=== PATIENT | male | born 1950 | race Caucasian/White ===

== ENCOUNTER 2021-05-19 07:09 | Outpatient (CLI) | payer OTHER, SELFPAY ==
--- NOTE | 2021-05-19 07:21 | XR_ITS ---
WS: [id number] XR chest 2V* [id number] REASON FOR EXAM: LOW PITCHED RHONCHI FINDINGS: The heart and mediastinum are within normal limits. Calcified granulomatous changes in both hemithoraces. Compared to the previous examination of 06/15/2009, there are interstitial reticular opacities in both lower lungs. Mild changes of degenerative spondylosis in the mid and lower thoracic spine. XR/XR chest 2V* [id number] IMPRESSION: Interstitial opacities in the lower lung ansari of unknown chronicity. Compatib le with subacute/acute pneumonitis.
== END 2021-05-19 07:10 | disposition home or self-care (01) ==
PROVIDERS: PCP Family Medicine; Visit Provider Registered Nurse
DX: R09.89 Other specified symptoms and signs involving the circulatory and respiratory systems (principal)
CPT/HCPCS: 71046

== ENCOUNTER 2021-06-20 07:00 | Outpatient (CLI) | payer OTHER, SELFPAY ==
--- NOTE | 2021-06-20 07:08 | US_ITS ---
WS: [id number] RENAL ULTRASOUND HISTORY: STAGE 3B CKD COMPARISON: None available. TECHNIQUE: 2-D and color Doppler imaging of the kidney submitted. Right kidney: 12.4 cm x 6.0 cm x 5.5 cm. Normal echogenicity with no hydronephrosis or mass. Left kidney: 13.2 cm x 4.4 cm x 4.8 cm. Normal echogenicity with no hydronephrosis or mass. Aorta: Normal. Urinary Bladder: Well-distended urinary bladder. There is very mild diffuse wall thickening which may be due to outlet obstruction. Mixed echogenicity within the prostate gland. Cystic area centrally wi thin the prostate. US/US renal BI* [id number] IMPRESSION: 1. Normal renal ultrasound. No obstruction or chronic medical renal disease. 2. Mildly heterogeneous prostate gland with minimal encroachment into the blad lance.
== END 2021-06-20 07:01 | disposition home or self-care (01) ==
LOC: RAD 07:03
PROVIDERS: PCP Family Medicine; Visit Provider Registered Nurse
DX: N18.32 Chronic kidney disease, stage 3b (principal)
CPT/HCPCS: 76770

== ENCOUNTER 2021-12-15 14:25 | Emergency (ER) | payer OTHER, SELFPAY ==
[2021-12-15] VITALS (43 sets, daily range): BP systolic 95–137; BP diastolic 55–65; PULSE 61–98; RESP 11–24; TEMP 37.6–37.7; O2SAT 97–100; BMI 28.7
--- NOTE | 2021-12-15 14:30 | PC.NURSE ---
ESAU VICENTE, AND DR BALLESTEROS AT BEDSIDE.
[2021-12-15] MEDS: succinylcholine 20 mg/mL SDV 10mL 100 MG IVP (14:36)
[2021-12-15] MEDS: propofol 10 mg/mL SDV 20 mL 100 MG IVP (14:46)
--- NOTE | 2021-12-15 14:46 | ECG_ITS ---
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 Measurements Intervals [place] Rate: 105 P: [place]: QRS: -58 QRSD: 101 T: 84 QT: 322 QTc: 427 Interpretive Statements ATRIAL FIBRILLATION WITH RAPID VENTRICULAR RESPONSE LEFT AXIS DEVIATION [QRS AXIS < -30] INCOMPLETE RIGHT BUNDLE BRANCH BLOCK [90+ ms QRS DURATION, TERMINAL R IN V1/V2, 40+ ms S IN I/aVL/V4/V5/V6] MODERATE ST DEPRESSION [0.05+ mV ST DEPRESSION] INTERPRETATION BASED ON A DEFAULT AGE OF 40 YEARS No previous ECG available for comparison Electronically Signed On 12-15-2021 22:42:11 CDT by Yumi Hodge M.D. [id number]
--- NOTE | 2021-12-15 14:46 | XRR_ITS ---
PROCEDURE INFORMATION: Exam: XR Chest Exam date and time: 12/15/2021 2:50 PM Age: 71 years old Clinical indication: Device placement; Ett placement (vent status); Additional info: Post-intubation TECHNIQUE: Imaging protocol: Radiologic exam of the chest. Views: 1 view. COMPARISON: CR XR chest 2V* [id number] 05/19/2021 7:43 AM FINDINGS: Tubes, catheters and devices: Endotracheal tube tip in place 5 cm above the haydee. Enteric tube tip below the diaphragm the gastric bubble. Lungs: Right lung airspace infiltrate, greatest in the upper lobe. Pleural spaces: Unremarkable. No pleural effusion. No pneumothorax. Heart/Mediastinum: Cardiomegaly. Bones/joints: Unremarkable. XR/XR chest 1V portable [id number] IMPRESSION: 1. Endotracheal tube tip in place 5 cm above the haydee. 2. Enteric tube tip below the diaphragm the gastric bubble. 3. Right lung airspace infiltrate, greatest in the upper lobe. 4. Cardiomegaly.
--- NOTE | 2021-12-15 14:55 | PC.NURSE ---
JEWELRY ESTIMATOR WITH PORTABLE XRAY AND DR. BALLESTEROS AT BEDSIDE.
--- NOTE | 2021-12-15 15:00 | ED_ITS ---
Documented by User: Mike Weathers DO 12/22/21 12:13 HPI - SOB/Dyspnea General: Chief Complaint: Shortness of Breath/Dyspnea Stated Complaint: COUGH UP BLOOD/SOB Time Seen by Provider: 12/15/21 14:26 Source: patient and EMS Mode of arrival: EMS Limitations: physical limitation (Respiratory distress) History of Present Illness: HPI Narrative: 71-year-old male presents emergency room via EMS in acute respiratory distress with tripoding with extreme difficulty breathing was able to tell me he is okay with being ventilated and he had a procedure this morning at [facility] where he had a bronchoscopy with biopsy he is having hemoptysis and severe respiratory distress. MD elicited complaint: shortness of breath and cough Pertinent past history: COPD Onset (ago): hour(s) Timing: constant Severity: severe Exacerbating factors: nothing Relieving factors: nothing Known history of: COPD Associated symptoms: Reports hemoptysis; Deny chest pain, cough, myalgias, paresthesias, rash or sense of impending doom Treatment prior to arrival: oxygen, bronchodilator and other (IV Solu-Medrol) Review of Systems General: Reports: ROS unobtainable due to medical condition Card: Denies: chest pain Resp: Reports: hemoptysis [facility] ED PFSH: Medical History (Updated 12/15/21 @ 15:09 by Mike Weathers DO) COPD (chronic obstructive pulmonary disease) Supplemental [facility] Information: due to endotracheal tube and due to other reason (Respiratory distress) Physical Exam HENMT: COMMON NORMALS: normocephalic and atraumatic HEAD & SCALP: normocephalic and atraumatic Resp: COMMON NORMALS: normal respiratory effort, No retractions, No use of accessory muscles and clear to auscultation bilaterally AUSCULTATION: clear to auscultation bilaterally Cardio: COMMON NORMALS: regular rate, regular rhythm and No murmurs present (Cardio) RATE: regular rate RHYTHM: regular rhythm GI: COMMON NORMALS: Soft to palpation and No hepatosplenomegaly present AUSCULTATION: Yes normoactive bowel sounds PALPATION: Yes Soft to palpation, No Tenderness to palpation present (GI), No Guarding due to palpation present (GI) and Yes No hepatosplenomegaly present Extremity: COMMON NORMALS: normal to inspection, capillary refill normal, no clubbing, cyanosis or edema, no calf tenderness and no pedal edema Skin: COMMON NORMALS: no rashes or lesions noted GENERAL SKIN EXAM: no rashes or lesions noted Procedures Intubation Time out performed: Yes sedative: Etomidate paralytic: Succinylcholine ET Tube Size: 8.5 ET Tube Uncuffed: Yes Tube Secured Depth (cm): 24 Tube Secured Location: teeth Tube Placement Confirmation: visualized tube passing through cords, equal breath sounds bilaterally, no breath sounds over epigastrium and confirmation by capnometry Patient Tolerated Procedure: well Additional Comments: Initial intubation there is a leak around the tube the tube was exchanged and we are able to see it in place without any difficulty. Patient ventilated without difficulty oxygenation improved. Course Vital Signs: Vital signs: Vital Signs Temperature 99.6 F 12/15/21 21:20 Pulse Rate 62 12/15/21 21:20 Respiratory Rate 16 12/15/21 21:20 Blood Pressure 121/55 12/15/21 21:20 Pulse Oximetry 100 12/15/21 21:20 MDM - SOB/Dyspnea Medical Decision Making Patient intubated on arrival due to severe respiratory distress we are able to track down that he had a bronchoscopy done earlier today at [facility]. They do not have available beds at their facility for ICU and we do not have pulmonology coverage. Discussed with hospitalist we all agreed to be best to transfer the patient were at change of shift care transferred to Dr. Villar he will affect transfer. Patient presents here with hemoptysis respiratory distress along with a likely pneumonia after a bronchoscopy done today. Patient was intubated here started on IV antibiotics we do not have pulmonology here and will transfer her him to [place] for higher level of care for pulmonary critical care. Lab Data : 12/15/21 17:47 12/15/21 14:40 Labs/Radiology: Radiology Impressions Chest X-Ray 12/15/21 14:46 IMPRESSION: 1. Endotracheal tube tip in place 5 cm above the haydee. 2. Enteric tube tip below the diaphragm the gastric bubble. 3. Right lung airspace infiltrate, greatest in the upper lobe. 4. Cardiomegaly. Laboratory Results WBC 34.7 10^3/uL (4.0-10.0) H* 12/15/21 14:40 RBC 4.99 10^6/uL (4.1-5.3) 12/15/21 14:40 Hgb 13.4 g/dL (11.7-16.6) 12/15/21 14:40 Hct 41.5 % (42.0-52.0) L 12/15/21 14:40 MCV 83.2 fl (80-94) 12/15/21 14:40 MCH 26.9 pg (28.0-34.0) L 12/15/21 14:40 MCHC 32.3 g/dL (30.0-36.0) 12/15/21 14:40 RDW 16.1 % (12.1-15.1) H 12/15/21 14:40 Plt Count 157 10^3/cmm (130-400) D 12/15/21 17:47 MPV 10.4 fL (7.4-10.4) 12/15/21 14:40 Lymph % (Auto) Not Reportable 12/15/21 14:40 [place] % (Auto) Not Reportable 12/15/21 14:40 Lymph # (Auto) Not Reportable 12/15/21 14:40 [place] # (Auto) Not Reportable 12/15/21 14:40 Total Counted 100 (0-100) 12/15/21 14:40 Atypical Lymphs % 24.0 % (0-5) H 12/15/21 14:40 Absolute Neutrophils 18.0 10^3/cmm (1.4-6.5) H 12/15/21 14:40 Segmented Neutrophils 52 % 12/15/21 14:40 Abs Segm Neuts (Man) 18.0 10/cmm (1.6-7.1) H 12/15/21 14:40 Band Neutrophils 0.0 % 12/15/21 14:40 Abs Band Neuts (Man) 0.0 10^3/cmm (0.0-1.2) 12/15/21 14:40 Absolute Lymphocytes 14.6 10^3/cmm (1.2-3.4) H 12/15/21 14:40 Lymphocytes (Manual) 18 % 12/15/21 14:40 Monocytes (Manual) 2.0 % 12/15/21 14:40 Absolute Monocytes 0.7 10^3/cmm (0.1-0.6) H 12/15/21 14:40 Eosinophils (Manual) 1 % 12/15/21 14:40 Absolute Eosinophils 0.3 10^3/cmm (0.0-0.7) 12/15/21 14:40 Basophils (Manual) 0.0 % 12/15/21 14:40 Absolute Basophils 0.0 10^3/cmm (0.0-0.2) 12/15/21 14:40 Platelet Estimate Normal (Normal) 12/15/21 14:40 PT 14.70 SECONDS (12.1-14.9) 12/15/21 16:42 INR 1.12 (0.8-1.2) 12/15/21 16:42 APTT 26.3 SECONDS (23.9-36.7) 12/15/21 16:42 Specimen Type Arterial 12/15/21 17:06 Sample Site Brachial, right 12/15/21 17:06 ABG pH 7.33 (7.35-7.45) L 12/15/21 17:06 ABG pCO2 57.4 mmHg (35-45) H 12/15/21 17:06 ABG pO2 136.0 mmHg (80.0-100.0) H 12/15/21 17:06 ABG HCO3 30.3 mmol/L (22-26) H 12/15/21 17:06 ABG Base Excess 3.0 mmol/L (-2.0-2.0) H 12/15/21 17:06 Saad Test N/a 12/15/21 17:06 Hematocrit 40.6 % (42-52) L 12/15/21 17:06 O2 Delivery Device Vent 12/15/21 17:06 O2 Liters/Min 15.0 % 12/15/21 15:00 FiO2 70.0 % 12/15/21 17:06 Tidal Volume 0.50 12/15/21 17:06 PEEP 8.0 cmH20 12/15/21 17:06 Salesperson Sheet Music ID Odilon 12/15/21 17:06 Sodium 133 mmol/L (136-145) L 12/15/21 14:40 Potassium 5.0 mmol/L (3.5-5.1) 12/15/21 14:40 Chloride 95 mmol/L (98-107) L 12/15/21 14:40 Carbon Dioxide 29 mmol/L (22-29) 12/15/21 14:40 Anion Gap 14.0 (5-19) 12/15/21 14:40 BUN 22 mg/dL (8-23) 12/15/21 14:40 Creatinine 1.0 mg/dL (0.7-1.2) 12/15/21 14:40 GFR Calculation 74.1 mL/min (90-130) L 12/15/21 14:40 Glucose 171 mg/dL (65-115) H 12/15/21 14:40 Calculated Osmolality 283 mOsm/kg (285-295) L 12/15/21 14:40 Lactic Acid 1.1 mmol/L (0.5-2.2) 12/15/21 17:47 Calcium 9.0 mg/dL (8.5-10.5) 12/15/21 14:40 Total Bilirubin 0.7 mg/dL (0.15-1.2) 12/15/21 14:40 AST 22 U/L (0-40) 12/15/21 14:40 ALT 20 U/L (0-41) 12/15/21 14:40 Alkaline Phosphatase 107 IU/L (40-130) 12/15/21 14:40 Troponin T Baseline 60 ng/L (0-15) H 12/15/21 14:40 Troponin T 120 Minute 107.2 ng/L (0-15) H 12/15/21 16:42 Delta Troponin T 47.2 ABS# (0-10) H* 12/15/21 16:42 Total Protein 7.3 g/dL (6.6-8.7) 12/15/21 14:40 Albumin 3.8 g/dL (3.5-5.2) 12/15/21 14:40 Globulin 3.5 g/dL (1.3-4.6) 12/15/21 14:40 Urine Color Yellow (Yellow) 12/15/21 15:08 Urine Appearance Clear (CLEAR) 12/15/21 15:08 Urine pH 6.5 (5-7) 12/15/21 15:08 Ur Specific [place] 1.015 (1.005-1.030) 12/15/21 15:08 Urine Protein 1+ (Negative) H 12/15/21 15:08 Urine Glucose (UA) Norm (Normal) 12/15/21 15:08 Urine Ketones Negative (Negative) 12/15/21 15:08 Urine Blood Neg (Negative) 12/15/21 15:08 Urine Nitrate Negative (Negative) 12/15/21 15:08 Urine Bilirubin Neg (Negative) 12/15/21 15:08 Urine Urobilinogen 1 mg/dL (Negative) H 12/15/21 15:08 Ur Leukocyte Esterase Negative (Negative) 12/15/21 15:08 Urine RBC 0-4 /hpf (0-2) H 12/15/21 15:08 Urine WBC 0-4 /hpf (0-5) H 12/15/21 15:08 Ur Squamous Epith Cells 0-4 /hpf (0-5) H 12/15/21 15:08 Amorphous Sediment Not Reportable 12/15/21 15:08 Urine Bacteria None /hpf (NONE) 12/15/21 15:08 Critical Care Time Critical Care Time: Critical Care Time: Yes Discharge Plan Discharge Patient Disposition: Xfer Short-Term Hosp Condition: Stable Referrals: Jayda Lucas MD [Primary Care Provider] - Coding Level of Care Code ED Shoe Stock Associate for Chg Fwd Exam Detailed Documented by User: Nate Villar MD 12/15/21 20:47 HPI - SOB/Dyspnea General: Chief Complaint: Shortness of Breath/Dyspnea Stated Complaint: COUGH UP BLOOD/SOB Time Seen by Provider: 12/15/21 14:26 [facility] ED PFSH: Medical History (Updated 12/15/21 @ 15:09 by Mike Weathers DO) COPD (chronic obstructive pulmonary disease) Course Vital Signs: Vital signs: Vital Signs Temperature 99.6 F 12/15/21 21:20 Pulse Rate 62 12/15/21 21:20 Respiratory Rate 16 12/15/21 21:20 Blood Pressure 121/55 12/15/21 21:20 Pulse Oximetry 100 12/15/21 21:20 MDM - SOB/Dyspnea Medical Decision Making Patient presents here with hemoptysis respiratory distress along with a likely pneumonia after a bronchoscopy done today. Patient was intubated here started on IV antibiotics we do not have pulmonology here and will transfer her him to [place] for higher level of care for pulmonary critical care. Lab Data : 12/15/21 17:47 12/15/21 14:40 Labs/Radiology: Radiology Impressions Chest X-Ray 12/15/21 14:46 IMPRESSION: 1. Endotracheal tube tip in place 5 cm above the haydee. 2. Enteric tube tip below the diaphragm the gastric bubble. 3. Right lung airspace infiltrate, greatest in the upper lobe. 4. Cardiomegaly. Laboratory Results WBC 34.7 10^3/uL (4.0-10.0) H* 12/15/21 14:40 RBC 4.99 10^6/uL (4.1-5.3) 12/15/21 14:40 Hgb 13.4 g/dL (11.7-16.6) 12/15/21 14:40 Hct 41.5 % (42.0-52.0) L 12/15/21 14:40 MCV 83.2 fl (80-94) 12/15/21 14:40 MCH 26.9 pg (28.0-34.0) L 12/15/21 14:40 MCHC 32.3 g/dL (30.0-36.0) 12/15/21 14:40 RDW 16.1 % (12.1-15.1) H 12/15/21 14:40 Plt Count 157 10^3/cmm (130-400) D 12/15/21 17:47 MPV 10.4 fL (7.4-10.4) 12/15/21 14:40 Lymph % (Auto) Not Reportable 12/15/21 14:40 [place] % (Auto) Not Reportable 12/15/21 14:40 Lymph # (Auto) Not Reportable 12/15/21 14:40 [place] # (Auto) Not Reportable 12/15/21 14:40 Total Counted 100 (0-100) 12/15/21 14:40 Atypical Lymphs % 24.0 % (0-5) H 12/15/21 14:40 Absolute Neutrophils 18.0 10^3/cmm (1.4-6.5) H 12/15/21 14:40 Segmented Neutrophils 52 % 12/15/21 14:40 Abs Segm Neuts (Man) 18.0 10/cmm (1.6-7.1) H 12/15/21 14:40 Band Neutrophils 0.0 % 12/15/21 14:40 Abs Band Neuts (Man) 0.0 10^3/cmm (0.0-1.2) 12/15/21 14:40 Absolute Lymphocytes 14.6 10^3/cmm (1.2-3.4) H 12/15/21 14:40 Lymphocytes (Manual) 18 % 12/15/21 14:40 Monocytes (Manual) 2.0 % 12/15/21 14:40 Absolute Monocytes 0.7 10^3/cmm (0.1-0.6) H 12/15/21 14:40 Eosinophils (Manual) 1 % 12/15/21 14:40 Absolute Eosinophils 0.3 10^3/cmm (0.0-0.7) 12/15/21 14:40 Basophils (Manual) 0.0 % 12/15/21 14:40 Absolute Basophils 0.0 10^3/cmm (0.0-0.2) 12/15/21 14:40 Platelet Estimate Normal (Normal) 12/15/21 14:40 PT 14.70 SECONDS (12.1-14.9) 12/15/21 16:42 INR 1.12 (0.8-1.2) 12/15/21 16:42 APTT 26.3 SECONDS (23.9-36.7) 12/15/21 16:42 Specimen Type Arterial 12/15/21 17:06 Sample Site Brachial, right 12/15/21 17:06 ABG pH 7.33 (7.35-7.45) L 12/15/21 17:06 ABG pCO2 57.4 mmHg (35-45) H 12/15/21 17:06 ABG pO2 136.0 mmHg (80.0-100.0) H 12/15/21 17:06 ABG HCO3 30.3 mmol/L (22-26) H 12/15/21 17:06 ABG Base Excess 3.0 mmol/L (-2.0-2.0) H 12/15/21 17:06 Saad Test N/a 12/15/21 17:06 Hematocrit 40.6 % (42-52) L 12/15/21 17:06 O2 Delivery Device Vent 12/15/21 17:06 O2 Liters/Min 15.0 % 12/15/21 15:00 FiO2 70.0 % 12/15/21 17:06 Tidal Volume 0.50 12/15/21 17:06 PEEP 8.0 cmH20 12/15/21 17:06 Salesperson Sheet Music ID Odilon 12/15/21 17:06 Sodium 133 mmol/L (136-145) L 12/15/21 14:40 Potassium 5.0 mmol/L (3.5-5.1) 12/15/21 14:40 Chloride 95 mmol/L (98-107) L 12/15/21 14:40 Carbon Dioxide 29 mmol/L (22-29) 12/15/21 14:40 Anion Gap 14.0 (5-19) 12/15/21 14:40 BUN 22 mg/dL (8-23) 12/15/21 14:40 Creatinine 1.0 mg/dL (0.7-1.2) 12/15/21 14:40 GFR Calculation 74.1 mL/min (90-130) L 12/15/21 14:40 Glucose 171 mg/dL (65-115) H 12/15/21 14:40 Calculated Osmolality 283 mOsm/kg (285-295) L 12/15/21 14:40 Lactic Acid 1.1 mmol/L (0.5-2.2) 12/15/21 17:47 Calcium 9.0 mg/dL (8.5-10.5) 12/15/21 14:40 Total Bilirubin 0.7 mg/dL (0.15-1.2) 12/15/21 14:40 AST 22 U/L (0-40) 12/15/21 14:40 ALT 20 U/L (0-41) 12/15/21 14:40 Alkaline Phosphatase 107 IU/L (40-130) 12/15/21 14:40 Troponin T Baseline 60 ng/L (0-15) H 12/15/21 14:40 Troponin T 120 Minute 107.2 ng/L (0-15) H 12/15/21 16:42 Delta Troponin T 47.2 ABS# (0-10) H* 12/15/21 16:42 Total Protein 7.3 g/dL (6.6-8.7) 12/15/21 14:40 Albumin 3.8 g/dL (3.5-5.2) 12/15/21 14:40 Globulin 3.5 g/dL (1.3-4.6) 12/15/21 14:40 Urine Color Yellow (Yellow) 12/15/21 15:08 Urine Appearance Clear (CLEAR) 12/15/21 15:08 Urine pH 6.5 (5-7) 12/15/21 15:08 Ur Specific [place] 1.015 (1.005-1.030) 12/15/21 15:08 Urine Protein 1+ (Negative) H 12/15/21 15:08 Urine Glucose (UA) Norm (Normal) 12/15/21 15:08 Urine Ketones Negative (Negative) 12/15/21 15:08 Urine Blood Neg (Negative) 12/15/21 15:08 Urine Nitrate Negative (Negative) 12/15/21 15:08 Urine Bilirubin Neg (Negative) 12/15/21 15:08 Urine Urobilinogen 1 mg/dL (Negative) H 12/15/21 15:08 Ur Leukocyte Esterase Negative (Negative) 12/15/21 15:08 Urine RBC 0-4 /hpf (0-2) H 12/15/21 15:08 Urine WBC 0-4 /hpf (0-5) H 12/15/21 15:08 Ur Squamous Epith Cells 0-4 /hpf (0-5) H 12/15/21 15:08 Amorphous Sediment Not Reportable 12/15/21 15:08 Urine Bacteria None /hpf (NONE) 12/15/21 15:08 Critical Care Time Critical Care Time: Critical Care Time: Yes Total Critical Care Time: 60 Attestation: The high probability of a clinically significant, sudden or life threatening deterioration of the patient's resp system(s) required my full and direct attention, intervention and personal management. The critical care time is as shown. This time is in addition to time spent performing any reported procedures but includes the following: [x] Data and vital sign review and interpretation [x] Patient assessment, examination and intervention [x] Documentation [x] Medication orders and management Discharge Plan Discharge Patient Disposition: Xfer Short-Term Hosp Condition: Stable Referrals: Jayda Lucas MD [Primary Care Provider] - Coding Level of Care Code ED Shoe Stock Associate for Chg Fwd Exam Detailed
--- NOTE | 2021-12-15 15:01 | PC.NURSE ---
PT PLACED ON CONTINUOUS SPO2, NIBP, AND CM.
[2021-12-15 15:05] LABS: Arterial Blood Gas Hematocrit 42.6 % (42-52); Base Excess ABG -0.9 mmol/L (-2.0-2.0); Blood Gas Sample Site Brachial, right; Blood Gas Sample Type Arterial; Blood Gas Tidal Volume 0.45; HCO3 ABG 29.8 mmol/L (22-26)
[2021-12-15 15:06] LABS: Oxygen Device AMBU
[2021-12-15 15:07] LABS: Hematocrit 41.5 % (42.0-52.0); Hemoglobin 13.4 g/dL (11.7-16.6); Mean Corpuscular HGB Conc 32.3 g/dL (30.0-36.0); Mean Corpuscular Hemoglobin 26.9 pg (28.0-34.0); Mean Corpuscular Volume 83.2 fl (80-94); Mean Platelet Volume 10.4 fL (7.4-10.4); Platelet Count 235 10^3/cmm (130-400); Red Blood Count 4.99 10^6/uL (4.1-5.3); Red Cell Distribution Width 16.1 % (12.1-15.1)
[2021-12-15 15:08] LABS: ABG PH Result 7.18 (7.35-7.45)
[2021-12-15] MEDS: propofol 1,000 MG/100 ML INJ 27.22 MG IV (15:08)
[2021-12-15 15:09] LABS: ABG PCO2 80.5 mmHg (35-45)
[2021-12-15 15:12] LABS: Troponin(5th) Baseline 60 ng/L (0-15)
[2021-12-15] MEDS: piperacillin-tazobactam 3.375 GM in sodium chloride 0.9% (plus) 50 ML IV (15:14)
[2021-12-15 15:18] LABS: Alanine Aminotransferase 20 U/L (0-41); Albumin Level 3.8 g/dL (3.5-5.2); Alkaline Phosphatase 107 IU/L (40-130); Aspartate Amino Transferase 22 U/L (0-40); Blood Urea Nitrogen 22 mg/dL (8-23); Carbon Dioxide 29 mmol/L (22-29); Chloride 95 mmol/L (98-107); Globulin 3.5 g/dL (1.3-4.6); Glomerular Filtration Rate 74.1 mL/min (90-130); Glucose 171 mg/dL (65-115); Osmolality Calculated 283 mOsm/kg (285-295); Sodium 133 mmol/L (136-145); Total Bilirubin 0.7 mg/dL (0.15-1.2); Total Protein 7.3 g/dL (6.6-8.7)
[2021-12-15 15:19] LABS: Lactic Sepsis W/Reflex 1.7 mmol/L (0.5-2.2)
--- NOTE | 2021-12-15 15:48 | PC.NURSE ---
AT BEDSIDE PT CONDITION IS UNCHANGED. FAMILY DENIES ANY NEEDS AT THIS TIME.
--- NOTE | 2021-12-15 16:46 | ECG_ITS ---
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 Measurements Intervals [place] Rate: 85 P: [place]: QRS: -62 QRSD: 92 T: 87 QT: 355 QTc: 423 Interpretive Statements ATRIAL FIBRILLATION LEFT AXIS DEVIATION [QRS AXIS < -30] INCOMPLETE RIGHT BUNDLE BRANCH BLOCK [90+ ms QRS DURATION, TERMINAL R IN V1/V2, 40+ ms S IN I/aVL/V4/V5/V6] POSSIBLE ANTERIOR MYOCARDIAL INFARCTION , OF INDETERMINATE AGE [30 ms Q WAVE IN V3/V4, OR R < 0.2 mV IN V4] Compared to ECG 12/15/2021 14:52:28 Myocardial infarct finding now present ST (T wave) deviation no longer present Electronically Signed On 12-16-2021 17:14:37 CDT by Yumi Hodge M.D. [id number]
[2021-12-15 16:52] LABS: Slide Review Slide Review Perform; White Blood Count 34.7 10^3/uL (4.0-10.0)
--- NOTE | 2021-12-15 16:59 | PC.PHAR ---
[facility] state [facility]ine - states pt is not allergic to amlodipine, allergic to quinolones, azithromycin, levaquin
[2021-12-15 17:07] LABS: ABG PCO2 57.4 mmHg (35-45); ABG PH Result 7.33 (7.35-7.45); Arterial Blood Gas Hematocrit 40.6 % (42-52); Blood Gas Sample Site Brachial, right; Blood Gas Sample Type Arterial; HCO3 ABG 30.3 mmol/L (22-26); Oxygen Device VENT
--- NOTE | 2021-12-15 17:11 | PC.NURSE ---
WHILE AT BEDSIDE PT CONDITION IS UNCHANGED. PT FAMILY DENIES ANY FURTHER NEEDS.
[2021-12-15 17:15] LABS: INR 1.12 (0.8-1.2); Partial Thromboplastin Time 26.3 SECONDS (23.9-36.7)
[2021-12-15 17:22] LABS: Troponin 5 2HR 107.2 ng/L (0-15); Troponin 5 2HR Delta 47.2 ABS# (0-10)
[2021-12-15 17:24] LABS: Bilirubin Urine Neg (Negative); Blood Urine Neg (Negative); Glucose Urine UA Norm (Normal); Ketones Urine Negative (Negative); Nitrate Urine Negative (Negative); Protein Urine 1+ (Negative); Specific Gravity, Urine 1.015 (1.005-1.030); Urine Appearance Clear (CLEAR); Urine Color Yellow (Yellow); Urobilinogen Urine 1 mg/dL (Negative); pH Urine 6.5 (5-7)
[2021-12-15 17:25] LABS: Add Urine Culture? No; Add Urine Microscopic? YES; Leukocyte Esterase Urine Negative (Negative); RBC Urine 0-4 /hpf (0-2); Squamous Epithelial Cell Urine 0-4 /hpf (0-5); WBC Urine 0-4 /hpf (0-5)
[2021-12-15 17:26] LABS: Platelet Estimate Normal (Normal)
[2021-12-15 17:28] LABS: Lymphocytes 18 %; Segmented Neutrophils 52 %; Total Cells Counted 100 (0-100)
[2021-12-15 17:29] LABS: Absolute Eosinophils 0.3 10^3/cmm (0.0-0.7); Eosinophils 1 %; Lymphocytes Absolute 14.6 10^3/cmm (1.2-3.4); Monocytes Absolute 0.7 10^3/cmm (0.1-0.6)
[2021-12-15] MEDS: vancomycin 1,000 MG in sodium chloride 0.9% 250 ML 250 MG IV (17:36)
[2021-12-15] MEDS: heparin 5,000 unit/mL INJ 1 mL IV (17:59)
[2021-12-15] MEDS: heparin drip 25,000 UNIT/500 ML PREMIX 27.3 UNIT IV (17:59)
[2021-12-15 18:22] LABS: Lactic Sepsis W/Reflex 1.1 mmol/L (0.5-2.2)
[2021-12-15 18:42] LABS: Platelet Count 157 10^3/cmm (130-400)
--- NOTE | 2021-12-15 19:11 | PC.NURSE ---
REPORT GIVEN TO JARON CIFUENTES ASSUMED CARE.
--- NOTE | 2021-12-15 20:46 | ECG_ITS ---
[facility] Test Date: 2021-12-15 Pat Name: Grayson Shepard Department: Room: Gender: Male Urogynaecologist: : 1950 Requested By: Mike Hernández Order Number: [id number] Forest MD: Yumi Hodge M.D. Measurements Intervals [place] Rate: 54 P: MD: QRS: -67 QRSD: 98 T: 10 QT: 424 QTc: 403 Interpretive Statements ATRIAL FIBRILLATION WITH SLOW VENTRICULAR RESPONSE LEFT ANTERIOR FASCICULAR BLOCK [QRS AXIS <= -45, QR IN I, RS IN II] ANTEROSEPTAL MYOCARDIAL INFARCTION , OF INDETERMINATE AGE [40+ ms Q WAVE IN V1-V4] MODERATE T-WAVE ABNORMALITY, CONSIDER LATERAL ISCHEMIA [-0.1+ mV T-WAVE IN I/aVL/V5/V6] Compared to ECG 12/15/2021 16:41:02 Left anterior fascicular block now present T-wave abnormality now present Possible ischemia now present Left-axis deviation no longer present Incomplete right bundle-branch block no longer present Myocardial infarct finding still present Electronically Signed On 12-16-2021 17:16:07 CDT by Yumi Hodge M.D. [id number]
== END 2021-12-15 22:25 | disposition short-term general hospital (02) ==
PROVIDERS: Family Medicine; Emergency Provider Emergency Medicine; PCP Family Medicine
DX: R06.03 Acute respiratory distress (principal); R04.2 Hemoptysis; J44.9 Chronic obstructive pulmonary disease, unspecified
CPT/HCPCS: 36415; 36600; 51702; 71045; 80051; 80053; 81001; 82330; 82803; 82805; 83605; 84484; 85007; 85025; 85049; 85610; 85730; 87070; 87205; 93005; 94002; 94799; 96365; 96366; 96367; 99291; J0330; J1644; J2543; J2704; J3370; J3490; J7050

== ENCOUNTER 2024-05-01 13:53 | Inpatient (IN) | payer OTHER, SELFPAY ==
[2024-05-01] VITALS (31 sets, daily range): BP systolic 98–139; BP diastolic 35–71; PULSE 56–84; RESP 18–31; TEMP 36.3–36.7; O2SAT 88–100; BMI 25.1
--- NOTE | 2024-05-01 13:54 | CTR_ITS ---
PROCEDURE INFORMATION: Exam: CT Head Without Contrast Exam date and time: 05/01/2024 1:55 PM Age: 74 years old Clinical indication: Stroke-like symptoms; Speech disturbance; Additional info: Symptoms of acute stroke TECHNIQUE: Imaging protocol: Computed tomography of the head without contrast. Radiation optimization: All CT scans at this facility use at least one of these dose optimization techniques: automated exposure control; mA and/or kV adjustment per patient size (includes targeted exams where dose is matched to clinical indication); or iterative reconstruction. Other technique: STROKE PROTOCOL was implemented. COMPARISON: No relevant prior studies available. RADIATION DOSE METRICS: Total DLP (mGy-cm): 1149.98 FINDINGS: Brain: Mild nonspecific white matter low attenuation which may be related to microvascular ischemic changes. No acute confluent lobar ischemic infarct. No acute intracranial hemorrhage. Cerebral ventricles: The ventricles and sulci are prominent in size compatible with moderate atrophy. Paranasal sinuses: Mucoperiosteal thickening is seen involving the visualized paranasal sinuses. Mastoid air cells: Visualized mastoid air cells are well aerated. Bones: No acute calvarial fracture. Soft tissues: Visualized soft tissues are unremarkable. CT/CT head thrombolytic [id number] IMPRESSION: No acute intracranial abnormality. If symptoms persist, consider further evaluation with MRI, if MRI is clinically safe to obtain. ASSESSMENT: ASPECTS (Annetta Stroke Program Early CT Score) is 10.
--- NOTE | 2024-05-01 13:54 | XRR_ITS ---
PROCEDURE INFORMATION: Exam: XR Chest Exam date and time: 05/01/2024 1:59 PM Age: 74 years old Clinical indication: Shortness of breath; Additional info: SOB TECHNIQUE: Imaging protocol: Radiologic exam of the chest. Views: 1 view. COMPARISON: CR XR chest 1V portable [id number] 12/15/2021 2:50 PM FINDINGS: Lungs: Left lung base atelectasis/infiltrate. Diffuse bilateral interstitial and patchy alveolar lung infiltrates Pleural spaces: Small left pleural effusion. Heart/Mediastinum: Prosthetic aortic valve. Bones/joints: No acute bony abnormality. XR/XR chest 1V portable [id number] IMPRESSION: Findings compatible with pulmonary vascular congestion. Infection can not be excluded. Recommend clinical correlation.
--- NOTE | 2024-05-01 14:04 | ECG_ITS ---
[facility] Test Date: 2024-05-01 Pat Name: Grayson Shepard Department: Room: Gender: Male Bobbin Handler: : 1950 Requested By: Nate Villar Order Number: [id number] [place] MD: Woodrow Peña M.D. Measurements Intervals [place] Rate: 80 P: 0 TN: 0 QRS: -43 QRSD: 98 T: 85 QT: 342 QTc: 395 Interpretive Statements ATRIAL FIBRILLATION LEFT AXIS DEVIATION [QRS AXIS < -30] ANTEROSEPTAL MYOCARDIAL INFARCTION , OF INDETERMINATE AGE [40+ ms Q WAVE IN V1-V4] Compared to ECG 12/15/2021 21:04:43 Left-axis deviation now present Left anterior fascicular block no longer present T-wave abnormality no longer present Possible ischemia no longer present Myocardial infarct finding still present Electronically Signed On 05-04-2024 18:57:37 LOCOMOTIVE OPERATOR by Woodrow Peña M.D. [email or web address]
[2024-05-01 14:09] LABS: Glucose Point of Care 228 mg/dL (70-110)
--- NOTE | 2024-05-01 14:09 | ED_ITS ---
HPI - Neuro Symptoms/Deficit 2 General: Chief Complaint: Neuro Symptoms/Deficit Stated Complaint: stroke alert Time Seen by Provider: 05/01/24 13:53 Source: patient and EMS Mode of arrival: EMS Limitations: no limitations History of Present Illness: 74-year-old male is here with EMS. EMS family all patient had had an episode around 1130 where he became confused was hallucinating family states that he did seem to be slurring his words and did not know where he was. Has since resolved since he is arrived he is answering all my questions appropriate here no slurred speech no weakness does have a history of lung cancer states he had a recent pneumonia he has had increasing shortness of breath patient wears 3 L of oxygen at all time of had to increase him to 5 to 6 L here he had also had a fall earlier today where he did hit his head has an abrasion to his forehead Associated symptoms: Deny chest pain, headache(s), nausea or vomiting Related Data Home Medications Medication Instructions Recorded Confirmed albuterol sulfate 2.5 mg/3 mL 2.5 mg inhalation Q6H PRN 12/15/21 05/01/24 (0.083 %) solution for nebulization Shortness Of Breath albuterol sulfate 90 mcg/actuation 1 puff inhalation Q4H PRN 12/15/21 05/01/24 aerosol inhaler Shortness Of Breath aspirin 81 mg chewable tablet 81 mg PO DAILY 12/15/21 05/01/24 budesonide 160 mcg-glycopyr 9 2 inh inhalation BID 12/15/21 05/01/24 mcg-formot 4.8 mcg/actuation HFA inhaler (Breztri Aerosphere) cholecalciferol (vitamin D3) 25 25 mcg PO DAILY 12/15/21 05/01/24 mcg (1,000 unit) tablet (Vitamin D3) docusate sodium 100 mg capsule 200 mg PO BID PRN Constipation 12/15/21 05/01/24 gabapentin 300 mg capsule 600 mg PO TID 12/15/21 05/01/24 insulin aspart U-100 100 unit/mL See Rx Instructions .Route .COMPLEX 12/15/21 05/01/24 subcutaneous solution (Novolog U-100 Insulin aspart) insulin glargine 100 unit/mL See Rx Instructions .Route .COMPLEX 12/15/21 05/01/24 subcutaneous solution (Lantus U-100 Insulin) modafinil 200 mg tablet 400 mg PO DAILY 12/15/21 05/01/24 omega 7-jhm-xib-fish oil 1,200 mg 2 cap PO BID 12/15/21 05/01/24 (144 mg-216 mg) capsule (Fish Oil) simvastatin 80 mg tablet 80 mg PO QPM 12/15/21 05/01/24 Lactobacillus acidophilus 500 500 mmu cells PO DAILY 05/01/24 05/01/24 million cell capsule bumetanide 0.5 mg tablet 0.5 mg PO BID 05/01/24 05/01/24 famotidine 20 mg tablet (Pepcid) 40 mg PO BID Acid Reflux 05/01/24 05/01/24 fluticasone propionate 50 1 spray intranasal DAILY 05/01/24 05/01/24 mcg/actuation nasal spray,suspension guaifenesin 600 mg tablet, 600 mg PO Q12H PRN Congestion 05/01/24 05/01/24 extended release 12 hr (Mucinex) hydrocodone 5 mg-acetaminophen 325 1 tab PO Q6H PRN Pain 05/01/24 05/01/24 mg tablet multivitamin 1 tab PO DAILY 05/01/24 05/01/24 sacubitril 24 mg-valsartan 26 mg 1 tab PO BID 05/01/24 05/01/24 tablet (Entresto) Allergies Allergy/AdvReac Type Severity Reaction Status Date / Time azithromycin Allergy Unknown Unknown Verified 12/15/21 16:58 levofloxacin [From Levaquin] Allergy Unknown Unknown Verified 12/15/21 16:58 Quinolones Allergy Unknown Unknown Verified 12/15/21 16:58 Review of Systems 2 Const: Denies: fever(s), chills, body aches or change in appetite ENMT: Denies: throat pain or dental pain Card: Denies: chest pain Resp: Reports: dyspnea and productive cough GI: Denies: abdominal pain, nausea, vomiting or diarrhea Musc: Denies: neck pain or back pain Skin/Breast: Denies: rash Neuro: Reports: confusion; Denies: headache(s) PFSH ED 2 PFSH: Medical History COPD (chronic obstructive pulmonary disease) NIH stroke score 2 NIHSS: Level Of Consciousness - 1a: 0 Level Of Consciousness Questions - 1b: Both Correct Level Of Consciousness Commands - 1c: Both Correct Best Gaze - 2: Normal Visual Seay - 3: No Visual Loss Facial Palsy - 4: N ormal Motor Arm Right - 5: No Drift Motor Arm Left - 5: No Drift Motor Leg Right - 6: No Drift Motor Leg Left - 6: No Drift Sensory - 8: Normal Best Language - 9: No Aphasia Dysarthia - 10: Normal Extinction And Inattention - 11: 0 Physical Exam 2 Const: COMMON NORMALS: patient oriented x3 and healthy appearing HENMT: COMMON NORMALS: normocephalic and atraumatic HEAD & SCALP: n ormocephalic and atraumatic Eye: COMMON NORMALS: Equal, round and reactive pupils present and EOMs intact bilaterally PUPIL: Yes Equal, round and reactive pupils present Neck/C-Spine: COMMON NORMALS: full ROM and supple Chest: COMMONS NORMALS: normal inspection of the chest Resp: COMMON NORMALS: No use of accessory muscles EFFORT & INSPECTION: Yes respiratory distress AUSCULTATION: rales on the left Cardio: COMMON NORMALS: regular rate and No murmurs present (Cardio) RATE: regular rate GI: COMMON NORMALS: Normal to inspection, nondistended, normoactive bowel sounds present, Soft to palpation, non-tender and no masses PALPATION: Yes Soft to palpation Extremity: COMMON NORMALS: normal to inspection and full ROM Neuro: COMMON NORMALS: patient oriented x3, moves all extremities and no focal motor deficits SPEECH: speech normal MOTOR EXAM: 5/5 motor strength present throughout Psych: COMMON NORMALS: mental status grossly normal, Normal thought process present and cooperative THOUGHT PROCESS: Normal thought process present Skin: COMMON NORMALS: no rashes or lesions noted and no wounds GENERAL SKIN EXAM: no rashes or lesions noted Course 2 Vital Signs: Vital signs: Vital Signs Temperature 98.1 F 05/01/24 14:03 Pulse Rate 75 05/01/24 14:52 Respiratory Rate 22 H 05/01/24 14:03 Blood Pressure 127/46 05/01/24 14:03 Pulse Oximetry 93 05/01/24 14:52 Oxygen Delivery Me thod Nasal Cannula 05/01/24 14:03 Oxygen Flow Rate 3 05/01/24 14:03 Fraction of Inspir ed Oxygen 35 05/01/24 14:52 MDM - Neuro Symptoms/Deficit Medical Decision Making Patient presents here with. Confusion at home he is at his baseline now his NIH is 0 no signs of stroke not a TNKase candidate as he has NIH is 0 he is hypoxic here does have a pneumonia on x-ray left placed on BiPAP start IV antibiotic spoke to hospitalist will admit. Medical Records I reviewed the patient's medical records. Lab Data I reviewed the patient's lab results. 05/01/24 13:49 05/01/24 13:49 Radiology Impressions Chest X-Ray 05/01/24 13:54 IMPRESSION: Findings compatible with pulmonary vascular congestion. Infection can not be excluded. Recommend clinical correlation. Head CT 05/01/24 13:54 IMPRESSION: No acute intracranial abnormality. If symptoms persist, consider further evaluation with MRI, if MRI is clinically safe to obtain. ASSESSMENT: ASPECTS ([place]ta Stroke Program Early CT Score) is 10. ADDENDUM: 05/01/24 1413 ADDENDUM: THIS REPORT CONTAINS FINDINGS THAT MAY BE CRITICAL TO PATIENT CARE. The findings were verbally communicated via telephone conference with BETH HOOKER at 2:11 PM DEPOSIT REFUND CLERK on 05/01/2024. The findings were acknowledged and understood. Laboratory Results WBC 13.24 10^3/uL (3.29-11.43) H 05/01/24 13:49 RBC 4.24 10^6/uL (3.85-5.65) 05/01/24 13:49 Hgb 12.10 g/dL (11.27-16.99) 05/01/24 13:49 Hct 39.0 % (37-53) 05/01/24 13:49 MCV 92.0 fl (82-101) 05/01/24 13:49 MCH 28.5 pg (27-33) 05/01/24 13:49 MCHC 31.0 g/dL (30-55) 05/01/24 13:49 RDW 15.9 % (12.1-15.1) H 05/01/24 13:49 Plt Count 139 10^3/cmm (157-399) L 05/01/24 13:49 MPV 10.0 fL (7.4-10.4) 05/01/24 13:49 Neut % (Auto) 76.8 % 05/01/24 13:49 Lymph % (Auto) 13.0 % 05/01/24 13:49 [place] % (Auto) 8.8 % 05/01/24 13:49 Eos % (Auto) 0.6 % 05/01/24 13:49 Baso % (Auto) 0.3 % 05/01/24 13:49 Neut # (Auto) 10.18 10^3/uL (1.8-7.7) H 05/01/24 13:49 Lymph # (Auto) 1.7 10^3/uL (0.8-4.8) 05/01/24 13:49 [place] # (Auto) 1.2 10^3/uL (0.2-0.9) H 05/01/24 13:49 Eos # (Auto) 0.1 10^3/uL (0.0-0.8) 05/01/24 13:49 Baso # (Auto) 0.0 10^3/uL (0.0-0.1) 05/01/24 13:49 Nucleated RBC % (auto) 0 % 05/01/24 13:49 Nucleated RBCs # 0.0 /100WBC 05/01/24 13:49 PT 12.70 SECONDS (12.1-14.9) 05/01/24 13:49 INR 0.92 (0.8-1.2) 05/01/24 13:49 APTT 27.7 SECONDS (23.9-36.7) 05/01/24 13:49 Specimen Type Arterial 05/01/24 14:20 Sample Site Radial, left 05/01/24 14:20 ABG pH 7.31 (7.35-7.45) L 05/01/24 14:20 ABG pCO2 77.0 mmHg (35-45) H* 05/01/24 14:20 ABG pO2 64.4 mmHg (80.0-100.0) L 05/01/24 14:20 ABG HCO3 38.4 mmol/L (22-26) H 05/01/24 14:20 ABG O2 Saturation 92.0 05/01/24 14:20 ABG Base Excess 9.6 mmol/L (-2.0-2.0) H 05/01/24 14:20 Saad Test Pos 05/01/24 14:20 A-a O2 Gradient Not Reportable 05/01/24 14:20 Hematocrit 34.8 % (42-52) L 05/01/24 14:20 Hgb O2 Saturation 89.4 % (95-100) L 05/01/24 14:20 Carboxyhemoglobin 2.3 %THgb (0.4-20.1) 05/01/24 14:20 Methemoglobin 0.5 % (0.4-1.5) 05/01/24 14:20 Total Hemoglobin 11.4 g/dL (14-18) L 05/01/24 14:20 Sodium 135.0 mmol/L (131-143) 05/01/24 14:20 Potassium 5.5 mmol/L (3.5-5.0) H 05/01/24 14:20 Glucose 206.0 mg/dL (70-115) H 05/01/24 14:20 Ionized Calcium 1.2 mmol/L (1.1-1.4) 05/01/24 14:20 O2 Delivery Device Nc 05/01/24 14:20 O2 Liters/Min 5.0 % 05/01/24 14:20 Garment Worker ID Cak 05/01/24 14:20 Sodium 134 mmol/L (136-145) L 05/01/24 13:49 Potassium 5.9 mmol/L (3.5-5.1) H 05/01/24 13:49 Chloride 91 mmol/L (98-107) L 05/01/24 13:49 Carbon Dioxide 39 mmol/L (22-29) H 05/01/24 13:49 Anion Gap 9.9 (5-19) 05/01/24 13:49 BUN 40 mg/dL (8-23) H 05/01/24 13:49 Creatinine 1.1 mg/dL (0.7-1.2) 05/01/24 13:49 GFR Calculation Not Reportable 05/01/24 13:49 Glucose 244 mg/dL (65-115) H 05/01/24 13:49 POC Glucose 228 mg/dL (70-110) H 05/01/24 14:06 Calculated Osmolality 296 mOsm/kg (285-295) H 05/01/24 13:49 Calcium 9.1 mg/dL (8.5-10.5) 05/01/24 13:49 Total Bilirubin 0.6 mg/dL (0.15-1.2) 05/01/24 13:49 AST 30 U/L (0-40) 05/01/24 13:49 ALT 24 U/L (0-41) 05/01/24 13:49 Alkaline Phosphatase 205 U/L (40-130) H 05/01/24 13:49 Total Protein 7.3 g/dL (6.6-8.7) 05/01/24 13:49 Albumin 3.6 g/dL (3.5-5.2) 05/01/24 13:49 Globulin 3.7 g/dL (1.3-4.6) 05/01/24 13:49 Urine Color Yellow (Yellow) 05/01/24 14:25 Urine Appearance Clear (CLEAR) 05/01/24 14:25 Urine pH 5.0 (5-7) 05/01/24 14:25 Ur Specific [place] 1.014 (1.005-1.030) 05/01/24 14:25 Urine Protein Trace (Negative) A 05/01/24 14:25 Urine Glucose (UA) 1+ (Normal) H 05/01/24 14:25 Urine Ketones Negative (Negative) 05/01/24 14:25 Urine Blood Negative (Negative) 05/01/24 14:25 Urine Nitrate Negative (Negative) 05/01/24 14:25 Urine Bilirubin Negative (Negative) 05/01/24 14:25 Urine Urobilinogen 1.0 mg/dL (Negative) 05/01/24 14:25 Ur Leukocyte Esterase Negative (Negative) 05/01/24 14:25 Amorphous Sediment Not Reportable 05/01/24 14:25 All radiology interpretation(s) finalized by discharge EKG Data EKG 1: I personally reviewed and interpreted this EKG as follows: EKG interpretation date: 05/01/24 EKG interpretation time: 14:04 Interpretation: afib hr [address] elevation qrs 98 qtc 378 Discharge Plan Discharge Patient Disposition: Admitted As Inpatient Admit Provider: Yojana Maki Clinical Impression: Pneumonia Condition: Stable Prescriptions: No Action insulin glargine [Lantus U-100 Insulin] 100 unit/mL Solution See Rx Instructions .ROUTE .COMPLEX Rx Instructions: Take 40 units at breakfast and 25 units at dinner. albuterol sulfate 2.5 mg /3 mL (0.083 %) Solution For Nebulization 2.5 mg INHALATION Q6H PRN (Reason: Shortness Of Breath) simvastatin 80 mg Tablet 80 mg PO QPM modafinil 200 mg Tablet 400 mg PO DAILY insulin aspart U-100 [Novolog U-100 Insulin aspart] 100 unit/mL Solution See Rx Instructions .ROUTE .COMPLEX Rx Instructions: 25 unit subcutaneously per sliding scale docusate sodium 100 mg Capsule 200 mg PO BID PRN (Reason: Constipation) gabapentin 300 mg Capsule 600 mg PO TID aspirin 81 mg Tablet,Chewable 81 mg PO DAILY albuterol sulfate 90 mcg/actuation Hfa Aerosol Inhaler 1 puff INHALATION Q4H PRN (Reason: Shortness Of Breath) cholecalciferol (vitamin D3) [Vitamin D3] 25 mcg (1,000 unit) Tablet 25 mcg PO DAILY omega 9-cpx-vwr-fish oil [Fish Oil] 1,200 (144-216) mg Capsule 2 cap PO BID Breztri Aerosphere 160-9-4.8 mcg/actuation Hfa Aerosol Inhaler 2 inh INHALATION BID multivitamin Tablet 1 tab PO DAILY hydrocodone-acetaminophen 5-325 mg tablet 1 tab PO Q6H PRN (Reason: Pain) famotidine [Pepcid] 20 mg Tablet 40 mg PO BID bumetanide 0.5 mg Tablet 0.5 mg PO BID fluticasone propionate [Flonase] 50 mcg/actuation [place],Suspension 1 spray INTRANASAL DAILY Rx Instructions: administer into each nostril guaifenesin [Mucinex] 600 mg Tablet Extended Release 12hr 600 mg PO Q12H PRN (Reason: Congestion) Entresto 24-26 mg Tablet 1 tab PO BID Lactobacillus acidophilus 500 million cell Capsule 500 mmu cells PO DAILY Referrals: Jayda Lucas MD [Primary Care Provider] - Coding Level of Care Code ED Contracting Executive for Navid White
[2024-05-01 14:22] LABS: Basophils % 0.3 %; Eosinophils # 0.1 10^3/uL (0.0-0.8); Eosinophils % 0.6 %; Lymphocytes # 1.7 10^3/uL (0.8-4.8); Mean Corpuscular Hemoglobin 28.5 pg (27-33); Monocytes # 1.2 10^3/uL (0.2-0.9); Monocytes % 8.8 %; Neutrophils # 10.18 10^3/uL (1.8-7.7); Neutrophils % 76.8 %; Nucleated Red Blood Cells % 0 %; Platelet Count 139 10^3/cmm (157-399); Red Blood Count 4.24 10^6/uL (3.85-5.65); Red Cell Distribution Width 15.9 % (12.1-15.1); White Blood Count 13.24 10^3/uL (3.29-11.43)
[2024-05-01] MEDS: piperacillin-tazobactam 3.375 GM in sodium chloride 0.9% (plus) 50 ML IV ×2 (14:29→21:28)
[2024-05-01] MEDS: VANCOMYCIN ADD-Vantage 1,000 MG in 0.9% NaCl ADD-Vantage 250 ML 250 MG IV ×2 (14:29→16:54)
[2024-05-01 14:30] LABS: Alanine Aminotransferase 24 U/L (0-41); Albumin Level 3.6 g/dL (3.5-5.2); Alkaline Phosphatase 205 U/L (40-130); Anion Gap 9.9 (5-19); Aspartate Amino Transferase 30 U/L (0-40); Blood Urea Nitrogen 40 mg/dL (8-23); Calcium 9.1 mg/dL (8.5-10.5); Carbon Dioxide 39 mmol/L (22-29); Chloride 91 mmol/L (98-107); Creatinine Clr Calc Pharmacy 66.5809; Globulin 3.7 g/dL (1.3-4.6); Glucose 244 mg/dL (65-115); Osmolality Calculated 296 mOsm/kg (285-295); Potassium 5.9 mmol/L (3.5-5.1); Sodium 134 mmol/L (136-145); Total Bilirubin 0.6 mg/dL (0.15-1.2); Total Protein 7.3 g/dL (6.6-8.7)
[2024-05-01 14:31] LABS: ABG PH Result 7.31 (7.35-7.45); Arterial Blood Gas Hematocrit 34.8 % (42-52); Base Excess ABG 9.6 mmol/L (-2.0-2.0); Blood Gas Allen Test Pos; Blood Gas Operator Identificat CAK; Blood Gas Sample Site Radial, left; Blood Gas Sample Type Arterial; Carboxyhemoglobin 2.3 %THgb (0.4-20.1); HCO3 ABG 38.4 mmol/L (22-26); HGB O2 Sat 89.4 % (95-100); Ionized Calcium Level - ABG 1.2 mmol/L (1.1-1.4); Methemoglobin 0.5 % (0.4-1.5); Oxygen Device NC; PO2 ABG 64.4 mmHg (80.0-100.0); Potassium Level - ABG 5.5 mmol/L (3.5-5.0); Total Hemoglobin 11.4 g/dL (14-18)
--- NOTE | 2024-05-01 14:31 | PC.PHAR ---
[facility] is [facility] has presented current med list. All morning meds were taken.
[2024-05-01 14:42] LABS: INR 0.92 (0.8-1.2)
[2024-05-01 14:43] LABS: Partial Thromboplastin Time 27.7 SECONDS (23.9-36.7)
[2024-05-01] MEDS: insulin regular-human 100 units/1 mL 10 UNIT IVP (14:49)
[2024-05-01 14:51] LABS: Bilirubin Urine Negative (Negative); Blood Urine Negative (Negative); Glucose Urine UA 1+ (Normal); Ketones Urine Negative (Negative); Leukocyte Esterase Urine Negative (Negative); Nitrate Urine Negative (Negative); Protein Urine Trace (Negative); Specific Gravity, Urine 1.014 (1.005-1.030); Urine Appearance Clear (CLEAR); Urine Color Yellow (Yellow)
[2024-05-01 14:56] LABS: Add Urine Microscopic? YES; Bacteria Urine None Seen /hpf; Hyaline Casts Urine 22.33 /lpf; RBC Urine 0-2 /hpf (0-2); Squamous Epithelial Cell Urine 0-5 /hpf (0-5); Universal Test for UA Present (0); WBC Urine 0-5 /hpf (0-5)
[2024-05-01 15:01] LABS: Amphetamines Screen Urine Negative (Negative); Barbiturates Screen Urine Negative (Negative); Benzodiazepines Screen Urine Negative (Negative); Cocaine Screen Urine Negative (Negative); Opiate Screen Urine Negative (Negative); PCP Screen Urine Negative (Negative); THC Screen Urine Negative (Negative)
[2024-05-01 15:02] LABS: Add Urine Culture? No; UA Slide Review UA Slide Review Perf
[2024-05-01 15:31] LABS: Covid PCR NEGATIVE (Negative); Influenza A NEGATIVE (Negative); Influenza B NEGATIVE (Negative); Respiratory Syncytial Virus Ce NEGATIVE (Negative)
--- NOTE | 2024-05-01 16:28 | P.HP_ITS ---
Providers/Chief Complaint 2 Admitting Physician: Yojana Maki MD Primary Care Provider: Jayda Lucas MD Chief Complaint: stroke alert History of Present Illness Grayson Shepard is a 74 year old male with past medical history of coronary artery disease, s/p transcatheter aortic valve replacement, hypertension, hyperlipidemia, type 2 diabetes mellitus, diagnosed with lung cancer 1 year ago, did not receive any chemo or radiation, has been on Keytruda since 5 months, Keytruda recently stopped 1 month ago since he was diagnosed with right sided pneumonia and has been on antibiotics. Last CT chest was done on April 14 and he is supposed to have follow-up CT in May. As per the family today he had a fall at home, was found to be drowsy, with slurred speech, confused couple of hours later after the fall. Hence family brought him to the ER for further evaluation. He has been having chronic cough, no change in the character of cough, denies any fevers, and has been doing well until this afternoon. He has been diagnosed with right-sided pneumonia recently and took antibiotics amoxicillin for 2 weeks. He follows in [facility] cardiovascular clinic. In ER he was found to be hypoxic with saturation in 70s, he is on 3 L nasal cannula at home, oxygen was bumped to 6 L but he was still found to be hypercarbic and hypoxic and was started on BiPAP. His confusion and slurred speech resolved on arrival in ER. WBC count was 13.8 ABG was 7 point 3/77/64/38/89% on 3 L Potassium 5.9 UA, U-Tox and respiratory panel negative CXR-IMPRESSION: Findings compatible with pulmonary vascular congestion. Infection can not be excluded. Recommend clinical correlation. CT head negative for any acute findings EKG was Afib, no acute ST T changes Review of Systems 2 General: Reports: 10 or more systems reviewed and unremarkable except in HPI and below Medications/Allergies Home Medications Medication Instructions Recorded Confirmed Last Taken Type albuterol sulfate 2.5 mg/3 mL 2.5 mg inhalation Q6H PRN 12/15/21 05/01/24 Unknown History (0.083 %) solution for nebulization Shortness Of Breath albuterol sulfate 90 mcg/actuation 1 puff inhalation Q4H PRN 12/15/21 05/01/24 Unknown History aerosol inhaler Shortness Of Breath aspirin 81 mg chewable tablet 81 mg PO DAILY 12/15/21 05/01/24 05/01/24 History budesonide 160 mcg-glycopyr 9 2 inh inhalation BID 12/15/21 05/01/24 05/01/24 History mcg-formot 4.8 mcg/actuation HFA inhaler (Breztri Aerosphere) cholecalciferol (vitamin D3) 25 25 mcg PO DAILY 12/15/21 05/01/24 05/01/24 History mcg (1,000 unit) tablet (Vitamin D3) docusate sodium 100 mg capsule 200 mg PO BID PRN Constipation 12/15/21 05/01/24 12/14/21 History gabapentin 300 mg capsule 600 mg PO TID 12/15/21 05/01/24 05/01/24 History insulin aspart U-100 100 unit/mL See Rx Instructions .Route .COMPLEX 12/15/21 05/01/24 05/01/24 History subcutaneous solution (Novolog U-100 Insulin aspart) insulin glargine 100 unit/mL See Rx Instructions .Route .COMPLEX 12/15/21 05/01/24 05/01/24 History subcutaneous solution (Lantus U-100 Insulin) modafinil 200 mg tablet 400 mg PO DAILY 12/15/21 05/01/24 05/01/24 History omega 3-aqq-uvv-fish oil 1,200 mg 2 cap PO BID 12/15/21 05/01/24 05/01/24 History (144 mg-216 mg) capsule (Fish Oil) simvastatin 80 mg tablet 80 mg PO QPM 12/15/21 05/01/24 04/30/24 History Lactobacillus acidophilus 500 500 mmu cells PO DAILY 05/01/24 05/01/24 05/01/24 History million cell capsule bumetanide 0.5 mg tablet 0.5 mg PO BID 05/01/24 05/01/24 05/01/24 History famotidine 20 mg tablet (Pepcid) 40 mg PO BID Acid Reflux 05/01/24 05/01/24 Unknown History fluticasone propionate 50 1 spray intranasal DAILY 05/01/24 05/01/24 05/01/24 History mcg/actuation nasal spray,suspension guaifenesin 600 mg tablet, 600 mg PO Q12H PRN Congestion 05/01/24 05/01/24 Unknown History extended release 12 hr (Mucinex) hydrocodone 5 mg-acetaminophen 325 1 tab PO Q6H PRN Pain 05/01/24 05/01/24 Unknown History mg tablet multivitamin 1 tab PO DAILY 05/01/24 05/01/24 05/01/24 History sacubitril 24 mg-valsartan 26 mg 1 tab PO BID 05/01/24 05/01/24 05/01/24 History tablet (Entresto) Allergies Allergy/AdvReac Type Severity Reaction Status Date / Time azithromycin Allergy Unknown Unknown Verified 12/15/21 16:58 levofloxacin [From Levaquin] Allergy Unknown Unknown Verified 12/15/21 16:58 Quinolones Allergy Unknown Unknown Verified 12/15/21 16:58 PFSH Acute 2 PFSH: Medical History COPD (chronic obstructive pulmonary disease) Vitals/I&O/Wt Last Vital Signs Temp 98.1 F 05/01/24 15:31 Pulse 66 05/01/24 15:53 Resp 22 H 05/01/24 15:32 BP 98/35 05/01/24 15:32 Pulse Ox 92 05/01/24 15:53 O2 Del Method Nasal Cannula, BiPAP 05/01/24 15:37 O2 Flow Rate 3 05/01/24 14:03 FiO2 35 05/01/24 15:53 05/01/24 05/01/24 05/01/24 06:59 14:59 22:59 Intake Total 300 / 300 Balance 300 / 300 Weight last 48 hrs Weight 79.549 kg Weight 84.368 kg Physical Exam 2 Narrative: AAOX3, not in acute distress, breathing comfortably on BiPAP, states feeling better now Chest bilateral decreased air entry, scattered crackles present Cardiovascular normal heart sounds no murmurs Abdomen soft, nontender, distended, normal bowel sounds, resonant to percussion Extremities no edema noted bilateral lower extremity Data 05/01/24 13:49 05/01/24 13:49 A&P Assessment and plan (1) Pneumonia: (2) Lung cancer: (3) CAD (coronary artery disease): (4) H/O aortic valve replacement: (5) Hypertension: (6) Hyperlipidemia: (7) Diabetes mellitus: (8) COPD (chronic obstructive pulmonary disease): (9) AMS (altered mental status): Andre Shepard is a 74 year old male with past medical history of coronary artery disease, s/p transcatheter aortic valve replacement, hypertension, hyperlipidemia, type 2 diabetes mellitus, diagnosed with lung cancer 1 year ago, did not receive any chemo or radiation, has been on Keytruda since 5 months, Keytruda recently stopped 1 month ago since he was diagnosed with right sided pneumonia and has been on antibiotics. Last CT chest was done on April 14 and he is supposed to have follow-up CT in May. As per the family today he had a fall at home, was found to be drowsy, with slurred speech, confused couple of hours later after the fall and found to be hypoxic in ER.mental status improved in ER. During my assessment he was alert awake oriented x 3 CTH was negative in ER , CXR showed fluid overload vs pneumonia. He was found to be confused, difficult to arouse while in CSU. Altered mental status-likely secondary to hypoglycemia versus hypercarbia ABG repeated, showed 7.2 8/82/64/39/91% on 35% FiO2 on BiPAP Potassium was 5 and blood sugar was found to be 41 Given D50 x 1, will start on D5 half NS at 70 cc/h Spoke with the family who is at bedside, states he took his morning insulin dosage and ate only half bowl of cereal. Has not had anything to eat since then. Also received D10 and 10 units of regular insulin in the ER for hyperkalemia of 5.9. Continue to monitor fingerstick every 2 hours Will hold off on insulin for now Hypoglycemia protocol initiated Hypoxic respiratory failure- likely secondary to pneumonia versus fluid overload versus PE D-dimer 3.83, will do CTA chest to rule out PE and evaluate for pneumonia. Once stabilized, patient can go for CTA. He just received subcutaneous heparin for DVT prophylaxis when arrived on floor. Hence cannot do therapeutic Lovenox now. Will reschedule subcutaneous Lovenox 80 mg at midnight. Continue BiPAP support for now, respiratory assess and treat Will continue IV vancomycin and Zosyn for now DuoNebs every 6 hours Continue SENIOR ELECTRONICS TECHNICIAN Mucinex Hyperkalemia-received D10 and 10 units of regular insulin in ER Repeat ABG done to evaluate for hypercarbia, ABG showed pCO2 of 82, still consistent with respiratory acidosis Also had potassium of 5 Hypertension-currently having soft blood pressure Hold SENIOR ELECTRONICS TECHNICIAN Bumex, Entresto Will keep n.p.o. for now GI prophylaxis with IV Pepcid 20 mg twice daily CODE STATUS was discussed earlier when patient was alert and awake, he wanted to be full code. Attestations 2 Medical Necessity Statement*: He needs continued hospitalization crossing 2 midnights for management of altered mental status, hypoxic and hypercarbic respiratory failure and hypoglycemia with IV fluids, antibiotics, BiPAP, cardiac monitoring Time Spent in Patient Care: 60 minutes Coding Level of Care Code Critical Care >/= 30 minutes Diagnoses Pneumonia J18.9 Lung cancer C34.90 CAD (coronary artery disease) I25.10 H/O aortic valve replacement Z95.2 Hypertension I10 Hyperlipidemia E78.5 Diabetes mellitus E11.9 COPD (chronic obstructive pulmonary disease) J44.9 AMS (altered mental status) R41.82 Time Spent (min) 60
--- NOTE | 2024-05-01 16:40 | PHA.VACGOAL ---
Vancomycin Goal - Goal Vancomycin Goal:: 15-20 mg/L Vancomycin Indication:: Other - Therapy Current therapy:: Pip/Tazo Day of therpy:: Day []of [] . Actual body weight (kg): 175 lb 6 oz - Data Labs: WBC 13.24 10^3/uL (3.29-11.43) H 05/01/24 13:49 RBC 4.24 10^6/uL (3.85-5.65) 05/01/24 13:49 Hgb 12.10 g/dL (11.27-16.99) 05/01/24 13:49 Hct 39.0 % (37-53) 05/01/24 13:49 MCV 92.0 fl (82-101) 05/01/24 13:49 MCH 28.5 pg (27-33) 05/01/24 13:49 MCHC 31.0 g/dL (30-55) 05/01/24 13:49 RDW 15.9 % (12.1-15.1) H 05/01/24 13:49 Sodium 134 mmol/L (136-145) L 05/01/24 13:49 Potassium 5.9 mmol/L (3.5-5.1) H 05/01/24 13:49 Chloride 91 mmol/L (98-107) L 05/01/24 13:49 Carbon Dioxide 39 mmol/L (22-29) H 05/01/24 13:49 Anion Gap 9.9 (5-19) 05/01/24 13:49 BUN 40 mg/dL (8-23) H 05/01/24 13:49 Creatinine 1.1 mg/dL (0.7-1.2) 05/01/24 13:49 GFR Calculation Not Reportable 05/01/24 13:49 Treatment plan:: new consult Regimen:: 2000MG LOAD AND 1000 MG Q12H; MONITOR DAILY
[2024-05-01 16:46] LABS: D Dimer 3.83 ug/mLFEU (0-0.59)
--- NOTE | 2024-05-01 16:47 | USCV_ITS ---
Grayson Shepard Age: 74 Gender: M : 1950 Exam Date: 05/01/2024 18:59 Ordering Phys: Yojana Maki MD Technologist: Exam Location: [facility] [place] Indication: ao pros chf BP: 127 / 79 HR: 98 Rhythm: Sinus Technical Quality: Adequate MEASUREMENTS (Male / Female) Normal Values 2D ECHO LV Diastolic Diameter PLAX 5.2 cm 4.2 - 5.9 / 3.9 - 5.3 cm IVS Diastolic Thickness 1.4 cm 0.6 - 1.0 / 0.6 - 0.9 cm IVS Systolic Thickness 1.8 cm LVPW Diastolic Thickness 1.9 cm 0.6 - 1.0 / 0.6 - 0.9 cm LVPW Systolic Thickness 1.4 cm LVOT Diameter 2.6 cm LV Ejection Fraction 2D Teich 38.7 % LV Ejection Fraction MOD 4C 67.1 % LV Ejection Fraction MOD 2C 46.0 % LV Ejection Fraction 2C AL 45.3 % LA Diameter 4.2 cm RA Systolic Volume 4C AL 53.5 ml RA Systolic Volume 4C MOD 50.3 ml Aorta at Sinotubular Diameter 3.1 cm M-MODE LA Ao Ratio MM 1.3 MV E Point Septal Separation 1.3 cm AV Cusp Separation MM 2.0 cm DOPPLER AV Peak Velocity 142.0 cm/s AV Area Cont Eq vti 2.6 cm squared AV Area Cont Eq pk 2.4 cm squared MV Area PHT 3.1 cm squared TR Peak Velocity 184.0 cm/s TR Peak Gradient 13.5 mmHg TV Peak E Velocity 149.0 cm/s PV Peak Velocity 124.0 cm/s FINDINGS Left Ventricle Normal left ventricular size, systolic function and wall thickness, with no regional wall motion abnormalities. Left ventricular ejection fraction is estimated at 55 %. Diastolic fynction cannot be assessed in the absence of atrial fibrillation. Right Ventricle Moderately increased right ventricular size. RVSP could not be calculated due to incomplete tricuspid regurgitation velocity profile. Right Atrium Moderately increased right atrial size. Left Atrium The left atrium is normal in size. Mitral Valve Structurally normal mitral valve without significant stenosis or prolapse. There is no mitral regurgitation. Aortic Valve Structurally normal aortic valve without significant sclerosis or stenosis. There is no aortic regurgitation. ion. Tricuspid Valve Thickened tricuspid valve. No tricuspid valve stenosis. Moderate tricuspid valve regurgitation. Pulmonic Valve Structurally normal pulmonic valve without significant stenosis. There is no pulmonic regurgitation. Pericardium Normal pericardium without effusion. Aorta Normal ascending aorta dimension. IVC The inferior vena cava appears normal. CONCLUSIONS Normal left ventricular size, systolic function and wall thickness, with no regional wall motion abnormalities. Left ventricular ejection fraction is estimated at 55 %. Diastolic fynction cannot be assessed in the absence of atrial fibrillation. Moderately increased right ventricular size. The left atrium is normal in size. Structurally normal mitral valve without significant stenosis or prolapse. There is no mitral regurgitation. There is no pericardial effusion. Right atrial pressure is around 5 mm of mercury. Licha Martinez MD (Electronically Signed) Final Date: 01 May 2024 20:49 S
[2024-05-01 16:50] LABS: Glucose Point of Care 84 mg/dL (70-110)
[2024-05-01] MEDS: famotidine 20 mg/2 mL INJ IVP (16:54)
[2024-05-01] MEDS: heparin 5,000 unit/mL INJ 1 mL 5000 UNIT SUBCUT (16:54)
--- NOTE | 2024-05-01 17:01 | PC.NURSE ---
Informed Dr Maki of patient's decreased bp and blood sugar of 84. Patient currently on bipap.. Patient is not waking up. Unable to give oral medications. Dr Wing see patient now. Blood sugar rechecking now is 99 RT in to check blood gas.
[2024-05-01] MEDS: albuterol 2.5 mg/3 mL Neb INHALATION (17:03)
[2024-05-01 17:12] LABS: ABG PCO2 82.2 mmHg (35-45); ABG PH Result 7.28 (7.35-7.45); Alveolar-Arterial Oxygen Gradi 11.5 mmHg (5-10); Arterial Blood Gas Hematocrit 32.8 % (42-52); Base Excess ABG 9.8 mmol/L (-2.0-2.0); Blood Gas Operator Identificat AMH; Blood Gas Sample Site Brachial, right; Blood Gas Sample Type Arterial; Carboxyhemoglobin 2.4 %THgb (0.4-20.1); HGB O2 Sat 89.2 % (95-100); Ionized Calcium Level - ABG 1.3 mmol/L (1.1-1.4); Methemoglobin 0.6 % (0.4-1.5); Oxygen Device BIPAP; Oxygen Saturation ABG 91.9; PO2 ABG 64.6 mmHg (80.0-100.0); PO2 FiO2 Ratio Arterial Blood 184; Total Hemoglobin 10.7 g/dL (14-18)
--- NOTE | 2024-05-01 17:22 | PC.NURSE ---
BS per ABG is 41. Amp of 50% dextrose pulled from [facility] per Dr Maki.
--- NOTE | 2024-05-01 17:26 | CTR_ITS ---
PROCEDURE INFORMATION: Exam: CTA Chest With Contrast Exam date and time: 05/02/2024 4:41 AM Age: 74 years old Clinical indication: Abnormal findings; Abnormal diagnostic tests; Elevated d-dimer; Shortness of breath; Prior surgery; Surgery date: 6+ months; Surgery type: Tavr; Patient HX: Hypoxia with dimer 3.83. Intubated. History of lung cancer. ; Additional info: Hypoxic, elevated d dimer TECHNIQUE: Imaging protocol: Computed tomographic angiography of the chest with contrast. Exam focused on the arteries. 3D rendering (Not supervised by radiologist): MIP and/or 3D reconstructed images were created by the technologist. Radiation optimization: All CT scans at this facility use at least one of these dose optimization techniques: automated exposure control; mA and/or kV adjustment per patient size (includes targeted exams where dose is matched to clinical indication); or iterative reconstruction. Contrast material: OMNI 350; Contrast volume: 88 ml; Contrast route: INTRAVENOUS (IV); COMPARISON: CR (CHEST, ) 05/01/2024 11:13 PM RADIATION DOSE METRICS: Total DLP (mGy-cm): 477.35 FINDINGS: Tubes, catheters and devices: Left apical appendage exclusion device. Patient is intubated, endotracheal tube terminates just superior to the haydee. Incompletely evaluated enteric tube. Pulmonary arteries: Gradual loss of contrast in the segmental and subsegmental pulmonary arteries of the visualized consolidations (this is likely due to physiologic shunting), no definitive evidence for pulmonary embolus. Aorta: Unremarkable. No aortic aneurysm. No aortic dissection. Trachea: Numerous foci debris seen terminal airways. Lungs: Left lower lobe consolidation is seen. Apical COPD changes. Right upper lobe consolidation with ground-glass. Scattered peripheral bilateral upper lobe predominant tree-in-bud nodularity. Numerous small tracheal and main bronchi air diverticulum. Right central consolidation. Spiculated masslike opacities seen posterior left upper lobe (series 6, image 261 series 7, image 26), measuring 18 x 14 x 9 mm. Pleural spaces: Myhj-ihremrf-rigv-right pleural effusions. Heart: Postprocedural changes of the aortic valve. Mitral annulus calcifications. Coronary arteries: Heavy coronary calcified atherosclerotic disease. Lymph nodes: Multi-station mediastinal lymphadenopathy. Liver: Cirrhotic morphology of the liver. Intraperitoneal space: Small volume perihepatic ascites. Bones/joints: Unremarkable. No acute fracture. Soft tissues: Bilateral gynecomastia, mild. CT/CT angio chest PE protcl [id number] IMPRESSION: 1. No pulmonary embolus. 2. Combination of the lung findings suggest multifocal pneumonia with likely underlying aspiration. 3. Left upper lobe spiculated masslike opacity, recommend follow-up upon treatment completion to ensure resolution. 4. Right upper lobe masslike consolidation with surrounding ground-glass, this is likely infectious/inflammatory given the additional findings, however follow-up imaging should again be considered to ensure resolution. 5. Multi-station mediastinal lymphadenopathy. Attention follow-up examinations to ensure resolution. 6. Hgtd-ncbcfxs-xxme-right pleural effusions.
[2024-05-01 17:35] LABS: Glucose Point of Care 99 mg/dL (70-110)
[2024-05-01] MEDS: dextrose 5%-sod chloride 0.45% 1,000 ML 75 ML IV (18:06)
[2024-05-01 18:07] LABS: Glucose Point of Care 97 mg/dL (70-110)
--- NOTE | 2024-05-01 18:34 | PC.NURSE ---
Patients BP is 102/43 with map of 62. Blood sugar is 84. He has Entresto and bumex ordered now.
--- NOTE | 2024-05-01 18:34 | PC.NURSE ---
calcium gluconate not given per Dr Hebert.
[2024-05-01] MEDS: ipratropium-albuterol 3 mL Neb INHALATION (19:23)
[2024-05-01 19:34] LABS: ABG PH Result 7.25 (7.35-7.45); Alveolar-Arterial Oxygen Gradi 20.2 mmHg (5-10); Arterial Blood Gas Hematocrit 34.8 % (42-52); Base Excess ABG 8.4 mmol/L (-2.0-2.0); Blood Gas Allen Test Pos; Blood Gas Sample Site Brachial, right; Blood Gas Sample Type Arterial; Carboxyhemoglobin 2.3 %THgb (0.4-20.1); HCO3 ABG 38.3 mmol/L (22-26); HGB O2 Sat 94.5 % (95-100); Ionized Calcium Level - ABG 1.3 mmol/L (1.1-1.4); Methemoglobin 1.1 % (0.4-1.5); Oxygen Device BIPAP; Oxygen Saturation ABG 97.9; PO2 FiO2 Ratio Arterial Blood 200; Potassium Level - ABG 5.1 mmol/L (3.5-5.0); Total Hemoglobin 11.4 g/dL (14-18)
[2024-05-01] MEDS: budesonide 0.5 mg/2 mL Neb INHALATION (19:36)
[2024-05-01 20:04] LABS: Glucose Point of Care 67 mg/dL (70-110)
[2024-05-01 20:09] LABS: Estmated Average Glucose 154
[2024-05-01] MEDS: dextrose 10% 250 ML 1000 ML IV (20:27)
[2024-05-01 20:29] LABS: Glucose Point of Care 61 mg/dL (70-110)
[2024-05-01 20:54] LABS: Glucose Point of Care 151 mg/dL (70-110)
[2024-05-01 21:01] LABS: Troponin(5th) Baseline 100 ng/L (0-15)
[2024-05-01 21:13] LABS: Blood Urea Nitrogen 40 mg/dL (8-23); Calcium 8.6 mg/dL (8.5-10.5); Carbon Dioxide 27 mmol/L (22-29); Chloride 96 mmol/L (98-107); Creatinine Clr Calc Pharmacy 71.4185; Glucose 64 mg/dL (65-115); Osmolality Calculated 286 mOsm/kg (285-295); Sodium 134 mmol/L (136-145); Thyroid Stimulating Hormone 3.01 uIU/mL (0.27-4.20)
[2024-05-01 21:14] LABS: Anion Gap 16.6 (5-19); Potassium 5.6 mmol/L (3.5-5.1)
[2024-05-01] MEDS: methylPREDNISolone sod succ 125 mg/2 mL INJ IVP (21:22)
[2024-05-01 21:25] LABS: Glucose Point of Care 135 mg/dL (70-110)
[2024-05-01 22:11] LABS: ABG PH Result 7.26 (7.35-7.45); Arterial Blood Gas Hematocrit 33.4 % (42-52); Base Excess ABG 8.8 mmol/L (-2.0-2.0); Blood Gas Allen Test Pos; Blood Gas Sample Site Brachial, right; Blood Gas Sample Type Arterial; Carboxyhemoglobin 2.3 %THgb (0.4-20.1); HCO3 ABG 38.4 mmol/L (22-26); HGB O2 Sat 94.3 % (95-100); Ionized Calcium Level - ABG 1.2 mmol/L (1.1-1.4); Methemoglobin 0.9 % (0.4-1.5); Oxygen Device BIPAP; Oxygen Saturation ABG 97.4; PO2 ABG 89.5 mmHg (80.0-100.0); PO2 FiO2 Ratio Arterial Blood 179; Total Hemoglobin 10.9 g/dL (14-18)
[2024-05-01 22:13] LABS: ABG PCO2 85.1 mmHg (35-45)
--- NOTE | 2024-05-01 22:45 | PC.NURSE ---
Addendum entered by MAURICIO Monahan 05/01/24 22:53: Disregard this note as it was entered on the wrong patient. Original Note: Contacted Dr. Rodriguez in reference to patient repeatedly pulling at lines such as IV's and his catheter. Received orders for soft restraints on wrists.
--- NOTE | 2024-05-01 23:04 | XRR_ITS ---
PROCEDURE INFORMATION: Exam: XR Chest Exam date and time: 05/01/2024 11:13 PM Age: 74 years old Clinical indication: Device placement; Ett placement (vent status); Patient HX: Check S/P intubation. History of lung cancer. ; Additional info: Post intubation TECHNIQUE: Imaging protocol: Radiologic exam of the chest. Views: 1 view. COMPARISON: CR (CHEST, ) 05/01/2024 1:59 PM FINDINGS: Tubes, catheters and devices: Endotracheal tube tip 4.2 cm above the haydee. Enteric tube tip extending below the diaphragm and inferiorly off the field of view. Lungs: Patchy bilateral airspace opacities reflecting alveolar edema and/or pneumonic infiltrates. Pleural spaces: Moderate left pleural effusion. Heart/Mediastinum: TAVR. Cardiomegaly. Vasculature: Aortic atherosclerotic calcifications. Bones/joints: Unremarkable. XR/XR chest 1V portable [id number] IMPRESSION: 1. Endotracheal tube tip 4.2 cm above the haydee. 2. Enteric tube tip extending below the diaphragm and inferiorly off the field of view. 3. TAVR. 4. Cardiomegaly. 5. Moderate left pleural effusion. 6. Patchy bilateral airspace opacities reflecting alveolar edema and/or pneumonic infiltrates. 7. Aortic atherosclerotic calcifications.
--- NOTE | 2024-05-01 23:06 | PM.CCNAC ---
Critical Care Event Note The high probability of a clinically significant, sudden or life threatening deterioration of the patient's [] system(s) required my full and direct attention, intervention and personal management. The critical care time is as shown. This time is in addition to time spent performing any reported procedures but includes the following: [x] Data and vital sign review and interpretation [x] Patient assessment, examination and intervention [x] Documentation [x] Medication orders and management Critical Care Time Code activated: No Critical Care Time (min): 30 Additional information about critical care time: Reviewed patient's ABG at 10 PM. pH 7.26/pCO2 85/pO2 89/bicarb 38.4/O2 sat 94.3% on 50% FiO2, AVAPS with a PEEP of 12. Review of chart shows that patient has had persistent hypercapnia since 2 PM today in spite of being on BiPAP since 5 PM. Multiple change in settings have not helped. Patient is short of breath while completing sentences. He is currently awake alert oriented, states he is agreeable to be intubated. His daughter is at bedside at the time of this conversation with him. His hypoglycemia is currently resolved. Requested intubation by ER physician and started mechanical ventilation postintubation. Repeat ABG in 2 hours postintubation. OG tube placed. Sedation with fentanyl and propofol drips. Baseline troponin returned at 100. Start empiric anticoagulation with Lovenox 1 mg/kg every 12 hours. Will proceed to CTA to evaluate for PE once more stable. Added steroids methylprednisolone 40 mg IV every 8 hours. Coding Level of Care Code Acute Code for Chg Fwd
[2024-05-01] MEDS: fentaNYL 1,000 MCG/100 ML BAG 2.5 MCG IV (23:11)
[2024-05-01] MEDS: propofol 1,000 MG/100 ML INJ 2.39 MG IV (23:12)
--- NOTE | 2024-05-01 23:12 | ED_ITS ---
HPI - Neuro Symptoms/Deficit 2 General: Chief Complaint: Neuro Symptoms/Deficit Stated Complaint: stroke alert Time Seen by Provider: 05/01/24 13:53 Source: patient and EMS Mode of arrival: EMS Limitations: no limitations History of Present Illness: Called to ICU to intubate patient. Has been on BiPAP without improvement. Related Data Home Medications Medication Instructions Recorded Confirmed albuterol sulfate 2.5 mg/3 mL 2.5 mg inhalation Q6H PRN 12/15/21 05/01/24 (0.083 %) solution for nebulization Shortness Of Breath albuterol sulfate 90 mcg/actuation 1 puff inhalation Q4H PRN 12/15/21 05/01/24 aerosol inhaler Shortness Of Breath aspirin 81 mg chewable tablet 81 mg PO DAILY 12/15/21 05/01/24 budesonide 160 mcg-glycopyr 9 2 inh inhalation BID 12/15/21 05/01/24 mcg-formot 4.8 mcg/actuation HFA inhaler (Breztri Aerosphere) cholecalciferol (vitamin D3) 25 25 mcg PO DAILY 12/15/21 05/01/24 mcg (1,000 unit) tablet (Vitamin D3) docusate sodium 100 mg capsule 200 mg PO BID PRN Constipation 12/15/21 05/01/24 gabapentin 300 mg capsule 600 mg PO TID 12/15/21 05/01/24 insulin aspart U-100 100 unit/mL See Rx Instructions .Route .COMPLEX 12/15/21 05/01/24 subcutaneous solution (Novolog U-100 Insulin aspart) insulin glargine 100 unit/mL See Rx Instructions .Route .COMPLEX 12/15/21 05/01/24 subcutaneous solution (Lantus U-100 Insulin) modafinil 200 mg tablet 400 mg PO DAILY 12/15/21 05/01/24 omega 1-qoj-ebp-fish oil 1,200 mg 2 cap PO BID 12/15/21 05/01/24 (144 mg-216 mg) capsule (Fish Oil) simvastatin 80 mg tablet 80 mg PO QPM 12/15/21 05/01/24 Lactobacillus acidophilus 500 500 mmu cells PO DAILY 05/01/24 05/01/24 million cell capsule bumetanide 0.5 mg tablet 0.5 mg PO BID 05/01/24 05/01/24 famotidine 20 mg tablet (Pepcid) 40 mg PO BID Acid Reflux 05/01/24 05/01/24 fluticasone propionate 50 1 spray intranasal DAILY 05/01/24 05/01/24 mcg/actuation nasal spray,suspension guaifenesin 600 mg tablet, 600 mg PO Q12H PRN Congestion 05/01/24 05/01/24 extended release 12 hr (Mucinex) hydrocodone 5 mg-acetaminophen 325 1 tab PO Q6H PRN Pain 05/01/24 05/01/24 mg tablet multivitamin 1 tab PO DAILY 05/01/24 05/01/24 sacubitril 24 mg-valsartan 26 mg 1 tab PO BID 05/01/24 05/01/24 tablet (Entresto) Allergies Allergy/AdvReac Type Severity Reaction Status Date / Time azithromycin Allergy Unknown Unknown Verified 12/15/21 16:58 levofloxacin [From Levaquin] Allergy Unknown Unknown Verified 12/15/21 16:58 Quinolones Allergy Unknown Unknown Verified 12/15/21 16:58 PFSH ED 2 PFSH: Medical History COPD (chronic obstructive pulmonary disease) Course 2 Vital Signs: Vital signs: Vital Signs Temperature 97.4 F L 05/01/24 16:06 Pulse Rate 75 05/01/24 20:00 Respiratory Rate 18 05/01/24 20:00 Blood Pressure 118/69 05/01/24 20:00 Pulse Oximetry 100 05/01/24 20:00 Oxygen Delivery Me thod BiPAP 05/01/24 20:00 Oxygen Flow Rate 3 05/01/24 14:03 Fraction of Inspir ed Oxygen 50 05/01/24 20:00 MDM - Neuro Symptoms/Deficit Medical Decision Making Endotracheal intubation Time: 2300 Confirmed: Patient, procedure, and site correct. Consent: , Emergent. Indication: Respiratory failure. Procedural sedation: Succinylcholine and etomidate . Monitoring: Cardiac, blood pressure, continuous pulse oximetry. Preparation: Pre oxygenated, Inline stabilization of cervical spine maintained, Ensured proper cuff inflation. Technique: Oral intubation: A 8 ET tube was inserted, glydescope, visualized cords and ett passing through cords. . Confirmation of tube placement: Bilateral chest rise, Positive color change indicated on end title CO2. Post procedure exam: Equal breath sounds. Complications: None. Performed by: Self. Total time: 10 minutes. Lab Data 05/01/24 13:49 05/01/24 20:30 Radiology Impressions Chest X-Ray 05/01/24 13:54 IMPRESSION: Findings compatible with pulmonary vascular congestion. Infection can not be excluded. Recommend clinical correlation. Head CT 05/01/24 13:54 IMPRESSION: No acute intracranial abnormality. If symptoms persist, consider further evaluation with MRI, if MRI is clinically safe to obtain. ASSESSMENT: ASPECTS ([place] Stroke Program Early CT Score) is 10. ADDENDUM: 05/01/24 1413 ADDENDUM: THIS REPORT CONTAINS FINDINGS THAT MAY BE CRITICAL TO PATIENT CARE. The findings were verbally communicated via telephone conference with BETH HOOKER at 2:11 PM MANUFACTURING TEST TECHNICIAN on 05/01/2024. The findings were acknowledged and understood. Laboratory Results WBC 13.24 10^3/uL (3.29-11.43) H 05/01/24 13:49 RBC 4.24 10^6/uL (3.85-5.65) 05/01/24 13:49 Hgb 12.10 g/dL (11.27-16.99) 05/01/24 13:49 Hct 39.0 % (37-53) 05/01/24 13:49 MCV 92.0 fl (82-101) 05/01/24 13:49 MCH 28.5 pg (27-33) 05/01/24 13:49 MCHC 31.0 g/dL (30-55) 05/01/24 13:49 RDW 15.9 % (12.1-15.1) H 05/01/24 13:49 Plt Count 139 10^3/cmm (157-399) L 05/01/24 13:49 MPV 10.0 fL (7.4-10.4) 05/01/24 13:49 Neut % (Auto) 76.8 % 05/01/24 13:49 Lymph % (Auto) 13.0 % 05/01/24 13:49 [place] % (Auto) 8.8 % 05/01/24 13:49 Eos % (Auto) 0.6 % 05/01/24 13:49 Baso % (Auto) 0.3 % 05/01/24 13:49 Neut # (Auto) 10.18 10^3/uL (1.8-7.7) H 05/01/24 13:49 Lymph # (Auto) 1.7 10^3/uL (0.8-4.8) 05/01/24 13:49 [place] # (Auto) 1.2 10^3/uL (0.2-0.9) H 05/01/24 13:49 Eos # (Auto) 0.1 10^3/uL (0.0-0.8) 05/01/24 13:49 Baso # (Auto) 0.0 10^3/uL (0.0-0.1) 05/01/24 13:49 Nucleated RBC % (auto) 0 % 05/01/24 13:49 Nucleated RBCs # 0.0 /100WBC 05/01/24 13:49 PT 12.70 SECONDS (12.1-14.9) 05/01/24 13:49 INR 0.92 (0.8-1.2) 05/01/24 13:49 APTT 27.7 SECONDS (23.9-36.7) 05/01/24 13:49 D-Dimer 3.83 ug/mLFEU (0-0.59) H 05/01/24 13:49 Specimen Type Arterial 05/01/24 14:20 Sample Site Radial, left 05/01/24 14:20 ABG pH 7.31 (7.35-7.45) L 05/01/24 14:20 ABG pCO2 77.0 mmHg (35-45) H* 05/01/24 14:20 ABG pO2 64.4 mmHg (80.0-100.0) L 05/01/24 14:20 ABG HCO3 38.4 mmol/L (22-26) H 05/01/24 14:20 ABG O2 Saturation 92.0 05/01/24 14:20 ABG Base Excess 9.6 mmol/L (-2.0-2.0) H 05/01/24 14:20 Saad Test Pos 05/01/24 14:20 A-a O2 Gradient Not Reportable 05/01/24 14:20 Hematocrit 34.8 % (42-52) L 05/01/24 14:20 Hgb O2 Saturation 89.4 % (95-100) L 05/01/24 14:20 Carboxyhemoglobin 2.3 %THgb (0.4-20.1) 05/01/24 14:20 Methemoglobin 0.5 % (0.4-1.5) 05/01/24 14:20 Total Hemoglobin 11.4 g/dL (14-18) L 05/01/24 14:20 Sodium 135.0 mmol/L (131-143) 05/01/24 14:20 Potassium 5.5 mmol/L (3.5-5.0) H 05/01/24 14:20 Glucose 206.0 mg/dL (70-115) H 05/01/24 14:20 Ionized Calcium 1.2 mmol/L (1.1-1.4) 05/01/24 14:20 O2 Delivery Device Nc 05/01/24 14:20 O2 Liters/Min 5.0 % 05/01/24 14:20 Sheep Farm Manager ID Cak 05/01/24 14:20 Sodium 134 mmol/L (136-145) L 05/01/24 13:49 Potassium 5.9 mmol/L (3.5-5.1) H 05/01/24 13:49 Chloride 91 mmol/L (98-107) L 05/01/24 13:49 Carbon Dioxide 39 mmol/L (22-29) H 05/01/24 13:49 Anion Gap 9.9 (5-19) 05/01/24 13:49 BUN 40 mg/dL (8-23) H 05/01/24 13:49 Creatinine 1.1 mg/dL (0.7-1.2) 05/01/24 13:49 GFR Calculation Not Reportable 05/01/24 13:49 Glucose 244 mg/dL (65-115) H 05/01/24 13:49 POC Glucose 228 mg/dL (70-110) H 05/01/24 14:06 Estimat Average Glucose 154 05/01/24 13:49 Hemoglobin A1c 7.0 % (4.0-6.0) H 05/01/24 13:49 Calculated Osmolality 296 mOsm/kg (285-295) H 05/01/24 13:49 Calcium 9.1 mg/dL (8.5-10.5) 05/01/24 13:49 Total Bilirubin 0.6 mg/dL (0.15-1.2) 05/01/24 13:49 AST 30 U/L (0-40) 05/01/24 13:49 ALT 24 U/L (0-41) 05/01/24 13:49 Alkaline Phosphatase 205 U/L (40-130) H 05/01/24 13:49 Total Protein 7.3 g/dL (6.6-8.7) 05/01/24 13:49 Albumin 3.6 g/dL (3.5-5.2) 05/01/24 13:49 Globulin 3.7 g/dL (1.3-4.6) 05/01/24 13:49 Urine Color Yellow (Yellow) 05/01/24 14:25 Urine Appearance Clear (CLEAR) 05/01/24 14:25 Urine pH 5.0 (5-7) 05/01/24 14:25 Ur Specific [place] 1.014 (1.005-1.030) 05/01/24 14:25 Urine Protein Trace (Negative) A 05/01/24 14:25 Urine Glucose (UA) 1+ (Normal) H 05/01/24 14:25 Urine Ketones Negative (Negative) 05/01/24 14:25 Urine Blood Negative (Negative) 05/01/24 14:25 Urine Nitrate Negative (Negative) 05/01/24 14:25 Urine Bilirubin Negative (Negative) 05/01/24 14:25 Urine Urobilinogen 1.0 mg/dL (Negative) 05/01/24 14:25 Ur Leukocyte Esterase Negative (Negative) 05/01/24 14:25 Urine RBC 0-2 /hpf (0-2) 05/01/24 14:25 Urine WBC 0-5 /hpf (0-5) 05/01/24 14:25 Ur Squamous Epith Cells 0-5 /hpf (0-5) 05/01/24 14:25 Amorphous Sediment Not Reportable 05/01/24 14:25 Urine Bacteria None seen /hpf (NONE) 05/01/24 14:25 Hyaline Casts 22.33 /lpf 05/01/24 14:25 Urine Opiates Screen Negative ng/mL (Negative) 05/01/24 14:25 Ur Barbiturates Screen Negative ng/mL (Negative) 05/01/24 14:25 Ur Phencyclidine Scrn Negative ng/mL (Negative) 05/01/24 14:25 Ur Amphetamines Screen Negative ng/mL (Negative) 05/01/24 14:25 U Benzodiazepines Scrn Negative ng/mL (Negative) 05/01/24 14:25 Urine Cocaine Screen Negative ng/mL (Negative) 05/01/24 14:25 U Marijuana (THC) Screen Negative ng/mL (Negative) 05/01/24 14:25 Coronavirus (PCR) Negative (Negative) 05/01/24 14:38 Influenza A (PCR) Negative (Negative) 05/01/24 14:38 Influenza Type B (PCR) Negative (Negative) 05/01/24 14:38 RSV (PCR) Negative (Negative) 05/01/24 14:38 No radiology studies performed this visit Discharge Plan Discharge Patient Disposition: Admitted As Inpatient Admit Provider: Yojana Maki Clinical Impression: Pneumonia Condition: Stable Coding Level of Care Code ED Voting Machine Mechanic for Navid White
[2024-05-01] MEDS: LORazepam 2 mg/mL INJ 1 mL IVP (23:32)
--- NOTE | 2024-05-01 23:44 | PM.CCNAC ---
Critical Care Event Note Patient continues to remain drowsy. On review of chart patient was admitted earlier today morning with concerns for respiratory distress, was somnolent on presentation with episode of hypoxia and was found to have respiratory acidosis with hypercapnia and was placed on BiPAP. Repeat ABG currently shows slight worsening of respiratory acidosis with pH of 7.25, pCO2 of 87 on AVAPS mode with PEEP of 8, tidal volume of 500. Seems on admission patient also had hyperkalemia which was treated. Patient continues to have persistent or recurrent hypoglycemia and is currently on D5 NS at 75 cc/h. Care discussed in detail with patient respiratory therapist and notes. Appreciate vitals. Plan: Add Solu-Medrol 125 mg 40 mg Q8 hourly after 125 mg stat. Change AVAPS setting to PEEP of 12. Repeat ABG in 2 hours. If not improving will most likely need to mechanically ventilate patient. Monitor for hypoglycemia. If remains hyperglycemic or has further hypoglycemia will plan for glucagon. Repeat BMP stat for further evaluation of hyperkalemia. CT already ordered by morning team. Add Pulmicort twice daily, ipratropium, Xopenex every 6 hours. Transfer to ICU. The high probability of a clinically significant, sudden or life threatening deterioration of the patient's respiratory, system(s) required my full and direct attention, intervention and personal management. The critical care time is as shown. This time is in addition to time spent performing any reported procedures but includes the following: [x] Data and vital sign review and interpretation [x] Patient assessment, examination and intervention [x] Documentation [x] Medication orders and management 60 Critical Care Time Code activated: No Critical Care Time (min): 60 Coding Level of Care Code Acute Code for Chg Christopher
[2024-05-02] VITALS (83 sets, daily range): BP systolic 62–136; BP diastolic 29–57; PULSE 44–97; RESP 16–18; TEMP 36.7–37.4; O2SAT 94–100
--- NOTE | 2024-05-02 | PC.NURSE ---
Fentanyl IVP Patient moving arms and head in an anxious manner following intubation. Verbal order received from Dr. Rodriguez for 50 mcg fentanyl IVP once for sedation. 50 mcg fentanyl removed from fentanyl drip and administered IVP while Dr. Rodriguez at bedside.
[2024-05-02 00:03] LABS: Glucose Point of Care 118 mg/dL (70-110)
[2024-05-02] MEDS: norepinephrine 4 MG/250 ML BAG 7.5 MG IV (00:15)
[2024-05-02 00:46] LABS: ABG PCO2 57.7 mmHg (35-45); ABG PH Result 7.41 (7.35-7.45); Arterial Blood Gas Hematocrit 30.6 % (42-52); Base Excess ABG 10.1 mmol/L (-2.0-2.0); Blood Gas Allen Test Pos; Blood Gas Sample Site Brachial, right; Blood Gas Sample Type Arterial; Blood Gas Tidal Volume 0.48; HCO3 ABG 36.4 mmol/L (22-26); Oxygen Device VENT; PO2 FiO2 Ratio Arterial Blood 251
[2024-05-02] MEDS: ipratropium-albuterol 3 mL Neb INHALATION ×3 (00:59→13:03)
[2024-05-02 01:08] LABS: Troponin 5 2HR 126.1 ng/L (0-15); Troponin 5 2HR Delta 26.1 ABS# (0-10)
[2024-05-02] MEDS: calcium gluconate 0.9% NaCL 1 GM/50 ML PREMIX IV ×3 (01:13→19:53)
[2024-05-02] MEDS: etomidate 2 mg/mL INJ SDV 10 mL 20 MG IVP (01:18)
[2024-05-02] MEDS: succinylcholine 20 mg/mL SDV 10mL 80 MG IVP (01:18)
[2024-05-02] MEDS: enoxaparin 100 mg/mL Syringe 80 MG SUBCUT ×2 (01:20→11:37)
--- NOTE | 2024-05-02 01:42 | PC.NURSE ---
Dr. Rodriguez ordered patient to be intubated with mechanical ventilation and ER physician was contacted at 2300. Dr. Camarena, ER physician, gave verbal order for 20mg etomidate and 80mg succinylcholine for intubation. Etomidate and succinylcholine were administered at 230, and patient intubated at 230 with size 8.0 ETT and 25@lip. OG tube inserted at 2311 with X-ray confirmation shortly after. Dr. Rodriguez gave verbal order for propofol and fentanyl for sedation medications. Dr. Rodriguez gave verbal orders aprox. 2325 to increase fentanyl to 50, propofol to 8, and administer 2mg ativan IVP for patient restlesness. Dr. Rodriguez contacted at 00:03 in reference to patient's declining BP. Advised sedation medication were stopped aprox. 10 minutes prior due to declining BP. Order for levophed received and started. Dr. Rodriguez at bedside 00:26 to assess patient, with BP still declining as levophed being titrated within protocol. Order received from Dr. Rodriguez to bolus 250mL D5 1/2NS fluid patient already receiving.
[2024-05-02 01:58] LABS: Iron 38 ug/dL (59-158); Percent Saturation 19.3 % (20-50); Total Iron Binding Capacity 196 mcg/dl; Unsaturated Iron Binding 158 ug/dL (112-347)
--- NOTE | 2024-05-02 02:14 | PC.NURSE ---
NIH Stroke Scale worklist item completed from list. Patient is intubated, now unable to preform assessment.
[2024-05-02] MEDS: VANCOMYCIN ADD-Vantage 1,000 MG in 0.9% NaCl ADD-Vantage 250 ML 250 MG IV ×2 (03:13→14:52)
[2024-05-02] MEDS: methylPREDNISolone sod succ 40 mg/mL INJ IVP ×3 (03:14→19:57)
[2024-05-02 03:46] LABS: Basophils % 0.2 %; Eosinophils % 0.1 %; Hematocrit 34.3 % (37-53); Lymphocytes # 1.3 10^3/uL (0.8-4.8); Lymphocytes % 7.8 %; Mean Corpuscular HGB Conc 30.9 g/dL (30-55); Mean Corpuscular Hemoglobin 28.2 pg (27-33); Mean Corpuscular Volume 91.2 fl (82-101); Monocytes # 0.4 10^3/uL (0.2-0.9); Monocytes % 2.5 %; Neutrophils # 14.64 10^3/uL (1.8-7.7); Neutrophils % 88.8 %; Nucleated Red Blood Cells % 0 %; Platelet Count 129 10^3/cmm (157-399); Red Blood Count 3.76 10^6/uL (3.85-5.65); Red Cell Distribution Width 15.9 % (12.1-15.1); White Blood Count 16.47 10^3/uL (3.29-11.43)
[2024-05-02 04:07] LABS: Troponin 5 6HR Delta 7.9 ng/L (0-12)
[2024-05-02 04:10] LABS: Alanine Aminotransferase 20 U/L (0-41); Albumin Level 2.9 g/dL (3.5-5.2); Alkaline Phosphatase 168 U/L (40-130); Anion Gap 9.9 (5-19); Aspartate Amino Transferase 27 U/L (0-40); Blood Urea Nitrogen 37 mg/dL (8-23); Calcium 9.2 mg/dL (8.5-10.5); Carbon Dioxide 34 mmol/L (22-29); Chloride 92 mmol/L (98-107); Creatinine Clr Calc Pharmacy 54.9373; Globulin 2.9 g/dL (1.3-4.6); Glucose 202 mg/dL (65-115); Magnesium 2.1 mg/dL (1.7-2.3); Osmolality Calculated 284 mOsm/kg (285-295); Potassium 5.9 mmol/L (3.5-5.1); Sodium 130 mmol/L (136-145); Total Bilirubin 0.9 mg/dL (0.15-1.2); Total Protein 5.8 g/dL (6.6-8.7)
[2024-05-02 04:22] LABS: Cortisol Random 12.96 ug/dL (2.47-19.5); NT Pro B Type Natriuretic Pept 3327 pg/mL (0-125)
[2024-05-02] MEDS: dextrose 5%-sod chloride 0.45% 1,000 ML 75 ML IV (04:23)
[2024-05-02 04:27] LABS: Troponin 5 6HR 107.9 ng/L (0-15)
[2024-05-02] MEDS: iohexol 350 mg/mL 500 mL Btl (per mL) IV (04:50)
[2024-05-02] MEDS: famotidine 20 mg/2 mL INJ IVP ×2 (05:05→15:53)
[2024-05-02] MEDS: piperacillin-tazobactam 3.375 GM in sodium chloride 0.9% (plus) 50 ML IV ×3 (05:05→22:03)
[2024-05-02 05:22] LABS: Glucose Point of Care 168 mg/dL (70-110)
[2024-05-02 05:23] LABS: Glucose Point of Care 245 mg/dL (70-110)
--- NOTE | 2024-05-02 05:24 | PC.NURSE ---
Contacted Dr. Rodriguez in reference to patients BG of now 245. Received orders to hold D5 1/2 NS fluid, and to lower propofol per titration protocol, currently at 20. Contact Dr. Rodriguez again when it is time to change the bottle of propofol and will reconsider switching to versed.
[2024-05-02 06:31] LABS: Glucose Point of Care 230 mg/dL (70-110)
[2024-05-02] MEDS: budesonide 0.5 mg/2 mL Neb INHALATION ×2 (07:24→20:03)
[2024-05-02 08:17] LABS: Glucose Point of Care 225 mg/dL (70-110)
[2024-05-02] MEDS: sodium polystyrene sulfonate 15 gm/60 mL Btl NG-TUBE (08:31)
[2024-05-02] MEDS: dextrose 10% 125 ML 750 ML IV (08:38)
[2024-05-02] MEDS: gabapentin 300 mg Capsule 600 MG PO ×3 (08:40→22:02)
[2024-05-02] MEDS: aspirin 81 mg Chew Tablet PO (08:40)
[2024-05-02] MEDS: insulin regular-human 100 units/1 mL 10 UNIT IVP (08:42)
[2024-05-02] MEDS: lactobacillus 1 Tablet 1 TAB PO (08:45)
[2024-05-02] MEDS: cholecalciferol (vitamin D3) 1,000 unit Tablet 1000 UNIT PO (08:49)
--- NOTE | 2024-05-02 09:14 | PC.PT ---
Spoke with pt's nurse at 0820. Pt was intubated yesterday, as he was not maintaining SpO2 on BiPap. Hold PT for today. Will reattempt tomorrow.
[2024-05-02] MEDS: norepinephrine 4 MG/250 ML BAG 15 MG IV (10:40)
[2024-05-02 11:47] LABS: Glucose Point of Care 243 mg/dL (70-110)
[2024-05-02] MEDS: fentaNYL 1,000 MCG/100 ML BAG 5 MCG IV (15:49)
--- NOTE | 2024-05-02 16:03 | P.PN_ITS ---
Subjective 2 Subjective: Seen him at bedside this morning. Patient has been intubated, sedated and on pressors. Family, daughter at bedside explained about the diagnosis and plan of care. She seems to understand and acceptable. Medications: Reviewed: Yes Vitals/I&O/Wt Last Vital Signs Temp 98.8 F 05/02/24 12:00 Pulse 85 05/02/24 14:00 Resp 18 05/02/24 15:19 BP 113/35 05/02/24 12:00 Pulse Ox 96 05/02/24 15:19 O2 Del Method Mechanical Ventilation 05/02/24 13:03 O2 Flow Rate 3 05/01/24 14:03 FiO2 40 05/02/24 15:19 05/02/24 05/02/24 05/02/24 06:59 14:59 22:59 Intake Total 1425.274 / 2401.524 504.943 / 504.943 317.261 / 822.204 Output Total 700 / 700 Balance 725.274 / 1701.524 504.943 / 504.943 317.261 / 822.204 Weight last 48 hrs Weight 79.5 kg Weight 79.549 kg Weight 84.368 kg Physical Exam 2 Narrative: He is sedated, intubated and on pressors Chest bilateral decreased air entry, scattered crackles present Cardiovascular normal heart sounds no murmurs Abdomen soft, nontender, distended, normal bowel sounds, resonant to percussion Extremities no edema noted bilateral lower extremity Urinary Catheter Management: Salmon: Cath Placed During This Visit: yes Reason for Continuing Indwelling Catheter: Accurate Measurement of Urinary Output in Critically Ill Patients Urinary Catheter Date of Insertion: 05/01/24 Urinary Catheter Time of Insertion: 21:00 Data 05/02/24 03:05 05/02/24 03:05 Micro: Microbiology 05/02/24 00:16 Blood Culture - Preliminary Blood SPECIMEN COLLECTED 05/02/24 00:12 Blood Culture - Preliminary Blood SPECIMEN COLLECTED A&P Assessment and plan (1) Pneumonia: (2) Lung cancer: (3) CAD (coronary artery disease): (4) H/O aortic valve replacement: (5) Hypertension: (6) Hyperlipidemia: (7) Diabetes mellitus: (8) COPD (chronic obstructive pulmonary disease): (9) AMS (altered mental status): Plan Grayson Shepard is a 74 year old male with past medical history of coronary artery disease, s/p transcatheter aortic valve replacement, hypertension, hyperlipidemia, type 2 diabetes mellitus, diagnosed with lung cancer 1 year ago, did not receive any chemo or radiation, has been on Keytruda since 5 months, Keytruda recently stopped 1 month ago since he was diagnosed with right sided pneumonia and has been on antibiotics. Last CT chest was done on April 14 and he is supposed to have follow-up CT in May. As per the family today he had a fall at home, was found to be drowsy, with slurred speech, confused couple of hours later after the fall and found to be hypoxic in ER.mental status improved in ER. During my assessment he was alert awake oriented x 3 CTH was negative in ER , CXR showed fluid overload vs pneumonia. He was found to be confused, difficult to arouse while in CSU. Altered mental status-likely secondary to hypoglycemia versus hypercarbia ABG repeated, showed 7.2 8/82/64/39/91% on 35% FiO2 on BiPAP Potassium was 5 and blood sugar was found to be 41 Given D50 x 1, will start on D5 half NS at 70 cc/h Spoke with the family who is at bedside, states he took his morning insulin dosage and ate only half bowl of cereal. Has not had anything to eat since then. Also received D10 and 10 units of regular insulin in the ER for hyperkalemia of 5.9. Continue to monitor fingerstick every 2 hours Will hold off on insulin for now Hypoglycemia protocol initiated Hypoxic respiratory failure- likely secondary to pneumonia versus fluid overload versus PE D-dimer 3.83, will do CTA chest to rule out PE and evaluate for pneumonia. Once stabilized, patient can go for CTA. He just received subcutaneous heparin for DVT prophylaxis when arrived on floor. Hence cannot do therapeutic Lovenox now. Will reschedule subcutaneous Lovenox 80 mg at midnight. Continue BiPAP support for now, respiratory assess and treat Will continue IV vancomycin and Zosyn for now DuoNebs every 6 hours Continue OIL FIELD ROUSTABOUT Mucinex Hyperkalemia-received D10 and 10 units of regular insulin in ER Repeat ABG done to evaluate for hypercarbia, ABG showed pCO2 of 82, still consistent with respiratory acidosis Also had potassium of 5 Hypertension-currently having soft blood pressure Hold OIL FIELD ROUSTABOUT Bumex, Entresto Will keep n.p.o. for now GI prophylaxis with IV Pepcid 20 mg twice daily CODE STATUS was discussed earlier when patient was alert and awake, he wanted to be full code. 05/02/24 Patient was found to have persistent hypercarbia on multiple ABGs in spite of BiPAP and was also found to be agitated and altered. Hence was intubated and started on mechanical ventilation. During the process patient was found to be hypotensive and started on pressors and on fentanyl and propofol drip for agitation. WBC count this morning was 16.4, potassium of 5.9, sodium 130, creatinine trending up to 1.3, blood sugar of 202. Continue with the broad-spectrum antibiotics vancomycin and Zosyn. 3 sets of troponin was 100, 126, 107, BNP was 3327 Was also started on 80 mg of therapeutic Lovenox twice daily for suspected PE because of elevated D-dimer. CTA chest negative for acute PE. CTA chest done showed 1. No pulmonary embolus. 2. Combination of the lung findings suggest multifocal pneumonia with likely underlying aspiration. 3. Left upper lobe spiculated masslike opacity, recommend follow-up upon treatment completion to ensure resolution. 4. Right upper lobe masslike consolidation with surrounding ground-glass, this is likely infectious/inflammatory given the additional findings, however follow-up imaging should again be considered to ensure resolution. 5. Multi-station mediastinal lymphadenopathy. Attention follow-up examinations to ensure resolution. 6. Xtua-[id number]-right pleural effusions. CXR 1. Endotracheal tube tip 4.2 cm above the haydee. 2. Enteric tube tip extending below the diaphragm and inferiorly off the field of view. 3. TAVR. 4. Cardiomegaly. 5. Moderate left pleural effusion. 6. Patchy bilateral airspace opacities reflecting alveolar edema and/or pneumonic infiltrates. 7. Aortic atherosclerotic calcifications. Continue broad-spectrum antibiotics with vancomycin and Zosyn. Has been off pressor Levophed since this afternoon. Continue propofol and fentanyl for sedation. Monitor blood sugars. Continue insulin correction scale. ECHO Normal left ventricular size, systolic function and wall thickness, with no regional wall motion abnormalities. Left ventricular ejection fraction is estimated at 55 %. Diastolic fynction cannot be assessed in the absence of atrial fibrillation. Moderately increased right ventricular size. The left atrium is normal in size. Structurally normal mitral valve without significant stenosis or prolapse. There is no mitral regurgitation. There is no pericardial effusion. Right atrial pressure is around 5 mm of mercury Attestations 2 Medical Necessity Statement*: He needs continued hospitalization crossing 2 midnights for management of altered mental status, hypoxic and hypercarbic respiratory failure and hypoglycemia with IV fluids, antibiotics, mechanical ventilator, sedation, pressors and cardiac monitoring Time Spent in Patient Care: 60 minutes Coding Level of Care Code Critical Care >/= 30 minutes Diagnoses Pneumonia J18.9 Lung cancer C34.90 CAD (coronary artery disease) I25.10 H/O aortic valve replacement Z95.2 Hypertension I10 Hyperlipidemia E78.5 Diabetes mellitus E11.9 COPD (chronic obstructive pulmonary disease) J44.9 AMS (altered mental status) R41.82 Time Spent (min) 60
[2024-05-02 16:26] LABS: Glucose Point of Care 242 mg/dL (70-110)
[2024-05-02] MEDS: insulin lispro 100 unit/1 mL SUBCUT ×2 (16:30→23:28)
[2024-05-02] MEDS: atorvastatin 40 mg Tablet PO (17:36)
[2024-05-02] MEDS: propofol 1,000 MG/100 ML INJ 4.77 MG IV (18:09)
[2024-05-02 18:35] LABS: Anion Gap 8.6 (5-19); Blood Urea Nitrogen 46 mg/dL (8-23); Carbon Dioxide 33 mmol/L (22-29); Chloride 93 mmol/L (98-107); Glucose 216 mg/dL (65-115); Magnesium 2.2 mg/dL (1.7-2.3); Osmolality Calculated 286 mOsm/kg (285-295); Potassium 5.6 mmol/L (3.5-5.1); Sodium 129 mmol/L (136-145)
--- NOTE | 2024-05-02 18:59 | PC.NURSE ---
K+ 5.6 on BMP, notified Dr. Maki of current BMP results. Orders given. Report given to ESAU Hernandes
[2024-05-02] MEDS: sodium polystyrene sulfonate 15 gm/60 mL Btl OG-TUBE (19:54)
[2024-05-02] MEDS: dextrose 10% 250 ML 1000 ML IV (19:55)
[2024-05-02] MEDS: insulin regular-human 10 UNIT in SYRINGE 1 EACH 100 UNIT IVP (19:56)
[2024-05-02] MEDS: heparin 5,000 unit/mL INJ 1 mL 5000 UNIT SUBCUT (19:57)
[2024-05-02] MEDS: albuterol 2.5 mg/3 mL Neb INHALATION (20:03)
[2024-05-02 21:34] LABS: Glucose Point of Care 222 mg/dL (70-110)
[2024-05-02 23:25] LABS: Glucose Point of Care 215 mg/dL (70-110)
[2024-05-03] VITALS (61 sets, daily range): BP systolic 86–153; BP diastolic 37–68; PULSE 43–92; RESP 16–20; TEMP 36.9–38.2; O2SAT 88–98; BMI 24.3
--- NOTE | 2024-05-03 00:38 | PC.NURSE ---
Dextrose 5% 0.45% NS not needed at this time. New order to hold until needed per Dr. Rodriguez's order.
[2024-05-03] MEDS: albuterol 2.5 mg/3 mL Neb INHALATION (02:56)
[2024-05-03] MEDS: famotidine 20 mg/2 mL INJ IVP ×2 (03:39→15:48)
[2024-05-03] MEDS: VANCOMYCIN ADD-Vantage 1,000 MG in 0.9% NaCl ADD-Vantage 250 ML 250 MG IV (03:39)
[2024-05-03] MEDS: heparin 5,000 unit/mL INJ 1 mL 5000 UNIT SUBCUT ×3 (03:39→19:12)
[2024-05-03] MEDS: methylPREDNISolone sod succ 40 mg/mL INJ IVP ×3 (03:39→19:12)
[2024-05-03 04:05] LABS: Glucose Point of Care 239 mg/dL (70-110)
[2024-05-03] MEDS: insulin lispro 100 unit/1 mL SUBCUT ×5 (04:12→22:26)
[2024-05-03] MEDS: piperacillin-tazobactam 3.375 GM in sodium chloride 0.9% (plus) 50 ML IV ×3 (05:27→21:56)
[2024-05-03] MEDS: fentaNYL 1,000 MCG/100 ML BAG 7.5 MCG IV ×2 (05:28→18:56)
[2024-05-03] MEDS: norepinephrine 4 MG/250 ML BAG 22.5 MG IV (05:28)
[2024-05-03] MEDS: propofol 1,000 MG/100 ML INJ 11.93 MG IV (05:29)
[2024-05-03 05:36] LABS: Basophils % 0.3 %; Eosinophils % 0.1 %; Hematocrit 32.6 % (37-53); Lymphocytes # 1.6 10^3/uL (0.8-4.8); Lymphocytes % 11.8 %; Mean Corpuscular HGB Conc 31.3 g/dL (30-55); Mean Corpuscular Hemoglobin 28.4 pg (27-33); Mean Corpuscular Volume 90.8 fl (82-101); Mean Platelet Volume 9.9 fL (7.4-10.4); Monocytes # 0.8 10^3/uL (0.2-0.9); Monocytes % 5.9 %; Neutrophils # 10.84 10^3/uL (1.8-7.7); Neutrophils % 81.4 %; Nucleated Red Blood Cells % 0 %; Platelet Count 159 10^3/cmm (157-399); Red Blood Count 3.59 10^6/uL (3.85-5.65); White Blood Count 13.31 10^3/uL (3.29-11.43)
[2024-05-03 05:54] LABS: Alanine Aminotransferase 16 U/L (0-41); Albumin Level 2.7 g/dL (3.5-5.2); Alkaline Phosphatase 136 U/L (40-130); Anion Gap 12.5 (5-19); Aspartate Amino Transferase 20 U/L (0-40); Blood Urea Nitrogen 52 mg/dL (8-23); Calcium 8.5 mg/dL (8.5-10.5); Carbon Dioxide 31 mmol/L (22-29); Chloride 94 mmol/L (98-107); Creatinine Clr Calc Pharmacy 44.0347; Glucose 236 mg/dL (65-115); Magnesium 2.1 mg/dL (1.7-2.3); Osmolality Calculated 296 mOsm/kg (285-295); Potassium 5.5 mmol/L (3.5-5.1); Sodium 132 mmol/L (136-145); Total Bilirubin 0.5 mg/dL (0.15-1.2); Total Protein 5.7 g/dL (6.6-8.7)
[2024-05-03] MEDS: ipratropium-albuterol 3 mL Neb INHALATION ×3 (07:49→19:44)
[2024-05-03] MEDS: budesonide 0.5 mg/2 mL Neb INHALATION ×2 (07:49→19:44)
[2024-05-03 07:59] LABS: Glucose Point of Care 232 mg/dL (70-110)
[2024-05-03] MEDS: dextrose 10% 125 ML 750 ML IV (08:04)
[2024-05-03] MEDS: insulin regular-human 100 units/1 mL 10 UNIT IVP (08:07)
[2024-05-03] MEDS: calcium gluconate 0.9% NaCL 1 GM/50 ML PREMIX IV (08:07)
[2024-05-03] MEDS: sodium polystyrene sulfonate 15 gm/60 mL Btl PO (08:16)
[2024-05-03] MEDS: gabapentin 300 mg Capsule 600 MG PO ×3 (08:16→21:56)
[2024-05-03] MEDS: aspirin 81 mg Chew Tablet PO (08:16)
[2024-05-03] MEDS: cholecalciferol (vitamin D3) 1,000 unit Tablet 1000 UNIT PO (08:16)
[2024-05-03] MEDS: lactobacillus 1 Tablet 1 TAB PO (08:17)
--- NOTE | 2024-05-03 08:49 | ECG_ITS ---
[facility] Test Date: 2024-05-03 Pat Name: Grayson Shepard Department: Room: ICU03 Gender: Male Event Specialist: : [id number] Requested By: Yojana Maki Order Number: [id number] [place] MD: Woodrow Peña M.D. Measurements Intervals [place] Rate: 88 P: 0 FL: 0 QRS: -55 QRSD: 99 T: 94 QT: 341 QTc: 414 Interpretive Statements ATRIAL FIBRILLATION LEFT AXIS DEVIATION [QRS AXIS < -30] ANTEROSEPTAL MYOCARDIAL INFARCTION , OF INDETERMINATE AGE [40+ ms Q WAVE IN V1-V4] Compared to ECG 05/01/2024 14:04:20 No significant changes Electronically Signed On 05-04-2024 19:07:49 TRAP SETTER by Woodrow Peña M.D. [email or web address]
--- NOTE | 2024-05-03 09:27 | PC.NURSE ---
Dr. Maki to bedside, all labs reviewed and patient assessed. Plan of care discussed. Order given to obtain EKG.
--- NOTE | 2024-05-03 09:41 | PC.PT ---
Patient still intubated and sedated. Plan to reattempt on Sunday.
[2024-05-03] MEDS: acetaminophen 650 mg Supp PR (11:21)
[2024-05-03 11:40] LABS: Glucose Point of Care 203 mg/dL (70-110)
--- NOTE | 2024-05-03 14:28 | PM.PN ---
Subjective Subjective: Seen him at bedside this morning. Patient's been still sedated due to agitation and on mechanical ventilator. Family at bedside, updated them about the medical condition and plan of care. They seem to understand and agree able. Patient was started on BiPAP on admission and was agitated and in persistent respiratory acidosis. When tried to taper the propofol/fentanyl, he becomes agitated again. Hence would be difficult to extubate while the patient is still being agitated since would not be able to tolerate BiPAP on extubation Also was off pressors since yesterday afternoon but overnight became hypotensive and was started on pressors Levophed again. As per the bedside nurse and respiratory therapist he has been having usual amount of yellowish respiratory secretions. Medications: Reviewed: Yes Vitals/I&O/Wt Last Vital Signs Temp 100.7 F H 05/03/24 12:00 Pulse 70 05/03/24 14:00 Resp 16 05/03/24 14:00 BP 109/40 05/03/24 12:30 Pulse Ox 92 05/03/24 14:00 O2 Del Method Mechanical Ventilation 05/03/24 12:00 O2 Flow Rate 3 05/01/24 14:03 FiO2 30 05/03/24 14:00 05/02/24 05/03/24 05/03/24 22:59 06:59 14:59 Intake Total 839.591 / 1344.534 733.809 / 2078.343 550.880 / 550.880 Output Total 475 / 475 350 / 825 Balance 364.591 / 869.534 383.809 / 1253.343 550.880 / 550.880 Weight last 48 hrs Weight 77 kg Weight 79.5 kg Weight 79.549 kg Physical Exam Narrative: He is sedated, intubated and on pressors Chest bilateral decreased air entry, scattered crackles present Cardiovascular normal heart sounds no murmurs Abdomen soft, nontender, distended, normal bowel sounds, resonant to percussion Extremities no edema noted bilateral lower extremity Urinary Catheter Management: Salmon: Cath Placed During This Visit: yes Reason for Continuing Indwelling Catheter: Accurate Measurement of Urinary Output in Critically Ill Patients Urinary Catheter Date of Insertion: 05/01/24 Urinary Catheter Time of Insertion: 21:00 Data 05/03/24 05:12 05/03/24 05:12 Micro: Microbiology 05/02/24 14:25 Bacterial Antigens - Final Urine Kidney 05/02/24 00:16 Blood Culture - Preliminary Blood NEGATIVE TO DATE 05/02/24 00:12 Blood Culture - Preliminary Blood NEGATIVE TO DATE A&P Assessment and plan (1) Pneumonia: (2) Lung cancer: (3) CAD (coronary artery disease): (4) H/O aortic valve replacement: (5) Hypertension: (6) Hyperlipidemia: (7) Diabetes mellitus: (8) COPD (chronic obstructive pulmonary disease): (9) AMS (altered mental status): (10) Sepsis: Plan Grayson Shepard is a 74 year old male with past medical history of coronary artery disease, s/p transcatheter aortic valve replacement, hypertension, hyperlipidemia, type 2 diabetes mellitus, diagnosed with lung cancer 1 year ago, did not receive any chemo or radiation, has been on Keytruda since 5 months, Keytruda recently stopped 1 month ago since he was diagnosed with right sided pneumonia and has been on antibiotics. Last CT chest was done on April 14 and he is supposed to have follow-up CT in May. As per the family today he had a fall at home, was found to be drowsy, with slurred speech, confused couple of hours later after the fall and found to be hypoxic in ER.mental status improved in ER. During my assessment he was alert awake oriented x 3 CTH was negative in ER , CXR showed fluid overload vs pneumonia. He was found to be confused, difficult to arouse while in CSU. Altered mental status-likely secondary to hypoglycemia versus hypercarbia ABG repeated, showed 7.2 8/82/64/39/91% on 35% FiO2 on BiPAP Potassium was 5 and blood sugar was found to be 41 Given D50 x 1, will start on D5 half NS at 70 cc/h Spoke with the family who is at bedside, states he took his morning insulin dosage and ate only half bowl of cereal. Has not had anything to eat since then. Also received D10 and 10 units of regular insulin in the ER for hyperkalemia of 5.9. Continue to monitor fingerstick every 2 hours Will hold off on insulin for now Hypoglycemia protocol initiated Hypoxic respiratory failure- likely secondary to pneumonia versus fluid overload versus PE D-dimer 3.83, will do CTA chest to rule out PE and evaluate for pneumonia. Once stabilized, patient can go for CTA. He just received subcutaneous heparin for DVT prophylaxis when arrived on floor. Hence cannot do therapeutic Lovenox now. Will reschedule subcutaneous Lovenox 80 mg at midnight. Continue BiPAP support for now, respiratory assess and treat Will continue IV vancomycin and Zosyn for now DuoNebs every 6 hours Continue LIDAR ANALYST Mucinex Hyperkalemia-received D10 and 10 units of regular insulin in ER Repeat ABG done to evaluate for hypercarbia, ABG showed pCO2 of 82, still consistent with respiratory acidosis Also had potassium of 5 Hypertension-currently having soft blood pressure Hold LIDAR ANALYST Bumex, Entresto Will keep n.p.o. for now GI prophylaxis with IV Pepcid 20 mg twice daily CODE STATUS was discussed earlier when patient was alert and awake, he wanted to be full code. 05/02/24 Patient was found to have persistent hypercarbia on multiple ABGs in spite of BiPAP and was also found to be agitated and altered. Hence was intubated and started on mechanical ventilation. During the process patient was found to be hypotensive and started on pressors and on fentanyl and propofol drip for agitation. WBC count this morning was 16.4, potassium of 5.9, sodium 130, creatinine trending up to 1.3, blood sugar of 202. Continue with the broad-spectrum antibiotics vancomycin and Zosyn. 3 sets of troponin was 100, 126, 107, BNP was 3327 Was also started on 80 mg of therapeutic Lovenox twice daily for suspected PE because of elevated D-dimer. CTA chest negative for acute PE. CTA chest done showed 1. No pulmonary embolus. 2. Combination of the lung findings suggest multifocal pneumonia with likely underlying aspiration. 3. Left upper lobe spiculated masslike opacity, recommend follow-up upon treatment completion to ensure resolution. 4. Right upper lobe masslike consolidation with surrounding ground-glass, this is likely infectious/inflammatory given the additional findings, however follow-up imaging should again be considered to ensure resolution. 5. Multi-station mediastinal lymphadenopathy. Attention follow-up examinations to ensure resolution. 6. Srwp-gakpcpz-rtzc-right pleural effusions. CXR 1. Endotracheal tube tip 4.2 cm above the haydee. 2. Enteric tube tip extending below the diaphragm and inferiorly off the field of view. 3. TAVR. 4. Cardiomegaly. 5. Moderate left pleural effusion. 6. Patchy bilateral airspace opacities reflecting alveolar edema and/or pneumonic infiltrates. 7. Aortic atherosclerotic calcifications. Continue broad-spectrum antibiotics with vancomycin and Zosyn. Has been off pressor Levophed since this afternoon. Continue propofol and fentanyl for sedation. Monitor blood sugars. Continue insulin correction scale. ECHO Normal left ventricular size, systolic function and wall thickness, with no regional wall motion abnormalities. Left ventricular ejection fraction is estimated at 55 %. Diastolic fynction cannot be assessed in the absence of atrial fibrillation. Moderately increased right ventricular size. The left atrium is normal in size. Structurally normal mitral valve without significant stenosis or prolapse. There is no mitral regurgitation. There is no pericardial effusion. Right atrial pressure is around 5 mm of mercury 05/03/24 Patient still intubated on mechanical ventilator, sedated and on pressors. Would need a trial of extubation once he is more calm, alert and oriented. Since was not able to tolerate BiPAP on admission secondary to confusion and agitation. Family aware of plan of care. Leukocytosis improved to 13, has persistent hyperkalemia 5.5 will treat with hyperkalemia protocol, creatinine trending up to 1.6 likely secondary to sepsis, troponins plateaued at 107. He is on IV vancomycin and Zosyn. Will continue current management. Attestations Medical Necessity Statement*: He needs continued hospitalization crossing 2 midnights for management of altered mental status, hypoxic and hypercarbic respiratory failure and hypoglycemia with IV fluids, antibiotics, mechanical ventilator, sedation, pressors and cardiac monitoring Time Spent in Patient Care: 30 minutes Coding Level of Care Code Acute Code for [facility] Diagnoses Pneumonia J18.9 Lung cancer C34.90 CAD (coronary artery disease) I25.10 H/O aortic valve replacement Z95.2 Hypertension I10 Hyperlipidemia E78.5 Diabetes mellitus E11.9 COPD (chronic obstructive pulmonary disease) J44.9 AMS (altered mental status) R41.82 Sepsis A41.9 Time Spent (min) 30
[2024-05-03 14:37] LABS: Vancomycin Trough 24.6 ug/mL (10-15)
[2024-05-03 15:52] LABS: Glucose Point of Care 216 mg/dL (70-110)
[2024-05-03] MEDS: propofol 1,000 MG/100 ML INJ 4.77 MG IV (16:29)
[2024-05-03] MEDS: atorvastatin 40 mg Tablet PO (17:04)
[2024-05-03 18:26] LABS: Blood Urea Nitrogen 53 mg/dL (8-23); Calcium 8.9 mg/dL (8.5-10.5); Carbon Dioxide 31 mmol/L (22-29); Chloride 96 mmol/L (98-107); Glucose 205 mg/dL (65-115); Osmolality Calculated 298 mOsm/kg (285-295); Sodium 134 mmol/L (136-145)
--- NOTE | 2024-05-03 18:58 | PC.NURSE ---
Notified Dr. Maki that K+ is 5.0 on BMP.
[2024-05-03 22:22] LABS: Glucose Point of Care 224 mg/dL (70-110)
[2024-05-04] VITALS (50 sets, daily range): BP systolic 85–152; BP diastolic 38–124; PULSE 47–93; RESP 16–55; TEMP 36.3–37.6; O2SAT 90–100; BMI 24.0
[2024-05-04 00:31] LABS: Glucose Point of Care 233 mg/dL (70-110)
[2024-05-04] MEDS: DOPamine drip 400 MG/250 ML PREMIX 14.44 MG IV (01:58)
[2024-05-04 02:13] LABS: Basophils % 0.2 %; Hematocrit 31.1 % (37-53); Lymphocytes # 1.7 10^3/uL (0.8-4.8); Lymphocytes % 15.7 %; Mean Corpuscular HGB Conc 31.5 g/dL (30-55); Mean Corpuscular Hemoglobin 28.9 pg (27-33); Mean Corpuscular Volume 91.7 fl (82-101); Mean Platelet Volume 9.8 fL (7.4-10.4); Monocytes # 0.7 10^3/uL (0.2-0.9); Monocytes % 6.3 %; Neutrophils # 8.41 10^3/uL (1.8-7.7); Neutrophils % 77.4 %; Nucleated Red Blood Cells % 0 %; Platelet Count 112 10^3/cmm (157-399); Red Blood Count 3.39 10^6/uL (3.85-5.65); Red Cell Distribution Width 15.9 % (12.1-15.1); White Blood Count 10.86 10^3/uL (3.29-11.43)
[2024-05-04] MEDS: chlorhexidine gluconate 4% Btl 118 mL 1 APPLIC TOPICAL (02:23)
[2024-05-04] MEDS: heparin 5,000 unit/mL INJ 1 mL 5000 UNIT SUBCUT ×3 (02:38→19:36)
[2024-05-04 02:39] LABS: Alanine Aminotransferase 16 U/L (0-41); Albumin Level 2.7 g/dL (3.5-5.2); Alkaline Phosphatase 123 U/L (40-130); Anion Gap 14.1 (5-19); Aspartate Amino Transferase 20 U/L (0-40); Blood Urea Nitrogen 53 mg/dL (8-23); Calcium 8.7 mg/dL (8.5-10.5); Carbon Dioxide 31 mmol/L (22-29); Chloride 97 mmol/L (98-107); Creatinine Clr Calc Pharmacy 46.9704; Glucose 215 mg/dL (65-115); Magnesium 2.3 mg/dL (1.7-2.3); Osmolality Calculated 305 mOsm/kg (285-295); Potassium 5.1 mmol/L (3.5-5.1); Sodium 137 mmol/L (136-145); Total Bilirubin 0.4 mg/dL (0.15-1.2); Total Protein 5.7 g/dL (6.6-8.7)
[2024-05-04] MEDS: ipratropium-albuterol 3 mL Neb INHALATION ×4 (03:13→19:45)
[2024-05-04] MEDS: propofol 1,000 MG/100 ML INJ 11.93 MG IV (03:23)
--- NOTE | 2024-05-04 05:00 | XRR_ITS ---
PROCEDURE INFORMATION: Exam: XR Chest Exam date and time: 05/04/2024 4:26 AM Age: 74 years old Clinical indication: Shortness of breath; Prior surgery; Surgery date: 6+ months; Surgery type: Tavr; Patient HX: F/u resp failure. Intubated. History of lung cancer. ; Additional info: Evaluate pneumonia TECHNIQUE: Imaging protocol: Radiologic exam of the chest. Views: 1 view. COMPARISON: 1. CT angio chest PE protcl [id number] 05/02/2024 4:41 AM 2. CR (CHEST, ) 05/01/2024 11:13 PM FINDINGS: Tubes, catheters and devices: There has been trans catheter aortic valve replacement. Endotracheal tube appropriately positioned. Nasogastric tube passes to the gastroesophageal junction. Lungs: See Heart/Mediastinum finding. Pleural spaces: Moderate left pleural effusion slightly decreased Heart/Mediastinum: There is moderate cardiomegaly with vascular congestion. Bones/joints: Unremarkable. Other findings: . XR/XR chest 1V portable [id number] IMPRESSION: 1. Left pleural effusion modestly decreased. 2. Moderate cardiomegaly with vascular congestion.
[2024-05-04 05:19] LABS: Glucose Point of Care 250 mg/dL (70-110)
[2024-05-04] MEDS: piperacillin-tazobactam 3.375 GM in sodium chloride 0.9% (plus) 50 ML IV ×3 (05:21→20:09)
[2024-05-04] MEDS: methylPREDNISolone sod succ 40 mg/mL INJ IVP ×3 (05:21→19:35)
[2024-05-04] MEDS: famotidine 20 mg/2 mL INJ IVP ×2 (05:22→15:44)
[2024-05-04] MEDS: insulin lispro 100 unit/1 mL SUBCUT ×6 (05:22→23:49)
[2024-05-04] MEDS: fentaNYL 1,000 MCG/100 ML BAG 10 MCG IV (06:32)
[2024-05-04] MEDS: budesonide 0.5 mg/2 mL Neb INHALATION ×2 (07:42→19:45)
[2024-05-04 07:56] LABS: Glucose Point of Care 212 mg/dL (70-110)
[2024-05-04] MEDS: gabapentin 300 mg Capsule 600 MG PO ×3 (08:15→20:08)
[2024-05-04] MEDS: cholecalciferol (vitamin D3) 1,000 unit Tablet 1000 UNIT PO (08:15)
[2024-05-04] MEDS: lactobacillus 1 Tablet 1 TAB PO (08:15)
[2024-05-04] MEDS: aspirin 81 mg Chew Tablet PO (08:15)
[2024-05-04] MEDS: albumin 12.5 GM/250 ML VIAL IV (08:41)
[2024-05-04 12:12] LABS: Glucose Point of Care 191 mg/dL (70-110)
--- NOTE | 2024-05-04 12:40 | PC.NURSE ---
Extubated per Rhonda RT with Dr. Maki at bedside. Placed on 5L NC and weaned down to baseline of 3L NC. Tolerated well. No distress noted.
--- NOTE | 2024-05-04 13:33 | PC.NURSE ---
Addendum entered by NADIA Schmid RN 05/04/24 13:36: witness by lauri Original Note: Wasted 74.8333 mL of Fentanyl drip and 42.376 mL of propofol drip. Witnessed per ESAU [email or web address].
[2024-05-04 13:45] LABS: Vancomycin Trough 14.8 ug/mL (10-15)
--- NOTE | 2024-05-04 13:47 | P.PN_ITS ---
Subjective 2 Subjective: Seen him at bedside this morning. He was doing really well was awake and alert, oriented x 3, communicating with the family. He has been off propofol Versed and Levophed. Plan was to extubate him he was started on pressure support, patient was extubated at 12:40 PM, looks comfortable on 5 L nasal cannula, saturating 99%, not in acute distress. Family at bedside. Medications: Reviewed: Yes Vitals/I&O/Wt Last Vital Signs Temp 99.6 F 05/04/24 12:00 Pulse 85 05/04/24 13:11 Resp 18 05/04/24 13:00 BP 131/61 05/04/24 12:30 Pulse Ox 96 05/04/24 13:11 O2 Del Method Nasal Cannula 05/04/24 13:11 O2 Flow Rate 3 05/04/24 13:11 FiO2 35 05/04/24 12:34 05/03/24 05/04/24 05/04/24 22:59 06:59 14:59 Intake Total 509.114 / 1059.994 234.197 / 1294.191 179.555 / 179.555 Output Total 600 / 600 950 / 1550 Balance -90.886 / 459.994 -715.803 / -255.809 179.555 / 179.555 Weight last 48 hrs Weight 76 kg Weight 77 kg Physical Exam 2 Narrative: He is alert awake oriented x 3, not in acute distress, saturating well on 5 L nasal cannula Chest bilateral decreased air entry, scattered crackles present Cardiovascular normal heart sounds no murmurs Abdomen soft, nontender, distended, normal bowel sounds, resonant to percussion Extremities no edema noted bilateral lower extremity Urinary Catheter Management: Salmon: Cath Placed During This Visit: yes Reason for Continuing Indwelling Catheter: Accurate Measurement of Urinary Output in Critically Ill Patients Urinary Catheter Date of Insertion: 05/01/24 Urinary Catheter Time of Insertion: 21:00 Data 05/04/24 02:07 05/04/24 02:07 Micro: Microbiology 05/02/24 14:25 Bacterial Antigens - Final Urine Kidney A&P Assessment and plan (1) Pneumonia: (2) Lung cancer: (3) CAD (coronary artery disease): (4) H/O aortic valve replacement: (5) Hypertension: (6) Hyperlipidemia: (7) Diabetes mellitus: (8) COPD (chronic obstructive pulmonary disease): (9) AMS (altered mental status): (10) Sepsis: Plan Grayson Shepard is a 74 year old male with past medical history of coronary artery disease, s/p transcatheter aortic valve replacement, hypertension, hyperlipidemia, type 2 diabetes mellitus, diagnosed with lung cancer 1 year ago, did not receive any chemo or radiation, has been on Keytruda since 5 months, Keytruda recently stopped 1 month ago since he was diagnosed with right sided pneumonia and has been on antibiotics. Last CT chest was done on April 14 and he is supposed to have follow-up CT in May. As per the family today he had a fall at home, was found to be drowsy, with slurred speech, confused couple of hours later after the fall and found to be hypoxic in ER.mental status improved in ER. During my assessment he was alert awake oriented x 3 CTH was negative in ER , CXR showed fluid overload vs pneumonia. He was found to be confused, difficult to arouse while in [facility]. Altered mental status-likely secondary to hypoglycemia versus hypercarbia ABG repeated, showed 7.2 8/82/64/39/91% on 35% FiO2 on BiPAP Potassium was 5 and blood sugar was found to be 41 Given D50 x 1, will start on D5 half NS at 70 cc/h Spoke with the family who is at bedside, states he took his morning insulin dosage and ate only half bowl of cereal. Has not had anything to eat since then. Also received D10 and 10 units of regular insulin in the ER for hyperkalemia of 5.9. Continue to monitor fingerstick every 2 hours Will hold off on insulin for now Hypoglycemia protocol initiated Hypoxic respiratory failure- likely secondary to pneumonia versus fluid overload versus PE D-dimer 3.83, will do CTA chest to rule out PE and evaluate for pneumonia. Once stabilized, patient can go for CTA. He just received subcutaneous heparin for DVT prophylaxis when arrived on floor. Hence cannot do therapeutic Lovenox now. Will reschedule subcutaneous Lovenox 80 mg at midnight. 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 for now GI prophylaxis with IV Pepcid 20 mg twice daily CODE STATUS was discussed earlier when patient was alert and awake, he wanted to be full code. 05/02/24 Patient was found to have persistent hypercarbia on multiple ABGs in spite of BiPAP and was also found to be agitated and altered. Hence was intubated and started on mechanical ventilation. During the process patient was found to be hypotensive and started on pressors and on fentanyl and propofol drip for agitation. WBC count this morning was 16.4, potassium of 5.9, sodium 130, creatinine trending up to 1.3, blood sugar of 202. Continue with the broad-spectrum antibiotics vancomycin and Zosyn. 3 sets of troponin was 100, 126, 107, BNP was 3327 Was also started on 80 mg of therapeutic Lovenox twice daily for suspected PE because of elevated D-dimer. CTA chest negative for acute PE. CTA chest done showed 1. No pulmonary embolus. 2. Combination of the lung findings suggest multifocal pneumonia with likely underlying aspiration. 3. Left upper lobe spiculated masslike opacity, recommend follow-up upon treatment completion to ensure resolution. 4. Right upper lobe masslike consolidation with surrounding ground-glass, this is likely infectious/inflammatory given the additional findings, however follow-up imaging should again be considered to ensure resolution. 5. Multi-station mediastinal lymphadenopathy. Attention follow-up examinations to ensure resolution. 6. Yepn-scekduw-lryj-right pleural effusions. CXR 1. Endotracheal tube tip 4.2 cm above the haydee. 2. Enteric tube tip extending below the diaphragm and inferiorly off the field of view. 3. TAVR. 4. Cardiomegaly. 5. Moderate left pleural effusion. 6. Patchy bilateral airspace opacities reflecting alveolar edema and/or pneumonic infiltrates. 7. Aortic atherosclerotic calcifications. Continue broad-spectrum antibiotics with vancomycin and Zosyn. Has been off pressor Levophed since this afternoon. Continue propofol and fentanyl for sedation. Monitor blood sugars. Continue insulin correction scale. ECHO Normal left ventricular size, systolic function and wall thickness, with no regional wall motion abnormalities. Left ventricular ejection fraction is estimated at 55 %. Diastolic fynction cannot be assessed in the absence of atrial fibrillation. Moderately increased right ventricular size. The left atrium is normal in size. Structurally normal mitral valve without significant stenosis or prolapse. There is no mitral regurgitation. There is no pericardial effusion. Right atrial pressure is around 5 mm of mercury 05/03/24 Patient still intubated on mechanical ventilator, sedated and on pressors. Would need a trial of extubation once he is more calm, alert and oriented. Since was not able to tolerate BiPAP on admission secondary to confusion and agitation. Family aware of plan of care. Leukocytosis improved to 13, has persistent hyperkalemia 5.5 will treat with hyperkalemia protocol, creatinine trending up to 1.6 likely secondary to sepsis, troponins plateaued at 107. He is on IV vancomycin and Zosyn. Will continue current management. 05/04/24 He is doing really well today. Has been extubated at that 12:40 PM. Not in acute distress, saturating well on 5 L nasal cannula. Family at bedside, aware of plan of care. Will continue to monitor in ICU, continue IV vancomycin and Zosyn for now. Leukocytosis resolved, potassium 5.1, creatinine trending down to 1.5. Attestations 2 Medical Necessity Statement*: He needs continued hospitalization crossing 2 midnights for management of , hypoxic and hypercarbic respiratory failure with IV fluids, antibiotics, supplemental oxygen and cardiac monitoring Time Spent in Patient Care: 30 minutes Coding Level of Care Code Critical Care >/= 30 minutes Diagnoses Pneumonia J18.9 Lung cancer C34.90 CAD (coronary artery disease) I25.10 H/O aortic valve replacement Z95.2 Hypertension I10 Hyperlipidemia E78.5 Diabetes mellitus E11.9 COPD (chronic obstructive pulmonary disease) J44.9 AMS (altered mental status) R41.82 Sepsis A41.9 Time Spent (min) 30
--- NOTE | 2024-05-04 14:00 | PC.NURSE ---
Attempting to have bowel movement but unable and requesting something to help him have a BM. Contacted Dr. Maki, order given for lactulose and give colase as orderd.
[2024-05-04 14:08] LABS: Glucose Point of Care 191 mg/dL (70-110)
[2024-05-04] MEDS: lactulose oral liq 20 gm/30 mL UDC PO (14:19)
[2024-05-04] MEDS: docusate sodium 100 mg Capsule 200 MG PO (14:19)
[2024-05-04] MEDS: vancomycin 500 MG in sodium chloride 0.9% (plus) 100 ML 200 MG IV (15:08)
[2024-05-04 15:57] LABS: Glucose Point of Care 232 mg/dL (70-110)
--- NOTE | 2024-05-04 17:36 | PC.NURSE ---
Lactulose and colase given. Pt had 2 large BM in [facility]. Returned to chair at bedside, v/s remain stable. Reports that he feels a lot better.
[2024-05-04] MEDS: atorvastatin 40 mg Tablet PO (17:38)
[2024-05-04] MEDS: HYDROcodone-acetaminophen 5-325 mg Tablet 1 TAB PO (19:34)
--- NOTE | 2024-05-04 22:19 | PC.NURSE ---
Home BIPAP order Received telephone order from Dr Rodriguez for patient to use his home BIPAP system.
[2024-05-04 23:18] LABS: Glucose Point of Care 209 mg/dL (70-110)
[2024-05-04 23:48] LABS: Glucose Point of Care 221 mg/dL (70-110)
[2024-05-05] VITALS (37 sets, daily range): BP systolic 109–168; BP diastolic 41–96; PULSE 50–89; RESP 15–25; TEMP 35.9–36.5; O2SAT 80–100
[2024-05-05] MEDS: ipratropium-albuterol 3 mL Neb INHALATION ×4 (02:54→20:38)
[2024-05-05] MEDS: heparin 5,000 unit/mL INJ 1 mL 5000 UNIT SUBCUT ×3 (03:34→19:44)
[2024-05-05] MEDS: methylPREDNISolone sod succ 40 mg/mL INJ IVP ×3 (03:35→19:43)
[2024-05-05] MEDS: famotidine 20 mg/2 mL INJ IVP ×2 (03:36→16:27)
[2024-05-05 04:51] LABS: Glucose Point of Care 188 mg/dL (70-110)
[2024-05-05] MEDS: insulin lispro 100 unit/1 mL SUBCUT ×2 (04:56→19:59)
[2024-05-05] MEDS: piperacillin-tazobactam 3.375 GM in sodium chloride 0.9% (plus) 50 ML IV ×3 (04:58→21:07)
[2024-05-05 05:08] LABS: Basophils % 0.2 %; Eosinophils % 0.3 %; Lymphocytes # 1.2 10^3/uL (0.8-4.8); Lymphocytes % 19.8 %; Mean Corpuscular HGB Conc 30.6 g/dL (30-55); Mean Corpuscular Hemoglobin 28.4 pg (27-33); Mean Corpuscular Volume 92.9 fl (82-101); Mean Platelet Volume 10.2 fL (7.4-10.4); Monocytes # 0.6 10^3/uL (0.2-0.9); Monocytes % 9.1 %; Neutrophils # 4.28 10^3/uL (1.8-7.7); Neutrophils % 70.4 %; Nucleated Red Blood Cells % 0 %; Platelet Count 94 10^3/cmm (157-399); Red Blood Count 3.66 10^6/uL (3.85-5.65); Red Cell Distribution Width 15.3 % (12.1-15.1); White Blood Count 6.07 10^3/uL (3.29-11.43)
[2024-05-05 05:27] LABS: Vancomycin Random 13.8 ug/mL (20.0-40.0)
[2024-05-05] MEDS: vancomycin 500 MG in sodium chloride 0.9% (plus) 100 ML 200 MG IV ×2 (05:31→18:09)
[2024-05-05 05:33] LABS: Alanine Aminotransferase 17 U/L (0-41); Albumin Level 3.2 g/dL (3.5-5.2); Alkaline Phosphatase 125 U/L (40-130); Anion Gap 8.3 (5-19); Aspartate Amino Transferase 20 U/L (0-40); Blood Urea Nitrogen 39 mg/dL (8-23); Calcium 8.9 mg/dL (8.5-10.5); Carbon Dioxide 37 mmol/L (22-29); Chloride 96 mmol/L (98-107); Creatinine Clr Calc Pharmacy 58.3981; Globulin 2.3 g/dL (1.3-4.6); Glucose 178 mg/dL (65-115); Magnesium 2.4 mg/dL (1.7-2.3); Osmolality Calculated 298 mOsm/kg (285-295); Potassium 4.3 mmol/L (3.5-5.1); Sodium 137 mmol/L (136-145); Total Bilirubin 0.5 mg/dL (0.15-1.2); Total Protein 5.5 g/dL (6.6-8.7)
[2024-05-05] MEDS: budesonide 0.5 mg/2 mL Neb INHALATION ×2 (07:57→20:38)
[2024-05-05] MEDS: gabapentin 300 mg Capsule 600 MG PO ×3 (08:37→21:06)
[2024-05-05] MEDS: lactobacillus 1 Tablet 1 TAB PO (08:37)
[2024-05-05] MEDS: aspirin 81 mg Chew Tablet PO (08:37)
[2024-05-05] MEDS: cholecalciferol (vitamin D3) 1,000 unit Tablet 1000 UNIT PO (08:37)
--- NOTE | 2024-05-05 12:23 | PC.SOCIAL ---
IMM Updated Updated pt on IMM. No questions voiced. Provided pt a copy. Initialed, dated, & timed a copy & placed in chart.
--- NOTE | 2024-05-05 13:29 | P.PN_ITS ---
Subjective 2 Subjective: seen this morning Speech is very clear this morning. Patient was extubated 05/04 ? At this time sitting up alert oriented x 3. Doing well on nasal cannula. CTA chest ruled out PE yesterday. Will be working with physical therapy shortly. Vitals/I&O/Wt Last Vital Signs Temp 96.7 F L 05/05/24 12:00 Pulse 74 05/05/24 12:00 Resp 16 05/05/24 12:00 BP 134/62 05/05/24 12:00 Pulse Ox 98 05/05/24 12:00 O2 Del Method Nasal Cannula 05/05/24 12:00 O2 Flow Rate 3 05/05/24 12:00 FiO2 35 05/04/24 12:34 05/04/24 05/05/24 05/05/24 22:59 06:59 14:59 Intake Total 727.262 / 1156.817 150 / 1306.817 650 / 650 Output Total 975 / 975 1250 / 2225 Balance -247.738 / 181.817 -1100 / -918.183 650 / 650 Weight last 48 hrs Weight 73.5 kg Weight 76 kg Physical Exam 2 Narrative: He is alert awake oriented x 3, not in acute distress, saturating well on 3 L nasal cannula Chest bilateral decreased air entry, no crackles appreciated. Cardiovascular normal heart sounds no murmurs Abdomen soft, nontender, distended, normal bowel sounds, resonant to percussion Extremities no edema noted bilateral lower extremity Neuro: Strength and sensation symmetrical bilateral upper and lower extremities. No cranial nerve deficits. Able to follow commands. No gross focal deficits at this time. Did not test gait. Urinary Catheter Management: Salmon: Cath Placed During This Visit: yes, but has since been removed by the nurse Reason for Continuing Indwelling Catheter: Accurate Measurement of Urinary Output in Critically Ill Patients Urinary Catheter Date of Insertion: 05/01/24 Urinary Catheter Time of Insertion: 21:00 Date Urinary Catheter Removed: 05/05/24 Time Urinary Catheter Discontinued: 12:30 Data 05/05/24 04:25 05/05/24 04:25 A&P Assessment and plan (1) Pneumonia: (2) Lung cancer: (3) CAD (coronary artery disease): (4) H/O aortic valve replacement: (5) Hypertension: (6) Hyperlipidemia: (7) Diabetes mellitus: (8) COPD (chronic obstructive pulmonary disease): (9) AMS (altered mental status): (10) Sepsis: Plan Grayson Shepard is a 74 year old male with past medical history of coronary artery disease, s/p transcatheter aortic valve replacement, hypertension, hyperlipidemia, type 2 diabetes mellitus, diagnosed with lung cancer 1 year ago, did not receive any chemo or radiation, has been on Keytruda since 5 months, Keytruda recently stopped 1 month ago since he was diagnosed with right sided pneumonia and has been on antibiotics. Last CT chest was done on April 14 and he is supposed to have follow-up CT in May. As per the family today he had a fall at home, was found to be drowsy, with slurred speech, confused couple of hours later after the fall and found to be hypoxic in ER.mental status improved in ER. During my assessment he was alert awake oriented x 3 CTH was negative in ER , CXR showed fluid overload vs pneumonia. He was found to be confused, difficult to arouse while in CSU. Altered mental status-likely secondary to hypoglycemia versus hypercarbia ABG repeated, showed 7.2 8/82/64/39/91% on 35% FiO2 on BiPAP Potassium was 5 and blood sugar was found to be 41 Given D50 x 1, will start on D5 half NS at 70 cc/h Spoke with the family who is at bedside, states he took his morning insulin dosage and ate only half bowl of cereal. Has not had anything to eat since then. Also received D10 and 10 units of regular insulin in the ER for hyperkalemia of 5.9. Continue to monitor fingerstick every 2 hours Will hold off on insulin for now Hypoglycemia protocol initiated Hypoxic respiratory failure- likely secondary to pneumonia versus fluid overload versus PE D-dimer 3.83, will do CTA chest to rule out PE and evaluate for pneumonia. Once stabilized, patient can go for CTA. He just received subcutaneous heparin for DVT prophylaxis when arrived on floor. Hence cannot do therapeutic Lovenox now. Will reschedule subcutaneous Lovenox 80 mg at midnight. 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 for now GI prophylaxis with IV Pepcid 20 mg twice daily CODE STATUS was discussed earlier when patient was alert and awake, he wanted to be full code. 05/02/24 Patient was found to have persistent hypercarbia on multiple ABGs in spite of BiPAP and was also found to be agitated and altered. Hence was intubated and started on mechanical ventilation. During the process patient was found to be hypotensive and started on pressors and on fentanyl and propofol drip for agitation. WBC count this morning was 16.4, potassium of 5.9, sodium 130, creatinine trending up to 1.3, blood sugar of 202. Continue with the broad-spectrum antibiotics vancomycin and Zosyn. 3 sets of troponin was 100, 126, 107, BNP was 3327 Was also started on 80 mg of therapeutic Lovenox twice daily for suspected PE because of elevated D-dimer. CTA chest negative for acute PE. CTA chest done showed 1. No pulmonary embolus. 2. Combination of the lung findings suggest multifocal pneumonia with likely underlying aspiration. 3. Left upper lobe spiculated masslike opacity, recommend follow-up upon treatment completion to ensure resolution. 4. Right upper lobe masslike consolidation with surrounding ground-glass, this is likely infectious/inflammatory given the additional findings, however follow-up imaging should again be considered to ensure resolution. 5. Multi-station mediastinal lymphadenopathy. Attention follow-up examinations to ensure resolution. 6. Mhig-arnhvsz-atay-right pleural effusions. CXR 1. Endotracheal tube tip 4.2 cm above the haydee. 2. Enteric tube tip extending below the diaphragm and inferiorly off the field of view. 3. TAVR. 4. Cardiomegaly. 5. Moderate left pleural effusion. 6. Patchy bilateral airspace opacities reflecting alveolar edema and/or pneumonic infiltrates. 7. Aortic atherosclerotic calcifications. Continue broad-spectrum antibiotics with vancomycin and Zosyn. Has been off pressor Levophed since this afternoon. Continue propofol and fentanyl for sedation. Monitor blood sugars. Continue insulin correction scale. ECHO Normal left ventricular size, systolic function and wall thickness, with no regional wall motion abnormalities. Left ventricular ejection fraction is estimated at 55 %. Diastolic fynction cannot be assessed in the absence of atrial fibrillation. Moderately increased right ventricular size. The left atrium is normal in size. Structurally normal mitral valve without significant stenosis or prolapse. There is no mitral regurgitation. There is no pericardial effusion. Right atrial pressure is around 5 mm of mercury 05/03/24 Patient still intubated on mechanical ventilator, sedated and on pressors. Would need a trial of extubation once he is more calm, alert and oriented. Since was not able to tolerate BiPAP on admission secondary to confusion and agitation. Family aware of plan of care. Leukocytosis improved to 13, has persistent hyperkalemia 5.5 will treat with hyperkalemia protocol, creatinine trending up to 1.6 likely secondary to sepsis, troponins plateaued at 107. He is on IV vancomycin and Zosyn. Will continue current management. 05/04/24 He is doing really well today. Has been extubated at that 12:40 PM. Not in acute distress, saturating well on 5 L nasal cannula. Family at bedside, aware of plan of care. Will continue to monitor in ICU, continue IV vancomycin and Zosyn for now. Leukocytosis resolved, potassium 5.1, creatinine trending down to 1.5. 05/05/2024 -Patient doing really well today. Down to 3 L nasal cannula at this time. ? Continue vancomycin and Zosyn. -Leukocytosis resolved. Creatinine 1.2, magnesium 2.4. ? Will transfer to floor today. ? PT OT Continue aspirin and atorvastatin ? Wean down steroids to methylprednisone 40 every 12 Attestations 2 Medical Necessity Statement*: Will transfer to floor today. Requires physical therapy occupational therapy assessment. Will discharge once stable medically. Diagnoses Pneumonia J18.9 Lung cancer C34.90 CAD (coronary artery disease) I25.10 H/O aortic valve replacement Z95.2 Hypertension I10 Hyperlipidemia E78.5 Diabetes mellitus E11.9 COPD (chronic obstructive pulmonary disease) J44.9 AMS (altered mental status) R41.82 Sepsis A41.9
[2024-05-05] MEDS: atorvastatin 40 mg Tablet PO (18:09)
[2024-05-05 19:56] LABS: Glucose Point of Care 364 mg/dL (70-110)
[2024-05-06] VITALS (24 sets, daily range): BP systolic 119–171; BP diastolic 49–93; PULSE 50–92; RESP 15–26; TEMP 36.5–36.7; O2SAT 88–99
[2024-05-06 00:51] LABS: Glucose Point of Care 254 mg/dL (70-110)
[2024-05-06] MEDS: insulin lispro 100 unit/1 mL SUBCUT ×4 (00:58→21:49)
[2024-05-06] MEDS: oxyCODONE 5 mg IR Tab/Cap PO (02:01)
[2024-05-06 02:08] LABS: Glucose Point of Care 261 mg/dL (70-110)
[2024-05-06] MEDS: ipratropium-albuterol 3 mL Neb INHALATION ×4 (02:17→21:16)
[2024-05-06] MEDS: methylPREDNISolone sod succ 40 mg/mL INJ IVP ×3 (03:30→20:48)
[2024-05-06] MEDS: famotidine 20 mg/2 mL INJ IVP ×2 (03:32→15:34)
[2024-05-06] MEDS: heparin 5,000 unit/mL INJ 1 mL 5000 UNIT SUBCUT ×3 (03:34→18:15)
[2024-05-06 04:19] LABS: Basophils % 0.2 %; Eosinophils % 0.3 %; Hematocrit 32.1 % (37-53); Lymphocytes # 1.4 10^3/uL (0.8-4.8); Lymphocytes % 23.7 %; Mean Corpuscular HGB Conc 31.2 g/dL (30-55); Mean Corpuscular Hemoglobin 28.3 pg (27-33); Mean Corpuscular Volume 90.9 fl (82-101); Mean Platelet Volume 10.8 fL (7.4-10.4); Monocytes # 0.5 10^3/uL (0.2-0.9); Monocytes % 8.9 %; Neutrophils # 3.94 10^3/uL (1.8-7.7); Neutrophils % 66.4 %; Nucleated Red Blood Cells % 0 %; Platelet Count 95 10^3/cmm (157-399); Red Blood Count 3.53 10^6/uL (3.85-5.65); Red Cell Distribution Width 15.2 % (12.1-15.1); White Blood Count 5.94 10^3/uL (3.29-11.43)
[2024-05-06] MEDS: vancomycin 500 MG in sodium chloride 0.9% (plus) 100 ML 200 MG IV ×2 (04:40→17:29)
[2024-05-06 04:45] LABS: Anion Gap 11.6 (5-19); Blood Urea Nitrogen 30 mg/dL (8-23); Calcium 8.7 mg/dL (8.5-10.5); Carbon Dioxide 31 mmol/L (22-29); Chloride 99 mmol/L (98-107); Creatinine Clr Calc Pharmacy 76.8148; Glucose 225 mg/dL (65-115); Magnesium 2.4 mg/dL (1.7-2.3); Osmolality Calculated 297 mOsm/kg (285-295); Potassium 4.6 mmol/L (3.5-5.1); Sodium 137 mmol/L (136-145)
[2024-05-06] MEDS: piperacillin-tazobactam 3.375 GM in sodium chloride 0.9% (plus) 50 ML IV ×3 (05:34→20:47)
[2024-05-06 06:38] LABS: Glucose Point of Care 231 mg/dL (70-110)
[2024-05-06] MEDS: budesonide 0.5 mg/2 mL Neb INHALATION ×2 (08:08→21:15)
[2024-05-06] MEDS: gabapentin 300 mg Capsule 600 MG PO ×3 (08:57→20:48)
[2024-05-06] MEDS: lactobacillus 1 Tablet 1 TAB PO (08:57)
[2024-05-06] MEDS: cholecalciferol (vitamin D3) 1,000 unit Tablet 1000 UNIT PO (08:57)
[2024-05-06] MEDS: aspirin 81 mg Chew Tablet PO (08:57)
--- NOTE | 2024-05-06 11:43 | PM.PN ---
Subjective Subjective: seen this morning reprots feeling better' Vitals/I&O/Wt Last Vital Signs Temp 96.7 F L 05/05/24 12:00 Pulse 92 05/06/24 10:00 Resp 19 H 05/06/24 10:00 BP 163/81 05/06/24 10:00 Pulse Ox 90 05/06/24 10:00 O2 Del Method Nasal Cannula 05/06/24 08:08 O2 Flow Rate 3 05/06/24 08:08 FiO2 35 05/04/24 12:34 05/05/24 05/06/24 05/06/24 22:59 06:59 14:59 Intake Total 1150 / 1800 50 / 1850 150 / 150 Output Total 800 / 800 Balance 350 / 1000 50 / 1050 150 / 150 Weight last 48 hrs Weight 73.482 kg Weight 73.5 kg Physical Exam Narrative: He is alert awake oriented x 3, not in acute distress, saturating well on 3 L nasal cannula Chest bilateral decreased air entry, no crackles appreciated. Cardiovascular normal heart sounds no murmurs Abdomen soft, nontender, distended, normal bowel sounds, resonant to percussion Extremities no edema noted bilateral lower extremity Neuro: no focal deficits Urinary Catheter Management: Salmon: Cath Placed During This Visit: yes, but has since been removed by the nurse Reason for Continuing Indwelling Catheter: Accurate Measurement of Urinary Output in Critically Ill Patients Urinary Catheter Date of Insertion: 05/01/24 Urinary Catheter Time of Insertion: 21:00 Date Urinary Catheter Removed: 05/05/24 Time Urinary Catheter Discontinued: 12:30 Data 05/06/24 03:08 05/06/24 03:08 A&P Assessment and plan (1) Pneumonia: (2) Lung cancer: (3) CAD (coronary artery disease): (4) H/O aortic valve replacement: (5) Hypertension: (6) Hyperlipidemia: (7) Diabetes mellitus: (8) COPD (chronic obstructive pulmonary disease): (9) AMS (altered mental status): (10) Sepsis: Plan Grayson Shepard is a 74 year old male with past medical history of coronary artery disease, s/p transcatheter aortic valve replacement, hypertension, hyperlipidemia, type 2 diabetes mellitus, diagnosed with lung cancer 1 year ago, did not receive any chemo or radiation, has been on Keytruda since 5 months, Keytruda recently stopped 1 month ago since he was diagnosed with right sided pneumonia and has been on antibiotics. Last CT chest was done on April 14 and he is supposed to have follow-up CT in May. As per the family today he had a fall at home, was found to be drowsy, with slurred speech, confused couple of hours later after the fall and found to be hypoxic in ER.mental status improved in ER. During my assessment he was alert awake oriented x 3 CTH was negative in ER , CXR showed fluid overload vs pneumonia. He was found to be confused, difficult to arouse while in CSU. Altered mental status-likely secondary to hypoglycemia versus hypercarbia ABG repeated, showed 7.2 8/82/64/39/91% on 35% FiO2 on BiPAP Potassium was 5 and blood sugar was found to be 41 Given D50 x 1, will start on D5 half NS at 70 cc/h Spoke with the family who is at bedside, states he took his morning insulin dosage and ate only half bowl of cereal. Has not had anything to eat since then. Also received D10 and 10 units of regular insulin in the ER for hyperkalemia of 5.9. Continue to monitor fingerstick every 2 hours Will hold off on insulin for now Hypoglycemia protocol initiated Hypoxic respiratory failure- likely secondary to pneumonia versus fluid overload versus PE D-dimer 3.83, will do CTA chest to rule out PE and evaluate for pneumonia. Once stabilized, patient can go for CTA. He just received subcutaneous heparin for DVT prophylaxis when arrived on floor. Hence cannot do therapeutic Lovenox now. Will reschedule subcutaneous Lovenox 80 mg at midnight. 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 for now GI prophylaxis with IV Pepcid 20 mg twice daily CODE STATUS was discussed earlier when patient was alert and awake, he wanted to be full code. 05/02/24 Patient was found to have persistent hypercarbia on multiple ABGs in spite of BiPAP and was also found to be agitated and altered. Hence was intubated and started on mechanical ventilation. During the process patient was found to be hypotensive and started on pressors and on fentanyl and propofol drip for agitation. WBC count this morning was 16.4, potassium of 5.9, sodium 130, creatinine trending up to 1.3, blood sugar of 202. Continue with the broad-spectrum antibiotics vancomycin and Zosyn. 3 sets of troponin was 100, 126, 107, BNP was 3327 Was also started on 80 mg of therapeutic Lovenox twice daily for suspected PE because of elevated D-dimer. CTA chest negative for acute PE. CTA chest done showed 1. No pulmonary embolus. 2. Combination of the lung findings suggest multifocal pneumonia with likely underlying aspiration. 3. Left upper lobe spiculated masslike opacity, recommend follow-up upon treatment completion to ensure resolution. 4. Right upper lobe masslike consolidation with surrounding ground-glass, this is likely infectious/inflammatory given the additional findings, however follow-up imaging should again be considered to ensure resolution. 5. Multi-station mediastinal lymphadenopathy. Attention follow-up examinations to ensure resolution. 6. Pmdj-zpggibq-bsbr-right pleural effusions. CXR 1. Endotracheal tube tip 4.2 cm above the haydee. 2. Enteric tube tip extending below the diaphragm and inferiorly off the field of view. 3. TAVR. 4. Cardiomegaly. 5. Moderate left pleural effusion. 6. Patchy bilateral airspace opacities reflecting alveolar edema and/or pneumonic infiltrates. 7. Aortic atherosclerotic calcifications. Continue broad-spectrum antibiotics with vancomycin and Zosyn. Has been off pressor Levophed since this afternoon. Continue propofol and fentanyl for sedation. Monitor blood sugars. Continue insulin correction scale. ECHO Normal left ventricular size, systolic function and wall thickness, with no regional wall motion abnormalities. Left ventricular ejection fraction is estimated at 55 %. Diastolic fynction cannot be assessed in the absence of atrial fibrillation. Moderately increased right ventricular size. The left atrium is normal in size. Structurally normal mitral valve without significant stenosis or prolapse. There is no mitral regurgitation. There is no pericardial effusion. Right atrial pressure is around 5 mm of mercury 05/03/24 Patient still intubated on mechanical ventilator, sedated and on pressors. Would need a trial of extubation once he is more calm, alert and oriented. Since was not able to tolerate BiPAP on admission secondary to confusion and agitation. Family aware of plan of care. Leukocytosis improved to 13, has persistent hyperkalemia 5.5 will treat with hyperkalemia protocol, creatinine trending up to 1.6 likely secondary to sepsis, troponins plateaued at 107. He is on IV vancomycin and Zosyn. Will continue current management. 05/04/24 He is doing really well today. Has been extubated at that 12:40 PM. Not in acute distress, saturating well on 5 L nasal cannula. Family at bedside, aware of plan of care. Will continue to monitor in ICU, continue IV vancomycin and Zosyn for now. Leukocytosis resolved, potassium 5.1, creatinine trending down to 1.5. 05/06/2024 -Patient doing really well today. Down to 3 L nasal cannula at this time. ? Continue vancomycin and Zosyn. -Leukocytosis resolved. creatinine normalized. MAKSIM resolved. ? Will transfer to floor today. ? PT OT Continue aspirin and atorvastatin ? Wean down steroids to methylprednisone 40 every 12 - If continues to do well, plan to dc in AM. Attestations Medical Necessity Statement*: Will transfer to floor today. Requires physical therapy occupational therapy assessment. Will discharge once stable medically. Diagnoses Pneumonia J18.9 Lung cancer C34.90 CAD (coronary artery disease) I25.10 H/O aortic valve replacement Z95.2 Hypertension I10 Hyperlipidemia E78.5 Diabetes mellitus E11.9 COPD (chronic obstructive pulmonary disease) J44.9 AMS (altered mental status) R41.82 Sepsis A41.9
[2024-05-06 16:39] LABS: Glucose Point of Care 394 mg/dL (70-110)
[2024-05-06] MEDS: atorvastatin 40 mg Tablet PO (17:28)
[2024-05-06] MEDS: insulin glargine 100 units/1 mL 10 UNIT SUBCUT (17:28)
[2024-05-06 17:52] LABS: MRSA PCR OZH (swab) NOT DETECTED (Negative)
[2024-05-06 21:06] LABS: Glucose Point of Care 357 mg/dL (70-110)
[2024-05-07] VITALS (11 sets, daily range): BP systolic 152–169; BP diastolic 58–67; PULSE 62–89; RESP 16–22; TEMP 36.4–36.7; O2SAT 90–99
[2024-05-07 01:07] LABS: Glucose Point of Care 262 mg/dL (70-110)
[2024-05-07] MEDS: chlorhexidine gluconate 4% Btl 118 mL 1 APPLIC TOPICAL (01:30)
[2024-05-07] MEDS: ipratropium-albuterol 3 mL Neb INHALATION ×2 (02:45→08:37)
[2024-05-07] MEDS: piperacillin-tazobactam 3.375 GM in sodium chloride 0.9% (plus) 50 ML IV (05:50)
[2024-05-07] MEDS: famotidine 20 mg/2 mL INJ IVP (05:50)
[2024-05-07 06:08] LABS: Anion Gap 10.8 (5-19); Blood Urea Nitrogen 30 mg/dL (8-23); Calcium 8.7 mg/dL (8.5-10.5); Carbon Dioxide 32 mmol/L (22-29); Chloride 98 mmol/L (98-107); Creatinine Clr Calc Pharmacy 76.8073; Glucose 250 mg/dL (65-115); Osmolality Calculated 297 mOsm/kg (285-295); Potassium 4.8 mmol/L (3.5-5.1); Sodium 136 mmol/L (136-145)
[2024-05-07 06:24] LABS: Glucose Point of Care 269 mg/dL (70-110)
[2024-05-07] MEDS: budesonide 0.5 mg/2 mL Neb INHALATION (08:37)
[2024-05-07] MEDS: cholecalciferol (vitamin D3) 1,000 unit Tablet 1000 UNIT PO (08:53)
[2024-05-07] MEDS: aspirin 81 mg Chew Tablet PO (08:53)
[2024-05-07] MEDS: gabapentin 300 mg Capsule 600 MG PO (08:53)
[2024-05-07] MEDS: lactobacillus 1 Tablet 1 TAB PO (08:54)
[2024-05-07] MEDS: methylPREDNISolone sod succ 40 mg/mL INJ IVP (08:54)
[2024-05-07 09:12] LABS: Glucose Point of Care 290 mg/dL (70-110)
[2024-05-07] MEDS: insulin lispro 100 unit/1 mL SUBCUT (09:27)
--- NOTE | 2024-05-07 10:06 | PC.SOCIAL ---
IMM Update pg 2 of IMM Updated and reviewed w/ patient. Copy provided and copy dated, intialed and placed in chart.
[2024-05-07] MEDS: heparin 5,000 unit/mL INJ 1 mL 5000 UNIT SUBCUT (11:14)
--- NOTE | 2024-05-07 11:52 | P.DS_ITS ---
Discharge Providers Date of Admission: 05/01/24 14:58 Date of Discharge: May 07, 2024 Attending Provider at Admission: Yojana Maki MD Attending Provider at Discharge: Debora Desai MD Primary Care Provider: Jayda Lucas MD Diagnoses at Discharge Discharge Diagnosis (1) Pneumonia: Status: Acute (2) Lung cancer: Status: Inactive (3) CAD (coronary artery disease): Status: Inactive (4) H/O aortic valve replacement: Status: Inactive (5) Hypertension: Status: Inactive (6) Hyperlipidemia: Status: Inactive (7) Diabetes mellitus: Status: Inactive (8) COPD (chronic obstructive pulmonary disease): Status: Acute (9) AMS (altered mental status): Status: Resolved (10) Sepsis: Status: Resolved Reason for Visit Reason for Visit: stroke alert Hospital Course Hospital Course Patient was admitted with right-sided pneumonia and on antibiotics and was supposed to follow-up with a CT in May however had a fall at home was drowsy with slurred speech and presented to the ER with hypoxia. Mental status improved in the ER. He was altered most likely secondary to hypoglycemia versus hypercarbia. Blood sugar was found to be 41 in the ER. Patient was intubated for hypoxic respiratory failure most likely secondary to pneumonia versus fluid overload versus PE. He was on scheduled Lovenox. CTA chest done to rule out a PE. He did have multilobar pneumonia however. Was kept on broad-spectrum antibiotics. Was extubated 05/04/2006/23/2023. Echo was obtained with EF of 55%. Postextubation patient did really well was able to work with physical therapy. Was eating and drinking and ambulating. He was down to 3 the nasal cannula. Leukocytosis resolved creatinine normalized MAKSIM resolved. Patient was sent home on a steroid taper with reduced insulin dosage. He was to follow-up with his primary care doctor within a week of discharge. Family member present at bedside. Discussed patient's discharge plan and he demonstrated understanding. He is excited and looking forward to going home today. Physical Exam Narrative: He is alert awake oriented x 3, not in acute distress, saturating well on 3 L nasal cannula. Up in recliner, feeling comfortable. Chest clear to auscultation bilaterally with decreased air entry bilateral lower bases no crackles appreciated no rales appreciated. Cardiovascular normal heart sounds no murmurs Abdomen soft, nontender, nondistended, normal bowel sounds, Extremities no edema noted bilateral lower extremity Neuro: no focal deficits Urinary Catheter Management: Salmon: Cath Placed During This Visit: yes, but has since been removed by the nurse Reason for Continuing Indwelling Catheter: Accurate Measurement of Urinary Output in Critically Ill Patients Urinary Catheter Date of Insertion: 05/01/24 Urinary Catheter Time of Insertion: 21:00 Date Urinary Catheter Removed: 05/05/24 Time Urinary Catheter Discontinued: 12:30 Discharge Data Studies Completed and Pending Completed Studies During Hospitalization Category Date Time Status CT head thrombolytic [id number] Stat Cat Scan 05/01/24 13:54 Completed CTA chest [CT angio chest PE protcl [id number]] Stat Cat Scan 05/01/24 17:26 Completed CXRP [XR chest 1V portable [id number]] Stat Exams 05/01/24 23:04 Completed XR chest 1V portable [id number] Routine Exams 05/04/24 05:00 Completed XR chest 1V portable [id number] Stat Exams 05/01/24 13:54 Completed CV. echo complete* [id number] Stat Ultrasound 05/01/24 16:47 Completed Radiology Impressions Head CT 05/01/24 13:54 IMPRESSION: No acute intracranial abnormality. If symptoms persist, consider further evaluation with MRI, if MRI is clinically safe to obtain. ASSESSMENT: ASPECTS (Annetta Stroke Program Early CT Score) is 10. ADDENDUM: 05/01/24 1413 ADDENDUM: THIS REPORT CONTAINS FINDINGS THAT MAY BE CRITICAL TO PATIENT CARE. The findings were verbally communicated via telephone conference with BETH HOOKER at 2:11 PM PULP MAKING PLANT OPERATOR on 05/01/2024. The findings were acknowledged and understood. Chest CTA 05/01/24 17:26 IMPRESSION: 1. No pulmonary embolus. 2. Combination of the lung findings suggest multifocal pneumonia with likely underlying aspiration. 3. Left upper lobe spiculated masslike opacity, recommend follow-up upon treatment completion to ensure resolution. 4. Right upper lobe masslike consolidation with surrounding ground-glass, this is likely infectious/inflammatory given the additional findings, however follow-up imaging should again be considered to ensure resolution. 5. Multi-station mediastinal lymphadenopathy. Attention follow-up examinations to ensure resolution. 6. Ktyj-prsthgp-aqcg-right pleural effusions. Chest X-Ray 05/04/24 05:00 IMPRESSION: 1. Left pleural effusion modestly decreased. 2. Moderate cardiomegaly with vascular congestion. Laboratory Results WBC 5.94 10^3/uL (3.29-11.43) 05/06/24 03:08 RBC 3.53 10^6/uL (3.85-5.65) L 05/06/24 03:08 Hgb 10.00 g/dL (11.27-16.99) L 05/06/24 03:08 Hct 32.1 % (37-53) L 05/06/24 03:08 MCV 90.9 fl (82-101) 05/06/24 03:08 MCH 28.3 pg (27-33) 05/06/24 03:08 MCHC 31.2 g/dL (30-55) 05/06/24 03:08 RDW 15.2 % (12.1-15.1) H 05/06/24 03:08 Plt Count 95 10^3/cmm (157-399) L 05/06/24 03:08 MPV 10.8 fL (7.4-10.4) H 05/06/24 03:08 Neut % (Auto) 66.4 % 05/06/24 03:08 Lymph % (Auto) 23.7 % 05/06/24 03:08 [place] % (Auto) 8.9 % 05/06/24 03:08 Eos % (Auto) 0.3 % 05/06/24 03:08 Baso % (Auto) 0.2 % 05/06/24 03:08 Neut # (Auto) 3.94 10^3/uL (1.8-7.7) 05/06/24 03:08 Lymph # (Auto) 1.4 10^3/uL (0.8-4.8) 05/06/24 03:08 [place] # (Auto) 0.5 10^3/uL (0.2-0.9) 05/06/24 03:08 Eos # (Auto) 0.0 10^3/uL (0.0-0.8) 05/06/24 03:08 Baso # (Auto) 0.0 10^3/uL (0.0-0.1) 05/06/24 03:08 Nucleated RBC % (auto) 0 % 05/06/24 03:08 Nucleated RBCs # 0.0 /100WBC 05/06/24 03:08 PT 12.70 SECONDS (12.1-14.9) 05/01/24 13:49 INR 0.92 (0.8-1.2) 05/01/24 13:49 APTT 27.7 SECONDS (23.9-36.7) 05/01/24 13:49 D-Dimer 3.83 ug/mLFEU (0-0.59) H 05/01/24 13:49 Specimen Type Arterial 05/02/24 00:40 Sample Site Brachial, right 05/02/24 00:40 ABG pH 7.41 (7.35-7.45) 05/02/24 00:40 ABG pCO2 57.7 mmHg (35-45) H 05/02/24 00:40 ABG pO2 151.0 mmHg (80.0-100.0) H 05/02/24 00:40 ABG PO2/FiO2 Ratio 251 05/02/24 00:40 ABG HCO3 36.4 mmol/L (22-26) H 05/02/24 00:40 ABG O2 Saturation 97.4 05/01/24 22:05 ABG Base Excess 10.1 mmol/L (-2.0-2.0) H 05/02/24 00:40 Saad Test Pos 05/02/24 00:40 A-a O2 Gradient 22.0 mmHg (5-10) H 05/01/24 22:05 Hematocrit 30.6 % (42-52) L 05/02/24 00:40 Hgb O2 Saturation 94.3 % (95-100) L 05/01/24 22:05 Carboxyhemoglobin 2.3 %THgb (0.4-20.1) 05/01/24 22:05 Methemoglobin 0.9 % (0.4-1.5) 05/01/24 22:05 Total Hemoglobin 10.9 g/dL (14-18) L 05/01/24 22:05 Sodium 135.0 mmol/L (131-143) 05/01/24 22:05 Potassium 5.0 mmol/L (3.5-5.0) 05/01/24 22:05 Glucose 119.0 mg/dL (70-115) H 05/01/24 22:05 Ionized Calcium 1.2 mmol/L (1.1-1.4) 05/01/24 22:05 O2 Delivery Device Vent 05/02/24 00:40 O2 Liters/Min 5.0 % 05/01/24 14:20 FiO2 60.0 % 05/02/24 00:40 Tidal Volume 0.48 05/02/24 00:40 PEEP 6.0 cmH20 05/02/24 00:40 Acting Teacher ID [email or web address] 05/02/24 00:40 Sodium 136 mmol/L (136-145) 05/07/24 05:05 Potassium 4.8 mmol/L (3.5-5.1) 05/07/24 05:05 Chloride 98 mmol/L (98-107) 05/07/24 05:05 Carbon Dioxide 32 mmol/L (22-29) H 05/07/24 05:05 Anion Gap 10.8 (5-19) 05/07/24 05:05 BUN 30 mg/dL (8-23) H 05/07/24 05:05 Creatinine 0.9 mg/dL (0.7-1.2) 05/07/24 05:05 GFR Calculation Not Reportable 05/07/24 05:05 Glucose 250 mg/dL (65-115) H 05/07/24 05:05 POC Glucose 290 mg/dL (70-110) H 05/07/24 09:08 Estimat Average Glucose 154 05/01/24 13:49 Hemoglobin A1c 7.0 % (4.0-6.0) H 05/01/24 13:49 Calculated Osmolality 297 mOsm/kg (285-295) H 05/07/24 05:05 Calcium 8.7 mg/dL (8.5-10.5) 05/07/24 05:05 Magnesium 2.4 mg/dL (1.7-2.3) H 05/06/24 03:08 Iron 38 ug/dL (59-158) L 05/01/24 13:49 TIBC 196 mcg/dl 05/01/24 13:49 % Saturation 19.3 % (20-50) L 05/01/24 13:49 Unsat Iron Binding 158 ug/dL (112-347) 05/01/24 13:49 Total Bilirubin 0.5 mg/dL (0.15-1.2) 05/05/24 04:25 AST 20 U/L (0-40) 05/05/24 04:25 ALT 17 U/L (0-41) 05/05/24 04:25 Alkaline Phosphatase 125 U/L (40-130) 05/05/24 04:25 Troponin T Baseline 100 ng/L (0-15) H 05/01/24 20:30 Troponin T 120 Minute 126.1 ng/L (0-15) H 05/02/24 00:12 Delta Troponin T 26.1 ABS# (0-10) H* 05/02/24 00:12 Troponin T Hi Sens 6Hr 107.9 ng/L (0-15) H 05/02/24 03:05 Troponin T Hi Sens 6Hr Delta 7.9 ng/L (0-12) 05/02/24 03:05 NT-Pro-B Natriuret Pep 3327 pg/mL (0-125) H 05/02/24 03:05 Total Protein 5.5 g/dL (6.6-8.7) L 05/05/24 04:25 Albumin 3.2 g/dL (3.5-5.2) L 05/05/24 04:25 Globulin 2.3 g/dL (1.3-4.6) 05/05/24 04:25 Procalcitonin 0.20 ng/mL (0-0.5) 05/01/24 13:49 TSH 3.01 uIU/mL (0.27-4.20) 05/01/24 13:49 Random Cortisol 12.96 ug/dL (2.47-19.5) 05/02/24 03:05 Urine Color Yellow (Yellow) 05/01/24 14:25 Urine Appearance Clear (CLEAR) 05/01/24 14:25 Urine pH 5.0 (5-7) 05/01/24 14:25 Ur Specific [place] 1.014 (1.005-1.030) 05/01/24 14:25 Urine Protein Trace (Negative) A 05/01/24 14:25 Urine Glucose (UA) 1+ (Normal) H 05/01/24 14:25 Urine Ketones Negative (Negative) 05/01/24 14:25 Urine Blood Negative (Negative) 05/01/24 14:25 Urine Nitrate Negative (Negative) 05/01/24 14: Urine Bilirubin Negative (Negative) 05/01/24 14:25 Urine Urobilinogen 1.0 mg/dL (Negative) 05/01/24 14:25 Ur Leukocyte Esterase Negative (Negative) 05/01/24 14:25 Urine RBC 0-2 /hpf (0-2) 05/01/24 14:25 Urine WBC 0-5 /hpf (0-5) 05/01/24 14:25 Ur Squamous Epith Cells 0-5 /hpf (0-5) 05/01/24 14:25 Amorphous Sediment Not Reportable 05/01/24 14:25 Urine Bacteria None seen /hpf (NONE) 05/01/24 14:25 Hyaline Casts 22.33 /lpf 05/01/24 14:25 Nasal MRSA (PCR) Not detected (Negative) 05/06/24 16:00 Vancomycin Trough 14.8 ug/mL (10-15) 05/04/24 13:04 Random Vancomycin 13.8 ug/mL (20.0-40.0) L 05/05/24 04:25 Urine Opiates Screen Negative ng/mL (Negative) 05/01/24 14:25 Ur Barbiturates Screen Negative ng/mL (Negative) 05/01/24 14:25 Ur Phencyclidine Scrn Negative ng/mL (Negative) 05/01/24 14:25 Ur Amphetamines Screen Negative ng/mL (Negative) 05/01/24 14:25 U Benzodiazepines Scrn Negative ng/mL (Negative) 05/01/24 14:25 Urine Cocaine Screen Negative ng/mL (Negative) 05/01/24 14:25 U Marijuana (THC) Screen Negative ng/mL (Negative) 05/01/24 14:25 Coronavirus (PCR) Negative (Negative) 05/01/24 14:38 Influenza A (PCR) Negative (Negative) 05/01/24 14:38 Influenza Type B (PCR) Negative (Negative) 05/01/24 14:38 RSV (PCR) Negative (Negative) 05/01/24 14:38 Vitals Last Vital Signs Temp 97.6 F 05/07/24 11:02 Pulse 70 05/07/24 11:02 Resp 16 05/07/24 11:02 BP 169/67 05/07/24 11:02 Pulse Ox 97 05/07/24 11:02 O2 Del Method Nasal Cannula 05/07/24 11:02 O2 Flow Rate 3.5 05/07/24 11:02 FiO2 35 05/04/24 12:34 Discharge Plan Discharge Patient Disposition: Home Health Service Condition: Stable Prescriptions: New amoxicillin-pot clavulanate 875-125 mg tablet 1 tab PO BID 10 Days Qty: 20 0RF prednisone 10 mg tablet See Rx Instructions .ROUTE .COMPLEX Qty: 14 0RF Rx Instructions: 40 mg daily x 2 days 20 mg daily x 2 days 10 mg daily x 2 days then stop. Continued albuterol sulfate 2.5 mg /3 mL (0.083 %) Solution For Nebulization 2.5 mg INHALATION Q6H PRN (Reason: Shortness Of Breath) modafinil 200 mg Tablet 400 mg PO QAM gabapentin 300 mg Capsule 600 mg PO TID albuterol sulfate 90 mcg/actuation Hfa Aerosol Inhaler 1 puff INHALATION Q4H PRN (Reason: Shortness Of Breath) cholecalciferol (vitamin D3) [Vitamin D3] 25 mcg (1,000 unit) Tablet 25 mcg PO DAILY omega 4-cqo-vos-fish oil [Fish Oil] 1,200 (144-216) mg Capsule 2 cap PO BID Breztri Aerosphere 160-9-4.8 mcg/actuation Hfa Aerosol Inhaler 2 inh INHALATION BID multivitamin Tablet 1 tab PO DAILY hydrocodone-acetaminophen 5-325 mg tablet 1 tab PO Q6H PRN (Reason: Pain) bumetanide 0.5 mg Tablet 0.5 mg PO BID fluticasone propionate 50 mcg/actuation [place],Suspension 1 spray INTRANASAL DAILY Rx Instructions: administer into each nostril guaifenesin [Mucinex] 600 mg Tablet Extended Release 12hr 600 mg PO Q12H PRN (Reason: Congestion) Entresto 24-26 mg Tablet 1 tab PO BID Lactobacillus acidophilus 500 million cell Capsule 500 mmu cells PO DAILY Changed insulin glargine [Lantus U-100 Insulin] 100 unit/mL Solution See Rx Instructions .ROUTE .COMPLEX Qty: 10 0RF Rx Instructions: Take 50 units subcutaneously twice daily. insulin aspart U-100 [Novolog U-100 Insulin aspart] 100 unit/mL Solution See Rx Instructions .ROUTE .COMPLEX Qty: 10 0RF Rx Instructions: Inject 25 units sub-q before breakfast , 20 units before lunch, and 25 units before supper. No Action famotidine 40 mg Tablet 40 mg PO BID roflumilast 500 mcg Tablet 500 mcg PO DAILY Discharge Orders: Discharge Order (Routine); Ordered 05/07/24 Ordered By: Debora Desai Referrals: [facility] [Outside] Jayda Lucas MD [Primary Care Provider] - 05/08/24 3:30 pm () Discharge Diet: Cardiac and Diabetic Discharge Activity: Resume usual activity and As per PT/OT instructions Patient Instructions: Prednisone (By mouth), Amoxicillin/Clavulanate Potassium (By mouth), Opioid Safety Discharge Attestations Time Spent in Discharge Care*: greater than 30 min Quality Metrics Clinical Quality Measures [ No reported AMI, CVA or VTE this stay] Coding Level of Care Code Acute Code for g Fwd Diagnoses Pneumonia J18.9 Lung cancer C34.90 CAD (coronary artery disease) I25.10 H/O aortic valve replacement Z95.2 Hypertension I10 Hyperlipidemia E78.5 Diabetes mellitus E11.9 COPD (chronic obstructive pulmonary disease) J44.9 AMS (altered mental status) R41.82 Sepsis A41.9
--- NOTE | 2024-05-07 15:14 | PC.NURSE ---
Discussed discharge with patient and daughter. Discussed follow up appointment, new medications and changed medications. All questions answered and patient verbalized understanding.
== END 2024-05-07 12:32 | disposition home health service (06) | DRG 871 ==
LOC: ER 14:58 → CSU 14:58 → ICU 20:18 → MEDSURG 05-06 16:19
PROVIDERS: Student in an Organized Health Care Education/Training Program; Admitting Provider Internal Medicine; Emergency Provider Emergency Medicine; PCP Family Medicine; Visit Provider Internal Medicine
DX: A41.9 Sepsis, unspecified organism (principal); I50.33 Acute on chronic diastolic (congestive) heart failure; J18.9 Pneumonia, unspecified organism; C34.90 Malignant neoplasm of unspecified part of unspecified bronchus or lung; J44.0 Chronic obstructive pulmonary disease with (acute) lower respiratory infection; E87.29 Other acidosis; J44.1 Chronic obstructive pulmonary disease with (acute) exacerbation; S00.81XA Abrasion of other part of head, initial encounter; W18.30XA Fall on same level, unspecified, initial encounter; E11.649 Type 2 diabetes mellitus with hypoglycemia without coma; I25.10 Atherosclerotic heart disease of native coronary artery without angina pectoris; E78.5 Hyperlipidemia, unspecified; R47.81 Slurred speech; R09.02 Hypoxemia; R41.82 Altered mental status, unspecified; R45.1 Restlessness and agitation; E87.5 Hyperkalemia; I11.0 Hypertensive heart disease with heart failure; Z99.81 Dependence on supplemental oxygen; Z79.51 Long term (current) use of inhaled steroids; Z79.82 Long term (current) use of aspirin; Z79.620 Long term (current) use of immunosuppressive biologic; Z79.891 Long term (current) use of opiate analgesic; Z79.4 Long term (current) use of insulin; Z87.01 Personal history of pneumonia (recurrent); Z95.2 Presence of prosthetic heart valve
CPT/HCPCS: 0241U; 36415; 36416; 36600; 51702; 70450; 71045; 71275; 80048; 80051; 80053; 80202; 80306; 81001; 82330; 82533; 82803; 82805; 82962; 83036; 83540; 83550; 83735; 83880; 84145; 84443; 84484; 85025; 85378; 85610; 85730; 86403; 87040; 93005; 93306; 94002; 94003; 94640; 94660; 94664; 94799; 96365; 96367; 96372; 96375; 96376; 97116; 97161; 97530; 99285; A4570; J0330; J0612; J1265; J1644; J1650; J1815; J2060; J2543; J2704; J2919; J3010; J3370; J3490; J7050; J7613; J7626; J7799; P9045

== ENCOUNTER 2024-05-08 02:05 | Inpatient (IN) | payer OTHER, MEDICARE, SELFPAY ==
[2024-05-08] VITALS (93 sets, daily range): BP systolic 79–162; BP diastolic 38–88; PULSE 0–114; RESP 14–39; TEMP 36.4–37.6; O2SAT 89–100; BMI 25.8
--- NOTE | 2024-05-08 02:08 | XRR_ITS ---
PROCEDURE INFORMATION: Exam: XR Chest Exam date and time: 05/08/2024 2:19 AM Age: 74 years old Clinical indication: Shortness of breath TECHNIQUE: Imaging protocol: Radiologic exam of the chest. Views: 1 view. COMPARISON: CR (CHEST, ) 05/04/2024 4:26 AM FINDINGS: Lungs: There is opacity at the left lung base. This may reflect layering pleural fluid, atelectasis, pneumonia or a combination. Lungs are hyperinflated. There may be a component of mild central vascular congestion. Pleural spaces: There is a small right pleural effusion. There is suspected pleural fluid at the left lung base. Heart/Mediastinum: The heart is slightly enlarged. There is a aortic valvular prosthesis. Bones/joints: Unremarkable. XR/XR chest 1V portable [id number] IMPRESSION: 1. Mild cardiomegaly with possible minimal central vascular congestion. 2. Lung hyperinflation. 3. Left basilar opacity similar to that seen on prior exam. 4. Trace right pleural effusion.
--- NOTE | 2024-05-08 02:09 | W.ED.SOB ---
HPI - SOB/Dyspnea General: Chief Complaint: Shortness of Breath/Dyspnea Stated Complaint: RESP. DISTRESS Time Seen by Provider: 05/08/24 02:07 History of Present Illness: HPI Narrative: 74-year-old man with a history of COPD, chronic hypoxemic respiratory failure on 3 L nasal cannula at all times, coronary artery disease, TAVR in the past, hypertension, hyperlipidemia, diabetes and lung cancer and has been on Keytruda for about 5 months and stopped about a month ago who presents to the emergency room by ambulance with respiratory failure. He had been admitted to the hospital last week with pneumonia and ended up requiring intubation. He was extubated and discharged yesterday. Apparently he had quite a bit of worsening today. Increased cough. Increased oxygen requirement. EMS reports he was in fairly severe respiratory distress when they arrived. Related Data Home Medications Medication Instructions Recorded Confirmed albuterol sulfate 2.5 mg/3 mL 2.5 mg inhalation Q6H PRN 12/15/21 05/01/24 (0.083 %) solution for nebulization Shortness Of Breath albuterol sulfate 90 mcg/actuation 1 puff inhalation Q4H PRN 12/15/21 05/01/24 aerosol inhaler Shortness Of Breath aspirin 81 mg chewable tablet 81 mg PO DAILY 12/15/21 05/01/24 budesonide 160 mcg-glycopyr 9 2 inh inhalation BID 12/15/21 05/01/24 mcg-formot 4.8 mcg/actuation HFA inhaler (Breztri Aerosphere) cholecalciferol (vitamin D3) 25 25 mcg PO DAILY 12/15/21 05/01/24 mcg (1,000 unit) tablet (Vitamin D3) docusate sodium 100 mg capsule 200 mg PO BID PRN Constipation 12/15/21 05/01/24 gabapentin 300 mg capsule 600 mg PO TID 12/15/21 05/01/24 modafinil 200 mg tablet 400 mg PO DAILY 12/15/21 05/01/24 omega 4-wxe-lxa-fish oil 1,200 mg 2 cap PO BID 12/15/21 05/01/24 (144 mg-216 mg) capsule (Fish Oil) simvastatin 80 mg tablet 80 mg PO QPM 12/15/21 05/01/24 Lactobacillus acidophilus 500 500 mmu cells PO DAILY 05/01/24 05/01/24 million cell capsule bumetanide 0.5 mg tablet 0.5 mg PO BID 05/01/24 05/01/24 famotidine 20 mg tablet (Pepcid) 40 mg PO BID Acid Reflux 05/01/24 05/01/24 fluticasone propionate 50 1 spray intranasal DAILY 05/01/24 05/01/24 mcg/actuation nasal spray,suspension guaifenesin 600 mg tablet, 600 mg PO Q12H PRN Congestion 05/01/24 05/01/24 extended release 12 hr (Mucinex) hydrocodone 5 mg-acetaminophen 325 1 tab PO Q6H PRN Pain 05/01/24 05/01/24 mg tablet multivitamin 1 tab PO DAILY 05/01/24 05/01/24 sacubitril 24 mg-valsartan 26 mg 1 tab PO BID 05/01/24 05/01/24 tablet (Entresto) Previous Rx's Medication Instructions Recorded amoxicillin 875 mg-potassium 1 tab PO BID 10 days #20 tabs 05/07/24 clavulanate 125 mg tablet insulin aspart U-100 100 unit/mL See Rx Instructions .Route 05/07/24 subcutaneous solution (Novolog .COMPLEX #10 mL U-100 Insulin aspart) insulin glargine 100 unit/mL See Rx Instructions .Route 05/07/24 subcutaneous solution (Lantus .COMPLEX #10 mL U-100 Insulin) prednisone 10 mg tablet See Rx Instructions .Route 05/07/24 .COMPLEX #14 tabs Allergies Allergy/AdvReac Type Severity Reaction Status Date / Time azithromycin Allergy Unknown Unknown Verified 12/15/21 16:58 levofloxacin [From Levaquin] Allergy Unknown Unknown Verified 12/15/21 16:58 Quinolones Allergy Unknown Unknown Verified 12/15/21 16:58 Review of Systems Narrative: Constitutional symptoms: Negative except as documented in HPI. Skin symptoms: Negative except as documented in HPI. Eye symptoms: Negative except as documented in HPI. ENMT symptoms: Negative except as documented in HPI. Respiratory symptoms: Negative except as documented in HPI. Cardiovascular symptoms: Negative except as documented in HPI. Gastrointestinal symptoms: Negative except as documented in HPI. Genitourinary symptoms: Negative except as documented in HPI. Musculoskeletal symptoms: Negative except as documented in HPI. Neurologic symptoms: Negative except as documented in HPI. Psychiatric symptoms: Negative except as documented in HPI. Endocrine symptoms: Negative except as documented in HPI. [facility] ED PFS: Medical History Diabetes mellitus Hyperlipidemia Hypertension CAD (coronary artery disease) Lung cancer COPD (chronic obstructive pulmonary disease) Surgical History H/O aortic valve replacement Physical Exam Narrative: EXAM NARRATIVE: General: Alert, moderate distress. Skin: Warm, dry. Head: Normocephalic, atraumatic. Neck: Supple, trachea midline. Eye: Extraocular movements are intact. Ears, nose, mouth and throat: Oral mucosa moist. Cardiovascular: Regular rate and rhythm, Normal peripheral perfusion. Respiratory: coarse, scattered wheeze, moderate increased wob. tachypnea, prolonged expiratory phase. breath sounds are equal, Symmetrical chest wall expansion. Gastrointestinal: Soft, Nontender, Non distended, Normal bowel sounds. Musculoskeletal: Normal ROM, no deformity. Neurological: Alert and oriented to person, place, time, and situation, No focal neurological deficit observed. Psychiatric: Cooperative, appropriate mood & affect. Course Vital Signs: Vital signs: Vital Signs Temperature 97.5 F L 05/08/24 02:07 Pulse Rate 108 H 05/08/24 02:29 Respiratory Rate 14 05/08/24 03:35 Blood Pressure 162/85 05/08/24 02:07 Pulse Oximetry 98 05/08/24 02:29 Oxygen Delivery Me thod BiPAP 05/08/24 02:29 Fraction of Inspir ed Oxygen 100 05/08/24 03:35 MDM - SOB/Dyspnea Medical Decision Making Differential diagnosis for patient with shortness of breath includes but is not limited to and based on the above HPI, review of systems and physical exam: Pneumonia. Bronchitis. Asthma or COPD with acute exacerbation. Acute coronary syndrome / [place]. Pulmonary embolism. Anxiety. Congestive heart failure. Viral infections including influenza and Covid-19. Atrial fibrillation. Anxiety. Pleural effusion. Pneumothorax. Orders placed to evaluate differential diagnosis based on the above differential, HPI and physical exam AB.23/77/144 on a nonrebreather. Respiratory acidosis. EKG: Time 2:11 AM. Rate 110. Atrial fibrillation with rapid ventricular response, No ST-T changes, no ectopy, This was reviewed and interpreted by myself the ER physician at 2:16 AM there is extensive interference. This is a fairly unreliable EKG. Do not believe this is a STEMI now. Chest x-ray: Cardiomegaly, left lower effusion/possible infiltrate. Appears fairly similar to previous. With some slight improvement in infiltrates in the left lung. Cardiomegaly. Films were interpreted by myself the emergency room provider and pending final radiology review. Repeat examination: BiPAP was attempted for over half an hour. Patient continued to have extreme increased work of breathing and requested intubation. Daughter agreed to this. Endotracheal intubation Time: 3:15 AM Confirmed: Patient, procedure, and site correct. Consent: , Emergent. And from daughter Indication: Respiratory failure. Procedural sedation: Succinylcholine and etomidate . Monitoring: Cardiac, blood pressure, continuous pulse oximetry. Preparation: Pre oxygenated, Inline stabilization of cervical spine maintained, Ensured proper cuff inflation. Technique: Oral intubation: A 8 ET tube was inserted, glydescope, visualized cords and ett passing through cords. . Confirmation of tube placement: Bilateral chest rise, Positive color change indicated on end title CO2. Post procedure exam: Equal breath sounds. Complications: None. Performed by: Self. Total time: 10 minutes. Repeat chest x-ray: NG tube appears in place. ET tube is above the haydee but may be a bit low and there is now consolidation in the left lung which indicate possible right mainstem so it has been pulled back. Cardiomegaly. Films were interpreted by myself the emergency room provider and pending final radiology review. Lab Review: Laboratory results were reviewed and interpreted by myself the emergency room physician. Significant leukocytosis with a white count of 29,000. Lactic acid is not elevated its only 1.5. Hemoglobin normal at 13. No renal failure. BUN and creatinine are 30 and 1.1 which is around his baseline. His glucose is a little elevated at 278. His proBNP is significantly elevated at 14,000. Last measurement was 3000. Initial troponin is 135 I reviewed the patient's medical record. Reexamination: General: unresponsive, intubated. Skin: Warm, dry Head: Normocephalic, atraumatic. Neck: Supple, trachea midline. Eye: pupils pinpoint, sluggish, equal Ears, nose, mouth and throat: ETT in place. Cardiovascular: Regular rate and rhythm, Normal peripheral perfusion. Respiratory: coarse, mechanically ventilated, breath sounds are equal, Symmetrical chest wall expansion. Gastrointestinal: Soft, Non distended, Normal bowel sounds. Musculoskeletal: no deformity. Neurological: unable to assess. Psychiatric: unable to assess Repeat EKG: Time 3:58 AM. Rate 98. Atrial fibrillation with controlled rate, No ST-T changes, no ectopy, This was reviewed and interpreted by myself the ER physician at 4:02 AM. Rate has slowed. There are PVCs. Consultation: I spoke with Dr. Alfonso who is on-call for the hospitalist service and agrees to admission to the ICU. Assessment and plan: Hypercapnic respiratory failure Hypoxemic respiratory failure Respiratory distress Pneumonia Congestive heart failure COPD with acute exacerbation Possible sepsis ? BiPAP was attempted for about 30 minutes. Patient was at that point intubated secondary to severe increased work of breathing and hypercapnia. ?Solu-Medrol And breathing treatments were given - holding on fluids as patient has a proBNP that went to 13,000 from 3000. Also possible worsening effusion. Blood pressure has been normal. He has leukocytosis but lactate is normal. Questionable sepsis. -Broad-spectrum antibiotics were administered. Linezolid and meropenem given. Healthcare associated pneumonia at this point. He was intubated recently. -Sepsis quality measures. -Lactic acid with a reflex was ordered. -Blood cultures were ordered. -I discussed the patient with the hospitalist on-call who is admitting the patient. - Discussed findings and plan with patient prior to intubation and with family. Answered any questions. - All laboratory values were reviewed and interpreted personally by myself, the ER physician - All imaging was reviewed and interpreted personally by myself, the ER physician. - Evaluation and treatment of this problem were appropriate in the emergency setting Critical care -I spent a total of >60 minutes of critical care time managing the patient, independent of any other practitioner. -The time involved in the performance of separately reportable procedures was not counted towards critical care time. Lab Data 05/08/24 02:10 05/08/24 02:10 Labs/Radiology: Radiology Impressions Chest X-Ray 05/08/24 03:15 IMPRESSION: 1. Interval placement of endotracheal tube and nasogastric tubes. 2. Cardiomegaly. 3. Bilateral vascular congestion. 4. Trace right pleural effusion 5. Left basilar opacity with a degree of volume loss.. Laboratory Results WBC 28.88 10^3/uL (3.29-11.43) H 05/08/24 02:10 RBC 4.65 10^6/uL (3.85-5.65) 05/08/24 02:10 Hgb 13.20 g/dL (11.27-16.99) 05/08/24 02:10 Hct 42.2 % (37-53) 05/08/24 02:10 MCV 90.8 fl (82-101) 05/08/24 02:10 MCH 28.4 pg (27-33) 05/08/24 02:10 MCHC 31.3 g/dL (30-55) 05/08/24 02:10 RDW 15.6 % (12.1-15.1) H 05/08/24 02:10 Plt Count 267 10^3/cmm (157-399) 05/08/24 02:10 MPV 10.3 fL (7.4-10.4) 05/08/24 02:10 Lymph % (Auto) Not Reportable 05/08/24 02:10 Bent % (Auto) Not Reportable 05/08/24 02:10 Lymph # (Auto) Not Reportable 05/08/24 02:10 Bent # (Auto) Not Reportable 05/08/24 02:10 Total Counted 100 (0-100) 05/08/24 02:10 Atypical Lymphs % 17.0 % (0-5) H 05/08/24 02:10 Segmented Neutrophils 50 % 05/08/24 02:10 Band Neutrophils Not Reportable 05/08/24 02:10 Absolute Lymphocytes 10.7 10^3/cmm (1.2-3.4) H 05/08/24 02:10 Lymphocytes (Manual) 20 % 05/08/24 02:10 Monocytes (Manual) 7.0 % 05/08/24 02:10 Absolute Monocytes 2.0 10^3/cmm (0.1-0.6) H 05/08/24 02:10 Eosinophils (Manual) 2 % 05/08/24 02:10 Absolute Eosinophils 0.6 10^3/cmm (0.0-0.7) 05/08/24 02:10 Basophils (Manual) 0.0 % 05/08/24 02:10 Absolute Basophils 0.0 10^3/cmm (0.0-0.2) 05/08/24 02:10 Metamyelocytes 2.0 % 05/08/24 02:10 Myelocytes 2.0 % 05/08/24 02:10 Platelet Estimate Normal (Normal) 05/08/24 02:10 Specimen Type Arterial 05/08/24 02:06 Sample Site Brachial, right 05/08/24 02:06 ABG pH 7.23 (7.35-7.45) L 05/08/24 02:06 ABG pCO2 77.1 mmHg (35-45) H* 05/08/24 02:06 ABG pO2 144.0 mmHg (80.0-100.0) H 05/08/24 02:06 ABG HCO3 32.1 mmol/L (22-26) H 05/08/24 02:06 ABG O2 Saturation 99.1 05/08/24 02:06 ABG Base Excess 2.3 mmol/L (-2.0-2.0) H 05/08/24 02:06 Saad Test N/a 05/08/24 02:06 A-a O2 Gradient Not Reportable 05/08/24 02:06 Hematocrit 40.2 % (42-52) L 05/08/24 02:06 Hgb O2 Saturation 97.0 % (95-100) 05/08/24 02:06 Carboxyhemoglobin 1.2 %THgb (0.4-20.1) 05/08/24 02:06 Methemoglobin 0.9 % (0.4-1.5) 05/08/24 02:06 Total Hemoglobin 13.1 g/dL (14-18) L 05/08/24 02:06 Sodium 140.0 mmol/L (131-143) 05/08/24 02:06 Potassium 4.8 mmol/L (3.5-5.0) 05/08/24 02:06 Glucose 312.0 mg/dL (70-115) H 05/08/24 02:06 Ionized Calcium 1.3 mmol/L (1.1-1.4) 05/08/24 02:06 O2 Delivery Device Cont neb 05/08/24 02:06 O2 Liters/Min 8.0 % 05/08/24 02:06 Label Remover ID Amh 05/08/24 02:06 Sodium 142 mmol/L (136-145) 05/08/24 02:10 Potassium 4.8 mmol/L (3.5-5.1) 05/08/24 02:10 Chloride 101 mmol/L (98-107) 05/08/24 02:10 Carbon Dioxide 34 mmol/L (22-29) H 05/08/24 02:10 Anion Gap 11.8 (5-19) 05/08/24 02:10 BUN 30 mg/dL (8-23) H 05/08/24 02:10 Creatinine 1.1 mg/dL (0.7-1.2) 05/08/24 02:10 GFR Calculation Not Reportable 05/08/24 02:10 Glucose 278 mg/dL (65-115) H 05/08/24 02:10 Calculated Osmolality 310 mOsm/kg (285-295) H 05/08/24 02:10 Lactic Acid 1.5 mmol/L (0.5-2.2) 05/08/24 02:10 Calcium 9.5 mg/dL (8.5-10.5) 05/08/24 02:10 Total Bilirubin 0.6 mg/dL (0.15-1.2) 05/08/24 02:10 AST 31 U/L (0-40) 05/08/24 02:10 ALT 34 U/L (0-41) 05/08/24 02:10 Alkaline Phosphatase 179 U/L (40-130) H 05/08/24 02:10 Lactate Dehydrogenase 274 U/L (135-225) H 05/08/24 02:13 Troponin T Baseline 135 ng/L (0-15) H* 05/08/24 02:13 C-Reactive Protein 3.5 mg/L (0.0-4.9) 05/08/24 02:10 NT-Pro-B Natriuret Pep 62835 pg/mL (0-125) H 05/08/24 02:10 Total Protein 7.6 g/dL (6.6-8.7) 05/08/24 02:10 Albumin 3.9 g/dL (3.5-5.2) 05/08/24 02:10 Globulin 3.7 g/dL (1.3-4.6) 05/08/24 02:10 Procalcitonin 0.13 ng/mL (0-0.5) 05/08/24 02:13 Coronavirus (PCR) Negative (Negative) 05/08/24 02:16 Influenza A (PCR) Negative (Negative) 05/08/24 02:16 Influenza Type B (PCR) Negative (Negative) 05/08/24 02:16 RSV (PCR) Negative (Negative) 05/08/24 02:16 All radiology interpretation(s) finalized by discharge Discharge Plan Discharge Patient Disposition: Admitted As Inpatient Clinical Impression: Hypercapnic respiratory failure, Pneumonia, Acute on chronic hypoxic respiratory failure, Sepsis, Congestive heart failure, COPD with acute exacerbation Condition: Stable Coding Level of Care Code ED Air Intercept Controller Supervisor for Navid White
--- NOTE | 2024-05-08 02:11 | ECG_ITS ---
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 Measurements Intervals [place] Rate: 110 P: 0 CA: 0 QRS: -34 QRSD: 107 T: 73 QT: 299 QTc: 405 Interpretive Statements ATRIAL FIBRILLATION WITH RAPID VENTRICULAR RESPONSE WITH ABERRANT CONDUCTION OR VENTRICULAR PREMATURE COMPLEXES LEFT AXIS DEVIATION [QRS AXIS < -30] ANTEROSEPTAL MYOCARDIAL INFARCTION AGE INDETERMINATE Compared to ECG 05/03/2024 08:49:46 Ventricular premature complex(es) now present Aberrant conduction of supraventricular beat(s) now present Myocardial infarct finding still present Electronically Signed On 05-08-2024 14:48:49 FINANCE OFFICER by Woodrow Peña M.D. [email or web address]
[2024-05-08 02:18] LABS: ABG PCO2 77.1 mmHg (35-45); ABG PH Result 7.23 (7.35-7.45); Arterial Blood Gas Hematocrit 40.2 % (42-52); Base Excess ABG 2.3 mmol/L (-2.0-2.0); Blood Gas Operator Identificat AMH; Blood Gas Sample Site Brachial, right; Blood Gas Sample Type Arterial; Carboxyhemoglobin 1.2 %THgb (0.4-20.1); HCO3 ABG 32.1 mmol/L (22-26); Ionized Calcium Level - ABG 1.3 mmol/L (1.1-1.4); Methemoglobin 0.9 % (0.4-1.5); Oxygen Device CONT NEB; Oxygen Saturation ABG 99.1; Potassium Level - ABG 4.8 mmol/L (3.5-5.0); Total Hemoglobin 13.1 g/dL (14-18)
[2024-05-08 02:21] LABS: Hematocrit 42.2 % (37-53); Mean Corpuscular HGB Conc 31.3 g/dL (30-55); Mean Corpuscular Hemoglobin 28.4 pg (27-33); Mean Corpuscular Volume 90.8 fl (82-101); Mean Platelet Volume 10.3 fL (7.4-10.4); Platelet Count 267 10^3/cmm (157-399); Red Blood Count 4.65 10^6/uL (3.85-5.65); Red Cell Distribution Width 15.6 % (12.1-15.1); White Blood Count 28.88 10^3/uL (3.29-11.43)
[2024-05-08] MEDS: methylPREDNISolone sod succ 125 mg/2 mL INJ IVP (02:22)
[2024-05-08] MEDS: albuterol 2.5 mg/3 mL Neb INHALATION (02:30)
[2024-05-08] MEDS: ipratropium-albuterol 3 mL Neb INHALATION (02:30)
[2024-05-08 02:39] LABS: Lactic Sepsis W/Reflex 1.5 mmol/L (0.5-2.2)
[2024-05-08 02:41] LABS: Slide Review Slide Review Perform
[2024-05-08 02:42] LABS: Absolute Eosinophils 0.6 10^3/cmm (0.0-0.7); Absolute Segmented Neutrophil 14.4 10/cmm (1.6-7.1); Eosinophils 2 %; Lymphocytes 20 %; Lymphocytes Absolute 10.7 10^3/cmm (1.2-3.4); Platelet Estimate Normal (Normal); Segmented Neutrophils 50 %; Total Cells Counted 100 (0-100)
[2024-05-08 02:48] LABS: Alanine Aminotransferase 34 U/L (0-41); Albumin Level 3.9 g/dL (3.5-5.2); Alkaline Phosphatase 179 U/L (40-130); Anion Gap 11.8 (5-19); Aspartate Amino Transferase 31 U/L (0-40); Blood Urea Nitrogen 30 mg/dL (8-23); C Reactive Protein 3.5 mg/L (0.0-4.9); Calcium 9.5 mg/dL (8.5-10.5); Carbon Dioxide 34 mmol/L (22-29); Chloride 101 mmol/L (98-107); Creatinine Clr Calc Pharmacy 65.6464; Globulin 3.7 g/dL (1.3-4.6); Glucose 278 mg/dL (65-115); NT Pro B Type Natriuretic Pept 14531 pg/mL (0-125); Osmolality Calculated 310 mOsm/kg (285-295); Potassium 4.8 mmol/L (3.5-5.1); Sodium 142 mmol/L (136-145); Total Bilirubin 0.6 mg/dL (0.15-1.2); Total Protein 7.6 g/dL (6.6-8.7)
[2024-05-08 02:59] LABS: Covid PCR NEGATIVE (Negative); Influenza A NEGATIVE (Negative); Influenza B NEGATIVE (Negative); Respiratory Syncytial Virus Ce NEGATIVE (Negative)
[2024-05-08] MEDS: etomidate 2 mg/mL INJ SDV 10 mL 20 MG IVP (03:08)
[2024-05-08] MEDS: succinylcholine 20 mg/mL SDV 10mL 100 MG IV (03:09)
--- NOTE | 2024-05-08 03:15 | XRR_ITS ---
PROCEDURE INFORMATION: Exam: XR Chest Exam date and time: 05/08/2024 3:16 AM Age: 74 years old Clinical indication: Device placement; Other: Og tube placement; Additional info: Post intubation TECHNIQUE: Imaging protocol: Radiologic exam of the chest. Views: 1 view. COMPARISON: CR (CHEST, ) 05/08/2024 2:19 AM FINDINGS: Tubes, catheters and devices: Nasogastric tube is present with its tip below the level of the film. Endotracheal tube has been placed with its tip 2.5 cm above the haydee. Lungs: There is central vascular congestion. There is a left basilar opacity. This may reflect layering pleural fluid, atelectasis, pneumonia or a combination. There does appear to be a degree of volume loss at the left lung base. Pleural spaces: There is trace right pleural effusion. Suspect pleural fluid at the left lung base. No pneumothorax is identified. Heart/Mediastinum: The heart is slightly enlarged. There is an aortic valvular prosthesis. There is calcified plaque involving the aorta. Bones/joints: Unremarkable. XR/XR chest 1V [id number] IMPRESSION: 1. Interval placement of endotracheal tube and nasogastric tubes. 2. Cardiomegaly. 3. Bilateral vascular congestion. 4. Trace right pleural effusion 5. Left basilar opacity with a degree of volume loss..
--- NOTE | 2024-05-08 03:24 | P.HP_ITS ---
Providers/Chief Complaint 2 Primary Care Provider: Jayda Lucas MD Chief Complaint: RESP. DISTRESS History of Present Illness Grayson Shepard is a 74 year old male Grayson Shepard is a 74 year old male with past medical history of coronary artery disease, s/p transcatheter aortic valve replacement, hypertension, hyperlipidemia, type 2 diabetes mellitus, diagnosed with lung cancer 1 year ago, did not receive any chemo or radiation, has recently stopped taking Keytruda was discharged from the hospital after management of hypoxic hypercapnic respiratory failure, got intubated 05/01, required vasopressors during intubation, patient was extubated on 05/04 to 5 L nasal cannula, oxygen requirement was weaned down to 3 L, he was put on steroids, as per the report patient did not do well at home his shortness of breath started getting worse he became anxious and tachypneic in the ER patient requested the ER physician to intubate him because of his increased work of breathing. By the time I evaluate the patient patient is already intubated and sedated, significant leukocytosis, hypoxic hypercapnic respiratory failure, high BNP with x-ray consistent with bilateral pneumonia left-sided pleural effusion greater than right high BNP with vascular congestion on x-ray. Rester panel negative. MRSA nares negative Daughter stating that patient was doing fine until he went to bed around 9 PM, he was compliant with his BiPAP, despite that history experiencing shortness of breath, experienced significant coughing and PND that prompted his visit to the ER he did not complain of chest pain Review of Systems 2 General: Reports: ROS unobtainable due to endotracheal tube Medications/Allergies Home Medications Medication Instructions Recorded Confirmed Last Taken Type albuterol sulfate 2.5 mg/3 mL 2.5 mg inhalation Q6H PRN 12/15/21 05/01/24 Unknown History (0.083 %) solution for nebulization Shortness Of Breath albuterol sulfate 90 mcg/actuation 1 puff inhalation Q4H PRN 12/15/21 05/01/24 Unknown History aerosol inhaler Shortness Of Breath aspirin 81 mg chewable tablet 81 mg PO DAILY 12/15/21 05/01/24 05/01/24 History budesonide 160 mcg-glycopyr 9 2 inh inhalation BID 12/15/21 05/01/24 05/01/24 History mcg-formot 4.8 mcg/actuation HFA inhaler (Breztri Aerosphere) cholecalciferol (vitamin D3) 25 25 mcg PO DAILY 12/15/21 05/01/24 05/01/24 History mcg (1,000 unit) tablet (Vitamin D3) docusate sodium 100 mg capsule 200 mg PO BID PRN Constipation 12/15/21 05/01/24 12/14/21 History gabapentin 300 mg capsule 600 mg PO TID 12/15/21 05/01/24 05/01/24 History modafinil 200 mg tablet 400 mg PO DAILY 12/15/21 05/01/24 05/01/24 History omega 8-goh-wyw-fish oil 1,200 mg 2 cap PO BID 12/15/21 05/01/24 05/01/24 History (144 mg-216 mg) capsule (Fish Oil) simvastatin 80 mg tablet 80 mg PO QPM 12/15/21 05/01/24 04/30/24 History Lactobacillus acidophilus 500 500 mmu cells PO DAILY 05/01/24 05/01/24 05/01/24 History million cell capsule bumetanide 0.5 mg tablet 0.5 mg PO BID 05/01/24 05/01/24 05/01/24 History famotidine 20 mg tablet (Pepcid) 40 mg PO BID Acid Reflux 05/01/24 05/01/24 Unknown History fluticasone propionate 50 1 spray intranasal DAILY 05/01/24 05/01/24 05/01/24 History mcg/actuation nasal spray,suspension guaifenesin 600 mg tablet, 600 mg PO Q12H PRN Congestion 05/01/24 05/01/24 Unknown History extended release 12 hr (Mucinex) hydrocodone 5 mg-acetaminophen 325 1 tab PO Q6H PRN Pain 05/01/24 05/01/24 Unknown History mg tablet multivitamin 1 tab PO DAILY 05/01/24 05/01/24 05/01/24 History sacubitril 24 mg-valsartan 26 mg 1 tab PO BID 05/01/24 05/01/24 05/01/24 History tablet (Entresto) amoxicillin 875 mg-potassium 1 tab PO BID 10 days #20 tabs 05/07/24 Unknown Rx clavulanate 125 mg tablet insulin aspart U-100 100 unit/mL See Rx Instructions .Route 05/07/24 05/01/24 05/01/24 Rx subcutaneous solution (Novolog .COMPLEX #10 mL U-100 Insulin aspart) insulin glargine 100 unit/mL See Rx Instructions .Route 05/07/24 05/01/24 05/01/24 Rx subcutaneous solution (Lantus .COMPLEX #10 mL U-100 Insulin) prednisone 10 mg tablet See Rx Instructions .Route 05/07/24 Unknown Rx .COMPLEX #14 tabs Allergies Allergy/AdvReac Type Severity Reaction Status Date / Time azithromycin Allergy Unknown Unknown Verified 12/15/21 16:58 levofloxacin [From Levaquin] Allergy Unknown Unknown Verified 12/15/21 16:58 Quinolones Allergy Unknown Unknown Verified 12/15/21 16:58 PFSH Acute 2 PFSH: Medical History Diabetes mellitus Hyperlipidemia Hypertension CAD (coronary artery disease) Lung cancer COPD (chronic obstructive pulmonary disease) Surgical History H/O aortic valve replacement Vitals/I&O/Wt Last Vital Signs Temp 97.5 F L 05/08/24 02:07 Pulse 108 H 05/08/24 02:29 Resp 35 H 05/08/24 02:29 BP 162/85 05/08/24 02:07 Pulse Ox 98 05/08/24 02:29 O2 Del Method BiPAP 05/08/24 02:29 FiO2 40 05/08/24 02:29 05/07/24 05/07/24 05/08/24 14:59 22:59 06:59 Intake Total 0 / 0 Balance 0 / 0 Weight last 48 hrs Weight 81.647 kg Physical Exam 2 Narrative: Patient is intubated and sedated Tachycardic Hypertensive Mild skin mottling of lower extremities, cap refill lower extremity more than 3 seconds 100 mL urine in the bag Daughter at the bedside Patient is on FiO2 100% PEEP 5 Intubated and sedated Neuroexam limited Patient is trying to bite the tube, agitated, ER nurse trying to fix fentanyl with propofol Clinically patient has mild signs of CHF with edema of lower extremity Bilateral breath sounds with diminished left greater than right Data 05/08/24 02:10 05/08/24 02:10 A&P Assessment and plan (1) Sepsis: (2) COPD (chronic obstructive pulmonary disease): (3) Pneumonia: (4) Hypercapnic respiratory failure: (5) Acute on chronic hypoxic respiratory failure: (6) Sepsis: Plan Sepsis secondary to pneumonia Source seem to be pneumonia, concern for aspiration Criteria met with tachypnea tachycardia leukocytosis Start vancomycin and Zosyn add cefepime for double pseudomonal coverage and anti-MRSA for recent hospitalization Please note MRSA nares were negative if his white count started trending down vancomycin could be discontinued next 48 hours DuoNeb treatment, hold off on steroids Cannot get septic bolus secondary to CHF presentation X-ray consistent with CHF and atelectasis Acute preserved ejection heart rate exacerbation Worsening left-sided pleural effusion Gentle diuresis echo recently showed preserved action fraction Respiratory failure/COPD exacerbation hypoxic hypercapnic respiratory failure Intubated sedated 05/08 by the ER physician During last intubation patient became hypotensive required pressors and required dextrose for hypoglycemia For now we will check Accu-Cheks every 4 hours, Request dietitian for PPN will need good caloric intake for intubation, PPN also needed for prevention of hypoglycemia Lung mass: Recently stopped taking Keytruda secondary to bloating and CHF exacerbation Coronary art disease Hold Entresto Patient has history of aortic valve replacement EKG showing a lot of PVCs, requested serial troponin EKG PVCs related ST changes A-fib with RVR start therapeutic Lovenox EKG showing a lot of PVCs, requested serial troponin EKG PVCs related ST changes Full code, as per the daughter patient wanted everything to be done in case of respiratory or cardiac arrest N.p.o. DVT prophylaxis Lovenox, , with underlying cancer risk of PE really high, Recent CTA chest did not show PE, Will request IR to evaluate him for left-sided thoracentesis Attestations 2 Medical Necessity Statement*: More than 2 midnights anticipated Coding Level of Care Code Critical Care >/= 30 minutes Critical care time (in minutes): 30 The high probability of a clinically significant, sudden or life threatening deterioration, as referenced in this documentation, required my full and direct attention, intervention and personal management. The critical care time shown is in addition to time spent performing any reported separately billable procedures and includes the following: [x] Data and vital sign review and interpretation [x ] Patient assessment, examination and intervention [x] Medication orders and management [x] Patient/Family updates as able [x] Care Coordination and Documentation. Diagnoses Sepsis A41.9 COPD (chronic obstructive pulmonary disease) J44.9 Pneumonia J18.9 Hypercapnic respiratory failure J96.92 Acute on chronic hypoxic respiratory failure J96.21
[2024-05-08] MEDS: propofol 1,000 MG/100 ML INJ 2.45 MG IV (03:27)
[2024-05-08] MEDS: meropenem 500 mg SDV IVP (03:32)
[2024-05-08] MEDS: rocuronium 10 mg/mL INJ 5mL 100 MG IVP (03:34)
[2024-05-08] MEDS: linezolid premix 600 MG/300 ML PREMIX 300 MG IV (03:44)
--- NOTE | 2024-05-08 03:50 | US_ITS ---
WS: [id number] Ultrasound chest, limited. HISTORY: LEFT pleural effusion evaluate prior to thoracentesis. There is a small amount of fluid in the LEFT chest but there is atelectatic lung extending throughout the fluid. Patient is intubated and the atelectatic lung is noted to be very mobile within the amoun t of fluid. Insufficient to perform safe thoracentesis. US/US chest [id number] IMPRESSION: Insufficient LEFT pleural effusion to perform safe thoracentesis due to the ruth unt of atelectatic lung within the effusion.
[2024-05-08 03:58] LABS: Procalcitonin 0.13 ng/mL (0-0.5)
--- NOTE | 2024-05-08 03:58 | ECG_ITS ---
[facility] Test Date: 2024-05-08 Pat Name: Grayson Shepard Department: Room: Gender: Male Director Of Public Works: : 1950 Requested By: Mihaela Hernández Order Number: [id number] Garg MD: Woodrow Peña M.D. Measurements Intervals [place] Rate: 98 P: 0 IA: 0 QRS: -32 QRSD: 105 T: 113 QT: 364 QTc: 466 Interpretive Statements ATRIAL FIBRILLATION WITH ABERRANT CONDUCTION OR VENTRICULAR PREMATURE COMPLEXES LEFT AXIS DEVIATION [QRS AXIS < -30] INTERVENTRICULAR CONDUCTION DELAY Compared to ECG 05/03/2024 08:49:46 Ventricular premature complex(es) now present Aberrant conduction of supraventricular beat(s) now present Myocardial infarct finding still present Electronically Signed On 05-08-2024 14:41:51 PROCESS HELPER by Woodrow Peña M.D. [id number]
[2024-05-08 04:07] LABS: Lactate Dehydrogenase 274 U/L (135-225)
--- NOTE | 2024-05-08 04:08 | PC.NURSE ---
Patient's daughter at bedside signed consent for patient's intubation. Respiratory therapy notified. Patient administered RSI medications per AUG with respiratory therapy and Dr. Camarena at bedside. Patient intubated at [address] Camarena. Positive color change noted on Co2 monitor and breath sounds equal bilaterally. ETT 25 at the lips. OG tube placed and chest xray obtained at bedside. 16Fr.iverson placed using sterile technique.
[2024-05-08 04:10] LABS: Troponin(5th) Baseline 135 ng/L (0-15)
[2024-05-08 04:20] LABS: ABG PH Result 7.33 (7.35-7.45); Arterial Blood Gas Hematocrit 34.1 % (42-52); Blood Gas Allen Test Pos; Blood Gas Operator Identificat AMH; Blood Gas Sample Site Radial, left; Blood Gas Sample Type Arterial; HCO3 ABG 31.3 mmol/L (22-26); Oxygen Device VENT; PO2 FiO2 Ratio Arterial Blood 357
[2024-05-08] MEDS: fentaNYL 1,000 MCG/100 ML BAG 2.5 MCG IV (04:22)
[2024-05-08 04:59] LABS: Troponin 5 2HR Delta 9.1 ABS# (0-10)
[2024-05-08 05:03] LABS: Troponin 5 2HR 144.1 ng/L (0-15)
[2024-05-08] MEDS: vancomycin 1,750 MG/350 ML PIGGYBACK 175 MG IV (05:53)
[2024-05-08] MEDS: enoxaparin 80 mg/0.8 mL Syringe SUBCUT ×2 (05:53→17:02)
--- NOTE | 2024-05-08 05:58 | ECG_ITS ---
[facility] Date: 2024[facility]08 Pat Name: Grayson Shepard Department: Room: ICU12 Gender: Male Director Biology: : 1950 Requested By: Mihaela Hernández Order Number: [id number] Forest MD: Woodrow Peña M.D. Measurements Intervals [place] Rate: 77 P: 0 MS: 0 QRS: -35 QRSD: 108 T: 117 QT: 395 QTc: 447 Interpretive Statements ATRIAL FIBRILLATION WITH ABERRANT CONDUCTION OR VENTRICULAR PREMATURE COMPLEXES LEFT AXIS DEVIATION [QRS AXIS < -30] ANTEROSEPTAL MYOCARDIAL INFARCTION , OF INDETERMINATE AGE [40+ ms Q WAVE IN V1-V4] Compared to ECG 05/08/2024 03:58:16 No significant changes Electronically Signed On 05-08-2024 14:48:17 CHIEF METEOROLOGIST by Woodrow Peña M.D. [id number]
[2024-05-08] MEDS: cefepime 2,000 mg SDV 2000 MG IVP ×2 (06:09→15:56)
[2024-05-08 06:32] LABS: Glucose Point of Care 399 mg/dL (70-110)
--- NOTE | 2024-05-08 07:22 | XR_ITS ---
WS: [id number] XR chest 1V portable [id number] REASON FOR EXAM: Post PICC insertion FINDINGS: Right arm PICC line placement. The tip of the catheter is in the distal SVC just above the cavoatrial junction in proper position for use. Endotracheal tube and nasogastric tube remain in position. Central pulmonary vascular congestion and reticular interstitial lung opacities appear to have appear to be resolving compared to the examination of left lower lobe consolidation and pleural effusion un changed. 3:17 a.m. XR/XR chest 1V portable [id number] IMPRESSION: Right arm PICC line position as above. Position of the PICC line was relayed ov er the phone to the cath lab technologist 8:05 a.m. No repositioning required.
[2024-05-08 07:31] LABS: Troponin 5 6HR 157.3 ng/L (0-15); Troponin 5 6HR Delta 22.3 ng/L (0-12)
[2024-05-08 07:43] LABS: Glucose Point of Care 382 mg/dL (70-110)
--- NOTE | 2024-05-08 07:50 | PICC.NOTE ---
Triple lumen PICC placed to right basilic vein. Referred to vascular access nurse for PICC placement due to poor access and need for vasopressors. Risks and benefits discussed and informed consent obtained from pt daughter, Diana. Right arm assessed with right basilic vein measuring 5.5 mm, straight, and apparent best choice for placement. Using sterile technique and MST, right basilic vein accessed x 1 stick. Mid-arm circumference measured 10 cm from right AC 23 cm. Trimmed cath 49 cm with 0 cm external length noted. CXR shows tip in distal SVC, in good position for use per radiologist. Line secured with stat-lock. Insertion site covered with Biopatch and TSM. Report given to bedside nurse, ESAU Gamez.
--- NOTE | 2024-05-08 07:59 | PC.PHAR ---
[facility] 05/08/24 8am
[2024-05-08] MEDS: piperacillin-tazobactam 3.375 GM in sodium chloride 0.9% (plus) 50 ML IV ×2 (08:10→15:56)
[2024-05-08] MEDS: FUROsemide 10 mg/mL SDV 10mL 20 MG IVP (09:00)
--- NOTE | 2024-05-08 09:06 | USCV_ITS ---
Grayson Shepard Age: 74 Gender: M : 1950 Exam Date: 05/08/2024 10:51 Ordering Phys: Frank Tran MD Technologist: CT Exam Location: [facility] Indication: ef, eval myocardium BP: 109 / 50 HR: Rhythm: Sinus Technical Quality: Adequate MEASUREMENTS (Male / Female) Normal Values 2D ECHO LVOT Diameter 2.0 cm LV Ejection Fraction MOD 4C 35.4 % LV Ejection Fraction MOD 2C 42.6 % LV Ejection Fraction 2C AL 42.3 % LA Diameter 4.8 cm RA Systolic Volume 4C AL 53.0 ml RA Systolic Volume 4C MOD 51.5 ml LA Sys Volume AL 92.7 cm cubed LA Sys Volume Index AL 47.1 cm cubed/m squared Aorta at Sinotubular Diameter 2.3 cm IVC Diameter 2.4 cm M-MODE LA Ao Ratio MM 2.8 AV Cusp Separation MM 0.8 cm FINDINGS Left Ventricle Moderate diffuse hypokinesia of the left ventricle, more so of the septum. LV ejection fraction of 35.4%. Right Ventricle Normal RV size with slightly diminished ejection fraction. Mild diffuse hypokinesia of the right ventricle. Right Atrium Mildly increased right atrial size. Left Atrium Mildly increased left atrial size. Mitral Valve Thickened mitral valve. Moderate mitral annular calcification. Aortic Valve The bioprosthetic valve the aortic position appears to be well- seated. The leaflets could not visualized well. Tricuspid Valve No gross morphology abnormalities Pulmonic Valve No gross abnormalities noted Pericardium No pericardial effusion. Aorta Normal aortic annulus size. IVC Normal inferior vena cava. CONCLUSIONS Moderate diffuse hypokinesia of the left ventricle, more so of the septum. LV ejection fraction of 35.4%. Mild biatrial enlargement. Normal RV size with slightly diminished ejection fraction. Thickened mitral valve. Moderate mitral annular calcification. The bioprosthetic valve the aortic position appears to be well- seated. The leaflets could not visualized well. There is no pericardial effusion. There are no intracardiac masses. Compared to the study from 05/01/2024, there is a significant drop in the LV ejection fraction, from 55% to 35.4.%. Dr Yumi Hodge MD [facility] (Electronically Signed) Final Date: 08 May 2024 17:21 S
[2024-05-08] MEDS: pantoprazole 40 mg SDV IVP ×2 (09:11→18:12)
[2024-05-08] MEDS: insulin lispro 100 unit/1 mL 12 UNIT SUBCUT (09:11)
[2024-05-08] MEDS: aspirin 325 mg Tablet OG-TUBE (09:26)
--- NOTE | 2024-05-08 09:38 | ECG_ITS ---
[facility]: 2024-[facility]-08 Pat Name: Grayson Shepard Department: Room: ICU12 Gender: Male Zipper Measurer: : 1950 Requested By: Mihaela Hernández Order Number: [id number] Forest MD: Woodrow Peña M.D. Measurements Intervals [place] Rate: 63 P: 0 LA: 0 QRS: -38 QRSD: 100 T: 121 QT: 421 QTc: 431 Interpretive Statements ATRIAL FIBRILLATION LEFT AXIS DEVIATION [QRS AXIS < -30] ANTEROSEPTAL MYOCARDIAL INFARCTION , OF INDETERMINATE AGE [40+ ms Q WAVE IN V1-V4] Compared to ECG 05/08/2024 05:58:11 Ventricular premature complex(es) no longer present Aberrant conduction of supraventricular beat(s) no longer present Myocardial infarct finding still present Electronically Signed On 05-08-2024 14:47:56 MANAGER ACCOUNT MANAGEMENT by Woodrow Peña M.D. [id number]
--- NOTE | 2024-05-08 09:38 | PC.NURSE ---
Dr. Tran to bedside, notified of soft blood pressures. Order given to pause propofol if needed. Order given to remove SCD sleeves. SCD sleeves removed and propofol paused.
[2024-05-08 11:37] LABS: Glucose Point of Care 307 mg/dL (70-110)
[2024-05-08] MEDS: insulin lispro 100 unit/1 mL SUBCUT ×2 (11:42→21:33)
--- NOTE | 2024-05-08 12:39 | PC.NURSE ---
Family informed this nurse that every time prior to having these episodes of shortness of breath his stomach becomes very distended. Daughter reports that they have done testing at [facility] and could never find out the cause. Dr. Tran informed of this information.
--- NOTE | 2024-05-08 14:10 | PHA.VACGOAL ---
Vancomycin Goal - Goal Vancomycin Goal:: 15-20 mg/L Vancomycin Indication:: Pneumonia - Therapy Current therapy:: Pip/Tazo Day of therpy:: Day []of [] . Actual body weight (kg): 170 lb 8 oz - Data Labs: WBC 28.88 10^3/uL (3.29-11.43) H 05/08/24 02:10 RBC 4.65 10^6/uL (3.85-5.65) 05/08/24 02:10 Hgb 13.20 g/dL (11.27-16.99) 05/08/24 02:10 Hct 42.2 % (37-53) 05/08/24 02:10 MCV 90.8 fl (82-101) 05/08/24 02:10 MCH 28.4 pg (27-33) 05/08/24 02:10 MCHC 31.3 g/dL (30-55) 05/08/24 02:10 RDW 15.6 % (12.1-15.1) H 05/08/24 02:10 Sodium 142 mmol/L (136-145) 05/08/24 02:10 Potassium 4.8 mmol/L (3.5-5.1) 05/08/24 02:10 Chloride 101 mmol/L (98-107) 05/08/24 02:10 Carbon Dioxide 34 mmol/L (22-29) H 05/08/24 02:10 Anion Gap 11.8 (5-19) 05/08/24 02:10 BUN 30 mg/dL (8-23) H 05/08/24 02:10 Creatinine 1.1 mg/dL (0.7-1.2) 05/08/24 02:10 GFR Calculation Not Reportable 05/08/24 02:10 Treatment plan:: new consult Regimen:: RESTART PREVIOUS DOSE OF 500MG Q12 H; MONITOR DAILY
--- NOTE | 2024-05-08 14:51 | PC.NURSE ---
Notified Dr. Tran that patients blood pressure remains low and heart rate is in the 50s with propofol off and fentanyl infusing at 25mcg/hr. No new orders given.
--- NOTE | 2024-05-08 15:27 | P.PN_ITS ---
Subjective 2 Subjective: He is intubated, mechanically ventilated. Overbreathing the vent. Reports machine is making his breathing more comfortable. He has been having copious secretions. Reports having increased secretions at home as well. Denies any obvious aspiration with food or drink. Has stopped Keytruda about a month back. His daughter reports has been having episodes of severe bloating intermittently sometimes after eating, sometimes after drinking water first thing in the morning, with his belly becoming hard and making it difficult for him to breathe. This usually resolves spontaneously. He has discussed the symptoms with his oncologist and primary provider and had workup with imaging including ultrasound. Vitals/I&O/Wt Last Vital Signs Temp 97.5 F L 05/08/24 02:07 Pulse 62 05/08/24 14:00 Resp 18 05/08/24 13:17 BP 99/79 05/08/24 05:30 Pulse Ox 97 05/08/24 13:17 O2 Del Method Mechanical Ventilation 05/08/24 06:29 FiO2 35 05/08/24 13:17 05/08/24 05/08/24 05/08/24 06:59 14:59 22:59 Intake Total 327.237 / 327.237 152.062 / 152.062 Output Total 350 / 350 Balance -22.763 / -22.763 152.062 / 152.062 Weight last 48 hrs Weight 77.337 kg Weight 81.647 kg Physical Exam 2 Const: COMMON NORMALS: patient oriented x3 and alert GENERAL APPEARANCE: c ooperative ORIENTATION/CONSCIOUSNESS: Yes awake HENMT: COMMON NORMALS: oropharynx normal Neck/C-Spine: COMMON NORMALS: no JVD Resp: AUSCULTATION: wheezes (occasional) and diminished lung sounds Cardio: COMMON NORMALS: no JVD, regular rhythm, S1 normal heart sound present, S2 normal heart sound present and No murmurs present (Cardio) RHYTHM: regular rhythm HEART SOUNDS: S1 normal heart sound present and S2 normal heart sound present GI: COMMON NORMALS: Normal to inspection, nondistended, normoactive bowel sounds present, Soft to palpation and non-tender PALPATION: Yes Soft to palpation Extremity: COMMON NORMALS: no joint enlargement and no pedal edema Neuro: COMMON NORMALS: patient oriented x3 and moves all extremities S ENSORIUM/ORIENTATION: Yes alert Skin: COMMON NORMALS: no rashes or lesions noted GENERAL SKIN EXAM: no rashes or lesions noted Urinary Catheter Management: Salmon: Cath Placed During This Visit: yes Reason for Continuing Indwelling Catheter: Accurate Measurement of Urinary Output in Critically Ill Patients Urinary Catheter Date of Insertion: 05/08/24 Urinary Catheter Time of Insertion: 03:44 Data 05/08/24 02:10 05/08/24 02:10 Micro: Microbiology 05/08/24 10:38 Bacterial Antigens - Final Urine,Voided A&P Assessment and plan (1) Sepsis: (2) COPD (chronic obstructive pulmonary disease): (3) Pneumonia: (4) Hypercapnic respiratory failure: (5) Acute on chronic hypoxic respiratory failure: Plan Sepsis secondary to pneumonia: Reviewed vitals, CBC, BMP, ABG, troponin, viral studies, urine bacterial antigens, blood culture from last visit. Blood pressure becoming lower today down to 87/56. Propofol discontinued. He has been comfortable so far. Discontinue fentanyl for now as well. Monitor blood pressures. Levophed added, maintain MAP 65 mercury or above. Discussed with him troponin with elevation at 6 hours, positive delta, requested follow-up limited echo to reassess myocardial function. Noted significantly mention NT proBNP. Concomitant decompensation of CHF. Pneumonia suspected secondary to aspiration. He and his daughter deny overt aspiration with food or drink. From history obtained from his daughter he has intermittent bloating, distention of the abdomen making his abdomen hard making it difficult to breathe. This sometimes happens after eating, sometimes when he wakes up in the morning and drinks water. Has had prior workup. These episodes usually resolve spontaneously. Has not had a gastric emptying study. He has not had signs of complete obstruction, however, discussed possible partial obstruction. Discussed strategies to mitigate/reduce chance of obstruction, spacing on smaller meals through the day, having GI soft meals. As well as avoiding food or drink for 4 to 6 hours prior to sleep. Elevation of head of bed. Avoiding nocturnal aspiration. Patient and his daughter expressing agreement. 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 Continue antibiotic coverage, Zosyn, cefepime, vancomycin, monitor for risk of encephalopathy, risk of kidney injury with antibiotic combination. With wheezing, copious secretions discussed with him will add Solu-Medrol. Monitor for risk of hyperglycemia, gastritis, encephalopathy. Source seem to be pneumonia, concern for aspiration Criteria met with tachypnea tachycardia leukocytosis DuoNeb treatment Cannot get septic bolus secondary to CHF presentation X-ray consistent with CHF and atelectasis Acute preserved ejection heart rate exacerbation. Requested limited TTE. Noted troponin with positive delta. Denies chest pain. Reassess cardiac function with noted CHF. Continue diuretic. Monitor blood pressure, volume status, reassess renal function. Worsening left-sided pleural effusion Gentle diuresis echo recently showed preserved action fraction Respiratory failure/COPD exacerbation hypoxic hypercapnic respiratory failure Intubated sedated 05/08 by the ER physician During last intubation patient became hypotensive required pressors and required dextrose for hypoglycemia For now we will check Accu-Cheks every 4 hours. Discussed with registered dietitian. Hold parenteral nutrition at this time with CHF. Hold enteral nutrition for now. Monitor glucose. Lung mass: A month ago stopped taking Keytruda secondary to bloating and CHF exacerbation. Keytruda less likely to be contributing to lung infection and cardiac issue at this time. Coronary art disease Hold Entresto Patient has history of aortic valve replacement: Resume aspirin EKG showing a lot of PVCs, requested serial troponin EKG PVCs related ST changes A-fib with RVR start therapeutic Lovenox EKG showing a lot of PVCs PVCs related ST changes Intermittent bloating: Reported intermittent bloating episodes sometimes after eating, sometimes after even drinking water first thing in the morning. Abdomen becomes distended and hard, making it difficult for him to breathe. He has been investigating and following this up with his oncologist and primary provider. He has had assessment for this including an ultrasound. At that time he does not move his bowels and has not passed flatus. So far has not had and vomiting. So far no such episode here. Discussed consideration of possible partial bowel obstruction, reduce chance of obstruction, smaller meals spaced throughout the day, mechanical soft diet. As well as reducing aspiration at night, including with elevating head of bed, avoiding food or drink for 6 hours prior to bedtime. Full code, as per the daughter patient wanted everything to be done in case of respiratory or cardiac arrest N.p.o. DVT prophylaxis Lovenox, , with underlying cancer risk of PE really high, Recent CTA chest did not show PE, Will request IR to evaluate him for left-sided thoracentesis Attestations 2 Medical Necessity Statement*: Continue admission for assessment and management of respiratory failure with sepsis secondary to multifocal pneumonia suspected aspiration pneumonia, decompensated CHF, COPD with exacerbation. Coding Level of Care Code Critical Care >/= 30 minutes Critical care time (in minutes): 50 The high probability of a clinically significant, sudden or life threatening deterioration, as referenced in this documentation, required my full and direct attention, intervention and personal management. The critical care time shown is in addition to time spent performing any reported separately billable procedures and includes the following: [x] Data and vital sign review and interpretation [x ] Patient assessment, examination and intervention [x] Medication orders and management [x] Patient/Family updates as able [x] Care Coordination and Documentation. Diagnoses Sepsis A41.9 COPD (chronic obstructive pulmonary disease) J44.9 Pneumonia J18.9 Hypercapnic respiratory failure J96.92 Acute on chronic hypoxic respiratory failure J96.21
--- NOTE | 2024-05-08 15:28 | PC.NURSE ---
Notified Dr. Magana that patients blood pressure 87/41 and HR remaining in the 50s. Orders given for levophed and solumedrol.
[2024-05-08] MEDS: methylPREDNISolone sod succ 40 mg/mL INJ IVP ×2 (15:42→21:02)
[2024-05-08] MEDS: norepinephrine 4 MG/250 ML BAG 7.5 MG IV (15:43)
[2024-05-08] MEDS: vancomycin 500 MG in sodium chloride 0.9% (plus) 100 ML 200 MG IV (15:45)
--- NOTE | 2024-05-08 16:15 | PC.NURSE ---
Dr. Tran to bedside to speak with daughter and patient. Low HR and blood pressure noted. Levophed infusing at 4mcg/min. Dr. Tran asked for fentanyl to be turned off and see how patient does.
[2024-05-08 19:08] LABS: Glucose Point of Care 138 mg/dL (70-110)
[2024-05-08] MEDS: EPINEPHrine 2.5 MG in sodium chloride 0.9% 250 ML 6.06 MG IV (19:10)
--- NOTE | 2024-05-08 19:49 | PM.CONSULT ---
Providers/Reason For Consult Consulting Physician/Specialty*: DENNY Hodge MD/ cardiology Reason for Consult*: patient with congestive heart failure and has a significant decline in the LV ejection fraction from a week ago Requesting Physician: Dr. Tran Attending Physician: Frank Tran Primary Care Provider: Jayda Lucas MD History of Present Illness History of Present Illness Grayson Shepard is a 74 year old male who was initially admitted to the hospital on the of last month with features of hypoxic respiratory failure, multilobar pneumonia , altered mental status and hypoglycemia. He was intubated, treated with IV antibiotics and other symptomatic measures. Oxygenation improved, got extubated and was on 3 L of oxygen by nasal cannula. Was discharged home yesterday. According to the family, last evening he again started having shortness of breath. The shortness of breath got worse by 1:00 and the family brought him back to the hospital. Initially he was placed on BiPAP in the ER because of the inadequate oxygenation, he was intubated and is readmitted to the hospital for further evaluation and management. His chest x-ray revealed features of vascular congestion and pleural effusion. The BNP was in the 14,000 range. An echocardiogram today revealed ejection fraction around 35%. The ejection fraction was around 55% by echocardiogram on the last . He also was found to have elevated troponin T According to the family, the patient had TAVR at the [facility] in [place] few months ago. Prior to this, he had coronary angiogram which did not reveal any significant blockages. Apparently he had stent placement in the? Right iliac artery. He has a history of peripheral artery disease and had stent placement in the right leg couple of years ago prior to this. Details are not available. Patient also has a history of chronic atrial fibrillation. He had bleeding complications with oral anticoagulant. For this reason, he had a Watchman procedure few years ago in [place]. The details of this are not available at this time. He has not had any chest pain. But he had a congestive heart failure prior to the valve replacement. His LV ejection fraction was very low according the family. He also has a history of lung cancer and COPD Review of Systems Narrative: CONSTITUTIONAL: No fever or chills. EYES: No blurring of vision or other visual disturbances lately. ENT: No hoarseness of voice, auditory disturbances or sore throat. CARDIOVASCULAR: As mentioned above. RESPIRATORY: Recent hospital admission for pneumonia, respiratory failure and altered mental status as mentioned above. History of lung cancer and COPD GASTROINTESTINAL: No hematemesis or melena. GENITOURINARY: No dysuria or hematuria. INTEGUMENTARY: No skin rashes or history of skin cancer. NEURO: Recent admission for altered mental status. PSYCHIATRIC: No history of psychosis or major depression. HEMATOLOGIC: No bleeding disorders or significant anemia. ENDOCRINE: No history of polyuria or polydipsia. MUSCULOSKELETAL: No recent joint pain or swelling. ALLERGY/IMMUNOLOGY: As mentioned above. Medications/Allergies Home Medications Medication Instructions Recorded Confirmed Last Taken Type albuterol sulfate 2.5 mg/3 mL 2.5 mg inhalation Q6H PRN 12/15/21 05/08/24 Unknown History (0.083 %) solution for nebulization Shortness Of Breath albuterol sulfate 90 mcg/actuation 1 puff inhalation Q4H PRN 12/15/21 05/08/24 Unknown History aerosol inhaler Shortness Of Breath budesonide 160 mcg-glycopyr 9 2 inh inhalation BID 12/15/21 05/08/24 05/07/24 History mcg-formot 4.8 mcg/actuation HFA inhaler (Breztri Aerosphere) cholecalciferol (vitamin D3) 25 25 mcg PO DAILY 12/15/21 05/08/24 05/07/24 History mcg (1,000 unit) tablet (Vitamin D3) gabapentin 300 mg capsule 600 mg PO TID 12/15/21 05/08/24 05/08/24 History modafinil 200 mg tablet 400 mg PO QAM 12/15/21 05/08/24 05/07/24 History omega 9-fqm-pzj-fish oil 1,200 mg 2 cap PO BID 12/15/21 05/08/24 05/07/24 History (144 mg-216 mg) capsule (Fish Oil) Lactobacillus acidophilus 500 500 mmu cells PO DAILY 05/01/24 05/08/24 05/07/24 History million cell capsule bumetanide 0.5 mg tablet 0.5 mg PO BID 05/01/24 05/08/24 05/07/24 History fluticasone propionate 50 1 spray intranasal DAILY 05/01/24 05/08/24 05/07/24 History mcg/actuation nasal spray,suspension guaifenesin 600 mg tablet, 600 mg PO Q12H PRN Congestion 05/01/24 05/08/24 Unknown History extended release 12 hr (Mucinex) hydrocodone 5 mg-acetaminophen 325 1 tab PO Q6H PRN Pain 05/01/24 05/08/24 Unknown History mg tablet multivitamin 1 tab PO DAILY 05/01/24 05/08/24 05/07/24 History sacubitril 24 mg-valsartan 26 mg 1 tab PO BID 05/01/24 05/08/24 05/07/24 History tablet (Entresto) amoxicillin 875 mg-potassium 1 tab PO BID 10 days #20 tabs 05/07/24 05/08/24 Unknown Rx clavulanate 125 mg tablet insulin aspart U-100 100 unit/mL See Rx Instructions .Route 05/07/24 05/08/24 05/07/24 Rx subcutaneous solution (Novolog .COMPLEX #10 mL U-100 Insulin aspart) insulin glargine 100 unit/mL See Rx Instructions .Route 05/07/24 05/08/24 05/07/24 Rx subcutaneous solution (Lantus .COMPLEX #10 mL U-100 Insulin) prednisone 10 mg tablet See Rx Instructions .Route 05/07/24 05/08/24 Unknown Rx .COMPLEX #14 tabs famotidine 40 mg tablet 40 mg PO BID 05/08/24 05/08/24 05/07/24 History roflumilast 500 mcg tablet 500 mcg PO DAILY 05/08/24 05/08/24 05/07/24 History Allergies Allergy/AdvReac Type Severity Reaction Status Date / Time azithromycin Allergy Unknown Unknown Verified 12/15/21 16:58 levofloxacin [From Levaquin] Allergy Unknown Unknown Verified 12/15/21 16:58 Quinolones Allergy Unknown Unknown Verified 12/15/21 16:58 Current Medications Generic Name Dose Route Start Last Admin Trade Name Freq PRN Reason Stop Dose Admin Aspirin 325 mg 05/08/24 09:10 05/08/24 09:26 Aspirin 325 Mg Tablet OG-TUBE 325 mg DAILY TYSON Administration Cefepime HCl 2,000 mg 05/08/24 04:00 05/08/24 15:56 Cefepime 2,000 Mg Sdv IVP 2,000 mg Q12H TYSON Administration Protocol Enoxaparin Sodium 80 mg 05/08/24 05:00 05/08/24 17:02 Enoxaparin 80 Mg/0.8 Ml Syringe SUBCUT 80 mg Q12H TYSON Administration Furosemide 20 mg 05/08/24 09:00 05/08/24 09:00 Furosemide 10 Mg/Ml Sdv 10ml IVP 20 mg DAILY TYSON Administration Propofol 1,000 mg in 100 mls @ 0 mls/hr 05/08/24 03:30 05/08/24 09:33 Diprivan IV 0 mcg/kg/min .Q0M TYSON 0 mls/hr Titration Protocol Per Protocol Piperacillin Sod/Tazobactam 50 mls @ 12.5 mls/hr 05/08/24 06:00 05/08/24 19:30 Sod 3.375 gm/ Sodium Chloride IV 0 mls/hr Q8H TYSON Infusion Fentanyl 1,000 mcg in 100 mls @ 0 mls/hr 05/08/24 04:15 05/08/24 19:20 Sublimaze IV 25 mcg/hr .Q0M TYSON 2.5 mls/hr Titration Protocol Per Protocol Vancomycin HCl 500 mg/ Sodium 100 mls @ 200 mls/hr 05/08/24 16:00 05/08/24 16:15 Chloride IV Infused Q12H TYSON Infusion Epinephrine HCl 2.5 mg/ Sodium 252.5 mls @ 0 mls/hr 05/08/24 18:45 05/08/24 19:10 Chloride IV 1 mcg/min .Q0M TYSON 6.06 mls/hr Administration Protocol Per Protocol Insulin Human Lispro 0 unit 05/08/24 12:00 05/08/24 18:06 Insulin Lispro 100 Unit/1 Ml SUBCUT Not Given WM&BEDTIME TYSON Protocol Methylprednisolone Sodium Succinate 40 mg 05/08/24 15:30 05/08/24 15:42 Methylprednisolone Sod Succ 40 Mg/Ml Inj IVP 40 mg Q6H TYSON Administration Pantoprazole Sodium 40 mg 05/08/24 09:00 05/08/24 18:12 Pantoprazole 40 Mg Sdv IVP 40 mg BID TYSON Administration PFSH Acute PFSH: Medical History Diabetes mellitus Hyperlipidemia Hypertension CAD (coronary artery disease) Lung cancer COPD (chronic obstructive pulmonary disease) Surgical History H/O aortic valve replacement Vitals/I&O/Wt Last Vital Signs Temp 98.9 F 05/08/24 16:00 Pulse 51 L 05/08/24 18:15 Resp 16 05/08/24 18:00 BP 120/48 05/08/24 18:15 Pulse Ox 97 05/08/24 18:15 O2 Del Method Mechanical Ventilation 05/08/24 18:00 FiO2 40 05/08/24 18:00 05/08/24 05/08/24 05/08/24 06:59 14:59 22:59 Intake Total 327.237 / 327.237 152.062 / 152.062 153.875 / 305.937 Output Total 350 / 350 750 / 750 Balance -22.763 / -22.763 152.062 / 152.062 -596.125 / -444.063 Weight last 48 hrs Weight 170 lb 8 oz Weight 180 lb Physical Exam Narrative: Patient is intubated but is responding to commands and is able to communicate by writing. GENERAL: The patient is alert and oriented times three. Not in any acute distress. [] HEENT: No significant pallor, icterus or lymphadenopathy.Oral cavity: There are no mucous membrane lesions. NECK: Trachea appears to be central. No masses noted. No JVD or thyromegaly appreciated. RESPIRATORY: Chest is symmetrical. No intercostals muscle retraction or any accessory muscle activation. There is no chest wall tenderness. Breath sounds are heard bilaterally. No rales or rhonchi heard. No evidence of any consolidation. Breath sounds are diminished in the bases. BREASTS: Deferred. [] HEART: The heart sounds are normal. No S3 or S4. [No significant murmurs] []. No pericardial rub ABDOMEN: No vessel pulsations or distention. No tenderness. No organomegaly appreciated. Bowel sounds are normally heard. [] : Deferred. [] RECTAL: Deferred. [] LYMPHATIC: No lymphadenopathy noted in the neck. EXTREMITIES: 1-2+ edema both lower extremities. Features of chronic venous stasis. MUSCULOSKELETAL: No acute joint deformities or swelling SKIN: There are no significant rashes or ecchymosis NEUROPSYCHIATRIC: The patient is alert and oriented x2. No focal motor deficits. Urinary Catheter Management: Salmon: Cath Placed During This Visit: yes Reason for Continuing Indwelling Catheter: Accurate Measurement of Urinary Output in Critically Ill Patients Urinary Catheter Date of Insertion: 05/08/24 Urinary Catheter Time of Insertion: 03:44 Data 05/08/24 02:10 05/08/24 02:10 Other Labs: Laboratory Last Values WBC 28.88 10^3/uL (3.29-11.43) H 05/08/24 02:10 RBC 4.65 10^6/uL (3.85-5.65) 05/08/24 02:10 Hgb 13.20 g/dL (11.27-16.99) 05/08/24 02:10 Hct 42.2 % (37-53) 05/08/24 02:10 MCV 90.8 fl (82-101) 05/08/24 02:10 MCH 28.4 pg (27-33) 05/08/24 02:10 MCHC 31.3 g/dL (30-55) 05/08/24 02:10 RDW 15.6 % (12.1-15.1) H 05/08/24 02:10 Plt Count 267 10^3/cmm (157-399) 05/08/24 02:10 MPV 10.3 fL (7.4-10.4) 05/08/24 02:10 Lymph % (Auto) Not Reportable 05/08/24 02:10 Emery % (Auto) Not Reportable 05/08/24 02:10 Lymph # (Auto) Not Reportable 05/08/24 02:10 Emery # (Auto) Not Reportable 05/08/24 02:10 Total Counted 100 (0-100) 05/08/24 02:10 Atypical Lymphs % 17.0 % (0-5) H 05/08/24 02:10 Segmented Neutrophils 50 % 05/08/24 02:10 Band Neutrophils Not Reportable 05/08/24 02:10 Absolute Lymphocytes 10.7 10^3/cmm (1.2-3.4) H 05/08/24 02:10 Lymphocytes (Manual) 20 % 05/08/24 02:10 Monocytes (Manual) 7.0 % 05/08/24 02:10 Absolute Monocytes 2.0 10^3/cmm (0.1-0.6) H 05/08/24 02:10 Eosinophils (Manual) 2 % 05/08/24 02:10 Absolute Eosinophils 0.6 10^3/cmm (0.0-0.7) 05/08/24 02:10 Basophils (Manual) 0.0 % 05/08/24 02:10 Absolute Basophils 0.0 10^3/cmm (0.0-0.2) 05/08/24 02:10 Metamyelocytes 2.0 % 05/08/24 02:10 Myelocytes 2.0 % 05/08/24 02:10 Platelet Estimate Normal (Normal) 05/08/24 02:10 Specimen Type Arterial 05/08/24 04:08 Sample Site Radial, left 05/08/24 04:08 ABG pH 7.33 (7.35-7.45) L 05/08/24 04:08 ABG pCO2 60.0 mmHg (35-45) H 05/08/24 04:08 ABG pO2 357.0 mmHg (80.0-100.0) H 05/08/24 04:08 ABG PO2/FiO2 Ratio 357 05/08/24 04:08 ABG HCO3 31.3 mmol/L (22-26) H 05/08/24 04:08 ABG O2 Saturation 99.1 05/08/24 02:06 ABG Base Excess 4.0 mmol/L (-2.0-2.0) H 05/08/24 04:08 Saad Test Pos 05/08/24 04:08 A-a O2 Gradient Not Reportable 05/08/24 02:06 Hematocrit 34.1 % (42-52) L 05/08/24 04:08 Hgb O2 Saturation 97.0 % (95-100) 05/08/24 02:06 Carboxyhemoglobin 1.2 %THgb (0.4-20.1) 05/08/24 02:06 Methemoglobin 0.9 % (0.4-1.5) 05/08/24 02:06 Total Hemoglobin 13.1 g/dL (14-18) L 05/08/24 02:06 Sodium 140.0 mmol/L (131-143) 05/08/24 02:06 Potassium 4.8 mmol/L (3.5-5.0) 05/08/24 02:06 Glucose 312.0 mg/dL (70-115) H 05/08/24 02:06 Ionized Calcium 1.3 mmol/L (1.1-1.4) 05/08/24 02:06 O2 Delivery Device Vent 05/08/24 04:08 O2 Liters/Min 8.0 % 05/08/24 02:06 FiO2 100.0 % 05/08/24 04:08 Tidal Volume 0.50 05/08/24 04:08 PEEP 5.0 cmH20 05/08/24 04:08 Store Custodian ID Amh 05/08/24 04:08 Sodium 142 mmol/L (136-145) 05/08/24 02:10 Potassium 4.8 mmol/L (3.5-5.1) 05/08/24 02:10 Chloride 101 mmol/L (98-107) 05/08/24 02:10 Carbon Dioxide 34 mmol/L (22-29) H 05/08/24 02:10 Anion Gap 11.8 (5-19) 05/08/24 02:10 BUN 30 mg/dL (8-23) H 05/08/24 02:10 Creatinine 1.1 mg/dL (0.7-1.2) 05/08/24 02:10 GFR Calculation Not Reportable 05/08/24 02:10 Glucose 278 mg/dL (65-115) H 05/08/24 02:10 POC Glucose 138 mg/dL (70-110) H 05/08/24 16:39 Calculated Osmolality 310 mOsm/kg (285-295) H 05/08/24 02:10 Lactic Acid 1.5 mmol/L (0.5-2.2) 05/08/24 02:10 Calcium 9.5 mg/dL (8.5-10.5) 05/08/24 02:10 Total Bilirubin 0.6 mg/dL (0.15-1.2) 05/08/24 02:10 AST 31 U/L (0-40) 05/08/24 02:10 ALT 34 U/L (0-41) 05/08/24 02:10 Alkaline Phosphatase 179 U/L (40-130) H 05/08/24 02:10 Lactate Dehydrogenase 274 U/L (135-225) H 05/08/24 02:13 Troponin T Baseline 135 ng/L (0-15) H* 05/08/24 02:13 Troponin T 120 Minute 144.1 ng/L (0-15) H 05/08/24 04:35 Delta Troponin T 9.1 ABS# (0-10) 05/08/24 04:35 Troponin T Hi Sens 6Hr 157.3 ng/L (0-15) H 05/08/24 07:02 Troponin T Hi Sens 6Hr Delta 22.3 ng/L (0-12) H* 05/08/24 07:02 C-Reactive Protein 3.5 mg/L (0.0-4.9) 05/08/24 02:10 NT-Pro-B Natriuret Pep 16064 pg/mL (0-125) H 05/08/24 02:10 Total Protein 7.6 g/dL (6.6-8.7) 05/08/24 02:10 Albumin 3.9 g/dL (3.5-5.2) 05/08/24 02:10 Globulin 3.7 g/dL (1.3-4.6) 05/08/24 02:10 Procalcitonin 0.13 ng/mL (0-0.5) 05/08/24 02:13 Coronavirus (PCR) Negative (Negative) 05/08/24 02:16 Influenza A (PCR) Negative (Negative) 05/08/24 02:16 Influenza Type B (PCR) Negative (Negative) 05/08/24 02:16 RSV (PCR) Negative (Negative) 05/08/24 02:16 Micro: Microbiology 05/08/24 03:42 Gram Stain - Final Sputum - Endotracheal Tube Aspirate 05/08/24 10:38 Bacterial Antigens - Final Urine,Voided Other data: The EKG from today 05/08/2024 revealed atrial fibrillation with ventricular response rate of 63 bpm. Poor R wave progression. Diffuse nonspecific T wave changes. Echocardiogram from today 05/08/2024 Moderate diffuse hypokinesia of the left ventricle, more so of the septum. LV ejection fraction of 35.4%. Mild biatrial enlargement. Normal RV size with slightly diminished ejection fraction. Thickened mitral valve. Moderate mitral annular calcification. The bioprosthetic valve the aortic position appears to be well- seated. The leaflets could not visualized well. There is no pericardial effusion. There are no intracardiac masses. Compared to the study from 05/01/2024, there is a significant drop in the LV ejection fraction, from 55% to 35.4.%. A&P Assessment and plan (1) Hypercapnic respiratory failure: this could be multifactorial. decompensated heart failure, COPD exacerbation, recent multilobar pneumonia, etc. are contributing factors. Qualifiers: Chronicity: acute Qualified Code(s): J96.02 - Acute respiratory failure with hypercapnia (2) Congestive heart failure: Patient seems to have acute on chronic heart failure. If he had severe LV systolic dysfunction prior to the valve replacement and did not have any significant coronary artery disease, this could be related to the hypoxemia and respiratory failure. Need to get the medical records from the [facility]. Qualifiers: Heart failure chronicity: acute on chronic Heart failure type: systolic Qualified Code(s): I50.23 - Acute on chronic systolic (congestive) heart failure (3) Non-ischemic cardiomyopathy: If the patient did not have any significant coronary artery disease by angiogram few months ago, most likely the LV dysfunction is secondary to the hypoxic event. However because of the history of peripheral artery disease possibility of him having underlying coronary artery disease is always a consideration. This may need to be further evaluated. (4) Elevated troponin: Possibly type II DC. However may need to consider coronary ischemia. May be appropriate to continue the Lovenox. need to be closely monitoring for any spontaneous bleed (5) Chronic atrial fibrillation: patient has Watchman device. He has a history of hemoptysis. he also has a history of lung Cancer. (6) Bradycardia: Patient is currently on a low-dose of epinephrine. apparently his heart rate went down into the 30s and 40s while being in the ICU. This needs to be closely monitored. Patient may require a permanent pacemaker sometime down the line. Plan Based on the clinical progress and review of medical records, further recommendations will be made. Thank you for the opportunity to evaluate this patient and make these recommendations Consult Attestations Medical Necessity Statement: patient requires continued hospital stay for close monitoring and further management Coding Level of Care Code 18878 Diagnoses Acute respiratory failure with hypercapnia J96.02 Chronicity: acute Acute on chronic systolic congestive heart failure I50.23 Heart failure chronicity: acute on chronic Heart failure type: systolic Non-ischemic cardiomyopathy I42.8 Elevated troponin R79.89 Chronic atrial fibrillation I48.20 Bradycardia R00.1
[2024-05-08 21:32] LABS: Glucose Point of Care 213 mg/dL (70-110)
[2024-05-09] VITALS (94 sets, daily range): BP systolic 105–171; BP diastolic 39–108; PULSE 47–87; RESP 14–25; TEMP 36.7–37.2; O2SAT 92–99
[2024-05-09] MEDS: piperacillin-tazobactam 3.375 GM in sodium chloride 0.9% (plus) 50 ML IV ×3 (00:13→15:57)
[2024-05-09] MEDS: fentaNYL 1,000 MCG/100 ML BAG 7.5 MCG IV (03:23)
[2024-05-09] MEDS: methylPREDNISolone sod succ 40 mg/mL INJ IVP ×4 (04:14→20:37)
[2024-05-09] MEDS: cefepime 2,000 mg SDV 2000 MG IVP (04:14)
[2024-05-09] MEDS: vancomycin 500 MG in sodium chloride 0.9% (plus) 100 ML 100 MG IV ×2 (04:21→16:31)
[2024-05-09 04:48] LABS: Basophils # 0.1 10^3/uL (0.0-0.1); Basophils % 0.3 %; Eosinophils # 0.1 10^3/uL (0.0-0.8); Eosinophils % 0.3 %; Hematocrit 35.6 % (37-53); Lymphocytes # 3.9 10^3/uL (0.8-4.8); Lymphocytes % 19.2 %; Mean Corpuscular Hemoglobin 28.6 pg (27-33); Mean Corpuscular Volume 89.4 fl (82-101); Mean Platelet Volume 9.7 fL (7.4-10.4); Monocytes # 1.1 10^3/uL (0.2-0.9); Monocytes % 5.5 %; Neutrophils # 14.87 10^3/uL (1.8-7.7); Nucleated Red Blood Cells % 0 %; Platelet Count 181 10^3/cmm (157-399); Red Blood Count 3.98 10^6/uL (3.85-5.65); Red Cell Distribution Width 16.1 % (12.1-15.1); White Blood Count 20.11 10^3/uL (3.29-11.43)
[2024-05-09 05:04] LABS: Anion Gap 15.7 (5-19); Blood Urea Nitrogen 41 mg/dL (8-23); C Reactive Protein 3.6 mg/L (0.0-4.9); Calcium 9.3 mg/dL (8.5-10.5); Carbon Dioxide 26 mmol/L (22-29); Chloride 100 mmol/L (98-107); Creatinine Clr Calc Pharmacy 50.4163; Glucose 237 mg/dL (65-115); Osmolality Calculated 302 mOsm/kg (285-295); Phosphorus 3.2 mg/dL (2.5-4.5); Potassium 4.7 mmol/L (3.5-5.1); Sodium 137 mmol/L (136-145)
[2024-05-09] MEDS: enoxaparin 80 mg/0.8 mL Syringe SUBCUT ×2 (05:36→16:32)
[2024-05-09 07:38] LABS: Glucose Point of Care 235 mg/dL (70-110)
[2024-05-09] MEDS: insulin lispro 100 unit/1 mL SUBCUT ×4 (07:58→20:36)
[2024-05-09] MEDS: pantoprazole 40 mg SDV IVP ×2 (08:31→17:28)
[2024-05-09] MEDS: aspirin 325 mg Tablet OG-TUBE (08:32)
[2024-05-09] MEDS: FUROsemide 10 mg/mL SDV 2mL 20 MG IVP (08:32)
--- NOTE | 2024-05-09 09:08 | P.PN_ITS ---
Subjective 2 Subjective: The patient is off the epinephrine. Heart rate in the 60s and 70s. Continues to be in atrial fibrillation. Still remains intubated. In the process of being extubated. No chest pain. Reviewed the medical records from [facility]. Patient had LV ejection fraction of 25 to 30% prior to the aortic valve replacement. His ejection fraction was staying in the 55 to 60% since January of this year. The cardiac catheterization was done in November 2022. Patient was found to have mild CAD. Medications: Medication Review Details: Current Medications Albuterol/Ipratropium (Ipratropium-Albuterol 3 Ml Neb) 3 ml INHALATION Q6H PRN PRN Reason: SHORTNESS OF BREATH Aspirin (Aspirin 325 Mg Tablet) 325 mg OG-TUBE DAILY [facility] Last Admin: 05/09/24 08:32 Dose: 325 mg Cefepime HCl (Cefepime 2,000 Mg Sdv) 2,000 mg IVP Q12H [facility]; Protocol Last Admin: 05/09/24 04:14 Dose: 2,000 mg Enoxaparin Sodium (Enoxaparin 80 Mg/0.8 Ml Syringe) 80 mg SUBCUT Q12H [facility] Last Admin: 05/09/24 05:36 Dose: 80 mg Furosemide (Furosemide 10 Mg/Ml Sdv 2ml) 20 mg IVP DAILY [facility] Last Admin: 05/09/24 08:32 Dose: 20 mg Glucagon (Glucagon 1 Mg/Ml Kit 1 Ml) 1 mg IM ONCE PRN; Protocol PRN Reason: Adult Acute Hypoglycemia Nursing Prot. Propofol (Diprivan) 1,000 mg in 100 mls @ 0 mls/hr IV .Q0M [facility]; Protocol Last Titration: 05/09/24 05:20 Dose: 0 mcg/kg/min, 0 mls/hr Piperacillin Sod/Tazobactam (Sod 3.375 gm/ Sodium Chloride) 50 mls @ 12.5 mls/hr IV Q8H [facility] Last Admin: 05/09/24 07:57 Dose: 12.5 mls/hr Dextrose (D5w) 500 mls @ 0 mls/hr IV ONCE PRN; Protocol PRN Reason: Adult Acute Hypoglycemia Prot Dextrose (D10w) 125 mls @ 750 mls/hr IV PRN PRN; Protocol PRN Reason: Adult Acute Hypoglycemia Nursing Protocol Dextrose (D10w) 250 mls @ 1,000 mls/hr IV PRN PRN; Protocol PRN Reason: Adult Acute Hypoglycemia Nursing Protocol Fentanyl (Sublimaze) 1,000 mcg in 100 mls @ 0 mls/hr IV .Q0M [facility]; Protocol Last Titration: 05/09/24 05:00 Dose: 50 mcg/hr, 5 mls/hr Vancomycin HCl 500 mg/ Sodium (Chloride) 100 mls @ 200 mls/hr IV Q12H [facility] Last Infusion: 05/09/24 05:21 Dose: Infused Epinephrine HCl 2.5 mg/ Sodium (Chloride) 252.5 mls @ 0 mls/hr IV .Q0M [facility]; Protocol Last Titration: 05/09/24 05:30 Dose: 0 mcg/min, 0 mls/hr Insulin Human Lispro (Insulin Lispro 100 Unit/1 Ml) 0 unit SUBCUT WM&BEDTIME [facility]; Protocol Last Admin: 05/09/24 07:58 Dose: 6 unit Methylprednisolone Sodium Succinate (Methylprednisolone Sod Succ 40 Mg/Ml Inj) 40 mg IVP Q6H [facility] Last Admin: 05/09/24 08:31 Dose: 40 mg Ondansetron HCl (Ondansetron 2 Mg/Ml Sdv 2 Ml) 4 mg IVP Q6H PRN PRN Reason: NAUSEA AND VOMITING Pantoprazole Sodium (Pantoprazole 40 Mg Sdv) 40 mg IVP BID [facility] Last Admin: 05/09/24 08:31 Dose: 40 mg Vitals/I&O/Wt Last Vital Signs Temp 98.1 F 05/09/24 08:00 Pulse 63 05/09/24 08:00 Resp 16 05/09/24 08:00 BP 140/67 05/09/24 08:00 Pulse Ox 95 05/09/24 08:00 O2 Del Method Mechanical Ventilation 05/09/24 08:00 FiO2 35 05/09/24 08:00 05/08/24 05/09/24 05/09/24 22:59 06:59 14:59 Intake Total 272.440 / 424.502 437.176 / 861.678 Output Total 750 / 750 320 / 1070 Balance -477.560 / -325.498 117.176 / -208.322 Weight last 48 hrs Weight 170 lb 13.732 oz Weight 170 lb 8 oz Weight 180 lb Physical Exam 2 Narrative: Patient is intubated but is responding to commands and is able to communicate by writing. GENERAL: The patient is alert and oriented times three. Not in any acute distress. HEENT: No significant pallor, icterus or lymphadenopathy.Oral cavity: There are no mucous membrane lesions. NECK: Trachea appears to be central. No masses noted. No JVD or thyromegaly appreciated. RESPIRATORY: Chest is symmetrical. No intercostals muscle retraction or any accessory muscle activation. There is no chest wall tenderness. Breath sounds are heard bilaterally. No rales or rhonchi heard. No evidence of any consolidation. Breath sounds are diminished in the bases. BREASTS: Deferred. HEART: The heart sounds are normal. No S3 or S4. No significant murmurs. No pericardial rub ABDOMEN: No vessel pulsations or distention. No tenderness. No organomegaly appreciated. Bowel sounds are normally heard. : Deferred. RECTAL: Deferred. LYMPHATIC: No lymphadenopathy noted in the neck. EXTREMITIES: 1-2+ edema both lower extremities. Features of chronic venous stasis. MUSCULOSKELETAL: No acute joint deformities or swelling SKIN: There are no significant rashes or ecchymosis NEUROPSYCHIATRIC: The patient is alert and oriented x2. No focal motor deficits. Urinary Catheter Management: Salmon: Cath Placed During This Visit: yes Reason for Continuing Indwelling Catheter: Accurate Measurement of Urinary Output in Critically Ill Patients Urinary Catheter Date of Insertion: 05/08/24 Urinary Catheter Time of Insertion: 03:44 Data 05/09/24 04:35 05/09/24 04:35 Other Labs: Laboratory Last Values WBC 20.11 10^3/uL (3.29-11.43) H 05/09/24 04:35 RBC 3.98 10^6/uL (3.85-5.65) 05/09/24 04:35 Hgb 11.40 g/dL (11.27-16.99) 05/09/24 04:35 Hct 35.6 % (37-53) L 05/09/24 04:35 MCV 89.4 fl (82-101) 05/09/24 04:35 MCH 28.6 pg (27-33) 05/09/24 04:35 MCHC 32.0 g/dL (30-55) 05/09/24 04:35 RDW 16.1 % (12.1-15.1) H 05/09/24 04:35 Plt Count 181 10^3/cmm (157-399) D 05/09/24 04:35 MPV 9.7 fL (7.4-10.4) 05/09/24 04:35 Neut % (Auto) 74.0 % 05/09/24 04:35 Lymph % (Auto) 19.2 % 05/09/24 04:35 [place] % (Auto) 5.5 % 05/09/24 04:35 Eos % (Auto) 0.3 % 05/09/24 04:35 Baso % (Auto) 0.3 % 05/09/24 04:35 Neut # (Auto) 14.87 10^3/uL (1.8-7.7) H 05/09/24 04:35 Lymph # (Auto) 3.9 10^3/uL (0.8-4.8) 05/09/24 04:35 [place] # (Auto) 1.1 10^3/uL (0.2-0.9) H 05/09/24 04:35 Eos # (Auto) 0.1 10^3/uL (0.0-0.8) 05/09/24 04:35 Baso # (Auto) 0.1 10^3/uL (0.0-0.1) 05/09/24 04:35 Nucleated RBC % (auto) 0 % 05/09/24 04:35 Total Counted 100 (0-100) 05/08/24 02:10 Atypical Lymphs % 17.0 % (0-5) H 05/08/24 02:10 Segmented Neutrophils 50 % 05/08/24 02:10 Band Neutrophils Not Reportable 05/08/24 02:10 Absolute Lymphocytes 10.7 10^3/cmm (1.2-3.4) H 05/08/24 02:10 Lymphocytes (Manual) 20 % 05/08/24 02:10 Monocytes (Manual) 7.0 % 05/08/24 02:10 Absolute Monocytes 2.0 10^3/cmm (0.1-0.6) H 05/08/24 02:10 Eosinophils (Manual) 2 % 05/08/24 02:10 Absolute Eosinophils 0.6 10^3/cmm (0.0-0.7) 05/08/24 02:10 Basophils (Manual) 0.0 % 05/08/24 02:10 Absolute Basophils 0.0 10^3/cmm (0.0-0.2) 05/08/24 02:10 Metamyelocytes 2.0 % 05/08/24 02:10 Myelocytes 2.0 % 05/08/24 02:10 Nucleated RBCs # 0.0 /100WBC 05/09/24 04:35 Platelet Estimate Normal (Normal) 05/08/24 02:10 Specimen Type Arterial 05/08/24 04:08 Sample Site Radial, left 05/08/24 04:08 ABG pH 7.33 (7.35-7.45) L 05/08/24 04:08 ABG pCO2 60.0 mmHg (35-45) H 05/08/24 04:08 ABG pO2 357.0 mmHg (80.0-100.0) H 05/08/24 04:08 ABG PO2/FiO2 Ratio 357 05/08/24 04:08 ABG HCO3 31.3 mmol/L (22-26) H 05/08/24 04:08 ABG O2 Saturation 99.1 05/08/24 02:06 ABG Base Excess 4.0 mmol/L (-2.0-2.0) H 05/08/24 04:08 Saad Test Pos 05/08/24 04:08 A-a O2 Gradient Not Reportable 05/08/24 02:06 Hematocrit 34.1 % (42-52) L 05/08/24 04:08 Hgb O2 Saturation 97.0 % (95-100) 05/08/24 02:06 Carboxyhemoglobin 1.2 %THgb (0.4-20.1) 05/08/24 02:06 Methemoglobin 0.9 % (0.4-1.5) 05/08/24 02:06 Total Hemoglobin 13.1 g/dL (14-18) L 05/08/24 02:06 Sodium 140.0 mmol/L (131-143) 05/08/24 02:06 Potassium 4.8 mmol/L (3.5-5.0) 05/08/24 02:06 Glucose 312.0 mg/dL (70-115) H 05/08/24 02:06 Ionized Calcium 1.3 mmol/L (1.1-1.4) 05/08/24 02:06 O2 Delivery Device Vent 05/08/24 04:08 O2 Liters/Min 8.0 % 05/08/24 02:06 FiO2 100.0 % 05/08/24 04:08 Tidal Volume 0.50 05/08/24 04:08 PEEP 5.0 cmH20 05/08/24 04:08 Pre Sales Systems Engineer ID [id number] 05/08/24 04:08 Sodium 137 mmol/L (136-145) 05/09/24 04:35 Potassium 4.7 mmol/L (3.5-5.1) 05/09/24 04:35 Chloride 100 mmol/L (98-107) 05/09/24 04:35 Carbon Dioxide 26 mmol/L (22-29) 05/09/24 04:35 Anion Gap 15.7 (5-19) 05/09/24 04:35 BUN 41 mg/dL (8-23) H 05/09/24 04:35 Creatinine 1.4 mg/dL (0.7-1.2) H 05/09/24 04:35 GFR Calculation Not Reportable 05/09/24 04:35 Glucose 237 mg/dL (65-115) H 05/09/24 04:35 POC Glucose 235 mg/dL (70-110) H 05/09/24 07:29 Calculated Osmolality 302 mOsm/kg (285-295) H 05/09/24 04:35 Lactic Acid 1.5 mmol/L (0.5-2.2) 05/08/24 02:10 Calcium 9.3 mg/dL (8.5-10.5) 05/09/24 04:35 Phosphorus 3.2 mg/dL (2.5-4.5) 05/09/24 04:35 Magnesium 2.0 mg/dL (1.7-2.3) 05/09/24 04:35 Total Bilirubin 0.6 mg/dL (0.15-1.2) 05/08/24 02:10 AST 31 U/L (0-40) 05/08/24 02:10 ALT 34 U/L (0-41) 05/08/24 02:10 Alkaline Phosphatase 179 U/L (40-130) H 05/08/24 02:10 Lactate Dehydrogenase 274 U/L (135-225) H 05/08/24 02:13 Troponin T Baseline 135 ng/L (0-15) H* 05/08/24 02:13 Troponin T 120 Minute 144.1 ng/L (0-15) H 05/08/24 04:35 Delta Troponin T 9.1 ABS# (0-10) 05/08/24 04:35 Troponin T Hi Sens 6Hr 157.3 ng/L (0-15) H 05/08/24 07:02 Troponin T Hi Sens 6Hr Delta 22.3 ng/L (0-12) H* 05/08/24 07:02 C-Reactive Protein 3.6 mg/L (0.0-4.9) 05/09/24 04:35 NT-Pro-B Natriuret Pep 87661 pg/mL (0-125) H 05/08/24 02:10 Total Protein 7.6 g/dL (6.6-8.7) 05/08/24 02:10 Albumin 3.9 g/dL (3.5-5.2) 05/08/24 02:10 Globulin 3.7 g/dL (1.3-4.6) 05/08/24 02:10 Procalcitonin 0.13 ng/mL (0-0.5) 05/08/24 02:13 Coronavirus (PCR) Negative (Negative) 05/08/24 02:16 Influenza A (PCR) Negative (Negative) 05/08/24 02:16 Influenza Type B (PCR) Negative (Negative) 05/08/24 02:16 RSV (PCR) Negative (Negative) 05/08/24 02:16 Micro: Microbiology 05/08/24 03:42 Gram Stain - Final Sputum - Endotracheal Tube Aspirate 05/08/24 10:38 Bacterial Antigens - Final Urine,Voided A&P Assessment and plan (1) Hypercapnic respiratory failure: this could be multifactorial. decompensated heart failure, COPD exacerbation, recent multilobar pneumonia, etc. are contributing factors. Heart failure seems to be getting compensated at this time. Qualifiers: Chronicity: acute Qualified Code(s): J96.02 - Acute respiratory failure with hypercapnia (2) Congestive heart failure: Patient seems to have acute on chronic heart failure. If he had severe LV systolic dysfunction prior to the valve replacement and did not have any significant coronary artery disease. May consider a limited 2D echocardiogram following the extubation Qualifiers: Heart failure chronicity: acute on chronic Heart failure type: systolic Qualified Code(s): I50.23 - Acute on chronic systolic (congestive) heart failure (3) Non-ischemic cardiomyopathy: As mentioned above. Will continue on the current medication. (4) Elevated troponin: Possibly type II ND. However may need to consider coronary ischemia. May be appropriate to continue the Lovenox. need to be closely monitoring for any spontaneous bleed. Limited 2D echo after extubation If the limited 2D echocardiogram still shows a low EF, may need to consider Myocardial perfusion imaging (5) Chronic atrial fibrillation: patient has Watchman device. He has a history of hemoptysis. he also has a history of lung Cancer. (6) Bradycardia: Looks like the patient has intermittent bradycardia. May require a permanent pacemaker sometime down the line Plan Limited 2D echo tomorrow. Based on the findings, further management decisions will be made Attestations 2 Medical Necessity Statement*: Patient requires continued hospital stay for close monitoring and further management Coding Level of Care Code 85432 Diagnoses Acute respiratory failure with hypercapnia J96.02 Chronicity: acute Acute on chronic systolic congestive heart failure I50.23 Heart failure chronicity: acute on chronic Heart failure type: systolic Non-ischemic cardiomyopathy I42.8 Elevated troponin R79.89 Chronic atrial fibrillation I48.20 Bradycardia R00.1
[2024-05-09 11:18] LABS: Glucose Point of Care 197 mg/dL (70-110)
--- NOTE | 2024-05-09 14:42 | P.PN_ITS ---
Subjective 2 Subjective: He is overall doing all right all things considering. He is visited by family. Not in pain or discomfort at this time. He would like to be extubated if possible. Vitals/I&O/Wt Last Vital Signs Temp 98.2 F 05/09/24 12:00 Pulse 56 L 05/09/24 14:00 Resp 16 05/09/24 14:01 BP 141/74 05/09/24 14:00 Pulse Ox 98 05/09/24 14:01 O2 Del Method Mechanical Ventilation 05/09/24 12:00 FiO2 35 05/09/24 14:01 05/08/24 05/09/24 05/09/24 22:59 06:59 14:59 Intake Total 272.440 / 424.502 437.176 / 861.678 75.583 / 75.583 Output Total 750 / 750 320 / 1070 Balance -477.560 / -325.498 117.176 / -208.322 75.583 / 75.583 Weight last 48 hrs Weight 77.5 kg Weight 77.337 kg Weight 81.647 kg Physical Exam 2 Narrative: Accompanied by family. Const: COMMON NORMALS: alert GENERAL APPEARANCE: cooperative and patient mechanically ventilated ORIENTATION/CONSCIOUSNESS: Yes awake HENMT: COMMON NORMALS: oropharynx normal Neck/C-Spine: COMMON NORMALS: no JVD Resp: AUSCULTATION: wheezes (occasional) and diminished lung sounds Cardio: COMMON NORMALS: no JVD, regular rhythm, S1 normal heart sound present, S2 normal heart sound present and No murmurs present (Cardio) RHYTHM: regular rhythm HEART SOUNDS: S1 normal heart sound present and S2 normal heart sound present GI: COMMON NORMALS: Normal to inspection, nondistended, normoactive bowel sounds present, Soft to palpation and non-tender PALPATION: Yes Soft to palpation Extremity: COMMON NORMALS: no joint enlargement and no pedal edema N ARRATIVE EXTREMITY EXAM: Chronic stasis dermatitis, as well as cool to touch and mild mottling of BL lower extremities. Neuro: COMMON NORMALS: moves all extremities SENSORIUM/ORIENTATION: Yes alert Skin: COMMON NORMALS: no rashes or lesions noted GENERAL SKIN EXAM: no rashes or lesions noted Urinary Catheter Management: Salmon: Cath Placed During This Visit: yes Reason for Continuing Indwelling Catheter: Accurate Measurement of Urinary Output in Critically Ill Patients Urinary Catheter Date of Insertion: 05/08/24 Urinary Catheter Time of Insertion: 03:44 Data 05/09/24 04:35 05/09/24 04:35 Micro: Microbiology 05/08/24 03:42 Gram Stain - Final Sputum - Endotracheal Tube Aspirate Sputum Culture - Preliminary Gram Negative Rods 05/08/24 10:38 Bacterial Antigens - Final Urine,Voided A&P Assessment and plan (1) Sepsis: (2) COPD (chronic obstructive pulmonary disease): (3) Pneumonia: (4) Hypercapnic respiratory failure: Qualifiers: Chronicity: acute Qualified Code(s): J96.02 - Acute respiratory failure with hypercapnia (5) Acute on chronic hypoxic respiratory failure: Plan Sepsis secondary to pneumonia: Reviewed vitals, ventilator settings, CBC, CMP, magnesium, discussed with parking lot laborer, respiratory therapist, nursing. He is overall doing better. He is having fewer secretions. On minimal oxygen on ventilator support. He is overbreathing the vent. He is awake, calm. Will perform a breathing trial, assess RSBI, and as per discussion with him and family proceed to extubation. Discussed risk of complications with extubation given cardiomyopathy, congestive heart failure, additionally as per prior discussion was recently intubated as well, consider CPAP support if needed. Monitor respiratory status. Continue treatment of suspected aspiration pneumonia, continue cefepime, Zosyn for now with pseudomonal coverage. Sputum culture reviewed, so far growing gram-negative rods. Monitor for risk of encephalopathy. Continue MRSA coverage for now. Monitor for risk of MAKSIM. Continue IV steroid with Solu-Medrol, monitor for risk of hyperglycemia, hypertension, encephalopathy, gastritis. With wheezing, copious secretions discussed with him will add Solu-Medrol. Monitor for risk of hyperglycemia, gastritis, encephalopathy. Source seem to be pneumonia, concern for aspiration Criteria met with tachypnea tachycardia leukocytosis DuoNeb treatment Cannot get septic bolus secondary to CHF presentation X-ray consistent with CHF and atelectasis Acute preserved ejection heart rate exacerbation. Continue Lasix. Fluid restriction 1500 mL per 24 hours. Reviewed limited TTE. Discussed with cardiology. 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 Moody regarding prior cardiac condition and workup including coronary angiogram. Given consideration for to further risk stratification. Noted troponin with positive delta. Denies chest pain. Reassess cardiac function with noted CHF. Continue diuretic. Monitor blood pressure, volume status, reassess renal function. Worsening left-sided pleural effusion Respiratory failure/COPD exacerbation hypoxic hypercapnic respiratory failure: Continue antibiotic, steroids, breathing treatments as above. Intubated sedated 05/08 by the ER physician During last intubation patient became hypotensive required pressors and required dextrose for hypoglycemia For now we will check Accu-Cheks every 4 hours. Discussed with registered dietitian. Hold parenteral nutrition at this time with CHF. Hold enteral nutrition for now. Monitor glucose. Lung mass: A month ago stopped taking Keytruda secondary to bloating and CHF exacerbation. Keytruda less likely to be contributing to lung infection and cardiac issue at this time. Coronary art disease Hold Entresto Patient has history of aortic valve replacement: Resume aspirin EKG showing a lot of PVCs, requested serial troponin EKG PVCs related ST changes A-fib with slow ventricular response: Yesterday bradycardic down to the 30s-40s. Transiently on epinephrine support. Continue to monitor blood pressure, heart rates. Appreciate cardiology consultation. A-fib with RVR start therapeutic Lovenox EKG showing a lot of PVCs PVCs related ST changes Intermittent bloating: Reported intermittent bloating episodes sometimes after eating, sometimes after even drinking water first thing in the morning. Abdomen becomes distended and hard, making it difficult for him to breathe. He has been investigating and following this up with his oncologist and primary provider. He has had assessment for this including an ultrasound. At that time he does not move his bowels and has not passed flatus. So far has not had and vomiting. So far no such episode here. Discussed consideration of possible partial bowel obstruction, reduce chance of obstruction, smaller meals spaced throughout the day, mechanical soft diet. As well as reducing aspiration at night, including with elevating head of bed, avoiding food or drink for 6 hours prior to bedtime. PAD: Cool to touch, mild mottling of lower extremities. Briefly required pressor support yesterday, initially minimal norepinephrine, however, also become bradycardic down to 30-40. Switch to epinephrine. Weaned off overnight. Monitor blood pressures. Continue aspirin. Does not appear to be on statin. Will need to confirm if allergic or other reason he is not taking 1. Diabetes: Reviewed glucose. Continue sliding scale insulin. Full code, as per the daughter patient wanted everything to be done in case of respiratory or cardiac arrest N.p.o. DVT prophylaxis Lovenox, , with underlying cancer risk of PE really high, Recent CTA chest did not show PE, Will request IR to evaluate him for left-sided thoracentesis Attestations 2 Medical Necessity Statement*: Continue admission for assessment and management of respiratory failure with sepsis secondary to multifocal pneumonia suspected aspiration pneumonia, decompensated CHF, COPD with exacerbation. Coding Level of Care Code Critical Care >/= 30 minutes Critical care time (in minutes): 45 The high probability of a clinically significant, sudden or life threatening deterioration, as referenced in this documentation, required my full and direct attention, intervention and personal management. The critical care time shown is in addition to time spent performing any reported separately billable procedures and includes the following: [x] Data and vital sign review and interpretation [x ] Patient assessment, examination and intervention [x] Medication orders and management [x] Patient/Family updates as able [x] Care Coordination and Documentation. Diagnoses Sepsis A41.9 COPD (chronic obstructive pulmonary disease) J44.9 Pneumonia J18.9 Acute respiratory failure with hypercapnia J96.02 Chronicity: acute Acute on chronic hypoxic respiratory failure J96.21
--- NOTE | 2024-05-09 14:50 | PC.SOCIAL ---
IMM Updated Updated pt's & daughter on IMM. No questions voiced. Provided pt a copy. Initialed, dated, & timed a copy & placed in chart.
--- NOTE | 2024-05-09 15:01 | PC.NURSE ---
3591 -- Dr. Tran at bedside, spontaneous breathing trial started per RT as ordered. Family remains at bedside.
--- NOTE | 2024-05-09 15:35 | PC.NURSE ---
1528 -- extubated per RT as ordered per Dr Tran. Tolerated well, placed on 3L NC. 47.459 mL fentanyl wasted.
[2024-05-09 15:53] LABS: Vancomycin Trough 18.2 ug/mL (10-15)
[2024-05-09] MEDS: cefepime 1,000 mg SDV 1000 MG IVP (15:58)
[2024-05-09 16:56] LABS: Glucose Point of Care 183 mg/dL (70-110)
[2024-05-09] MEDS: TRAMadol 50 mg Tablet PO (20:35)
--- NOTE | 2024-05-09 20:35 | PC.NURSE ---
Tramadol Patient complaining of back pain and states he takes pain medication at home but does not know which medication. Patient's , Marion, stated that patient typically takes tramadol every few hours when he needs it. Dr. Alfonso contacted and order received for 50 mg tramadol PO Q6HR PRN for pain.
[2024-05-09 20:54] LABS: Glucose Point of Care 193 mg/dL (70-110)
[2024-05-10] VITALS (44 sets, daily range): BP systolic 120–182; BP diastolic 42–82; PULSE 61–86; RESP 16–30; TEMP 36.3–37.1; O2SAT 80–99
[2024-05-10] MEDS: piperacillin-tazobactam 3.375 GM in sodium chloride 0.9% (plus) 50 ML IV ×4 (00:25→23:40)
[2024-05-10] MEDS: methylPREDNISolone sod succ 40 mg/mL INJ IVP ×4 (02:39→20:37)
[2024-05-10] MEDS: vancomycin 500 MG in sodium chloride 0.9% (plus) 100 ML 200 MG IV (03:28)
[2024-05-10] MEDS: cefepime 1,000 mg SDV 1000 MG IVP ×2 (03:33→16:44)
[2024-05-10] MEDS: TRAMadol 50 mg Tablet PO (05:16)
[2024-05-10] MEDS: enoxaparin 80 mg/0.8 mL Syringe SUBCUT ×2 (05:16→16:44)
[2024-05-10 05:40] LABS: Basophils % 0.1 %; Eosinophils % 0.1 %; Hematocrit 36.5 % (37-53); Lymphocytes # 1.2 10^3/uL (0.8-4.8); Lymphocytes % 8.7 %; Mean Corpuscular HGB Conc 31.2 g/dL (30-55); Mean Corpuscular Hemoglobin 28.3 pg (27-33); Mean Corpuscular Volume 90.6 fl (82-101); Monocytes # 0.4 10^3/uL (0.2-0.9); Monocytes % 3.1 %; Neutrophils # 11.71 10^3/uL (1.8-7.7); Neutrophils % 87.3 %; Nucleated Red Blood Cells % 0 %; Platelet Count 125 10^3/cmm (157-399); Red Blood Count 4.03 10^6/uL (3.85-5.65); Red Cell Distribution Width 15.9 % (12.1-15.1); White Blood Count 13.41 10^3/uL (3.29-11.43)
[2024-05-10 05:59] LABS: Blood Urea Nitrogen 47 mg/dL (8-23); Calcium 9.3 mg/dL (8.5-10.5); Carbon Dioxide 27 mmol/L (22-29); Chloride 101 mmol/L (98-107); Creatinine Clr Calc Pharmacy 58.8704; Glucose 203 mg/dL (65-115); Osmolality Calculated 304 mOsm/kg (285-295); Sodium 138 mmol/L (136-145)
[2024-05-10 07:54] LABS: Glucose Point of Care 254 mg/dL (70-110)
[2024-05-10] MEDS: insulin lispro 100 unit/1 mL SUBCUT ×4 (08:23→20:37)
[2024-05-10] MEDS: pantoprazole 40 mg SDV IVP ×2 (08:24→17:44)
[2024-05-10] MEDS: FUROsemide 10 mg/mL SDV 2mL 20 MG IVP (08:24)
[2024-05-10] MEDS: HYDROcodone-acetaminophen 5-325 mg Tablet 1 TAB PO ×2 (08:25→20:36)
[2024-05-10] MEDS: aspirin 325 mg Tablet OG-TUBE (08:25)
[2024-05-10] MEDS: ipratropium-albuterol 3 mL Neb INHALATION (08:44)
--- NOTE | 2024-05-10 09:02 | PC.NURSE ---
up in chair this am requesting change in pain medication states toradol not working for him doctor called and medication change noted.
[2024-05-10 11:34] LABS: Glucose Point of Care 252 mg/dL (70-110)
[2024-05-10] MEDS: vancomycin 500 MG in sodium chloride 0.9% (plus) 100 ML 100 MG IV (16:53)
[2024-05-10] MEDS: water for injection-sterile 10 ML 1000 ML (16:56)
[2024-05-10 17:42] LABS: Glucose Point of Care 208 mg/dL (70-110)
--- NOTE | 2024-05-10 19:38 | P.PN_ITS ---
Subjective 2 Subjective: He feels he is improving. Feels comfortable on nasal cannula oxygen. Still having some cough. Improving secretions. Later in the day he is hungry, asking to advance diet to more solid foods, has done well with liquids. Vitals/I&O/Wt Last Vital Signs Temp 97.8 F 05/10/24 04:00 Pulse 71 05/10/24 18:00 Resp 24 H 05/10/24 18:00 BP 154/56 05/10/24 18:00 Pulse Ox 98 05/10/24 18:00 O2 Del Method Nasal Cannula 05/10/24 08:44 O2 Flow Rate 3 05/10/24 08:44 FiO2 32 05/10/24 04:45 05/10/24 05/10/24 05/10/24 06:59 14:59 22:59 Intake Total 440 / 730.416 730 / 730 310 / 1040 Output Total 450 / 1850 1000 / 1000 Balance -10 / -1119.584 730 / 730 -690 / 40 Weight last 48 hrs Weight 77.5 kg Physical Exam 2 Const: COMMON NORMALS: patient oriented x3 and alert GENERAL APPEARANCE: c ooperative ORIENTATION/CONSCIOUSNESS: Yes awake OTHER: Pleasant, in good spirits. HENMT: COMMON NORMALS: oropharynx normal Neck/C-Spine: COMMON NORMALS: no JVD Resp: AUSCULTATION: crackles Cardio: COMMON NORMALS: no JVD, regular rhythm, S1 normal heart sound present, S2 normal heart sound present and No murmurs present (Cardio) RHYTHM: regular rhythm HEART SOUNDS: S1 normal heart sound present and S2 normal heart sound present GI: COMMON NORMALS: Normal to inspection, nondistended, normoactive bowel sounds present, Soft to palpation and non-tender PALPATION: Yes Soft to palpation Extremity: COMMON NORMALS: no joint enlargement and no pedal edema N ARRATIVE EXTREMITY EXAM: Chronic stasis dermatitis, as well as cool to touch and mild mottling of BL lower extremities. Neuro: COMMON NORMALS: patient oriented x3 and moves all extremities S ENSORIUM/ORIENTATION: Yes alert Skin: COMMON NORMALS: no rashes or lesions noted GENERAL SKIN EXAM: no rashes or lesions noted Urinary Catheter Management: Salmon: Cath Placed During This Visit: yes Reason for Continuing Indwelling Catheter: Accurate Measurement of Urinary Output in Critically Ill Patients Urinary Catheter Date of Insertion: 05/08/24 Urinary Catheter Time of Insertion: 03:44 Data 05/10/24 04:44 05/10/24 04:44 Micro: Microbiology 05/08/24 03:42 Gram Stain - Final Sputum - Endotracheal Tube Aspirate Sputum Culture - Final Stenotrophomonas maltophilia A&P Assessment and plan (1) Sepsis: (2) COPD (chronic obstructive pulmonary disease): (3) Pneumonia: (4) Hypercapnic respiratory failure: Qualifiers: Chronicity: acute Qualified Code(s): J96.02 - Acute respiratory failure with hypercapnia (5) Acute on chronic hypoxic respiratory failure: Plan Sepsis secondary to pneumonia: Yesterday did well with breathing trial; discussed with respiratory therapy and RSBI was less than 50. Has been extubated to nasal cannula oxygen, currently on 3 L, feels he is improving. Improving secretions. Still crackles on exam. Continue diuretic. Add fluid restriction 1500 mL. Monitor intake and output. Monitor for risk of electrolyte deficiency, MAKSIM with IV diuretic. Reassess chemistry. Reviewed vitals, CBC, BMP. Check magnesium. May transfer out of ICU. Sputum culture reviewed, growing stenotrophomonas. Sensitive to Levaquin. on cefepime and Zosyn, unable to switch to Levaquin. So far has shown improvement. Continue. Continue Vanco. If renal function shows improvement consider switch to Bactrim. Recheck chemistry. ST evaluation, MBS when available. Did well with bedside swallow evaluation, clear liquid diet so far, he would like to advance diet, continue aspiration precautions, with dysphagia level 6 diet. Discussed with nursing staff. Monitor respiratory status. Continue treatment of suspected aspiration pneumonia, continue cefepime, Zosyn for now with pseudomonal coverage. Sputum culture reviewed, so far growing gram-negative rods. Monitor for risk of encephalopathy. Continue MRSA coverage for now. Monitor for risk of MAKSIM. Continue IV steroid with Solu-Medrol, monitor for risk of hyperglycemia, hypertension, encephalopathy, gastritis. With wheezing, copious secretions discussed with him will add Solu-Medrol. Monitor for risk of hyperglycemia, gastritis, encephalopathy. Source seem to be pneumonia, concern for aspiration. Reviewed chest ultrasound, insufficient pleural effusion on the left for thoracentesis. DuoNeb treatment Acute preserved ejection heart rate exacerbation. Continue Lasix. Fluid restriction 1500 mL per 24 hours. Reviewed cardiology note. Reviewed limited TTE. Ballast Inspector further obtaining records and will be discussing with his marriage and family counselor Dr. Moody regarding prior cardiac condition and workup including coronary angiogram. Given consideration for to further risk stratification. Noted troponin with positive delta. Denies chest pain. Reassess cardiac function with noted CHF. Continue diuretic. Monitor blood pressure, volume status, reassess renal function. Worsening left-sided pleural effusion Respiratory failure/COPD exacerbation hypoxic hypercapnic respiratory failure: Continue antibiotic, steroids, breathing treatments as above. Intubated sedated 05/08 by the ER physician. Extubated 05/09. During last intubation patient became hypotensive required pressors and required dextrose for hypoglycemia For now we will check Accu-Cheks every 4 hours. Discussed with registered dietitian. Hold parenteral nutrition at this time with CHF. Hold enteral nutrition for now. Monitor glucose. Lung mass: A month ago stopped taking Keytruda secondary to bloating and CHF exacerbation. Keytruda less likely to be contributing to lung infection and cardiac issue at this time. Coronary art disease Hold Entresto Patient has history of aortic valve replacement: Resume aspirin EKG showing a lot of PVCs, requested serial troponin EKG PVCs related ST changes A-fib with slow ventricular response: Yesterday bradycardic down to the 30s-40s. Transiently on epinephrine support. Continue to monitor blood pressure, heart rates. Appreciate cardiology consultation. A-fib with RVR start therapeutic Lovenox EKG showing a lot of PVCs PVCs related ST changes Intermittent bloating: Reported intermittent bloating episodes sometimes after eating, sometimes after even drinking water first thing in the morning. Abdomen becomes distended and hard, making it difficult for him to breathe. He has been investigating and following this up with his oncologist and primary provider. He has had assessment for this including an ultrasound. At that time he does not move his bowels and has not passed flatus. So far has not had and vomiting. So far no such episode here. Discussed consideration of possible partial bowel obstruction, reduce chance of obstruction, smaller meals spaced throughout the day, mechanical soft diet. As well as reducing aspiration at night, including with elevating head of bed, avoiding food or drink for 6 hours prior to bedtime. PAD: Cool to touch, mild mottling of lower extremities. Briefly required pressor support yesterday, initially minimal norepinephrine, however, also become bradycardic down to 30-40. Switch to epinephrine. Weaned off overnight. Monitor blood pressures. Continue aspirin. Does not appear to be on statin. Will need to confirm if allergic or other reason he is not taking 1. Diabetes: Reviewed POC glucose. Continue sliding scale insulin. Right shoulder pain: Chronic right shoulder pain. Add lidocaine patch. No erythema, swelling, warmth of the right shoulder. Full code, as per the daughter patient wanted everything to be done in case of respiratory or cardiac arrest DVT prophylaxis Lovenox, , with underlying cancer risk of PE really high, Recent CTA chest did not show PE, Attestations 2 Medical Necessity Statement*: Continue admission for assessment and management of respiratory failure with sepsis secondary to multifocal pneumonia suspected aspiration pneumonia, Stenotrophomonas maltophilia lower respiratory tract infection, decompensated CHF, COPD with exacerbation. and High MDM includes amount and/or complexity of data reviewed/ordered [ resulted lab(s)/test(s), ordered lab(s)/test(s) and other healthcare professional discussion] as documented Diagnoses Sepsis A41.9 COPD (chronic obstructive pulmonary disease) J44.9 Pneumonia J18.9 Acute respiratory failure with hypercapnia J96.02 Chronicity: acute Acute on chronic hypoxic respiratory failure J96.21
--- NOTE | 2024-05-10 20:16 | P.PN_ITS ---
Subjective 2 Subjective: Sitting on the chair feeling better Medications: Medication Review Details: Current Medications Albuterol/Ipratropium (Ipratropium-Albuterol 3 Ml Neb) 3 ml INHALATION Q6H PRN PRN Reason: SHORTNESS OF BREATH Aspirin (Aspirin 325 Mg Tablet) 325 mg OG-TUBE DAILY [facility] Last Admin: 05/09/24 08:32 Dose: 325 mg Cefepime HCl (Cefepime 2,000 Mg Sdv) 2,000 mg IVP Q12H [facility]; Protocol Last Admin: 05/09/24 04:14 Dose: 2,000 mg Enoxaparin Sodium (Enoxaparin 80 Mg/0.8 Ml Syringe) 80 mg SUBCUT Q12H [facility] Last Admin: 05/09/24 05:36 Dose: 80 mg Furosemide (Furosemide 10 Mg/Ml Sdv 2ml) 20 mg IVP DAILY [facility] Last Admin: 05/09/24 08:32 Dose: 20 mg Glucagon (Glucagon 1 Mg/Ml Kit 1 Ml) 1 mg IM ONCE PRN; Protocol PRN Reason: Adult Acute Hypoglycemia Nursing Prot. Propofol (Diprivan) 1,000 mg in 100 mls @ 0 mls/hr IV .Q0M [facility]; Protocol Last Titration: 05/09/24 05:20 Dose: 0 mcg/kg/min, 0 mls/hr Piperacillin Sod/Tazobactam (Sod 3.375 gm/ Sodium Chloride) 50 mls @ 12.5 mls/hr IV Q8H [facility] Last Admin: 05/09/24 07:57 Dose: 12.5 mls/hr Dextrose (D5w) 500 mls @ 0 mls/hr IV ONCE PRN; Protocol PRN Reason: Adult Acute Hypoglycemia Prot Dextrose (D10w) 125 mls @ 750 mls/hr IV PRN PRN; Protocol PRN Reason: Adult Acute Hypoglycemia Nursing Protocol Dextrose (D10w) 250 mls @ 1,000 mls/hr IV PRN PRN; Protocol PRN Reason: Adult Acute Hypoglycemia Nursing Protocol Fentanyl (Sublimaze) 1,000 mcg in 100 mls @ 0 mls/hr IV .Q0M [facility]; Protocol Last Titration: 05/09/24 05:00 Dose: 50 mcg/hr, 5 mls/hr Vancomycin HCl 500 mg/ Sodium (Chloride) 100 mls @ 200 mls/hr IV Q12H [facility] Last Infusion: 05/09/24 05:21 Dose: Infused Epinephrine HCl 2.5 mg/ Sodium (Chloride) 252.5 mls @ 0 mls/hr IV .Q0M [facility]; Protocol Last Titration: 05/09/24 05:30 Dose: 0 mcg/min, 0 mls/hr Insulin Human Lispro (Insulin Lispro 100 Unit/1 Ml) 0 unit SUBCUT WM&BEDTIME [facility]; Protocol Last Admin: 05/09/24 07:58 Dose: 6 unit Methylprednisolone Sodium Succinate (Methylprednisolone Sod Succ 40 Mg/Ml Inj) 40 mg IVP Q6H [facility] Last Admin: 05/09/24 08:31 Dose: 40 mg Ondansetron HCl (Ondansetron 2 Mg/Ml Sdv 2 Ml) 4 mg IVP Q6H PRN PRN Reason: NAUSEA AND VOMITING Pantoprazole Sodium (Pantoprazole 40 Mg Sdv) 40 mg IVP BID [facility] Last Admin: 05/09/24 08:31 Dose: 40 mg Vitals/I&O/Wt Last Vital Signs Temp 97.8 F 05/10/24 04:00 Pulse 71 05/10/24 18:00 Resp 24 H 05/10/24 18:00 BP 154/56 05/10/24 18:00 Pulse Ox 98 05/10/24 18:00 O2 Del Method Nasal Cannula 05/10/24 08:44 O2 Flow Rate 3 05/10/24 08:44 FiO2 32 05/10/24 04:45 05/10/24 05/10/24 05/10/24 06:59 14:59 22:59 Intake Total 440 / 730.416 730 / 730 310 / 1040 Output Total 450 / 1850 1000 / 1000 Balance -10 / -1119.584 730 / 730 -690 / 40 Weight last 48 hrs Weight 170 lb 13.732 oz Physical Exam 2 Const: OTHER: GENERAL: Patient is alert, awake and oriented x3. HEART: Regular S1 and S2. No murmur, rub or gallop. LUNGS: C decreased breath sound but clear more on right than bilaterally. CENTRAL NERVOUS SYSTEM: Grossly nonfocal. EXTREMITIES: Lower extremities with out edema bilaterally. Urinary Catheter Management: Salmon: Cath Placed During This Visit: yes Reason for Continuing Indwelling Catheter: Accurate Measurement of Urinary Output in Critically Ill Patients Urinary Catheter Date of Insertion: 05/08/24 Urinary Catheter Time of Insertion: 03:44 Data 05/10/24 04:44 05/10/24 04:44 Micro: Microbiology 05/08/24 03:42 Gram Stain - Final Sputum - Endotracheal Tube Aspirate Sputum Culture - Final Stenotrophomonas maltophilia A&P Assessment and plan (1) Hypercapnic respiratory failure: Appear to be stable sitting in the chair continue current management Qualifiers: Chronicity: acute Qualified Code(s): J96.02 - Acute respiratory failure with hypercapnia (2) Congestive heart failure: Will add Entresto continue rest of medication Qualifiers: Heart failure chronicity: acute on chronic Heart failure type: systolic Qualified Code(s): I50.23 - Acute on chronic systolic (congestive) heart failure (3) Non-ischemic cardiomyopathy: Continue guideline medical therapy and titrate for the heart failure (4) Elevated troponin: Will start her on medications possible type II (5) Chronic atrial fibrillation: History of Watchman (6) Bradycardia: Continue to monitor Plan Patient require titration of medications for guideline medical therapy for heart failure. Attestations 2 Medical Necessity Statement*: Patient require continuation hospitalization for above defined care Coding Level of Care Code Acute Code for Chg Fwd Diagnoses Acute respiratory failure with hypercapnia J96.02 Chronicity: acute Acute on chronic systolic congestive heart failure I50.23 Heart failure chronicity: acute on chronic Heart failure type: systolic Non-ischemic cardiomyopathy I42.8 Elevated troponin R79.89 Chronic atrial fibrillation I48.20 Bradycardia R00.1
[2024-05-10 20:23] LABS: Glucose Point of Care 217 mg/dL (70-110)
--- NOTE | 2024-05-10 21:45 | PC.NURSE ---
Transferred to room 258 in wheelchair with O2 at 4L/NC
[2024-05-10] MEDS: diphenhydrAMINE 25 mg Capsule PO (23:40)
[2024-05-11] VITALS (13 sets, daily range): BP systolic 114–168; BP diastolic 51–73; PULSE 62–83; RESP 16–34; TEMP 36.4–37.1; O2SAT 92–98
[2024-05-11] MEDS: HYDROcodone-acetaminophen 5-325 mg Tablet 1 TAB PO ×4 (01:05→21:49)
[2024-05-11] MEDS: ipratropium-albuterol 3 mL Neb INHALATION (01:47)
[2024-05-11] MEDS: morphine 4 mg/mL SDV 1 mL 2 MG IVP (02:01)
[2024-05-11] MEDS: methylPREDNISolone sod succ 40 mg/mL INJ IVP ×4 (04:06→20:52)
[2024-05-11] MEDS: vancomycin 500 MG in sodium chloride 0.9% (plus) 100 ML 100 MG IV (04:06)
[2024-05-11] MEDS: enoxaparin 80 mg/0.8 mL Syringe SUBCUT ×2 (04:07→17:26)
[2024-05-11] MEDS: cefepime 1,000 mg SDV 1000 MG IVP ×2 (04:08→14:48)
[2024-05-11 06:28] LABS: Glucose Point of Care 230 mg/dL (70-110)
[2024-05-11] MEDS: insulin lispro 100 unit/1 mL SUBCUT ×4 (08:00→21:48)
[2024-05-11] MEDS: piperacillin-tazobactam 3.375 GM in sodium chloride 0.9% (plus) 50 ML IV ×2 (08:00→14:50)
[2024-05-11] MEDS: pantoprazole 40 mg SDV IVP ×2 (08:01→17:27)
[2024-05-11] MEDS: FUROsemide 10 mg/mL SDV 2mL 20 MG IVP ×2 (08:01→10:26)
[2024-05-11] MEDS: sacubitril/valsartan 24-26 mg Tablet 1 EACH PO ×2 (08:01→17:27)
[2024-05-11] MEDS: aspirin 325 mg Tablet OG-TUBE (08:01)
[2024-05-11] MEDS: lidocaine 5% Patch 1 PATCH TOPICAL ×2 (08:02→20:52)
[2024-05-11 08:16] LABS: Basophils % 0.1 %; Eosinophils % 0.1 %; Hematocrit 35.6 % (37-53); Lymphocytes # 0.9 10^3/uL (0.8-4.8); Lymphocytes % 8.1 %; Mean Corpuscular HGB Conc 31.5 g/dL (30-55); Mean Corpuscular Hemoglobin 28.3 pg (27-33); Mean Corpuscular Volume 89.9 fl (82-101); Mean Platelet Volume 10.4 fL (7.4-10.4); Monocytes # 0.3 10^3/uL (0.2-0.9); Monocytes % 2.9 %; Neutrophils # 9.82 10^3/uL (1.8-7.7); Neutrophils % 87.9 %; Nucleated Red Blood Cells % 0 %; Platelet Count 118 10^3/cmm (157-399); Red Blood Count 3.96 10^6/uL (3.85-5.65); Red Cell Distribution Width 15.9 % (12.1-15.1); White Blood Count 11.17 10^3/uL (3.29-11.43)
[2024-05-11 08:39] LABS: Anion Gap 12.9 (5-19); Blood Urea Nitrogen 52 mg/dL (8-23); Calcium 9.5 mg/dL (8.5-10.5); Carbon Dioxide 30 mmol/L (22-29); Chloride 100 mmol/L (98-107); Creatinine Clr Calc Pharmacy 58.8335; Glucose 228 mg/dL (65-115); Osmolality Calculated 307 mOsm/kg (285-295); Potassium 4.9 mmol/L (3.5-5.1); Sodium 138 mmol/L (136-145)
--- NOTE | 2024-05-11 09:46 | PC.NURSE ---
This nurse had already pushed IVP lasix 20mg prior to order being changed to 40mg IVP lasix daily. Per , a ONE time order of lasix 20mg was placed for a total of 40mg IVP lasix this morning.
[2024-05-11 11:41] LABS: Glucose Point of Care 277 mg/dL (70-110)
[2024-05-11] MEDS: vancomycin 500 MG in sodium chloride 0.9% (plus) 100 ML 200 MG IV (14:51)
[2024-05-11 16:46] LABS: Glucose Point of Care 222 mg/dL (70-110)
[2024-05-11 21:09] LABS: Glucose Point of Care 287 mg/dL (70-110)
--- NOTE | 2024-05-11 21:13 | PM.PN ---
Subjective Subjective: He is doing okay, states I am here . Bothered by some pain over the ribs just below the right shoulder blade. Lidocaine patch has been placed today although has not yet given any improvement. Tender spot on palpation. Vitals/I&O/Wt Last Vital Signs Temp 98.0 F 05/11/24 20:00 Pulse 78 05/11/24 20:00 Resp 18 05/11/24 20:00 BP 159/61 05/11/24 20:00 Pulse Ox 95 05/11/24 20:00 O2 Del Method Nasal Cannula 05/11/24 20:00 O2 Flow Rate 3 05/11/24 20:00 FiO2 32 05/11/24 03:55 05/11/24 05/11/24 05/11/24 06:59 14:59 22:59 Intake Total 250 / 1500 770 / 770 390 / 1160 Output Total 1800 / 1800 850 / 2650 Balance 250 / 500 -1030 / -1030 -460 / -1490 Weight last 48 hrs Weight 77.383 kg Physical Exam Narrative: Accompanied by family. Const: COMMON NORMALS: patient oriented x3 and alert GENERAL APPEARANCE: cooperative and patient mechanically ventilated ORIENTATION/CONSCIOUSNESS: Yes awake HENMT: COMMON NORMALS: oropharynx normal Neck/C-Spine: COMMON NORMALS: no JVD Chest: OTHER: Tender spot mid upper back on the right side just below the right scapula over a protruding band in the rib cage. No swelling, erythema, bruising, rash. Resp: AUSCULTATION: crackles, wheezes (occasional) and diminished lung sounds Cardio: COMMON NORMALS: no JVD, regular rhythm, S1 normal heart sound present, S2 normal heart sound present and No murmurs present (Cardio) RHYTHM: regular rhythm HEART SOUNDS: S1 normal heart sound present and S2 normal heart sound present GI: COMMON NORMALS: Normal to inspection, nondistended, normoactive bowel sounds present, Soft to palpation and non-tender PALPATION: Yes Soft to palpation Extremity: COMMON NORMALS: no joint enlargement NARRATIVE EXTREMITY EXAM: Chronic stasis dermatitis, as well as cool to touch and mild mottling of BL lower extremities. GENERAL: Yes edema (2+) Neuro: COMMON NORMALS: patient oriented x3 and moves all extremities SENSORIUM/ORIENTATION: Yes alert Skin: COMMON NORMALS: no rashes or lesions noted GENERAL SKIN EXAM: no rashes or lesions noted Urinary Catheter Management: Salmon: Cath Placed During This Visit: yes Reason for Continuing Indwelling Catheter: Acute Urinary Retention or Obstruction Urinary Catheter Date of Insertion: 05/08/24 Urinary Catheter Time of Insertion: 03:44 Data 05/11/24 07:22 05/11/24 07:22 Micro: Microbiology 05/08/24 03:42 Gram Stain - Final Sputum - Endotracheal Tube Aspirate Sputum Culture - Final Stenotrophomonas maltophilia A&P Assessment and plan (1) Sepsis: (2) COPD (chronic obstructive pulmonary disease): (3) Pneumonia: (4) Hypercapnic respiratory failure: Qualifiers: Chronicity: acute Qualified Code(s): J96.02 - Acute respiratory failure with hypercapnia (5) Acute on chronic hypoxic respiratory failure: Plan Acute systolic heart rate exacerbation. Increase IV Lasix dose to 40 mg. Reviewed intake and output, chemistry. Discussed with clinical project assistant. Continue treatment of CHF. Monitor for risk of electrolyte abdomen MAKSIM with IV diuresis. Reassess chemistry. Fluid restriction 1500 mL per 24 hours. Reviewed cardiology note. EF 35% on limited TTE. Possibly secondary to Keytruda. Will need to follow-up with heme-onc. cardiology considering additional assessment possibly with stress test. 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 Moody regarding prior cardiac condition and workup including coronary angiogram. Given consideration for to further risk stratification. Noted troponin with positive delta. Denies chest pain. Reassess cardiac function with noted CHF. Continue diuretic. Monitor blood pressure, volume status, reassess renal function. Initially worsening left-sided pleural effusion, but with improvement, insufficient fluid for thoracentesis on chest ultrasound. Sepsis secondary to pneumonia: Additional assessment after aspiration pneumonia with barium swallow evaluation is re quested. Follow-up results. Reviewed CBC. Respiratory culture. After extubation has been doing well on nasal cannula. Improving secretions. Still crackles on exam. Increase diuretic. Sputum culture reviewed, growing stenotrophomonas. Due to high likelihood of resistance switch to Bactrim. Monitor for risk of kidney injury, potassium abnormality. Recheck chemistry. ST evaluation, MBS when available. With reported intermittent bloating, avoid food intake 6 hours prior to bed. Elevate head of bed. Discussed with him family, smaller meals spread out through the day at home. Monitor respiratory status. C Decrease IV steroid with Solu-Medrol, monitor for risk of hyperglycemia, hypertension, encephalopathy, gastritis. Source seem to be pneumonia, concern for aspiration. Reviewed chest ultrasound, insufficient pleural effusion on the left for thoracentesis. DuoNeb treatment Respiratory failure/COPD exacerbation hypoxic hypercapnic respiratory failure: Continue antibiotic, steroids, breathing treatments as above. Intubated sedated 05/08 by the ER physician. Extubated 05/09. During last intubation patient became hypotensive required pressors and required dextrose for hypoglycemia For now we will check Accu-Cheks every 4 hours. Discussed with registered dietitian. Hold parenteral nutrition at this time with CHF. Hold enteral nutrition for now. Monitor glucose. Lung mass: A month ago stopped taking Keytruda secondary to bloating and CHF exacerbation. Keytruda less likely to be contributing to lung infection and cardiac issue at this time. Coronary art disease Hold Entresto Patient has history of aortic valve replacement: Resume aspirin EKG showing a lot of PVCs, requested serial troponin EKG PVCs related ST changes A-fib with slow ventricular response: Yesterday bradycardic down to the 30s-40s. Transiently on epinephrine support. Continue to monitor blood pressure, heart rates. Appreciate cardiology consultation. therapeutic Lovenox EKG showing a lot of PVCs PVCs related ST changes Intermittent bloating: Reported intermittent bloating episodes sometimes after eating, sometimes after even drinking water first thing in the morning. Abdomen becomes distended and hard, making it difficult for him to breathe. He has been investigating and following this up with his oncologist and primary provider. He has had assessment for this including an ultrasound. At that time he does not move his bowels and has not passed flatus. So far has not had and vomiting. So far no such episode here. Discussed consideration of possible partial bowel obstruction, reduce chance of obstruction, smaller meals spaced throughout the day, mechanical soft diet. As well as reducing aspiration at night, including with elevating head of bed, avoiding food or drink for 6 hours prior to bedtime. PAD: Cool to touch, mild mottling of lower extremities. Briefly required pressor support yesterday, initially minimal norepinephrine, however, also become bradycardic down to 30-40. Switch to epinephrine. Weaned off overnight. Monitor blood pressures. Continue aspirin. Does not appear to be on statin. Will need to confirm if allergic or other reason he is not taking 1. Diabetes: Reviewed POC glucose. Continue sliding scale insulin. Right shoulder pain: Chronic right shoulder pain. Add lidocaine patch. No erythema, swelling, warmth of the right shoulder. Full code, as per the daughter patient wanted everything to be done in case of respiratory or cardiac arrest DVT prophylaxis Lovenox, , with underlying cancer risk of PE really high, Recent CTA chest did not show PE, Attestations Medical Necessity Statement*: Continue admission for assessment and management of respiratory failure with sepsis secondary to multifocal pneumonia suspected aspiration pneumonia, Stenotrophomonas maltophilia lower respiratory tract infection, decompensated CHF, COPD with exacerbation. and High MDM includes amount and/or complexity of data reviewed/ordered [ resulted lab(s)/test(s), ordered lab(s)/test(s) and other healthcare professional discussion] and described risk of complication, morbidity or mortality of management as documented Diagnoses Sepsis A41.9 COPD (chronic obstructive pulmonary disease) J44.9 Pneumonia J18.9 Acute respiratory failure with hypercapnia J96.02 Chronicity: acute Acute on chronic hypoxic respiratory failure J96.21
[2024-05-11] MEDS: sulfamethoxazole-trimeth DS 160-800 mg Tablet 1 TAB PO (22:04)
[2024-05-12] VITALS (9 sets, daily range): BP systolic 129–161; BP diastolic 58–71; PULSE 64–82; RESP 16–33; TEMP 36.2–36.8; O2SAT 91–98
[2024-05-12] MEDS: methylPREDNISolone sod succ 40 mg/mL INJ 20 MG IVP ×4 (04:06→20:20)
[2024-05-12] MEDS: enoxaparin 80 mg/0.8 mL Syringe SUBCUT (04:06)
[2024-05-12 06:32] LABS: Glucose Point of Care 193 mg/dL (70-110)
[2024-05-12 06:50] LABS: Basophils % 0.1 %; Hematocrit 37.6 % (37-53); Lymphocytes % 7.6 %; Mean Corpuscular HGB Conc 31.9 g/dL (30-55); Mean Corpuscular Volume 90.8 fl (82-101); Mean Platelet Volume 10.7 fL (7.4-10.4); Monocytes # 0.6 10^3/uL (0.2-0.9); Monocytes % 4.4 %; Neutrophils # 11.83 10^3/uL (1.8-7.7); Neutrophils % 87.2 %; Nucleated Red Blood Cells % 0 %; Platelet Count 112 10^3/cmm (157-399); Red Blood Count 4.14 10^6/uL (3.85-5.65); Red Cell Distribution Width 16.2 % (12.1-15.1); White Blood Count 13.56 10^3/uL (3.29-11.43)
[2024-05-12 07:10] LABS: Anion Gap 15.6 (5-19); Blood Urea Nitrogen 42 mg/dL (8-23); Calcium 9.2 mg/dL (8.5-10.5); Carbon Dioxide 28 mmol/L (22-29); Chloride 97 mmol/L (98-107); Creatinine Clr Calc Pharmacy 78.4447; Glucose 221 mg/dL (65-115); Osmolality Calculated 299 mOsm/kg (285-295); Potassium 4.6 mmol/L (3.5-5.1); Sodium 136 mmol/L (136-145)
--- NOTE | 2024-05-12 09:00 | FL_ITS ---
WS: [id number] Exam: FL barium swallow modifd [id number] Date/Time of Exam: 05/12/2024 9:00 AM Reason For Exam: Oropharyngeal dysphagia Fluoroscopy time: 2min [id number] minutes # of spot films: 0 Modified barium swallow test was performed in conjunction with the speech therapy service. Oral pharyngeal phase of swallowing was grossly normal. No aspiration was noted. The patient experien robert mild penetration when swallowing thin liquid barium. The patient tolerated the remaining barium m ixture foodstuffs without difficulty. The patient swallowed barium tablet without complication. FL/FL barium swallow modifd [id number] IMPRESSION: 1. No aspiration was noted. 2. Mild penetration into the laryngeal inlet when the patient ingested thin liq uid barium. A separate report and recommendations will follow from the speech therapy servi ce.
[2024-05-12] MEDS: HYDROcodone-acetaminophen 5-325 mg Tablet 1 TAB PO ×3 (09:16→20:18)
[2024-05-12] MEDS: sacubitril/valsartan 24-26 mg Tablet 1 EACH PO ×2 (09:16→18:12)
[2024-05-12] MEDS: aspirin 325 mg Tablet OG-TUBE (09:16)
[2024-05-12] MEDS: insulin lispro 100 unit/1 mL SUBCUT ×4 (09:16→21:51)
[2024-05-12] MEDS: sulfamethoxazole-trimeth DS 160-800 mg Tablet 1 TAB PO ×2 (09:16→18:12)
[2024-05-12] MEDS: FUROsemide 10 mg/mL SDV 2mL 40 MG IVP (09:17)
[2024-05-12] MEDS: pantoprazole 40 mg SDV IVP ×2 (09:21→18:11)
[2024-05-12 12:07] LABS: Glucose Point of Care 255 mg/dL (70-110)
--- NOTE | 2024-05-12 12:53 | PC.SOCIAL ---
IMM Updated Updated pt on IMM. No questions voiced. Provided pt a copy. Initialed, dated, & timed copy in chart.
--- NOTE | 2024-05-12 13:15 | PM.PN ---
Subjective Subjective: The patient is feeling better. He still has a lot of wheezing in the lungs. No chest pain. No fever. Urine output is good. No new complaints. Medications: Medication Review Details: Current Medications Hydrocodone Bitart/Acetaminophen (Hydrocodone-Acetaminophen 5-325 Mg Tablet) 1 tab PO Q4H PRN PRN Reason: MODERATE PAIN Last Admin: 05/12/24 09:16 Dose: 1 tab Albuterol/Ipratropium (Ipratropium-Albuterol 3 Ml Neb) 3 ml INHALATION Q6H PRN PRN Reason: SHORTNESS OF BREATH Last Admin: 05/11/24 01:47 Dose: 3 ml Aspirin (Aspirin 81 Mg Ec Tablet) 81 mg PO DAILY [facility] Enoxaparin Sodium (Enoxaparin 40 Mg/0.4 Ml Syringe) 40 mg SUBCUT Q24H [facility] Furosemide (Furosemide 10 Mg/Ml Sdv 2ml) 40 mg IVP DAILY [facility] Last Admin: 05/12/24 09:17 Dose: 40 mg Glucagon (Glucagon 1 Mg/Ml Kit 1 Ml) 1 mg IM ONCE PRN; Protocol PRN Reason: Adult Acute Hypoglycemia Nursing Prot. Hydralazine HCl (Hydralazine 25 Mg Tablet) 25 mg PO TID [facility]YS[facility] Hydralazine HCl (Hydralazine 20 Mg/Ml Inj 1 Ml) 10 mg IVP Q4H PRN PRN Reason: SBP More than 160 mmhg Dextrose (D5w) 500 mls @ 0 mls/hr IV ONCE PRN; Protocol PRN Reason: Adult Acute Hypoglycemia Prot Dextrose (D10w) 125 mls @ 750 mls/hr IV PRN PRN; Protocol PRN Reason: Adult Acute Hypoglycemia Nursing Protocol Dextrose (D10w) 250 mls @ 1,000 mls/hr IV PRN PRN; Protocol PRN Reason: Adult Acute Hypoglycemia Nursing Protocol Insulin Human Lispro (Insulin Lispro 100 Unit/1 Ml) 0 unit SUBCUT WM&BEDTIME TYSON; Protocol Last Admin: 05/12/24 12:19 Dose: 6 unit Lidocaine (Lidocaine 5% Patch) 1 patch TOPICAL [id number] [facility] Last Admin: 05/12/24 09:20 Dose: Not Given Methylprednisolone Sodium Succinate (Methylprednisolone Sod Succ 40 Mg/Ml Inj) 20 mg IVP Q6H [facility] Last Admin: 05/12/24 09:19 Dose: 20 mg Ondansetron HCl (Ondansetron 2 Mg/Ml Sdv 2 Ml) 4 mg IVP Q6H PRN PRN Reason: NAUSEA AND VOMITING Pantoprazole Sodium (Pantoprazole 40 Mg Sdv) 40 mg IVP BID [facility] Last Admin: 05/12/24 09:21 Dose: 40 mg Sacubitril/Valsartan (Sacubitril/Valsartan 24-26 Mg Tablet) 1 each PO BID [facility] Last Admin: 05/12/24 09:16 Dose: 1 each Trimethoprim/Sulfamethoxazole (Sulfamethoxazole-Trimeth Ds 160-800 Mg Tablet) 1 tab PO BID [facility]; Protocol Last Admin: 05/12/24 09:16 Dose: 1 tab Vitals/I&O/Wt Last Vital Signs Temp 98.3 F 05/12/24 07:34 Pulse 76 05/12/24 09:19 Resp 18 05/12/24 09:19 BP 161/66 05/12/24 07:34 Pulse Ox 93 05/12/24 09:19 O2 Del Method Nasal Cannula 05/12/24 09:19 O2 Flow Rate 3 05/12/24 09:19 FiO2 32 05/11/24 03:55 05/11/24 05/12/24 05/12/24 22:59 06:59 14:59 Intake Total 630 / 1400 0 / 1400 Output Total 1150 / 2950 475 / 3425 250 / 250 Balance -520 / -1550 -475 / -2025 -250 / -250 Weight last 48 hrs Weight 170 lb 9.6 oz Physical Exam Narrative: Patient is alert and oriented x 3. Has generalized weakness GENERAL: The patient is alert and oriented times three. Not in any acute distress. HEENT: No significant pallor, icterus or lymphadenopathy.Oral cavity: There are no mucous membrane lesions. NECK: Trachea appears to be central. No masses noted. No JVD or thyromegaly appreciated. RESPIRATORY: Chest is symmetrical. No intercostals muscle retraction or any accessory muscle activation. There is no chest wall tenderness. Breath sounds are heard bilaterally. Scattered expiratory wheezing and coarse crackles BREASTS: Deferred. HEART: The heart sounds are normal. No S3 or S4. No significant murmurs. No pericardial rub ABDOMEN: No vessel pulsations or distention. No tenderness. No organomegaly appreciated. Bowel sounds are normally heard. : Deferred. RECTAL: Deferred. LYMPHATIC: No lymphadenopathy noted in the neck. EXTREMITIES: 1-2+ edema both lower extremities. Features of chronic venous stasis. MUSCULOSKELETAL: No acute joint deformities or swelling SKIN: There are no significant rashes or ecchymosis NEUROPSYCHIATRIC: The patient is alert and oriented x2. No focal motor deficits. Urinary Catheter Management: Salmon: Cath Placed During This Visit: yes Reason for Continuing Indwelling Catheter: Chronic Indwelling Urinary Catheter on Admission Urinary Catheter Date of Insertion: 05/08/24 Urinary Catheter Time of Insertion: 03:44 Data 05/12/24 06:37 05/12/24 06:37 Other Labs: Laboratory Last Values WBC 13.56 10^3/uL (3.29-11.43) H 05/12/24 06:37 RBC 4.14 10^6/uL (3.85-5.65) 05/12/24 06:37 Hgb 12.00 g/dL (11.27-16.99) 05/12/24 06:37 Hct 37.6 % (37-53) 05/12/24 06:37 MCV 90.8 fl (82-101) 05/12/24 06:37 MCH 29.0 pg (27-33) 05/12/24 06:37 MCHC 31.9 g/dL (30-55) 05/12/24 06:37 RDW 16.2 % (12.1-15.1) H 05/12/24 06:37 Plt Count 112 10^3/cmm (157-399) L 05/12/24 06:37 MPV 10.7 fL (7.4-10.4) H 05/12/24 06:37 Neut % (Auto) 87.2 % 05/12/24 06:37 Lymph % (Auto) 7.6 % 05/12/24 06:37 [place] % (Auto) 4.4 % 05/12/24 06:37 Eos % (Auto) 0.0 % 05/12/24 06:37 Baso % (Auto) 0.1 % 05/12/24 06:37 Neut # (Auto) 11.83 10^3/uL (1.8-7.7) H 05/12/24 06:37 Lymph # (Auto) 1.0 10^3/uL (0.8-4.8) 05/12/24 06:37 [place] # (Auto) 0.6 10^3/uL (0.2-0.9) 05/12/24 06:37 Eos # (Auto) 0.0 10^3/uL (0.0-0.8) 05/12/24 06:37 Baso # (Auto) 0.0 10^3/uL (0.0-0.1) 05/12/24 06:37 Nucleated RBC % (auto) 0 % 05/12/24 06:37 Total Counted 100 (0-100) 05/08/24 02:10 Atypical Lymphs % 17.0 % (0-5) H 05/08/24 02:10 Segmented Neutrophils 50 % 05/08/24 02:10 Band Neutrophils Not Reportable 05/08/24 02:10 Absolute Lymphocytes 10.7 10^3/cmm (1.2-3.4) H 05/08/24 02:10 Lymphocytes (Manual) 20 % 05/08/24 02:10 Monocytes (Manual) 7.0 % 05/08/24 02:10 Absolute Monocytes 2.0 10^3/cmm (0.1-0.6) H 05/08/24 02:10 Eosinophils (Manual) 2 % 05/08/24 02:10 Absolute Eosinophils 0.6 10^3/cmm (0.0-0.7) 05/08/24 02:10 Basophils (Manual) 0.0 % 05/08/24 02:10 Absolute Basophils 0.0 10^3/cmm (0.0-0.2) 05/08/24 02:10 Metamyelocytes 2.0 % 05/08/24 02:10 Myelocytes 2.0 % 05/08/24 02:10 Nucleated RBCs # 0.0 /100WBC 05/12/24 06:37 Platelet Estimate Normal (Normal) 05/08/24 02:10 Specimen Type Arterial 05/08/24 04:08 Sample Site Radial, left 05/08/24 04:08 ABG pH 7.33 (7.35-7.45) L 05/08/24 04:08 ABG pCO2 60.0 mmHg (35-45) H 05/08/24 04:08 ABG pO2 357.0 mmHg (80.0-100.0) H 05/08/24 04:08 ABG PO2/FiO2 Ratio 357 05/08/24 04:08 ABG HCO3 31.3 mmol/L (22-26) H 05/08/24 04:08 ABG O2 Saturation 99.1 05/08/24 02:06 ABG Base Excess 4.0 mmol/L (-2.0-2.0) H 05/08/24 04:08 Saad Test Pos 05/08/24 04:08 A-a O2 Gradient Not Reportable 05/08/24 02:06 Hematocrit 34.1 % (42-52) L 05/08/24 04:08 Hgb O2 Saturation 97.0 % (95-100) 05/08/24 02:06 Carboxyhemoglobin 1.2 %THgb (0.4-20.1) 05/08/24 02:06 Methemoglobin 0.9 % (0.4-1.5) 05/08/24 02:06 Total Hemoglobin 13.1 g/dL (14-18) L 05/08/24 02:06 Sodium 140.0 mmol/L (131-143) 05/08/24 02:06 Potassium 4.8 mmol/L (3.5-5.0) 05/08/24 02:06 Glucose 312.0 mg/dL (70-115) H 05/08/24 02:06 Ionized Calcium 1.3 mmol/L (1.1-1.4) 05/08/24 02:06 O2 Delivery Device Vent 05/08/24 04:08 O2 Liters/Min 8.0 % 05/08/24 02:06 FiO2 100.0 % 05/08/24 04:08 Tidal Volume 0.50 05/08/24 04:08 PEEP 5.0 cmH20 05/08/24 04:08 Tariff Compiling Clerk ID [email or web address] 05/08/24 04:08 Sodium 136 mmol/L (136-145) 05/12/24 06:37 Potassium 4.6 mmol/L (3.5-5.1) 05/12/24 06:37 Chloride 97 mmol/L (98-107) L 05/12/24 06:37 Carbon Dioxide 28 mmol/L (22-29) 05/12/24 06:37 Anion Gap 15.6 (5-19) 05/12/24 06:37 BUN 42 mg/dL (8-23) H 05/12/24 06:37 Creatinine 0.9 mg/dL (0.7-1.2) 05/12/24 06:37 GFR Calculation Not Reportable 05/12/24 06:37 Glucose 221 mg/dL (65-115) H 05/12/24 06:37 POC Glucose 283 mg/dL (70-110) H 05/12/24 17:46 Calculated Osmolality 299 mOsm/kg (285-295) H 05/12/24 06:37 Lactic Acid 1.5 mmol/L (0.5-2.2) 05/08/24 02:10 Calcium 9.2 mg/dL (8.5-10.5) 05/12/24 06:37 Phosphorus 3.2 mg/dL (2.5-4.5) 05/09/24 04:35 Magnesium 2.0 mg/dL (1.7-2.3) 05/09/24 04:35 Total Bilirubin 0.6 mg/dL (0.15-1.2) 05/08/24 02:10 AST 31 U/L (0-40) 05/08/24 02:10 ALT 34 U/L (0-41) 05/08/24 02:10 Alkaline Phosphatase 179 U/L (40-130) H 05/08/24 02:10 Lactate Dehydrogenase 274 U/L (135-225) H 05/08/24 02:13 Troponin T Baseline 135 ng/L (0-15) H* 05/08/24 02:13 Troponin T 120 Minute 144.1 ng/L (0-15) H 05/08/24 04:35 Delta Troponin T 9.1 ABS# (0-10) 05/08/24 04:35 Troponin T Hi Sens 6Hr 157.3 ng/L (0-15) H 05/08/24 07:02 Troponin T Hi Sens 6Hr Delta 22.3 ng/L (0-12) H* 05/08/24 07:02 C-Reactive Protein 3.6 mg/L (0.0-4.9) 05/09/24 04:35 NT-Pro-B Natriuret Pep 40409 pg/mL (0-125) H 05/08/24 02:10 Total Protein 7.6 g/dL (6.6-8.7) 05/08/24 02:10 Albumin 3.9 g/dL (3.5-5.2) 05/08/24 02:10 Globulin 3.7 g/dL (1.3-4.6) 05/08/24 02:10 Vitamin B12 > 2000 pg/mL (232-1245) H 05/12/24 06:37 Procalcitonin 0.13 ng/mL (0-0.5) 05/08/24 02:13 Vancomycin Trough 18.2 ug/mL (10-15) H 05/09/24 14:56 Coronavirus (PCR) Negative (Negative) 05/08/24 02:16 Influenza A (PCR) Negative (Negative) 05/08/24 02:16 Influenza Type B (PCR) Negative (Negative) 05/08/24 02:16 RSV (PCR) Negative (Negative) 05/08/24 02:16 A&P Assessment and plan (1) Hypercapnic respiratory failure: Patient is currently extubated. The respiratory status seems to be stable. Will continue the bronchodilator treatment. Also continue the diuretics. Qualifiers: Chronicity: acute Qualified Code(s): J96.02 - Acute respiratory failure with hypercapnia (2) Congestive heart failure: Patient seems to have acute on chronic heart failure. If he had severe LV systolic dysfunction prior to the valve replacement and did not have any significant coronary artery disease. Limited 2D echocardiogram today. After reviewing the results, further recommendations will be made. Qualifiers: Heart failure chronicity: acute on chronic Heart failure type: systolic Qualified Code(s): I50.23 - Acute on chronic systolic (congestive) heart failure (3) Non-ischemic cardiomyopathy: As mentioned above. Will continue on the current medication. Consider GDMT (4) Elevated troponin: Most likely from type II MO. (5) Chronic atrial fibrillation: patient has Watchman device. He has a history of hemoptysis. he also has a history of lung Cancer. (6) Bradycardia: Bradycardia is currently resolved. Looks like the patient has intermittent bradycardia. May require a permanent pacemaker sometime down the line Plan After reviewing the echocardiogram, further recommendations will be made. May continue the current medication for the time being. Attestations Medical Necessity Statement*: Deferred to the primary Coding Level of Care Code 34151 Diagnoses Acute respiratory failure with hypercapnia J96.02 Chronicity: acute Acute on chronic systolic congestive heart failure I50.23 Heart failure chronicity: acute on chronic Heart failure type: systolic Non-ischemic cardiomyopathy I42.8 Elevated troponin R79.89 Chronic atrial fibrillation I48.20 Bradycardia R00.1
--- NOTE | 2024-05-12 13:17 | USCV_ITS ---
Karol Shepardil Age: 74 Gender: M : 1950 Exam Date: 05/12/2024 15:20 Ordering Phys: Yumi Hodge MD ([email or web address]) Technologist: CT Exam Location: [facility] [place] Indication: BP: 130 / 69 HR: Rhythm: Sinus Technical Quality: Adequate MEASUREMENTS (Male / Female) Normal Values 2D ECHO LVOT Diameter 2.0 cm LV Ejection Fraction MOD 4C 46.0 % LV Ejection Fraction MOD 2C 36.9 % LV Ejection Fraction 2C AL 39.1 % LA Diameter 5.1 cm RA Systolic Volume 4C AL 123.3 ml RA Systolic Volume 4C MOD 114.5 ml LA Sys Volume AL 91.3 cm cubed LA Sys Volume Index AL 47.5 cm cubed/m squared M-MODE LA Ao Ratio MM 3.0 AV Cusp Separation MM 1.6 cm FINDINGS Left Ventricle Moderate concentric left trickle hypertrophy ejection fraction of 45 to 50% Right Ventricle Mildly dilated right ventricle with a slightly diminished ejection fraction Right Atrium Moderately increased right atrial size. Left Atrium Moderately increased left atrial size. Mitral Valve Thickened mitral valve. Moderate mitral annular calcification. Aortic Valve Bioprosthetic valve appears to be well-seated with normal leaflet motion Tricuspid Valve No gross morphologic abnormalities Pulmonic Valve No gross abnormalities noted no pericardial effusion Pericardium No pericardial effusion Aorta Normal aortic annulus size. IVC Inferior vena cava not visualized. CONCLUSIONS Moderate concentric left trickle hypertrophy ejection fraction of 45 to 50%. Mildly dilated right ventricle with a slightly diminished ejection fraction. Moderately increased right atrial size. Moderately increased left atrial size. Thickened mitral valve. Moderate mitral annular calcification. Bioprosthetic valve appears to be well-seated with normal leaflet motion. There is no pericardial effusion. There are no intracardiac masses. Compared to the study from 05/08/2024, there is significant improvement in the left ventricular ejection fraction Dr Yumi Hodge MD [facility] (Electronically Signed) Final Date: 12 May 2024 21:19 S
[2024-05-12 14:02] LABS: Vitamin B12 > 2000 pg/mL (232-1245)
[2024-05-12] MEDS: hyDRALAzine 25 mg Tablet PO ×2 (14:12→20:19)
--- NOTE | 2024-05-12 15:55 | P.PN_ITS ---
Subjective 2 Subjective: Hospital course, labs appreciated. Today morning patient seen sitting up in chair. Down to 3 L of oxygen supplementation. States she is feeling a lot better. Denies any nausea, vomiting, headache or chest pain. States he is almost feeling back to his baseline respiratory status. Vitals/I&O/Wt Last Vital Signs Temp 97.2 F L 05/12/24 15:04 Pulse 78 05/12/24 15:04 Resp 18 05/12/24 15:04 BP 136/58 05/12/24 15:04 Pulse Ox 94 05/12/24 15:04 O2 Del Method Nasal Cannula 05/12/24 15:04 O2 Flow Rate 3 05/12/24 15:04 FiO2 32 05/11/24 03:55 05/12/24 05/12/24 05/12/24 06:59 14:59 22:59 Intake Total 0 / 1400 0 / 0 Output Total 475 / 3425 1300 / 1300 Balance -475 / -2025 -1300 / -1300 Weight last 48 hrs Weight 77.383 kg Physical Exam 2 Const: COMMON NORMALS: patient oriented x3 and alert GENERAL APPEARANCE: c ooperative and patient mechanically ventilated ORIENTATION/CONSCIOUSNESS: Yes awake OTHER: Pleasant, in good spirits. HENMT: COMMON NORMALS: oropharynx normal Neck/C-Spine: COMMON NORMALS: no JVD Chest: OTHER: Tender spot mid upper back on the right side just below the right scapula over a protruding band in the rib cage. No swelling, erythema, bruising, rash. Resp: AUSCULTATION: crackles, wheezes (occasional) and diminished lung sounds Cardio: COMMON NORMALS: no JVD, regular rhythm, S1 normal heart sound present, S2 normal heart sound present and No murmurs present (Cardio) RHYTHM: regular rhythm HEART SOUNDS: S1 normal heart sound present and S2 normal heart sound present GI: COMMON NORMALS: Normal to inspection, nondistended, normoactive bowel sounds present, Soft to palpation and non-tender PALPATION: Yes Soft to palpation Extremity: COMMON NORMALS: no joint enlargement and no pedal edema N ARRATIVE EXTREMITY EXAM: Chronic stasis dermatitis, as well as cool to touch and mild mottling of BL lower extremities. GENERAL: Yes edema (2+) Neuro: COMMON NORMALS: patient oriented x3 and moves all extremities S ENSORIUM/ORIENTATION: Yes alert Skin: COMMON NORMALS: no rashes or lesions noted GENERAL SKIN EXAM: no rashes or lesions noted Urinary Catheter Management: Salmon: Cath Placed During This Visit: yes Reason for Continuing Indwelling Catheter: Chronic Indwelling Urinary Catheter on Admission Urinary Catheter Date of Insertion: 05/08/24 Urinary Catheter Time of Insertion: 03:44 Data 05/12/24 06:37 05/12/24 06:37 A&P Assessment and plan (1) Acute on chronic hypoxic respiratory failure: (2) Hypercapnic respiratory failure: Qualifiers: Chronicity: acute Qualified Code(s): J96.02 - Acute respiratory failure with hypercapnia (3) Congestive heart failure: Qualifiers: Heart failure chronicity: acute on chronic Heart failure type: systolic Qualified Code(s): I50.23 - Acute on chronic systolic (congestive) heart failure (4) Non-ischemic cardiomyopathy: (5) COPD with acute exacerbation: (6) Pneumonia: Qualifiers: Pneumonia type: due to other aerobic Gram-negative bacteria (7) Sepsis: (8) Chronic atrial fibrillation: (9) S/P TAVR (transcatheter aortic valve replacement): Plan Acute systolic heart rate exacerbation. Increase IV Lasix dose to 40 mg. Reviewed intake and output, chemistry. Discussed with nut chopper. Continue treatment of CHF. Monitor for risk of electrolyte abdomen MAKSIM with IV diuresis. Reassess chemistry. Fluid restriction 1500 mL per 24 hours. Reviewed cardiology note. EF 35% on limited TTE. Possibly secondary to Keytruda. Will need to follow-up with heme-onc. cardiology considering additional assessment possibly with stress test. Jewelry Sales Representative further obtaining records and will be discussing with his nut chopper Dr. Moody regarding prior cardiac condition and workup including coronary angiogram. Given consideration for to further risk stratification. Noted troponin with positive delta. Denies chest pain. Reassess cardiac function with noted CHF. Continue diuretic. Monitor blood pressure, volume status, reassess renal function. Initially worsening left-sided pleural effusion, but with improvement, insufficient fluid for thoracentesis on chest ultrasound. Sepsis secondary to pneumonia: Additional assessment after aspiration pneumonia with barium swallow evaluation is re quested. Follow-up results. Reviewed CBC. Respiratory culture. After extubation has been doing well on nasal cannula. Improving secretions. Still crackles on exam. Increase diuretic. Sputum culture reviewed, growing stenotrophomonas. Due to high likelihood of resistance switch to Bactrim. Monitor for risk of kidney injury, potassium abnormality. Recheck chemistry. ST evaluation, MBS when available. With reported intermittent bloating, avoid food intake 6 hours prior to bed. Elevate head of bed. Discussed with him family, smaller meals spread out through the day at home. Monitor respiratory status. C Decrease IV steroid with Solu-Medrol, monitor for risk of hyperglycemia, hypertension, encephalopathy, gastritis. Source seem to be pneumonia, concern for aspiration. Reviewed chest ultrasound, insufficient pleural effusion on the left for thoracentesis. DuoNeb treatment Respiratory failure/COPD exacerbation hypoxic hypercapnic respiratory failure: Continue antibiotic, steroids, breathing treatments as above. Intubated sedated 05/08 by the ER physician. Extubated 05/09. During last intubation patient became hypotensive required pressors and required dextrose for hypoglycemia For now we will check Accu-Cheks every 4 hours. Discussed with registered dietitian. Hold parenteral nutrition at this time with CHF. Hold enteral nutrition for now. Monitor glucose. Lung mass: A month ago stopped taking Keytruda secondary to bloating and CHF exacerbation. Keytruda less likely to be contributing to lung infection and cardiac issue at this time. Coronary art disease Hold Entresto Patient has history of aortic valve replacement: Resume aspirin EKG showing a lot of PVCs, requested serial troponin EKG PVCs related ST changes A-fib with slow ventricular response: Yesterday bradycardic down to the 30s-40s. Transiently on epinephrine support. Continue to monitor blood pressure, heart rates. Appreciate cardiology consultation. therapeutic Lovenox EKG showing a lot of PVCs PVCs related ST changes Intermittent bloating: Reported intermittent bloating episodes sometimes after eating, sometimes after even drinking water first thing in the morning. Abdomen becomes distended and hard, making it difficult for him to breathe. He has been investigating and following this up with his oncologist and primary provider. He has had assessment for this including an ultrasound. At that time he does not move his bowels and has not passed flatus. So far has not had and vomiting. So far no such episode here. Discussed consideration of possible partial bowel obstruction, reduce chance of obstruction, smaller meals spaced throughout the day, mechanical soft diet. As well as reducing aspiration at night, including with elevating head of bed, avoiding food or drink for 6 hours prior to bedtime. PAD: Cool to touch, mild mottling of lower extremities. Briefly required pressor support yesterday, initially minimal norepinephrine, however, also become bradycardic down to 30-40. Switch to epinephrine. Weaned off overnight. Monitor blood pressures. Continue aspirin. Does not appear to be on statin. Will need to confirm if allergic or other reason he is not taking 1. Diabetes: Reviewed POC glucose. Continue sliding scale insulin. Right shoulder pain: Chronic right shoulder pain. Add lidocaine patch. No erythema, swelling, warmth of the right shoulder. Full code, as per the daughter patient wanted everything to be done in case of respiratory or cardiac arrest DVT prophylaxis Lovenox, , Plan for the day: Oxygen supplementation keeping saturation more than 90%. Respiratory failure most likely in setting of congestive heart failure along with pneumonia leading to COPD exacerbation. Echocardiogram on this admission shows a new low EF of 35% which is acutely low from 55% 10 days ago. Patient denies any chest pain. As per cardiac team high likelihood of nonischemic cardiomyopathy as patient had a cardiac angiogram within the last 1 year prior to TAVR which was reported normal. They will review images for further from out side hospital. Lexiscan stress as per cardiology team. Reviewed sputum culture growing stenotrophomonas. Continue with Bactrim. Will plan to finish a 7-day course. Monitor renal functions. Solu-Medrol wean to 20 mg every 6 hour. Will plan for further weaning within next 24 hours. Goal blood pressure less than 140/90 mmHg. Started on Entresto by cardiology team. Cannot start on beta-chris given history of bradycardia in setting of A-fib. Started on hydralazine 25 mg 3 times daily. Uptitrate for goal blood pressure. Continue with Lasix 40 mg IV daily. Strict input charting. Fluid restriction up to 15 cc. Low concern for ACS as per cardiology team. Continue with aspirin. Follow-up lipid panel. Switch to prophylactic dose of Lovenox. Continue with dysphagia level 6 diet. Change as per speech evaluation and modified barium swallow today. Attestations 2 Medical Necessity Statement*: Requires further hospitalization for management of acute on chronic hypoxic and hypercapnic respiratory failure in setting of new onset congestive heart failure with concerns for nonischemic cardiomyopathy, pneumonia secondary stenotrophomonas and COPD exacerbation Diagnoses Acute on chronic hypoxic respiratory failure J96.21 Acute respiratory failure with hypercapnia J96.02 Chronicity: acute Acute on chronic systolic congestive heart failure I50.23 Heart failure chronicity: acute on chronic Heart failure type: systolic Non-ischemic cardiomyopathy I42.8 COPD with acute exacerbation J44.1 Pneumonia J18.9 Pneumonia type: due to other aerobic Gram-negative bacteria Sepsis A41.9 Chronic atrial fibrillation I48.20 S/P TAVR (transcatheter aortic valve replacement) Z95.2
[2024-05-12 17:53] LABS: Glucose Point of Care 283 mg/dL (70-110)
[2024-05-12 21:16] LABS: Glucose Point of Care 242 mg/dL (70-110)
[2024-05-13] MEDS: methylPREDNISolone sod succ 40 mg/mL INJ 20 MG IVP ×2 (03:28→08:02)
[2024-05-13 04:00] VITALS: BP 129/71; PULSE 69; RESP 18; TEMP 36.7; O2SAT 94
[2024-05-13 06:27] LABS: Glucose Point of Care 203 mg/dL (70-110)
[2024-05-13 06:38] LABS: Basophils % 0.1 %; Eosinophils % 0.1 %; Hematocrit 39.9 % (37-53); Lymphocytes # 1.2 10^3/uL (0.8-4.8); Lymphocytes % 7.7 %; Mean Corpuscular HGB Conc 31.3 g/dL (30-55); Mean Corpuscular Hemoglobin 28.6 pg (27-33); Mean Corpuscular Volume 91.3 fl (82-101); Mean Platelet Volume 10.8 fL (7.4-10.4); Monocytes # 0.7 10^3/uL (0.2-0.9); Monocytes % 4.4 %; Neutrophils # 13.53 10^3/uL (1.8-7.7); Neutrophils % 87.1 %; Nucleated Red Blood Cells % 0 %; Platelet Count 110 10^3/cmm (157-399); Red Blood Count 4.37 10^6/uL (3.85-5.65); Red Cell Distribution Width 16.3 % (12.1-15.1); White Blood Count 15.52 10^3/uL (3.29-11.43)
[2024-05-13 06:54] LABS: Alanine Aminotransferase 25 U/L (0-41); Albumin Level 3.6 g/dL (3.5-5.2); Alkaline Phosphatase 117 U/L (40-130); Anion Gap 11.5 (5-19); Aspartate Amino Transferase 23 U/L (0-40); Blood Urea Nitrogen 38 mg/dL (8-23); Calcium 9.4 mg/dL (8.5-10.5); Carbon Dioxide 32 mmol/L (22-29); Chloride 99 mmol/L (98-107); Creatinine Clr Calc Pharmacy 70.6002; Globulin 2.9 g/dL (1.3-4.6); Glucose 206 mg/dL (65-115); Magnesium 2.3 mg/dL (1.7-2.3); Osmolality Calculated 301 mOsm/kg (285-295); Potassium 4.5 mmol/L (3.5-5.1); Sodium 138 mmol/L (136-145); Total Bilirubin 0.8 mg/dL (0.15-1.2); Total Protein 6.5 g/dL (6.6-8.7)
[2024-05-13 07:14] LABS: Folate Level 13.5 ng/mL (4.5-32.2)
[2024-05-13 07:28] VITALS: BP 148/54; PULSE 62; RESP 16; TEMP 36.6; O2SAT 96
[2024-05-13] MEDS: insulin lispro 100 unit/1 mL SUBCUT ×2 (07:49→11:45)
[2024-05-13 07:53] LABS: Chol HDL Ratio 5.71 mg/dL (1.0-5.00); Cholesterol 217 mg/dL (0-200); HDL Cholesterol 38 mg/dL (60-100); LDL Cholesterol Calculated 141 mg/dL (50-129); Triglycerides 192 mg/dL (0-150); VLDL Cholestrol Calculation 38 mg/dL (0-30)
[2024-05-13] MEDS: FUROsemide 10 mg/mL SDV 2mL 40 MG IVP (07:53)
[2024-05-13] MEDS: HYDROcodone-acetaminophen 5-325 mg Tablet 1 TAB PO (07:55)
[2024-05-13] MEDS: aspirin 81 mg EC Tablet PO (07:58)
[2024-05-13] MEDS: hyDRALAzine 25 mg Tablet PO (07:59)
[2024-05-13 08:00] VITALS: BP 148/54
[2024-05-13] MEDS: sacubitril/valsartan 24-26 mg Tablet 1 EACH PO (08:00)
[2024-05-13] MEDS: sulfamethoxazole-trimeth DS 160-800 mg Tablet 1 TAB PO (08:01)
[2024-05-13] MEDS: pantoprazole 40 mg SDV IVP (08:06)
--- NOTE | 2024-05-13 08:56 | PM.PN ---
Documented by User: Yumi Hodge MD 05/13/24 23:27 Subjective Medications: Medication Review Details: Current Medications Hydrocodone Bitart/Acetaminophen (Hydrocodone-Acetaminophen 5-325 Mg Tablet) 1 tab PO Q4H PRN PRN Reason: MODERATE PAIN Last Admin: 05/13/24 07:55 Dose: 1 tab Albuterol/Ipratropium (Ipratropium-Albuterol 3 Ml Neb) 3 ml INHALATION Q6H PRN PRN Reason: SHORTNESS OF BREATH Last Admin: 05/11/24 01:47 Dose: 3 ml Aspirin (Aspirin 81 Mg Ec Tablet) 81 mg PO DAILY TYSON Last Admin: 05/13/24 07:58 Dose: 81 mg Enoxaparin Sodium (Enoxaparin 40 Mg/0.4 Ml Syringe) 40 mg SUBCUT Q24H TYSON Furosemide (Furosemide 10 Mg/Ml Sdv 2ml) 40 mg IVP DAILY TYSON Last Admin: 05/13/24 07:53 Dose: 40 mg Glucagon (Glucagon 1 Mg/Ml Kit 1 Ml) 1 mg IM ONCE PRN; Protocol PRN Reason: Adult Acute Hypoglycemia Nursing Prot. Hydralazine HCl (Hydralazine 25 Mg Tablet) 25 mg PO TID TYSON Last Admin: 05/13/24 07:59 Dose: 25 mg Hydralazine HCl (Hydralazine 20 Mg/Ml Inj 1 Ml) 10 mg IVP Q4H PRN PRN Reason: SBP More than 160 mmhg Dextrose (D5w) 500 mls @ 0 mls/hr IV ONCE PRN; Protocol PRN Reason: Adult Acute Hypoglycemia Prot Dextrose (D10w) 125 mls @ 750 mls/hr IV PRN PRN; Protocol PRN Reason: Adult Acute Hypoglycemia Nursing Protocol Dextrose (D10w) 250 mls @ 1,000 mls/hr IV PRN PRN; Protocol PRN Reason: Adult Acute Hypoglycemia Nursing Protocol Insulin Human Lispro (Insulin Lispro 100 Unit/1 Ml) 0 unit SUBCUT WM&BEDTIME TYSON; Protocol Last Admin: 05/13/24 07:49 Dose: 4 unit Lidocaine (Lidocaine 5% Patch) 1 patch TOPICAL [id number] TYSON Last Admin: 05/13/24 08:00 Dose: Not Given Methylprednisolone Sodium Succinate (Methylprednisolone Sod Succ 40 Mg/Ml Inj) 20 mg IVP Q6H TYSON Last Admin: 05/13/24 08:02 Dose: 20 mg Ondansetron HCl (Ondansetron 2 Mg/Ml Sdv 2 Ml) 4 mg IVP Q6H PRN PRN Reason: NAUSEA AND VOMITING Pantoprazole Sodium (Pantoprazole 40 Mg Sdv) 40 mg IVP BID [facility] Last Admin: 05/13/24 08:06 Dose: 40 mg Sacubitril/Valsartan (Sacubitril/Valsartan 24-26 Mg Tablet) 1 each PO BID [facility] Last Admin: 05/13/24 08:00 Dose: 1 each Trimethoprim/Sulfamethoxazole (Sulfamethoxazole-Trimeth Ds 160-800 Mg Tablet) 1 tab PO BID [facility]; Protocol Last Admin: 05/13/24 08:01 Dose: 1 tab Vitals/I&O/Wt Last Vital Signs Temp 97.8 F 05/13/24 07:28 Pulse 62 05/13/24 07:28 Resp 16 05/13/24 07:28 BP 148/54 05/13/24 07:28 Pulse Ox 96 05/13/24 07:28 O2 Del Method Nasal Cannula 05/13/24 07:28 O2 Flow Rate 3 05/13/24 08:00 FiO2 32 05/12/24 20:00 05/12/24 05/13/24 05/13/24 22:59 06:59 14:59 Intake Total 120 / 120 0 / 120 Output Total 650 / 1950 550 / 2500 100 / 100 Balance -530 / -1830 -550 / -2380 -100 / -100 Physical Exam Narrative: Patient is alert and oriented x 3. Has generalized weakness GENERAL: The patient is alert and oriented times three. Not in any acute distress. HEENT: No significant pallor, icterus or lymphadenopathy.Oral cavity: There are no mucous membrane lesions. NECK: Trachea appears to be central. No masses noted. No JVD or thyromegaly appreciated. RESPIRATORY: Chest is symmetrical. No intercostals muscle retraction or any accessory muscle activation. There is no chest wall tenderness. Breath sounds are heard bilaterally. Scattered expiratory wheezing and coarse crackles BREASTS: Deferred. HEART: The heart sounds are normal. No S3 or S4. No significant murmurs. No pericardial rub ABDOMEN: No vessel pulsations or distention. No tenderness. No organomegaly appreciated. Bowel sounds are normally heard. : Deferred. RECTAL: Deferred. LYMPHATIC: No lymphadenopathy noted in the neck. EXTREMITIES: 1-2+ edema both lower extremities. Features of chronic venous stasis. MUSCULOSKELETAL: No acute joint deformities or swelling SKIN: There are no significant rashes or ecchymosis NEUROPSYCHIATRIC: The patient is alert and oriented x2. No focal motor deficits. Urinary Catheter Management: Salmon: Cath Placed During This Visit: yes Reason for Continuing Indwelling Catheter: Chronic Indwelling Urinary Catheter on Admission Urinary Catheter Date of Insertion: 05/08/24 Urinary Catheter Time of Insertion: 03:44 Data 05/13/24 06:12 05/13/24 06:12 Other Labs: Laboratory Last Values WBC 15.52 10^3/uL (3.29-11.43) H 05/13/24 06:12 RBC 4.37 10^6/uL (3.85-5.65) 05/13/24 06:12 Hgb 12.50 g/dL (11.27-16.99) 05/13/24 06:12 Hct 39.9 % (37-53) 05/13/24 06:12 MCV 91.3 fl (82-101) 05/13/24 06:12 MCH 28.6 pg (27-33) 05/13/24 06:12 MCHC 31.3 g/dL (30-55) 05/13/24 06:12 RDW 16.3 % (12.1-15.1) H 05/13/24 06:12 Plt Count 110 10^3/cmm (157-399) L 05/13/24 06:12 MPV 10.8 fL (7.4-10.4) H 05/13/24 06:12 Neut % (Auto) 87.1 % 05/13/24 06:12 Lymph % (Auto) 7.7 % 05/13/24 06:12 Gibson % (Auto) 4.4 % 05/13/24 06:12 Eos % (Auto) 0.1 % 05/13/24 06:12 Baso % (Auto) 0.1 % 05/13/24 06:12 Neut # (Auto) 13.53 10^3/uL (1.8-7.7) H 05/13/24 06:12 Lymph # (Auto) 1.2 10^3/uL (0.8-4.8) 05/13/24 06:12 Gibson # (Auto) 0.7 10^3/uL (0.2-0.9) 05/13/24 06:12 Eos # (Auto) 0.0 10^3/uL (0.0-0.8) 05/13/24 06:12 Baso # (Auto) 0.0 10^3/uL (0.0-0.1) 05/13/24 06:12 Nucleated RBC % (auto) 0 % 05/13/24 06:12 Total Counted 100 (0-100) 05/08/24 02:10 Atypical Lymphs % 17.0 % (0-5) H 05/08/24 02:10 Segmented Neutrophils 50 % 05/08/24 02:10 Band Neutrophils Not Reportable 05/08/24 02:10 Absolute Lymphocytes 10.7 10^3/cmm (1.2-3.4) H 05/08/24 02:10 Lymphocytes (Manual) 20 % 05/08/24 02:10 Monocytes (Manual) 7.0 % 05/08/24 02:10 Absolute Monocytes 2.0 10^3/cmm (0.1-0.6) H 05/08/24 02:10 Eosinophils (Manual) 2 % 05/08/24 02:10 Absolute Eosinophils 0.6 10^3/cmm (0.0-0.7) 05/08/24 02:10 Basophils (Manual) 0.0 % 05/08/24 02:10 Absolute Basophils 0.0 10^3/cmm (0.0-0.2) 05/08/24 02:10 Metamyelocytes 2.0 % 05/08/24 02:10 Myelocytes 2.0 % 05/08/24 02:10 Nucleated RBCs # 0.0 /100WBC 05/13/24 06:12 Platelet Estimate Normal (Normal) 05/08/24 02:10 Specimen Type Arterial 05/08/24 04:08 Sample Site Radial, left 05/08/24 04:08 ABG pH 7.33 (7.35-7.45) L 05/08/24 04:08 ABG pCO2 60.0 mmHg (35-45) H 05/08/24 04:08 ABG pO2 357.0 mmHg (80.0-100.0) H 05/08/24 04:08 ABG PO2/FiO2 Ratio 357 05/08/24 04:08 ABG HCO3 31.3 mmol/L (22-26) H 05/08/24 04:08 ABG O2 Saturation 99.1 05/08/24 02:06 ABG Base Excess 4.0 mmol/L (-2.0-2.0) H 05/08/24 04:08 Saad Test Pos 05/08/24 04:08 A-a O2 Gradient Not Reportable 05/08/24 02:06 Hematocrit 34.1 % (42-52) L 05/08/24 04:08 Hgb O2 Saturation 97.0 % (95-100) 05/08/24 02:06 Carboxyhemoglobin 1.2 %THgb (0.4-20.1) 05/08/24 02:06 Methemoglobin 0.9 % (0.4-1.5) 05/08/24 02:06 Total Hemoglobin 13.1 g/dL (14-18) L 05/08/24 02:06 Sodium 140.0 mmol/L (131-143) 05/08/24 02:06 Potassium 4.8 mmol/L (3.5-5.0) 05/08/24 02:06 Glucose 312.0 mg/dL (70-115) H 05/08/24 02:06 Ionized Calcium 1.3 mmol/L (1.1-1.4) 05/08/24 02:06 O2 Delivery Device Vent 05/08/24 04:08 O2 Liters/Min 8.0 % 05/08/24 02:06 FiO2 100.0 % 05/08/24 04:08 Tidal Volume 0.50 05/08/24 04:08 PEEP 5.0 cmH20 05/08/24 04:08 Control Specialist ID Amh 05/08/24 04:08 Sodium 138 mmol/L (136-145) 05/13/24 06:12 Potassium 4.5 mmol/L (3.5-5.1) 05/13/24 06:12 Chloride 99 mmol/L (98-107) 05/13/24 06:12 Carbon Dioxide 32 mmol/L (22-29) H 05/13/24 06:12 Anion Gap 11.5 (5-19) 05/13/24 06:12 BUN 38 mg/dL (8-23) H 05/13/24 06:12 Creatinine 1.0 mg/dL (0.7-1.2) 05/13/24 06:12 GFR Calculation Not Reportable 05/13/24 06:12 Glucose 206 mg/dL (65-115) H 05/13/24 06:12 POC Glucose 203 mg/dL (70-110) H 05/13/24 06:19 Calculated Osmolality 301 mOsm/kg (285-295) H 05/13/24 06:12 Lactic Acid 1.5 mmol/L (0.5-2.2) 05/08/24 02:10 Calcium 9.4 mg/dL (8.5-10.5) 05/13/24 06:12 Phosphorus 3.2 mg/dL (2.5-4.5) 05/09/24 04:35 Magnesium 2.3 mg/dL (1.7-2.3) 05/13/24 06:12 Total Bilirubin 0.8 mg/dL (0.15-1.2) 05/13/24 06:12 AST 23 U/L (0-40) 05/13/24 06:12 ALT 25 U/L (0-41) 05/13/24 06:12 Alkaline Phosphatase 117 U/L (40-130) 05/13/24 06:12 Lactate Dehydrogenase 274 U/L (135-225) H 05/08/24 02:13 Troponin T Baseline 135 ng/L (0-15) H* 05/08/24 02:13 Troponin T 120 Minute 144.1 ng/L (0-15) H 05/08/24 04:35 Delta Troponin T 9.1 ABS# (0-10) 05/08/24 04:35 Troponin T Hi Sens 6Hr 157.3 ng/L (0-15) H 05/08/24 07:02 Troponin T Hi Sens 6Hr Delta 22.3 ng/L (0-12) H* 05/08/24 07:02 C-Reactive Protein 3.6 mg/L (0.0-4.9) 05/09/24 04:35 NT-Pro-B Natriuret Pep 23294 pg/mL (0-125) H 05/08/24 02:10 Total Protein 6.5 g/dL (6.6-8.7) L 05/13/24 06:12 Albumin 3.6 g/dL (3.5-5.2) 05/13/24 06:12 Globulin 2.9 g/dL (1.3-4.6) 05/13/24 06:12 Triglycerides 192 mg/dL (0-150) H 05/13/24 06:12 Cholesterol 217 mg/dL (0-200) H 05/13/24 06:12 LDL Cholesterol, Calc 141 mg/dL (50-129) H 05/13/24 06:12 Total VLDL Cholesterol 38 mg/dL (0-30) H 05/13/24 06:12 HDL Cholesterol 38 mg/dL (60-100) L 05/13/24 06:12 Cholesterol/HDL Ratio 5.71 mg/dL (1.0-5.00) H 05/13/24 06:12 Vitamin B12 > 2000 pg/mL (232-1245) H 05/12/24 06:37 Folate 13.5 ng/mL (4.5-32.2) 05/13/24 06:12 Procalcitonin 0.13 ng/mL (0-0.5) 05/08/24 02:13 Vancomycin Trough 18.2 ug/mL (10-15) H 05/09/24 14:56 Coronavirus (PCR) Negative (Negative) 05/08/24 02:16 Influenza A (PCR) Negative (Negative) 05/08/24 02:16 Influenza Type B (PCR) Negative (Negative) 05/08/24 02:16 RSV (PCR) Negative (Negative) 05/08/24 02:16 A&P Assessment and plan (1) Hypercapnic respiratory failure: Respiratory status seems to be stable at this time. Patient is on 3 L of oxygen by nasal cannula. Oxygen saturations around 97%. Qualifiers: Chronicity: acute Qualified Code(s): J96.02 - Acute respiratory failure with hypercapnia (2) Congestive heart failure: Heart failure seems to be getting compensated. May continue on the current medications. Qualifiers: Heart failure chronicity: acute on chronic Heart failure type: systolic Qualified Code(s): I50.23 - Acute on chronic systolic (congestive) heart failure (3) Non-ischemic cardiomyopathy: The LV ejection fraction has improved to 45%. Will continue optimizing the GDMT (4) Elevated troponin: Most likely from type II [place]. (5) Chronic atrial fibrillation: patient has Watchman device. He has a history of hemoptysis. he also has a history of lung Cancer. May continue with current treatment. (6) Bradycardia: Bradycardia is currently resolved. Looks like the patient has intermittent bradycardia. May require a permanent pacemaker sometime down the line Plan Since the patient's overall cardiovascular status seems to be stable, he may not require any further investigations at this point. Optimizing the medical treatment would be the plan of action. If he continues to remain stable, may be discharged home today from a cardiac standpoint. We may see him in the clinic in a week. As per patient's request, I may see him in the office in 1 month Attestations Medical Necessity Statement*: Possible discharge home today Coding Level of Care Code 64132 Diagnoses Acute respiratory failure with hypercapnia J96.02 Chronicity: acute Acute on chronic systolic congestive heart failure I50.23 Heart failure chronicity: acute on chronic Heart failure type: systolic Non-ischemic cardiomyopathy I42.8 Elevated troponin R79.89 Chronic atrial fibrillation I48.20 Bradycardia R00.1 Documented by User: Tiffany Parr NP 05/13/24 21:43 Subjective Subjective: Patient doing good this morning. EF has slightly improved to 45-50%. Denies chest pain. Physical Exam Urinary Catheter Management: Salmon: Cath Placed During This Visit: yes Data 05/13/24 06:12 05/13/24 06:12 A&P Assessment and plan (1) Hypercapnic respiratory failure: Qualifiers: Chronicity: acute Qualified Code(s): J96.02 - Acute respiratory failure with hypercapnia (2) Congestive heart failure: Qualifiers: Heart failure chronicity: acute on chronic Heart failure type: systolic Qualified Code(s): I50.23 - Acute on chronic systolic (congestive) heart failure (3) Non-ischemic cardiomyopathy: (4) Elevated troponin: (5) Chronic atrial fibrillation: (6) Bradycardia: Coding Level of Care Code 03247 Diagnoses Acute respiratory failure with hypercapnia J96.02 Chronicity: acute Acute on chronic systolic congestive heart failure I50.23 Heart failure chronicity: acute on chronic Heart failure type: systolic Non-ischemic cardiomyopathy I42.8 Elevated troponin R79.89 Chronic atrial fibrillation I48.20 Bradycardia R00.1
[2024-05-13 09:18] VITALS: PULSE 76; RESP 18; O2SAT 92
--- NOTE | 2024-05-13 11:02 | PM.DCS ---
Discharge Providers Date of Admission: 05/08/24 03:23 Date of Discharge: May 13, 2024 Attending Provider at Admission: Licha Alfonso MD Attending Provider at Discharge: Sesar Gagnon MD Consults: Cardiology: Dr. Hodge Primary Care Provider: Jayda Lucas MD Diagnoses at Discharge Discharge Diagnosis (1) Hypercapnic respiratory failure: Status: Acute Qualifiers: Chronicity: acute Qualified Code(s): J96.02 - Acute respiratory failure with hypercapnia (2) Congestive heart failure: Status: Acute Qualifiers: Heart failure chronicity: acute on chronic Heart failure type: systolic Qualified Code(s): I50.23 - Acute on chronic systolic (congestive) heart failure (3) Non-ischemic cardiomyopathy: Status: Acute (4) Elevated troponin: Status: Acute (5) Chronic atrial fibrillation: Status: Acute (6) Bradycardia: Status: Acute Reason for Visit Reason for Visit: RESP. DISTRESS Brief History: History as per HPI: Grayson Shepard is a 74 year old male Grayson Shepard is a 74 year old male with past medical history of coronary artery disease, s/p transcatheter aortic valve replacement, hypertension, hyperlipidemia, type 2 diabetes mellitus, diagnosed with lung cancer 1 year ago, did not receive any chemo or radiation, has recently stopped taking Keytruda was discharged from the hospital after management of hypoxic hypercapnic respiratory failure, got intubated 05/01, required vasopressors during intubation, patient was extubated on 05/04 to 5 L nasal cannula, oxygen requirement was weaned down to 3 L, he was put on steroids, as per the report patient did not do well at home his shortness of breath started getting worse he became anxious and tachypneic in the ER patient requested the ER physician to intubate him because of his increased work of breathing. By the time I evaluate the patient patient is already intubated and sedated, significant leukocytosis, hypoxic hypercapnic respiratory failure, high BNP with x-ray consistent with bilateral pneumonia left-sided pleural effusion greater than right high BNP with vascular congestion on x-ray. Rester panel negative. MRSA nares negative Daughter stating that patient was doing fine until he went to bed around 9 PM, he was compliant with his BiPAP, despite that history experiencing shortness of breath, experienced significant coughing and PND that prompted his visit to the ER he did not complain of chest pain Hospital Course Hospital Course Patient was admitted to the ICU given concerns for respiratory failure requiring mechanical ventilation on 05/08. He was started on broad-spectrum antibiotics, vasopressors, gentle IV diuresis with concerns for sepsis and congestive heart failure. Limited echocardiogram was done which showed an EF of 35%, biatrial enlargement, normal functioning and well-placed bioprosthetic aortic valve. Given concerns for acute decrease in EF from 55 to 35% over 1 week cardiology was consulted. Eventually patient was extubated on 05/09. Responded well to the treatment and came off vasopressors as well. Overall during hospitalization he was around 6 L net negative. He is back to his baseline oxygen supplementation. Sputum culture came back positive stenotrophomonas. His antibiotics were transitioned to Bactrim as per the culture sensitivities. Patient was started on guideline directed medical therapy for heart failure. Repeat echocardiogram was done on 05/12 which showed improvement in the EF back to 45 to 50% with moderate LVH. He has been discharged in medically stable condition with advised to follow-up with cardiology team as an outpatient within next 1 week on oral diuretics with counseling for lifestyle changes as per congestive heart failure, oral Bactrim for next 1 week with advised to have a repeat BMP done with his PCP in 1 week. Physical Exam Const: COMMON NORMALS: patient oriented x3 and alert GENERAL APPEARANCE: cooperative and patient mechanically ventilated ORIENTATION/CONSCIOUSNESS: Yes awake OTHER: Pleasant, in good spirits. HENMT: COMMON NORMALS: oropharynx normal Neck/C-Spine: COMMON NORMALS: no JVD Chest: OTHER: Tender spot mid upper back on the right side just below the right scapula over a protruding band in the rib cage. No swelling, erythema, bruising, rash. Resp: AUSCULTATION: crackles, wheezes (occasional) and diminished lung sounds Cardio: COMMON NORMALS: no JVD, regular rhythm, S1 normal heart sound present, S2 normal heart sound present and No murmurs present (Cardio) RHYTHM: regular rhythm HEART SOUNDS: S1 normal heart sound present and S2 normal heart sound present GI: COMMON NORMALS: Normal to inspection, nondistended, normoactive bowel sounds present, Soft to palpation and non-tender PALPATION: Yes Soft to palpation Extremity: COMMON NORMALS: no joint enlargement and no pedal edema NARRATIVE EXTREMITY EXAM: Chronic stasis dermatitis, as well as cool to touch and mild mottling of BL lower extremities. GENERAL: Yes edema (2+) Neuro: COMMON NORMALS: patient oriented x3 and moves all extremities SENSORIUM/ORIENTATION: Yes alert Skin: COMMON NORMALS: no rashes or lesions noted GENERAL SKIN EXAM: no rashes or lesions noted Urinary Catheter Management: [place]: Cath Placed During This Visit: yes Reason for Continuing Indwelling Catheter: Chronic Indwelling Urinary Catheter on Admission Urinary Catheter Date of Insertion: 05/08/24 Urinary Catheter Time of Insertion: 03:44 Discharge Data Studies Completed and Pending Completed Studies During Hospitalization Category Date Time Status CXRP [XR chest 1V portable [id number]] Routine Exams 05/08/24 07:22 Completed FL barium swallow modifd [id number] Routine Exams 05/12/24 09:00 Completed XR chest 1V [id number] Stat Exams 05/08/24 03:15 Completed XR chest 1V portable [id number] Stat Exams 05/08/24 02:08 Completed CV. echo limited [id number] Routine Ultrasound 05/08/24 09:06 Completed CV. echo limited [id number] Routine Ultrasound 05/12/24 13:17 Completed US chest [id number] Routine Ultrasound 05/08/24 03:50 Completed Pending at discharge Category Date Time Status Cyto Order Verification Routine Lab 05/08/24 03:54 Ordered MAG [Magnesium] AM LABS Lab 05/14/24 04:00 Ordered MAG [Magnesium] AM LABS Lab 05/15/24 04:00 Ordered Sputum Culture and Gram Stain Stat Lab 05/08/24 03:41 Uncollected Radiology Impressions Chest Ultrasound 05/08/24 03:50 IMPRESSION: Insufficient LEFT pleural effusion to perform safe thoracentesis due to the amount of atelectatic lung within the effusion. Chest X-Ray 05/08/24 07:22 IMPRESSION: Right arm PICC line position as above. Position of the PICC line was relayed over the phone to the dental technologist 8:05 a.m. No repositioning required. Modified Barium Swallow 05/12/24 09:00 IMPRESSION: 1. No aspiration was noted. 2. Mild penetration into the laryngeal inlet when the patient ingested thin liquid barium. A separate report and recommendations will follow from the speech therapy service. Laboratory Results WBC 15.52 10^3/uL (3.29-11.43) H 05/13/24 06:12 RBC 4.37 10^6/uL (3.85-5.65) 05/13/24 06:12 Hgb 12.50 g/dL (11.27-16.99) 05/13/24 06:12 Hct 39.9 % (37-53) 05/13/24 06:12 MCV 91.3 fl (82-101) 05/13/24 06:12 MCH 28.6 pg (27-33) 05/13/24 06:12 MCHC 31.3 g/dL (30-55) 05/13/24 06:12 RDW 16.3 % (12.1-15.1) H 05/13/24 06:12 Plt Count 110 10^3/cmm (157-399) L 05/13/24 06:12 MPV 10.8 fL (7.4-10.4) H 05/13/24 06:12 Neut % (Auto) 87.1 % 05/13/24 06:12 Lymph % (Auto) 7.7 % 05/13/24 06:12 [place] % (Auto) 4.4 % 05/13/24 06:12 Eos % (Auto) 0.1 % 05/13/24 06:12 Baso % (Auto) 0.1 % 05/13/24 06:12 Neut # (Auto) 13.53 10^3/uL (1.8-7.7) H 05/13/24 06:12 Lymph # (Auto) 1.2 10^3/uL (0.8-4.8) 05/13/24 06:12 [place] # (Auto) 0.7 10^3/uL (0.2-0.9) 05/13/24 06:12 Eos # (Auto) 0.0 10^3/uL (0.0-0.8) 05/13/24 06:12 Baso # (Auto) 0.0 10^3/uL (0.0-0.1) 05/13/24 06:12 Nucleated RBC % (auto) 0 % 05/13/24 06:12 Total Counted 100 (0-100) 05/08/24 02:10 Atypical Lymphs % 17.0 % (0-5) H 05/08/24 02:10 Segmented Neutrophils 50 % 05/08/24 02:10 Band Neutrophils Not Reportable 05/08/24 02:10 Absolute Lymphocytes 10.7 10^3/cmm (1.2-3.4) H 05/08/24 02:10 Lymphocytes (Manual) 20 % 05/08/24 02:10 Monocytes (Manual) 7.0 % 05/08/24 02:10 Absolute Monocytes 2.0 10^3/cmm (0.1-0.6) H 05/08/24 02:10 Eosinophils (Manual) 2 % 05/08/24 02:10 Absolute Eosinophils 0.6 10^3/cmm (0.0-0.7) 05/08/24 02:10 Basophils (Manual) 0.0 % 05/08/24 02:10 Absolute Basophils 0.0 10^3/cmm (0.0-0.2) 05/08/24 02:10 Metamyelocytes 2.0 % 05/08/24 02:10 Myelocytes 2.0 % 05/08/24 02:10 Nucleated RBCs # 0.0 /100WBC 05/13/24 06:12 Platelet Estimate Normal (Normal) 05/08/24 02:10 Specimen Type Arterial 05/08/24 04:08 Sample Site Radial, left 05/08/24 04:08 ABG pH 7.33 (7.35-7.45) L 05/08/24 04:08 ABG pCO2 60.0 mmHg (35-45) H 05/08/24 04:08 ABG pO2 357.0 mmHg (80.0-100.0) H 05/08/24 04:08 ABG PO2/FiO2 Ratio 357 05/08/24 04:08 ABG HCO3 31.3 mmol/L (22-26) H 05/08/24 04:08 ABG O2 Saturation 99.1 05/08/24 02:06 ABG Base Excess 4.0 mmol/L (-2.0-2.0) H 05/08/24 04:08 Saad Test Pos 05/08/24 04:08 A-a O2 Gradient Not Reportable 05/08/24 02:06 Hematocrit 34.1 % (42-52) L 05/08/24 04:08 Hgb O2 Saturation 97.0 % (95-100) 05/08/24 02:06 Carboxyhemoglobin 1.2 %THgb (0.4-20.1) 05/08/24 02:06 Methemoglobin 0.9 % (0.4-1.5) 05/08/24 02:06 Total Hemoglobin 13.1 g/dL (14-18) L 05/08/24 02:06 Sodium 140.0 mmol/L (131-143) 05/08/24 02:06 Potassium 4.8 mmol/L (3.5-5.0) 05/08/24 02:06 Glucose 312.0 mg/dL (70-115) H 05/08/24 02:06 Ionized Calcium 1.3 mmol/L (1.1-1.4) 05/08/24 02:06 O2 Delivery Device Vent 05/08/24 04:08 O2 Liters/Min 8.0 % 05/08/24 02:06 FiO2 100.0 % 05/08/24 04:08 Tidal Volume 0.50 05/08/24 04:08 PEEP 5.0 cmH20 05/08/24 04:08 Cosmetic Chemist ID Amh 05/08/24 04:08 Sodium 138 mmol/L (136-145) 05/13/24 06:12 Potassium 4.5 mmol/L (3.5-5.1) 05/13/24 06:12 Chloride 99 mmol/L (98-107) 05/13/24 06:12 Carbon Dioxide 32 mmol/L (22-29) H 05/13/24 06:12 Anion Gap 11.5 (5-19) 05/13/24 06:12 BUN 38 mg/dL (8-23) H 05/13/24 06:12 Creatinine 1.0 mg/dL (0.7-1.2) 05/13/24 06:12 GFR Calculation Not Reportable 05/13/24 06:12 Glucose 206 mg/dL (65-115) H 05/13/24 06:12 POC Glucose 203 mg/dL (70-110) H 05/13/24 06:19 Calculated Osmolality 301 mOsm/kg (285-295) H 05/13/24 06:12 Lactic Acid 1.5 mmol/L (0.5-2.2) 05/08/24 02:10 Calcium 9.4 mg/dL (8.5-10.5) 05/13/24 06:12 Phosphorus 3.2 mg/dL (2.5-4.5) 05/09/24 04:35 Magnesium 2.3 mg/dL (1.7-2.3) 05/13/24 06:12 Total Bilirubin 0.8 mg/dL (0.15-1.2) 05/13/24 06:12 AST 23 U/L (0-40) 05/13/24 06:12 ALT 25 U/L (0-41) 05/13/24 06:12 Alkaline Phosphatase 117 U/L (40-130) 05/13/24 06:12 Lactate Dehydrogenase 274 U/L (135-225) H 05/08/24 02:13 Troponin T Baseline 135 ng/L (0-15) H* 05/08/24 02:13 Troponin T 120 Minute 144.1 ng/L (0-15) H 05/08/24 04:35 Delta Troponin T 9.1 ABS# (0-10) 05/08/24 04:35 Troponin T Hi Sens 6Hr 157.3 ng/L (0-15) H 05/08/24 07:02 Troponin T Hi Sens 6Hr Delta 22.3 ng/L (0-12) H* 05/08/24 07:02 C-Reactive Protein 3.6 mg/L (0.0-4.9) 05/09/24 04:35 NT-Pro-B Natriuret Pep 39753 pg/mL (0-125) H 05/08/24 02:10 Total Protein 6.5 g/dL (6.6-8.7) L 05/13/24 06:12 Albumin 3.6 g/dL (3.5-5.2) 05/13/24 06:12 Globulin 2.9 g/dL (1.3-4.6) 05/13/24 06:12 Triglycerides 192 mg/dL (0-150) H 05/13/24 06:12 Cholesterol 217 mg/dL (0-200) H 05/13/24 06:12 LDL Cholesterol, Calc 141 mg/dL (50-129) H 05/13/24 06:12 Total VLDL Cholesterol 38 mg/dL (0-30) H 05/13/24 06:12 HDL Cholesterol 38 mg/dL (60-100) L 05/13/24 06:12 Cholesterol/HDL Ratio 5.71 mg/dL (1.0-5.00) H 05/13/24 06:12 Vitamin B12 > 2000 pg/mL (232-1245) H 05/12/24 06:37 Folate 13.5 ng/mL (4.5-32.2) 05/13/24 06:12 Procalcitonin 0.13 ng/mL (0-0.5) 05/08/24 02:13 Vancomycin Trough 18.2 ug/mL (10-15) H 05/09/24 14:56 Coronavirus (PCR) Negative (Negative) 05/08/24 02:16 Influenza A (PCR) Negative (Negative) 05/08/24 02:16 Influenza Type B (PCR) Negative (Negative) 05/08/24 02:16 RSV (PCR) Negative (Negative) 05/08/24 02:16 Vitals Last Vital Signs Temp 97.8 F 05/13/24 07:28 Pulse 76 05/13/24 09:18 Resp 18 05/13/24 09:18 BP 148/54 05/13/24 07:28 Pulse Ox 92 05/13/24 09:18 O2 Del Method Nasal Cannula 05/13/24 09:18 O2 Flow Rate 3 05/13/24 09:18 FiO2 32 05/12/24 20:00 Discharge Plan Discharge Patient Disposition: Home Health Service Condition: Stable Prescriptions: New atorvastatin 40 mg Tablet 40 mg PO BEDTIME Qty: 30 0RF hydralazine 25 mg Tablet 25 mg PO TID Qty: 90 0RF sulfamethoxazole-trimethoprim 800-160 mg Tablet 1 tab PO BID 7 Days Qty: 14 0RF aspirin 81 mg Tablet,Delayed Release (Dr/Ec) 81 mg PO DAILY Qty: 30 0RF prednisone 10 mg tablet See Taper PO DIRECTED Qty: 42 0RF Taper: predniSONE 60-10 60 mg Daily for 2 Days and 0 Hour 50 mg Daily for 2 Days and 0 Hour 40 mg Daily for 2 Days and 0 Hour 30 mg Daily for 2 Days and 0 Hour 20 mg Daily for 2 Days and 0 Hour 10 mg Daily for 2 Days and 0 Hour Rx Instructions: see taper instructions insulin lispro 100 unit/mL insulin pen See Protocol SUBCUT QPM Qty: 15 0RF Protocol: Insulin Corrective High-Dose Regimen Condition: Fingerstick Blood Glucose Dose/Route: Insulin Units Condition: 141-180 mg/dl Dose/Route: 2 units/SQ Condition: 181-220 mg/dl Dose/Route: 4 units/SQ Condition: 221-260 mg/dl Dose/Route: 6 units/SQ Condition: 261-300 mg/dl Dose/Route: 8 units/SQ Condition: 301-350 mg/dl Dose/Route: 10 units/SQ Condition: 351-400 mg/dl Dose/Route: 12 units/SQ Condition: greater than 400 mg/dl Dose/Route: 14 units/SQ Continued famotidine 40 mg Tablet 40 mg PO BID roflumilast 500 mcg Tablet 500 mcg PO DAILY albuterol sulfate 2.5 mg /3 mL (0.083 %) Solution For Nebulization 2.5 mg INHALATION Q6H PRN (Reason: Shortness Of Breath) modafinil 200 mg Tablet 400 mg PO QAM gabapentin 300 mg Capsule 600 mg PO TID albuterol sulfate 90 mcg/actuation Hfa Aerosol Inhaler 1 puff INHALATION Q4H PRN (Reason: Shortness Of Breath) cholecalciferol (vitamin D3) [Vitamin D3] 25 mcg (1,000 unit) Tablet 25 mcg PO DAILY omega 6-iys-oau-fish oil [Fish Oil] 1,200 (144-216) mg Capsule 2 cap PO BID Breztri Aerosphere 160-9-4.8 mcg/actuation Hfa Aerosol Inhaler 2 inh INHALATION BID multivitamin Tablet 1 tab PO DAILY hydrocodone-acetaminophen 5-325 mg tablet 1 tab PO Q6H PRN (Reason: Pain) fluticasone propionate 50 mcg/actuation [place],Suspension 1 spray INTRANASAL DAILY Rx Instructions: administer into each nostril guaifenesin [Mucinex] 600 mg Tablet Extended Release 12hr 600 mg PO Q12H PRN (Reason: Congestion) Entresto 24-26 mg Tablet 1 tab PO BID Lactobacillus acidophilus 500 million cell Capsule 500 mmu cells PO DAILY Changed bumetanide 0.5 mg Tablet 1 mg PO BID 30 Days Qty: 60 0RF Discontinued amoxicillin-pot clavulanate 875-125 mg tablet 1 tab PO BID 10 Days Qty: 20 0RF insulin glargine [Lantus U-100 Insulin] 100 unit/mL Solution See Rx Instructions .ROUTE .COMPLEX Qty: 10 0RF Rx Instructions: Take 50 units subcutaneously twice daily. insulin aspart U-100 [Novolog U-100 Insulin aspart] 100 unit/mL Solution See Rx Instructions .ROUTE .COMPLEX Qty: 10 0RF Rx Instructions: Inject 25 units sub-q before breakfast , 20 units before lunch, and 25 units before supper. prednisone 10 mg tablet See Rx Instructions .ROUTE .COMPLEX Qty: 14 0RF Rx Instructions: 40 mg daily x 2 days 20 mg daily x 2 days 10 mg daily x 2 days then stop. Discharge Orders: Discharge Order (Routine); Ordered 05/13/24 Ordered By: Sesar Gagnon Referrals: [facility] [Outside] Jayda Lucas MD [Primary Care Provider] - 05/15/24 1:00 pm Myrna Odom FNP [Nurse Practitioner] - 06/12/24 1:00 pm Discharge Diet: Cardiac and Diabetic Patient Instructions: Sulfamethoxazole/Trimethoprim (By mouth), Prednisone (By mouth), Aspirin (By mouth), Hydralazine (By mouth), Atorvastatin (By mouth), Opioid Safety Activity Restrictions/Additional Instructions: Check your blood sugar 3 times a day before meals every day at home and maintain a blood sugar diary. Take insulin as per sliding scale. PROTOCOL: If Fingerstick Blood Glucose, then Insulin Units; If 141-180 mg/dl, then 2 units/SQ; If 181-220 mg/dl, then 4 units/SQ; If 221-260 mg/dl, then 6 units/SQ; If 261-300 mg/dl, then 8 units/SQ; If 301-350 mg/dl, then 10 units/SQ; If 351-400 mg/dl, then 12 units/SQ; If greater than 400 mg/dl, then 14 units/SQ Restrict fluid intake to less than 1500 cc, salt intake to less than 2 g daily. Advised to check his weight daily at home. Is advised that weight today would be the dry weight and if body weight increases by around 5 pounds, patient is to take an extra dose of Bumex daily till body weight comes down to weight today. If not able to come down to dry body weight in 1 week, then is to call cardiology office for further recommendations. Patient was counseled in detail to take medications regularly as prescribed. Check your blood pressure daily at home maintain a blood pressure diary. Goal blood pressure less than 140/90 mmHg and over 100/60 mmHg. Follow-up with your primary care provider on set appointment with blood sugar and blood pressure diary for further adjustment of medications. Discharge Attestations Time Spent in Discharge Care*: greater than 30 min Specific Discharge Activities: educating patient, educating and/or supporting family/caregiver, discussing with pcp/other providers, discussing with caseworker intake/social workers/dc planners, documenting/other paperwork and evaluating patient/reviewing data Status at Discharge: Cognitive status at discharge: cognitively intact, Behavioral status at discharge: cooperative, Functional status at discharge: uses cane/walker, Overall status at discharge: patient is progressing back to baseline Quality Metrics Clinical Quality Measures [ No reported AMI, CVA or VTE this stay] Coding Level of Care Code 58960 Total time (in minutes) for Discharge: 60 Diagnoses Acute respiratory failure with hypercapnia J96.02 Chronicity: acute Acute on chronic systolic congestive heart failure I50.23 Heart failure chronicity: acute on chronic Heart failure type: systolic Non-ischemic cardiomyopathy I42.8 Elevated troponin R79.89 Chronic atrial fibrillation I48.20 Bradycardia R00.1
[2024-05-13] MEDS: enoxaparin 40 mg/0.4 mL Syringe SUBCUT (11:45)
--- NOTE | 2024-05-13 11:50 | PC.NURSE ---
Bladder scan post void 0ml.
[2024-05-13 12:00] VITALS: BP 140/62; PULSE 79; RESP 18; TEMP 36.3; O2SAT 94
[2024-05-13 12:12] LABS: Glucose Point of Care 242 mg/dL (70-110)
--- NOTE | 2024-05-13 12:27 | PC.NURSE ---
Detailed discharge instructions provided to pt. All questions answered. NO further questions or concerns at this time. Pt awaiting his daughter to drive him home.
[2024-05-13 12:29] VITALS: BP 140/62; PULSE 79; RESP 18; TEMP 36.3; O2SAT 94
== END 2024-05-13 12:58 | disposition home health service (06) | DRG 871 ==
LOC: ER 03:57 → ICU 05:04 → MEDSURG 05-10 22:59
PROVIDERS: Internal Medicine; Admitting Provider Internal Medicine; Emergency Provider Emergency Medicine; PCP Family Medicine; Visit Provider Student in an Organized Health Care Education/Training Program
DX: A41.9 Sepsis, unspecified organism (principal); I21.A1 Myocardial infarction type 2; I50.23 Acute on chronic systolic (congestive) heart failure; J69.0 Pneumonitis due to inhalation of food and vomit; J96.22 Acute and chronic respiratory failure with hypercapnia; J96.21 Acute and chronic respiratory failure with hypoxia; C34.90 Malignant neoplasm of unspecified part of unspecified bronchus or lung; E79.82 Hereditary xanthinuria; J98.11 Atelectasis; I42.8 Other cardiomyopathies; I48.20 Chronic atrial fibrillation, unspecified; J44.1 Chronic obstructive pulmonary disease with (acute) exacerbation; R65.20 Severe sepsis without septic shock; I25.10 Atherosclerotic heart disease of native coronary artery without angina pectoris; E78.5 Hyperlipidemia, unspecified; E11.649 Type 2 diabetes mellitus with hypoglycemia without coma; J44.9 Chronic obstructive pulmonary disease, unspecified; I11.0 Hypertensive heart disease with heart failure; B96.89 Other specified bacterial agents as the cause of diseases classified elsewhere; I87.2 Venous insufficiency (chronic) (peripheral); I73.9 Peripheral vascular disease, unspecified; I49.3 Ventricular premature depolarization; R00.1 Bradycardia, unspecified; Z79.51 Long term (current) use of inhaled steroids; Z79.891 Long term (current) use of opiate analgesic; Z79.4 Long term (current) use of insulin; Z95.3 Presence of xenogenic heart valve; Z92.25 Personal history of immunosuppression therapy; Z95.820 Peripheral vascular angioplasty status with implants and grafts; Z99.81 Dependence on supplemental oxygen
CPT/HCPCS: 0241U; 32555; 36415; 36416; 36573; 36592; 36600; 51702; 71045; 74230; 76604; 80048; 80051; 80053; 80061; 80202; 82330; 82607; 82746; 82803; 82805; 82962; 83605; 83615; 83735; 83880; 84100; 84145; 84484; 85007; 85025; 86140; 86403; 87070; 87077; 87186; 87205; 92610; 92611; 93005; 93308; 94002; 94003; 94640; 94660; 94664; 94799; 96365; 96366; 96367; 96372; 96375; 96376; 97161; 97530; 99291; C1751; J0171; J0330; J0692; J1650; J1815; J1940; J2020; J2185; J2270; J2470; J2543; J2704; J2919; J3010; J3370; J3372; J3490; J7050; J7613; Q3014

== ENCOUNTER 2024-05-13 22:39 | Emergency (ER) | payer OTHER, SELFPAY ==
[2024-05-13 22:40] VITALS: BP 145/68; PULSE 83; RESP 28; O2SAT 100; BMI 24.0
--- NOTE | 2024-05-13 22:46 | ECG_ITS ---
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 Measurements Intervals [place] Rate: 88 P: 0 CO: 0 QRS: -51 QRSD: 106 T: 148 QT: 383 QTc: 464 Interpretive Statements ATRIAL FIBRILLATION WITH ABERRANT CONDUCTION OR VENTRICULAR PREMATURE COMPLEXES LEFT ANTERIOR FASCICULAR BLOCK [QRS AXIS <= -45, QR IN I, RS IN II] ANTEROSEPTAL MYOCARDIAL INFARCTION , OF INDETERMINATE AGE [40+ ms Q WAVE IN V1-V4] MODERATE T-WAVE ABNORMALITY, CONSIDER LATERAL ISCHEMIA [-0.1+ mV T-WAVE IN I/aVL/V5/V6] Compared to ECG 05/08/2024 09:38:37.Ventricular premature complex(es) now present Aberrant conduction of supraventricular beat(s) now present. Left anterior fascicular block now present. T-wave abnormality now present. Possible ischemia now present Left-axis deviation no longer present. Myocardial infarct finding still present Electronically Signed On 05-14-2024 00:57:37 SENIOR GAME ADVISOR by Yumi Hodge M.D. [email or web address]
--- NOTE | 2024-05-13 22:53 | XRR_ITS ---
PROCEDURE INFORMATION: Exam: XR Chest Exam date and time: 05/13/2024 11:23 PM Age: 74 years old Clinical indication: Dyspnea; Prior surgery; Surgery date: 6+ months; Surgery type: Aortic valve replacement, tavr; Additional info: Worsening dyspnea TECHNIQUE: Imaging protocol: Radiologic exam of the chest. Views: 1 view. COMPARISON: CR XR chest 1V portable [id number] 05/08/2024 7:53 AM FINDINGS: Lungs: Suggestion of mild interstitial pulmonary edema with no new focal consolidation. Pleural spaces: Persistent and similar left pleural effusion. Heart/Mediastinum: Grossly stable cardiomegaly. Aortic valve replacement. Bones/joints: No acute findings. XR/XR chest 1V portable [id number] IMPRESSION: 1. Suggestion of mild interstitial pulmonary edema with no new focal consolidation. 2. Persistent left pleural effusion.
[2024-05-13 23:03] VITALS: PULSE 86; RESP 24; O2SAT 97
[2024-05-13 23:09] VITALS: BP 145/68; PULSE 89; RESP 25; O2SAT 95
[2024-05-13 23:15] VITALS: PULSE 87; RESP 24; O2SAT 96
--- NOTE | 2024-05-13 23:15 | ED_ITS ---
HPI - SOB/Dyspnea 2 General: Chief Complaint: Upper Respiratory Infection Stated Complaint: RESP. DISTRESS Time Seen by Provider: 05/13/24 22:43 History of Present Illness: HPI Narrative: Patient was discharged earlier today from the hospital after 2-day stay with shortness of breath. Patient went home got short of breath and anxious could not get his oxygen above 90% and that he came back. EMS did give him 1 nitro. Patient is on baseline oxygen at 3 L at all times. It is fingers and toes are chronically cold and blue. Patient did have a fall and has multiple skin tears on bilateral arms. Related Data Home Medications Medication Instructions Recorded Confirmed albuterol sulfate 2.5 mg/3 mL 2.5 mg inhalation Q6H PRN 12/15/21 05/08/24 (0.083 %) solution for nebulization Shortness Of Breath albuterol sulfate 90 mcg/actuation 1 puff inhalation Q4H PRN 12/15/21 05/08/24 aerosol inhaler Shortness Of Breath budesonide 160 mcg-glycopyr 9 2 inh inhalation BID 12/15/21 05/08/24 mcg-formot 4.8 mcg/actuation HFA inhaler (Breztri Aerosphere) cholecalciferol (vitamin D3) 25 25 mcg PO DAILY 12/15/21 05/08/24 mcg (1,000 unit) tablet (Vitamin D3) gabapentin 300 mg capsule 600 mg PO TID 12/15/21 05/08/24 modafinil 200 mg tablet 400 mg PO QAM 12/15/21 05/08/24 omega 0-muf-xww-fish oil 1,200 mg 2 cap PO BID 12/15/21 05/08/24 (144 mg-216 mg) capsule (Fish Oil) Lactobacillus acidophilus 500 500 mmu cells PO DAILY 05/01/24 05/08/24 million cell capsule fluticasone propionate 50 1 spray intranasal DAILY 05/01/24 05/08/24 mcg/actuation nasal spray,suspension guaifenesin 600 mg tablet, 600 mg PO Q12H PRN Congestion 05/01/24 05/08/24 extended release 12 hr (Mucinex) hydrocodone 5 mg-acetaminophen 325 1 tab PO Q6H PRN Pain 05/01/24 05/08/24 mg tablet multivitamin 1 tab PO DAILY 05/01/24 05/08/24 sacubitril 24 mg-valsartan 26 mg 1 tab PO BID 05/01/24 05/08/24 tablet (Entresto) famotidine 40 mg tablet 40 mg PO BID 05/08/24 05/08/24 roflumilast 500 mcg tablet 500 mcg PO DAILY 05/08/24 05/08/24 Previous Rx's Medication Instructions Recorded aspirin 81 mg tablet,delayed 81 mg PO DAILY #30 tabs 05/13/24 release atorvastatin 40 mg tablet 40 mg PO BEDTIME #30 tabs 05/13/24 bumetanide 0.5 mg tablet 1 mg (2 x 0.5 mg) PO BID 30 days 05/13/24 #60 tabs hydralazine 25 mg tablet 25 mg PO TID #90 tabs 05/13/24 insulin lispro 100 unit/mL See Protocol SUBCUT QPM #15 mL 05/13/24 subcutaneous pen prednisone 10 mg tablet See Taper PO DIRECTED #42 tabs 05/13/24 sulfamethoxazole 800 1 tab PO BID 7 days #14 tabs 05/13/24 mg-trimethoprim 160 mg tablet Allergies Allergy/AdvReac Type Severity Reaction Status Date / Time azithromycin Allergy Unknown Unknown Verified 05/13/24 22:50 levofloxacin [From Levaquin] Allergy Unknown Unknown Verified 05/13/24 22:50 Quinolones Allergy Unknown Unknown Verified 05/13/24 22:50 Review of Systems 2 General: Reports: 10 or more systems reviewed and unremarkable except in HPI and below PFSH ED 2 PFSH: Medical History (Updated 05/14/24 @ 00:05 by Padilla Lemos DO) Diabetes mellitus Hyperlipidemia Hypertension CAD (coronary artery disease) Lung cancer COPD (chronic obstructive pulmonary disease) Surgical History (Updated 05/14/24 @ 00:00 by DANIEL Camara) S/P TAVR (transcatheter aortic valve replacement) H/O aortic valve replacement Physical Exam 2 Const: COMMON NORMALS: no acute distress, average body habitus, patient oriented x3, no limitations, healthy appearing, alert and well nourished HENMT: COMMON NORMALS: normocephalic, atraumatic, hearing grossly normal bilaterally, external ears normal, Normal external nose present and moist oral mucous membranes HEAD & SCALP: normocephalic and atraumatic NOSE: Normal external nose present EXTERNAL EAR: Yes external ears normal Neck/C-Spine: COMMON NORMALS: full ROM, no lymphadenopathy, supple, no meningeal signs, no JVD and Thyroid normal THYROID: Thyroid normal Chest: COMMONS NORMALS: normal inspection of the chest and normal palpation of entire chest wall Resp: COMMON NORMALS: normal respiratory effort, No retractions, No use of accessory muscles and clear to auscultation bilaterally (Decreased breath sounds bilaterally) AUSCULTATION: clear to auscultation bilaterally (Decreased breath sounds bilaterally) Cardio: COMMON NORMALS: no JVD, regular rate, regular rhythm, S1 normal heart sound present, S2 normal heart sound present, No gallops present (Cardio), No clicks present (Cardio), No murmurs present (Cardio) and No rub (Cardio) R ATE: regular rate RHYTHM: regular rhythm HEART SOUNDS: S1 normal heart sound present and S2 normal heart sound present Neuro: COMMON NORMALS: patient oriented x3 SENSORIUM/ORIENTATION: Yes alert MENINGEAL SIGNS: Yes no meningeal signs Course 2 Vital Signs: Vital signs: Vital Signs Pulse Rate 87 05/13/24 23:15 Respiratory Rate 24 H 05/13/24 23:15 Blood Pressure 145/68 05/13/24 23:09 Pulse Oximetry 96 05/13/24 23:15 Oxygen Delivery Me thod Nasal Cannula 05/13/24 23:15 Oxygen Flow Rate 3 05/13/24 23:15 MDM - SOB/Dyspnea Medical Decision Making Patient repeated CBC CMP chest x-ray all unchanged from earlier today. Once patient got settled down we titrate his oxygen back to 3 L and he kept a saturation about 96% or above. Patient had family members in the room and he said he is ready to go home and they are comfortable taking him home. Medical Records I reviewed the patient's medical records. Lab Data I reviewed the patient's lab results. 05/13/24 23:16 05/13/24 23:16 Labs/Radiology: Laboratory Results WBC 15.52 10^3/uL (3.29-11.43) H 05/13/24 23:16 RBC 4.87 10^6/uL (3.85-5.65) 05/13/24 23:16 Hgb 13.90 g/dL (11.27-16.99) 05/13/24 23:16 Hct 43.7 % (37-53) 05/13/24 23:16 MCV 89.7 fl (82-101) 05/13/24 23:16 MCH 28.5 pg (27-33) 05/13/24 23:16 MCHC 31.8 g/dL (30-55) 05/13/24 23:16 RDW 16.6 % (12.1-15.1) H 05/13/24 23:16 Plt Count 106 10^3/cmm (157-399) L 05/13/24 23:16 MPV 10.0 fL (7.4-10.4) 05/13/24 23:16 Neut % (Auto) 85.7 % 05/13/24 23:16 Lymph % (Auto) 8.2 % 05/13/24 23:16 [place] % (Auto) 5.4 % 05/13/24 23:16 Eos % (Auto) 0.0 % 05/13/24 23:16 Baso % (Auto) 0.1 % 05/13/24 23:16 Neut # (Auto) 13.30 10^3/uL (1.8-7.7) H 05/13/24 23:16 Lymph # (Auto) 1.3 10^3/uL (0.8-4.8) 05/13/24 23:16 [place] # (Auto) 0.8 10^3/uL (0.2-0.9) 05/13/24 23:16 Eos # (Auto) 0.0 10^3/uL (0.0-0.8) 05/13/24 23:16 Baso # (Auto) 0.0 10^3/uL (0.0-0.1) 05/13/24 23:16 Nucleated RBC % (auto) 0 % 05/13/24 23:16 Nucleated RBCs # 0.0 /100WBC 05/13/24 23:16 Sodium 135 mmol/L (136-145) L 05/13/24 23:16 Potassium 5.0 mmol/L (3.5-5.1) 05/13/24 23:16 Chloride 93 mmol/L (98-107) L 05/13/24 23:16 Carbon Dioxide 32 mmol/L (22-29) H 05/13/24 23:16 Anion Gap 15.0 (5-19) 05/13/24 23:16 BUN 41 mg/dL (8-23) H 05/13/24 23:16 Creatinine 1.2 mg/dL (0.7-1.2) 05/13/24 23:16 GFR Calculation Not Reportable 05/13/24 23:16 Glucose 429 mg/dL (65-115) H 05/13/24 23:16 Calculated Osmolality 308 mOsm/kg (285-295) H 05/13/24 23:16 Calcium 9.8 mg/dL (8.5-10.5) 05/13/24 23:16 Total Bilirubin 1.2 mg/dL (0.15-1.2) 05/13/24 23:16 AST 25 U/L (0-40) 05/13/24 23:16 ALT 30 U/L (0-41) 05/13/24 23:16 Alkaline Phosphatase 138 U/L (40-130) H 05/13/24 23:16 Total Protein 7.4 g/dL (6.6-8.7) 05/13/24 23:16 Albumin 4.0 g/dL (3.5-5.2) 05/13/24 23:16 Globulin 3.4 g/dL (1.3-4.6) 05/13/24 23:16 XR interpretation done by ED provider, pending radiology final review Discharge Plan Discharge Patient Disposition: Home Clinical Impression: COPD (chronic obstructive pulmonary disease) Qualifiers: COPD type: unspecified COPD Qualified Code(s): J44.9 - Chronic obstructive pulmonary disease, unspecified Condition: Stable Prescriptions: No Action famotidine 40 mg Tablet 40 mg PO BID roflumilast 500 mcg Tablet 500 mcg PO DAILY atorvastatin 40 mg Tablet 40 mg PO BEDTIME Qty: 30 0RF hydralazine 25 mg Tablet 25 mg PO TID Qty: 90 0RF sulfamethoxazole-trimethoprim 800-160 mg Tablet 1 tab PO BID 7 Days Qty: 14 0RF aspirin 81 mg Tablet,Delayed Release (Dr/Ec) 81 mg PO DAILY Qty: 30 0RF prednisone 10 mg tablet See Taper PO DIRECTED Qty: 42 0RF Taper: predniSONE 60-10 60 mg Daily for 2 Days and 0 Hour 50 mg Daily for 2 Days and 0 Hour 40 mg Daily for 2 Days and 0 Hour 30 mg Daily for 2 Days and 0 Hour 20 mg Daily for 2 Days and 0 Hour 10 mg Daily for 2 Days and 0 Hour Rx Instructions: see taper instructions bumetanide 0.5 mg Tablet 1 mg PO BID 30 Days Qty: 60 0RF insulin lispro 100 unit/mL insulin pen See Protocol SUBCUT QPM Qty: 15 0RF Protocol: Insulin Corrective High-Dose Regimen Condition: Fingerstick Blood Glucose Dose/Route: Insulin Units Condition: 141-180 mg/dl Dose/Route: 2 units/SQ Condition: 181-220 mg/dl Dose/Route: 4 units/SQ Condition: 221-260 mg/dl Dose/Route: 6 units/SQ Condition: 261-300 mg/dl Dose/Route: 8 units/SQ Condition: 301-350 mg/dl Dose/Route: 10 units/SQ Condition: 351-400 mg/dl Dose/Route: 12 units/SQ Condition: greater than 400 mg/dl Dose/Route: 14 units/SQ albuterol sulfate 2.5 mg /3 mL (0.083 %) Solution For Nebulization 2.5 mg INHALATION Q6H PRN (Reason: Shortness Of Breath) modafinil 200 mg Tablet 400 mg PO QAM gabapentin 300 mg Capsule 600 mg PO TID albuterol sulfate 90 mcg/actuation Hfa Aerosol Inhaler 1 puff INHALATION Q4H PRN (Reason: Shortness Of Breath) cholecalciferol (vitamin D3) [Vitamin D3] 25 mcg (1,000 unit) Tablet 25 mcg PO DAILY omega 8-mwn-zri-fish oil [Fish Oil] 1,200 (144-216) mg Capsule 2 cap PO BID Breztri Aerosphere 160-9-4.8 mcg/actuation Hfa Aerosol Inhaler 2 inh INHALATION BID multivitamin Tablet 1 tab PO DAILY hydrocodone-acetaminophen 5-325 mg tablet 1 tab PO Q6H PRN (Reason: Pain) fluticasone propionate 50 mcg/actuation [place],Suspension 1 spray INTRANASAL DAILY Rx Instructions: administer into each nostril guaifenesin [Mucinex] 600 mg Tablet Extended Release 12hr 600 mg PO Q12H PRN (Reason: Congestion) Entresto 24-26 mg Tablet 1 tab PO BID Lactobacillus acidophilus 500 million cell Capsule 500 mmu cells PO DAILY Discharge Orders: Discharge ED (Routine); Ordered 05/14/24 Ordered By: Padilla Lemos Referrals: Jayda Lucas MD [Primary Care Provider] - 1 week Patient Instructions: COPD Activity Restrictions/Additional Instructions: Your evaluation ER that included physical exam, lab work, chest x-ray was all essentially unremarkable and unchanged from earlier today. Once your anxiety settled down your oxygen improved and we titrated back down your normal 3 L of oxygen per nasal cannula and her saturation stayed 96% or above. Please continue all the medicine discharged from the hospital earlier today as directed. Please follow-up with your family practitioner in the next 7 days. Coding Level of Care Code ED Compugraph Operator for Navid White
[2024-05-13 23:30] LABS: Basophils % 0.1 %; Hematocrit 43.7 % (37-53); Lymphocytes # 1.3 10^3/uL (0.8-4.8); Lymphocytes % 8.2 %; Mean Corpuscular HGB Conc 31.8 g/dL (30-55); Mean Corpuscular Hemoglobin 28.5 pg (27-33); Mean Corpuscular Volume 89.7 fl (82-101); Monocytes # 0.8 10^3/uL (0.2-0.9); Monocytes % 5.4 %; Neutrophils % 85.7 %; Nucleated Red Blood Cells % 0 %; Platelet Count 106 10^3/cmm (157-399); Red Blood Count 4.87 10^6/uL (3.85-5.65); Red Cell Distribution Width 16.6 % (12.1-15.1); White Blood Count 15.52 10^3/uL (3.29-11.43)
[2024-05-13 23:41] LABS: Alanine Aminotransferase 30 U/L (0-41); Alkaline Phosphatase 138 U/L (40-130); Aspartate Amino Transferase 25 U/L (0-40); Blood Urea Nitrogen 41 mg/dL (8-23); Calcium 9.8 mg/dL (8.5-10.5); Carbon Dioxide 32 mmol/L (22-29); Chloride 93 mmol/L (98-107); Creatinine Clr Calc Pharmacy 58.4624; Globulin 3.4 g/dL (1.3-4.6); Glucose 429 mg/dL (65-115); Osmolality Calculated 308 mOsm/kg (285-295); Sodium 135 mmol/L (136-145); Total Bilirubin 1.2 mg/dL (0.15-1.2); Total Protein 7.4 g/dL (6.6-8.7)
[2024-05-14] VITALS: BP 143/68; PULSE 84; O2SAT 96
[2024-05-14 01:17] VITALS: BP 133/45; PULSE 80; O2SAT 94
== END 2024-05-14 01:18 | disposition home or self-care (01) ==
PROVIDERS: Emergency Provider Emergency Medicine; PCP Family Medicine
DX: J44.9 Chronic obstructive pulmonary disease, unspecified (principal); Z79.82 Long term (current) use of aspirin; Z79.4 Long term (current) use of insulin; E11.9 Type 2 diabetes mellitus without complications; I10 Essential (primary) hypertension; I25.10 Atherosclerotic heart disease of native coronary artery without angina pectoris; E78.5 Hyperlipidemia, unspecified; Z99.81 Dependence on supplemental oxygen
CPT/HCPCS: 36415; 71045; 80053; 85025; 93005; 99285

== ENCOUNTER 2024-05-20 16:29 | Inpatient (IN) | payer OTHER, SELFPAY ==
[2024-05-20] VITALS (8 sets, daily range): BP systolic 113–151; BP diastolic 44–63; PULSE 65–85; RESP 16–22; TEMP 36.8–36.9; O2SAT 90–96; BMI 23.6
--- NOTE | 2024-05-20 16:54 | ECG_ITS ---
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 Measurements Intervals [place] Rate: 74 P: 0 SC: 0 QRS: -35 QRSD: 112 T: 166 QT: 400 QTc: 445 Interpretive Statements ATRIAL FIBRILLATION WITH ABERRANT CONDUCTION OR VENTRICULAR PREMATURE COMPLEXES LEFT AXIS DEVIATION [QRS AXIS < -30] SEPTAL MYOCARDIAL INFARCTION , OF INDETERMINATE AGE [40+ ms Q WAVE IN V1/V2] MODERATE T-WAVE ABNORMALITY, CONSIDER LATERAL ISCHEMIA [-0.1+ mV T-WAVE IN I/aVL/V5/V6] INTERPRETATION BASED ON A DEFAULT AGE OF 40 YEARS Compared to ECG 05/13/2024 22:46:35 Left-axis deviation now present.Left anterior fascicular block no longer present Myocardial infarct finding still present. T-wave abnormality still present Possible ischemia still present Electronically Signed On 05-21-2024 21:11:26 [employer] by Yumi Hodge M.D. [email or web address]
--- NOTE | 2024-05-20 16:55 | XRR_ITS ---
PROCEDURE INFORMATION: Exam: XR Chest Exam date and time: 05/20/2024 5:05 PM Age: 74 years old Clinical indication: Shortness of breath; Prior surgery; Surgery date: 6+ months; Surgery type: Avr; Additional info: SOB TECHNIQUE: Imaging protocol: Radiologic exam of the chest. Views: 1 view. COMPARISON: CR (CHEST, ) 05/13/2024 11:23 PM FINDINGS: Lungs: Unchanged pleural-parenchymal opacity in the left base obscuring the left heart border and left hemidiaphragm. Pleural spaces: Unremarkable. No pleural effusion. No pneumothorax. Heart/Mediastinum: Aortic valve prosthesis is again seen.. No cardiomegaly. Bones/joints: Unremarkable. XR/XR chest 1V portable [id number] IMPRESSION: No significant change.
--- NOTE | 2024-05-20 17:37 | ED_ITS ---
HPI - SOB/Dyspnea 2 General: Chief Complaint: Shortness of Breath/Dyspnea Stated Complaint: sent by [facility] Time Seen by Provider: 05/20/24 17:04 Source: patient and family Mode of arrival: ambulatory Limitations: no limitations History of Present Illness: HPI Narrative: Patient is a 74-year-old male with past medical history of diabetes, congestive heart failure, COPD, coronary artery disease, and lung cancer who presents to the emergency department referred from his cardiology office due to worsening shortness of breath and peripheral edema over the past few days. Reviewing patient's medical history, it appears he was in the hospital at the end of April for altered mental status. Subsequently he was again seen in the hospital from 05/08 to 05/13 due to sepsis and a CHF exacerbation where he was intubated. Was discharged started on Bactrim and states he has a few doses of this left. In the hospital he was requiring BiPAP but eventually brought down to his baseline O2 of 3 L, which he currently is on and satting 96 to 98%. He saw cardiology today, blood pressure reportedly low after he was started on his hydralazine. He states that despite being on full-strength Bumex twice daily, he has continued to retain fluid to his lower extremities, and pain has gotten so severe to where he cannot walk. He is not reporting any chest pain, but states his shortness of breath initially improved after released from the hospital but has steadily worsened since. It is worse with lying flat and any exertion whatsoever. He denies any cough, fevers, chills, or other symptoms. He is noting some diffuse weakness. MD elicited complaint: shortness of breath Pertinent past history: COPD, congestive heart failure, diabetes, pneumonia and sepsis Onset (ago): day(s) Context: recent illness Timing: constant and progressively worsening Severity: severe Exacerbating factors: lying flat Relieving factors: nothing Known history of: COPD, congestive heart failure and diabetes Associated symptoms: Reports extremity pain and orthopnea; Deny abdominal pain, chest pain, fever(s), lightheadedness, nausea, palpitations or vomiting Treatment prior to arrival: oxygen and diuretics Related Data Home Medications Medication Instructions Recorded Confirmed albuterol sulfate 2.5 mg/3 mL 2.5 mg inhalation Q6H PRN 12/15/21 05/20/24 (0.083 %) solution for nebulization Shortness Of Breath albuterol sulfate 90 mcg/actuation 1 puff inhalation Q4H PRN 12/15/21 05/20/24 aerosol inhaler Shortness Of Breath budesonide 160 mcg-glycopyr 9 2 inh inhalation BID 12/15/21 05/20/24 mcg-formot 4.8 mcg/actuation HFA inhaler (Breztri Aerosphere) cholecalciferol (vitamin D3) 25 25 mcg PO DAILY 12/15/21 05/20/24 mcg (1,000 unit) tablet (Vitamin D3) gabapentin 300 mg capsule 600 mg PO TID 12/15/21 05/20/24 modafinil 200 mg tablet 400 mg PO QAM 12/15/21 05/20/24 omega 8-iia-zob-fish oil 1,200 mg 2 cap PO BID 12/15/21 05/20/24 (144 mg-216 mg) capsule (Fish Oil) Lactobacillus acidophilus 500 500 mmu cells PO DAILY 05/01/24 05/20/24 million cell capsule fluticasone propionate 50 1 spray intranasal DAILY 05/01/24 05/20/24 mcg/actuation nasal spray,suspension guaifenesin 600 mg tablet, 600 mg PO Q12H PRN Congestion 05/01/24 05/20/24 extended release 12 hr (Mucinex) hydrocodone 5 mg-acetaminophen 325 1 tab PO Q6H PRN Pain 05/01/24 05/20/24 mg tablet multivitamin 1 tab PO DAILY 05/01/24 05/20/24 sacubitril 24 mg-valsartan 26 mg 1 tab PO BID 05/01/24 05/20/24 tablet (Entresto) famotidine 40 mg tablet 40 mg PO BID 05/08/24 05/20/24 roflumilast 500 mcg tablet 500 mcg PO DAILY 05/08/24 05/20/24 Previous Rx's Medication Instructions Recorded aspirin 81 mg tablet,delayed 81 mg PO DAILY #30 tabs 05/13/24 release atorvastatin 40 mg tablet 40 mg PO BEDTIME #30 tabs 05/13/24 bumetanide 0.5 mg tablet 1 mg (2 x 0.5 mg) PO BID 30 days 05/13/24 #60 tabs hydralazine 25 mg tablet 25 mg PO TID #90 tabs 05/13/24 insulin lispro 100 unit/mL See Protocol SUBCUT QPM #15 mL 05/13/24 subcutaneous pen prednisone 10 mg tablet See Taper PO DIRECTED #42 tabs 05/13/24 Allergies Allergy/AdvReac Type Severity Reaction Status Date / Time azithromycin Allergy Unknown Unknown Verified 05/20/24 16:42 levofloxacin [From Levaquin] Allergy Unknown Unknown Verified 05/20/24 16:42 Quinolones Allergy Unknown Unknown Verified 05/20/24 16:42 Review of Systems 2 General: Reports: 10 or more systems reviewed and unremarkable except in HPI and below Const: Reports: fatigue and malaise; Denies: fever(s) or chills Eyes: Denies: change in vision ENMT: Denies: throat pain, ear or mastoid pain or nasal discharge Card: Reports: edema and orthopnea; Denies: chest pain, palpitations, swelling of feet/ankles or lightheadedness Resp: Reports: dyspnea and wheezing; Denies: productive cough GI: Denies: abdominal pain, nausea, vomiting, diarrhea or constipation : Denies: flank pain, difficulty urinating, dysuria or urinary frequency Musc: Reports: extremity pain, extremity swelling and muscle weakness; Denies: neck pain, back pain or joint pain Skin/Breast: Denies: rash Neuro: Denies: headache(s), numbness in extremities or weakness in extremities PFSH ED 2 PFSH: Medical History Diabetes mellitus Hyperlipidemia Hypertension CAD (coronary artery disease) Lung cancer COPD (chronic obstructive pulmonary disease) Surgical History S/P TAVR (transcatheter aortic valve replacement) H/O aortic valve replacement Social History Smoking and tobacco/nicotine status: former use of tobacco/nicotine Physical Exam 2 Const: COMMON NORMALS: patient oriented x3 and alert GENERAL APPEARANCE: c ooperative NUTRITIONAL APPEARANCE: thin ORIENTATION/CONSCIOUSNESS: Yes awake OTHER: Ill-appearing, mild respiratory distress with pursed lip breathing HENMT: COMMON NORMALS: normocephalic and atraumatic HEAD & SCALP: n ormocephalic and atraumatic OTHER: Dry oral mucosa Eye: COMMON NORMALS: Equal, round and reactive pupils present, EOMs intact bilaterally, conjunctivae normal and no scleral icterus CONJUNCTIVA: Yes conjunctivae normal PUPIL: Yes Equal, round and reactive pupils present Neck/C-Spine: COMMON NORMALS: full ROM, supple and no JVD Chest: COMMONS NORMALS: normal inspection of the chest and normal palpation of entire chest wall Resp: EFFORT & INSPECTION: Yes symmetric chest movement, Yes tachypneic, Yes pursed lip breathing, Yes labored and No tripod positioning OTHER: Speaking in choppy sentences. Diffuse inspiratory/expiratory wheezing. Cardio: COMMON NORMALS: no JVD, regular rate, regular rhythm, No gallops present (Cardio), No murmurs present (Cardio), No rub (Cardio) and Peripheral pulses 2+ throughout RATE: regular rate RHYTHM: regular rhythm P ERIPHERAL PULSES: Peripheral pulses 2+ throughout GI: COMMON NORMALS: Soft to palpation, non-tender, No hepatosplenomegaly present and no masses PALPATION: Yes Soft to palpation and Yes No hepatosplenomegaly present OTHER: Large area of ecchymosis to lower abdomen Extremity: OTHER: 2+ pitting edema bilaterally up to the k nees. Blistering noted to the toes. There is 1 wound that appears to be early stage ulcer to the left lateral bruno with active weeping. Diffuse bruising to bilateral upper extremities Neuro: COMMON NORMALS: patient oriented x3, moves all extremities, no focal motor deficits and no sensory deficits noted SENSORIUM/ORIENTATION: Yes alert Course 2 Vital Signs: Vital signs: Vital Signs Temperature 98.3 F 05/20/24 16:43 Pulse Rate 72 05/20/24 19:00 Respiratory Rate 16 05/20/24 19:00 Blood Pressure 129/46 05/20/24 19:00 Pulse Oximetry 90 05/20/24 19:00 Oxygen Delivery Me thod Nasal Cannula 05/20/24 19:00 Oxygen Flow Rate 3 05/20/24 19:00 MDM - SOB/Dyspnea Medical Decision Making Patient has multiple hospitalizations recently, see HPI for timeline of this. He presented today with concerns of increased peripheral edema as well as worsening of his shortness of breath. He has a very concerning past medical history, does seem somewhat fluid overloaded on physical exam and in mild respiratory distress. For most of the ED stay he has been on his 3 L O2 and adequate O2 saturation, he has started to drop in the low 90s towards the end of his stay and I spoke with hospitalist, Dr. Hebert, who agrees to accept the patient for observation. His labs seem essentially unchanged from his discharge labs a week ago, chest x-ray unchanged as well. Lab Data 05/20/24 18:26 05/20/24 18:26 Labs/Radiology: Radiology Impressions Chest X-Ray 05/20/24 16:55 IMPRESSION: No significant change. Laboratory Results WBC 9.26 10^3/uL (3.29-11.43) 05/20/24 18:26 RBC 4.01 10^6/uL (3.85-5.65) 05/20/24 18:26 Hgb 11.30 g/dL (11.27-16.99) 05/20/24 18:26 Hct 36.3 % (37-53) L 05/20/24 18:26 MCV 90.5 fl (82-101) 05/20/24 18:26 MCH 28.2 pg (27-33) 05/20/24 18:26 MCHC 31.1 g/dL (30-55) 05/20/24 18:26 RDW 17.4 % (12.1-15.1) H 05/20/24 18:26 Plt Count 81 10^3/cmm (157-399) L 05/20/24 18:26 MPV 11.6 fL (7.4-10.4) H 05/20/24 18:26 Neut % (Auto) 78.0 % 05/20/24 18:26 Lymph % (Auto) 16.3 % 05/20/24 18:26 Henry % (Auto) 5.1 % 05/20/24 18:26 Eos % (Auto) 0.1 % 05/20/24 18:26 Baso % (Auto) 0.1 % 05/20/24 18:26 Neut # (Auto) 7.22 10^3/uL (1.8-7.7) 05/20/24 18:26 Lymph # (Auto) 1.5 10^3/uL (0.8-4.8) 05/20/24 18:26 Henry # (Auto) 0.5 10^3/uL (0.2-0.9) 05/20/24 18:26 Eos # (Auto) 0.0 10^3/uL (0.0-0.8) 05/20/24 18:26 Baso # (Auto) 0.0 10^3/uL (0.0-0.1) 05/20/24 18:26 Nucleated RBC % (auto) 0 % 05/20/24 18:26 Nucleated RBCs # 0.0 /100WBC 05/20/24 18:26 PT 12.40 SECONDS (12.1-14.9) 05/20/24 18:26 INR 0.90 (0.8-1.2) 05/20/24 18:26 Sodium 139 mmol/L (136-145) 05/20/24 18:26 Potassium 5.1 mmol/L (3.5-5.1) 05/20/24 18:26 Chloride 94 mmol/L (98-107) L 05/20/24 18:26 Carbon Dioxide 32 mmol/L (22-29) H 05/20/24 18:26 Anion Gap 18.1 (5-19) 05/20/24 18:26 BUN 41 mg/dL (8-23) H 05/20/24 18:26 Creatinine 0.9 mg/dL (0.7-1.2) 05/20/24 18:26 GFR Calculation Not Reportable 05/20/24 18:26 Glucose 407 mg/dL (65-115) H 05/20/24 18:26 Calculated Osmolality 315 mOsm/kg (285-295) H 05/20/24 18:26 Calcium 9.1 mg/dL (8.5-10.5) 05/20/24 18:26 Total Bilirubin 0.6 mg/dL (0.15-1.2) 05/20/24 18:26 AST 19 U/L (0-40) 05/20/24 18:26 ALT 24 U/L (0-41) 05/20/24 18:26 Alkaline Phosphatase 134 U/L (40-130) H 05/20/24 18:26 NT-Pro-B Natriuret Pep 3251 pg/mL (0-125) H 05/20/24 18:26 Total Protein 6.3 g/dL (6.6-8.7) L 05/20/24 18:26 Albumin 3.3 g/dL (3.5-5.2) L 05/20/24 18:26 Globulin 3.0 g/dL (1.3-4.6) 05/20/24 18:26 Urine Color Yellow (Yellow) 05/20/24 17:41 Urine Appearance Clear (CLEAR) 05/20/24 17:41 Urine pH 5.5 (5-7) 05/20/24 17:41 Ur Specific Alexander 1.022 (1.005-1.030) 05/20/24 17:41 Urine Protein Trace (Negative) A 05/20/24 17:41 Urine Glucose (UA) 3+ (Normal) H 05/20/24 17:41 Urine Ketones Negative (Negative) 05/20/24 17:41 Urine Blood Negative (Negative) 05/20/24 17:41 Urine Nitrate Negative (Negative) 05/20/24 17:41 Urine Bilirubin Negative (Negative) 05/20/24 17:41 Urine Urobilinogen 1.0 mg/dL (Negative) 05/20/24 17:41 Ur Leukocyte Esterase 1+ (Negative) A 05/20/24 17:41 Urine RBC 3-5 /hpf (0-2) 05/20/24 17:41 Urine WBC 21-50 /hpf (0-5) H 05/20/24 17:41 Ur Squamous Epith Cells 0-5 /hpf (0-5) 05/20/24 17:41 Amorphous Sediment Not Reportable 05/20/24 17:41 Urine Bacteria None seen /hpf (NONE) 05/20/24 17:41 Hyaline Casts 9.51 /lpf 05/20/24 17:41 Urine Yeast 1+ /hpf H 05/20/24 17:41 All radiology interpretation(s) finalized by discharge Discharge Plan Discharge Patient Disposition: Placed in Observation Clinical Impression: Acute exacerbation of CHF (congestive heart failure) Qualifiers: Heart failure type: unspecified Qualified Code(s): I50.9 - Heart failure, unspecified Coding Level of Care Code 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
[2024-05-20 18:00] LABS: Bilirubin Urine Negative (Negative); Blood Urine Negative (Negative); Glucose Urine UA 3+ (Normal); Ketones Urine Negative (Negative); Leukocyte Esterase Urine 1+ (Negative); Nitrate Urine Negative (Negative); Protein Urine Trace (Negative); Specific Gravity, Urine 1.022 (1.005-1.030); Urine Appearance Clear (CLEAR); Urine Color Yellow (Yellow); pH Urine 5.5 (5-7)
[2024-05-20 18:06] LABS: Add Urine Microscopic? YES; Bacteria Urine None Seen /hpf; Hyaline Casts Urine 9.51 /lpf; Squamous Epithelial Cell Urine 0-5 /hpf (0-5); WBC Urine 21-50 /hpf (0-5)
[2024-05-20 18:21] LABS: UA Slide Review UA Slide Review Perf
[2024-05-20 18:22] LABS: Add Urine Culture? Yes
[2024-05-20 18:42] LABS: Basophils % 0.1 %; Eosinophils % 0.1 %; Hematocrit 36.3 % (37-53); Lymphocytes # 1.5 10^3/uL (0.8-4.8); Lymphocytes % 16.3 %; Mean Corpuscular HGB Conc 31.1 g/dL (30-55); Mean Corpuscular Hemoglobin 28.2 pg (27-33); Mean Corpuscular Volume 90.5 fl (82-101); Mean Platelet Volume 11.6 fL (7.4-10.4); Monocytes # 0.5 10^3/uL (0.2-0.9); Monocytes % 5.1 %; Neutrophils # 7.22 10^3/uL (1.8-7.7); Nucleated Red Blood Cells % 0 %; Platelet Count 81 10^3/cmm (157-399); Red Blood Count 4.01 10^6/uL (3.85-5.65); Red Cell Distribution Width 17.4 % (12.1-15.1); White Blood Count 9.26 10^3/uL (3.29-11.43)
[2024-05-20 19:09] LABS: Alanine Aminotransferase 24 U/L (0-41); Albumin Level 3.3 g/dL (3.5-5.2); Alkaline Phosphatase 134 U/L (40-130); Anion Gap 18.1 (5-19); Aspartate Amino Transferase 19 U/L (0-40); Blood Urea Nitrogen 41 mg/dL (8-23); Calcium 9.1 mg/dL (8.5-10.5); Carbon Dioxide 32 mmol/L (22-29); Chloride 94 mmol/L (98-107); Creatinine Clr Calc Pharmacy 72.5782; Glucose 407 mg/dL (65-115); NT Pro B Type Natriuretic Pept 3251 pg/mL (0-125); Osmolality Calculated 315 mOsm/kg (285-295); Potassium 5.1 mmol/L (3.5-5.1); Sodium 139 mmol/L (136-145); Total Bilirubin 0.6 mg/dL (0.15-1.2); Total Protein 6.3 g/dL (6.6-8.7)
--- NOTE | 2024-05-20 20:04 | USR_ITS ---
PROCEDURE INFORMATION: Exam: US Duplex Bilateral Lower Extremity Arteries Exam date and time: 05/20/2024 8:18 PM Age: 74 years old Clinical indication: Other: Cool extremities; Prior surgery; Surgery date: 6+ months; Surgery type: 2016 bio avr, 2016 right leg stenting TECHNIQUE: Imaging protocol: Real-time ultrasound scan of the arteries of the bilateral lower extremities with 2-D garcia scale, color Doppler flow and spectral waveform analysis. Images documented and saved. COMPARISON: US renal BI* [id number] 06/20/2021 7:14 AM FINDINGS: Right common femoral artery: No occlusion or significant stenosis. Normal waveform. Right superficial femoral artery: No occlusion or significant stenosis. Normal waveform. Right popliteal artery: No occlusion or significant stenosis. Normal waveform. Right calf/foot arteries: No occlusion or significant stenosis in the visualized arteries. Normal waveforms. Dorsalis pedis artery is patent. Left common femoral artery: No occlusion or significant stenosis. Normal waveform. Left superficial femoral artery: No occlusion or significant stenosis. Normal waveform. Left popliteal artery: No occlusion or significant stenosis. Normal waveform. Left calf/foot arteries: No occlusion or significant stenosis in the visualized arteries. Normal waveforms. Dorsalis pedis artery is patent. US/[place] [id number] IMPRESSION: No stenosis or occlusion in the bilateral lower extremity veins.
--- NOTE | 2024-05-20 20:04 | CTR_ITS ---
PROCEDURE INFORMATION: Exam: CT Chest Without Contrast; Diagnostic Exam date and time: 05/20/2024 8:13 PM Age: 74 years old Clinical indication: Shortness of breath; Additional info: SOB TECHNIQUE: Imaging protocol: Diagnostic computed tomography of the chest without contrast. Radiation optimization: All CT scans at this facility use at least one of these dose optimization techniques: automated exposure control; mA and/or kV adjustment per patient size (includes targeted exams where dose is matched to clinical indication); or iterative reconstruction. COMPARISON: CT angio chest PE protcl [id number] 05/02/2024 4:41 AM RADIATION DOSE METRICS: Total DLP (mGy-cm): 324.02 FINDINGS: Tubes, catheters and devices: There is a chronic metallic left atrial appendage occlusion device. Without contrast the effectiveness of the device is not assessed. The endotracheal tube has been removed. Lungs: There is persisting segmental atelectasis in the middle lobe. There is decreased left basilar subsegmental atelectasis. Bilateral patchy peribronchial and tree-in-bud opacities have slightly decreased since the prior study indicating gradual resolution of an inflammatory process. Pleural spaces: Bilateral trace pleural effusions have decreased since the prior study. Heart: Chronic aortic valve is probably a TAVR. Lymph nodes: Central mediastinal nodes measure 1.7 cm or less and are decreasing indicative of a resolving reactive process. Vasculature: Unremarkable. No aortic aneurysm. Gallbladder and biliary ducts: Layering gravel-like stones in the gallbladder are nonobstructing. Spleen: The spleen is partially seen but appears mildly enlarged which is unchanged. Bones/joints: Unremarkable. No acute fracture. Soft tissues: Unremarkable. CT/CT chest wo con [id number] IMPRESSION: 1. Resolving pulmonary inflammatory processes and effusions as described. 2. There is persisting segmental atelectasis in the middle lobe in the left lower lobe posterior basal segment. 3. Decreasing reactive adenopathy. 4. Prosthetic aortic valve and left atrial appendage occlusion device 5. Other chronic findings as described
--- NOTE | 2024-05-20 20:05 | P.HP_ITS ---
Providers/Chief Complaint 2 Primary Care Provider: Jayda Lucas MD Chief Complaint: sent by [facility] History of Present Illness Grayson Shepard is a 74 year old male with a past medical history of CHF, last hospitalization 7 days ago for CHF exacerbation, history of sepsis secondary to pneumonia on Bactrim, on prednisone taper, history of COPD, history of mechanical ventilation 12 5, history of lung mass stopped taking Keytruda, CAD, history of aortic valve replacement, history of A-fib, history of peripheral arterial disease type 2 diabetes mellitus, who presents [facility] due to increased progressive shortness of breath with exertion, now at rest, with lower extreme edema. Patient tells me that since being discharged from the hospital he has persistent shortness of breath, shortness of breath with exertion, now at rest with lower extremity edema, no chest pain, does have a cough, no fevers, no chills, he is on 3 L, he saw cardiology, blood pressures were been noted to be low possibly send hydralazine, he is on Bumex 1 mg twice daily, does report orthopnea and paroxysmal nocturnal dyspnea Review of Systems 2 Const: Reports: fatigue and malaise; Denies: fever(s) or chills Card: Reports: edema and dyspnea on exertion; Denies: chest pain Resp: Reports: dyspnea GI: Denies: abdominal pain : Denies: flank pain Neuro: Denies: headache(s) Medications/Allergies Home Medications Medication Instructions Recorded Confirmed Last Taken Type albuterol sulfate 2.5 mg/3 mL 2.5 mg inhalation Q6H PRN 12/15/21 05/20/24 Unknown History (0.083 %) solution for nebulization Shortness Of Breath albuterol sulfate 90 mcg/actuation 1 puff inhalation Q4H PRN 12/15/21 05/20/24 Unknown History aerosol inhaler Shortness Of Breath budesonide 160 mcg-glycopyr 9 2 inh inhalation BID 12/15/21 05/20/24 05/07/24 History mcg-formot 4.8 mcg/actuation HFA inhaler (Breztri Aerosphere) cholecalciferol (vitamin D3) 25 25 mcg PO DAILY 12/15/21 05/20/24 05/07/24 History mcg (1,000 unit) tablet (Vitamin D3) gabapentin 300 mg capsule 600 mg PO TID 12/15/21 05/20/24 05/08/24 History modafinil 200 mg tablet 400 mg PO QAM 12/15/21 05/20/24 05/07/24 History omega 1-kos-mqu-fish oil 1,200 mg 2 cap PO BID 12/15/21 05/20/24 05/07/24 History (144 mg-216 mg) capsule (Fish Oil) Lactobacillus acidophilus 500 500 mmu cells PO DAILY 05/01/24 05/20/24 05/07/24 History million cell capsule fluticasone propionate 50 1 spray intranasal DAILY 05/01/24 05/20/24 05/07/24 History mcg/actuation nasal spray,suspension guaifenesin 600 mg tablet, 600 mg PO Q12H PRN Congestion 05/01/24 05/20/24 Unknown History extended release 12 hr (Mucinex) hydrocodone 5 mg-acetaminophen 325 1 tab PO Q6H PRN Pain 05/01/24 05/20/24 Unknown History mg tablet multivitamin 1 tab PO DAILY 05/01/24 05/20/24 05/07/24 History sacubitril 24 mg-valsartan 26 mg 1 tab PO BID 05/01/24 05/20/24 05/07/24 History tablet (Entresto) famotidine 40 mg tablet 40 mg PO BID 05/08/24 05/20/24 05/07/24 History roflumilast 500 mcg tablet 500 mcg PO DAILY 05/08/24 05/20/24 05/07/24 History aspirin 81 mg tablet,delayed 81 mg PO DAILY #30 tabs 05/13/24 05/20/24 Unknown Rx release atorvastatin 40 mg tablet 40 mg PO BEDTIME #30 tabs 05/13/24 05/20/24 Unknown Rx bumetanide 0.5 mg tablet 1 mg (2 x 0.5 mg) PO BID 30 days 05/13/24 05/20/24 05/07/24 Rx #60 tabs hydralazine 25 mg tablet 25 mg PO TID #90 tabs 05/13/24 05/20/24 Unknown Rx insulin lispro 100 unit/mL See Protocol SUBCUT QPM #15 mL 05/13/24 05/20/24 Unknown Rx subcutaneous pen prednisone 10 mg tablet See Taper PO DIRECTED #42 tabs 05/13/24 05/20/24 Unknown Rx Allergies Allergy/AdvReac Type Severity Reaction Status Date / Time azithromycin Allergy Unknown Unknown Verified 05/20/24 16:42 levofloxacin [From Levaquin] Allergy Unknown Unknown Verified 05/20/24 16:42 Quinolones Allergy Unknown Unknown Verified 05/20/24 16:42 PFSH Acute 2 PFSH: Medical History Diabetes mellitus Hyperlipidemia Hypertension CAD (coronary artery disease) Lung cancer COPD (chronic obstructive pulmonary disease) Surgical History S/P TAVR (transcatheter aortic valve replacement) H/O aortic valve replacement Social History Smoking and tobacco/nicotine status: former use of tobacco/nicotine Vitals/I&O/Wt Last Vital Signs Temp 98.3 F 05/20/24 16:43 Pulse 65 05/20/24 20:00 Resp 16 05/20/24 20:00 BP 131/53 05/20/24 20:00 Pulse Ox 94 05/20/24 20:00 O2 Del Method Nasal Cannula 05/20/24 20:00 O2 Flow Rate 3 05/20/24 20:00 05/20/24 05/20/24 05/20/24 06:59 14:59 22:59 Intake Total 0 / 0 Balance 0 / 0 Weight last 48 hrs Weight 70.307 kg Physical Exam 2 Const: COMMON NORMALS: no acute distress and patient oriented x3 HENMT: COMMON NORMALS: normocephalic HEAD & SCALP: normocephalic Neck/C-Spine: COMMON NORMALS: no JVD Lymph: LYMPHATIC: no lymphadenopathy noted Resp: COMMON NORMALS: normal respiratory effort, No retractions and No use of accessory muscles AUSCULTATION: crackles Cardio: COMMON NORMALS: regular rate, regular rhythm, S1 normal heart sound present and S2 normal heart sound present RATE: regular rate RHYTHM: r egular rhythm HEART SOUNDS: S1 normal heart sound present and S2 normal heart sound present GI: COMMON NORMALS: Normal to inspection, nondistended, normoactive bowel sounds present, Soft to palpation and non-tender OTHER: Abdominal examination, lower abdomen, superficial bruising, from prior heparin shots Extremity: NARRATIVE EXTREMITY EXAM: 2+ pitting edema DP PT pulses palpable, with palpable, but diminished Lower extremities cool to touch bilaterally Neuro: COMMON NORMALS: patient oriented x3, CN's II-XII intact bilaterally, moves all extremities and no focal motor deficits Psych: COMMON NORMALS: mental status grossly normal Data 05/20/24 18:26 05/20/24 18:26 A&P Assessment and plan (1) Acute hypoxic respiratory failure: (2) Non-ischemic cardiomyopathy: (3) Acute exacerbation of CHF (congestive heart failure): Qualifiers: Heart failure type: unspecified Qualified Code(s): I50.9 - Heart failure, unspecified (4) Chronic atrial fibrillation: (5) COPD (chronic obstructive pulmonary disease): Qualifiers: COPD type: unspecified COPD Qualified Code(s): J44.9 - Chronic obstructive pulmonary disease, unspecified (6) UTI (urinary tract infection): Plan Acute hypoxic respiratory failure ? Multifactorial -Acute CHF exacerbation, systolic, 2+ pitting edema -Has completed antibiotics for multifocal pneumonia, Bactrim ? Is currently on prednisone taper for COPD exacerbation ? History of left upper lobe spiculated masslike opacity, with history of right upper lobe masslike consolidation, multistation mediastinal lymphadenopathy, left greater than right pleural effusions ? Plan ? CT of the chest x-ray CRP, Pro-Darren -Sputum culture today/blood cultures ? Beta D glucan, LDH ? Fluid restrictions at 1000 cc -Bumex 1 mg IV push every 12 hours, 1 dose metolazone today ? Monitor urine output monitor creatinine ? Has completed Bactrim for UTI, hold off on further doses based on clinical progress as above ? Prednisone taper currently at 20 mg daily for 2 days History of CAD # Troponin series Urinary tract infection Continue Rocephin type 2 diabetes mellitus low-dose sliding scale Bilateral lower extremities - cool to the touch -History of PAD -His DP PT pulses palpable -Peripheral arterial ultrasound Full code Lovenox for DVT prophylaxis Attestations 2 Medical Necessity Statement*: Patient requires hospitalization, inpatient, greater than 2 midnights, for acute CHF exacerbation, acute hypoxic respiratory failure Diagnoses Acute hypoxic respiratory failure J96.01 Non-ischemic cardiomyopathy I42.8 Acute exacerbation of CHF (congestive heart failure) I50.9 Heart failure type: unspecified Chronic atrial fibrillation I48.20 COPD (chronic obstructive pulmonary disease) J44.9 COPD type: unspecified COPD UTI (urinary tract infection) N39.0
[2024-05-20 20:31] LABS: Lactic Sepsis W/Reflex 2.3 mmol/L (0.5-2.2)
[2024-05-20 20:33] LABS: Troponin(5th) Baseline 97 ng/L (0-15)
[2024-05-20 20:35] LABS: C Reactive Protein 22.4 mg/L (0.0-4.9); Lactate Dehydrogenase 236 U/L (135-225)
[2024-05-20 20:42] LABS: Procalcitonin 0.21 ng/mL (0-0.5)
[2024-05-20 21:57] LABS: Reflex Lactate Order REFLEX LACTIC ORDERD
--- NOTE | 2024-05-20 22:10 | ECG_ITS ---
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 Measurements Intervals [place] Rate: 75 P: 0 [place]: 0 QRS: -25 QRSD: 117 T: 163 QT: 403 QTc: 451 Interpretive Statements ATRIAL FIBRILLATION WITH ABERRANT CONDUCTION OR VENTRICULAR PREMATURE COMPLEXES SEPTAL MYOCARDIAL INFARCTION , OF INDETERMINATE AGE [40+ ms Q WAVE IN V1/V2] MODERATE T-WAVE ABNORMALITY, CONSIDER LATERAL ISCHEMIA [-0.1+ mV T-WAVE IN I/aVL/V5/V6] Compared to ECG 05/20/2024 16:44:51 Left-axis deviation no longer present Myocardial infarct finding still present T-wave abnormality still present Possible ischemia still present Electronically Signed On 05-21-2024 21:13:52 FELL CUTTER by Yumi Hodge M.D. [id number]
[2024-05-20 22:20] LABS: ABG PCO2 66.2 mmHg (35-45); ABG PH Result 7.35 (7.35-7.45); Arterial Blood Gas Hematocrit 35.2 % (42-52); Base Excess ABG 8.8 mmol/L (-2.0-2.0); Blood Gas Allen Test Pos; Blood Gas Sample Site Radial, left; Blood Gas Sample Type Arterial; HCO3 ABG 36.5 mmol/L (22-26); Oxygen Device NC; PO2 ABG 54.8 mmHg (80.0-100.0)
[2024-05-20] MEDS: pantoprazole 40 mg SDV IVP (23:03)
[2024-05-20] MEDS: metOLazone 5 MG Tablet PO (23:03)
[2024-05-20] MEDS: atorvastatin 40 mg Tablet PO (23:03)
[2024-05-20] MEDS: gabapentin 300 mg Capsule 600 MG PO (23:03)
[2024-05-20] MEDS: cefTRIAXone 1,000 mg SDV 1000 MG IVP (23:04)
[2024-05-20] MEDS: bumetanide 0.25 mg/mL SDV 4 mL 1 MG IVP (23:04)
[2024-05-20 23:43] LABS: Lactic Acid level (Lactate) 1.9 mmol/L (0.5-2.2); Troponin 5 2HR 113.8 ng/L (0-15); Troponin 5 2HR Delta 16.8 ABS# (0-10)
[2024-05-21] VITALS (72 sets, daily range): BP systolic 79–154; BP diastolic 41–73; PULSE 65–120; RESP 15–29; TEMP 36.3–37.1; O2SAT 88–100
[2024-05-21] MEDS: ipratropium-albuterol 3 mL Neb INHALATION ×4 (02:00→19:53)
--- NOTE | 2024-05-21 02:00 | ECG_ITS ---
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 Measurements Intervals [place] Rate: 72 P: 0 [place]: 0 QRS: -26 QRSD: 110 T: 180 QT: 415 QTc: 455 Interpretive Statements ATRIAL FIBRILLATION with PVCs POSSIBLE ANTERIOR MYOCARDIAL INFARCTION , OF INDETERMINATE AGE [30 ms Q WAVE IN V3/V4, OR R < 0.2 mV IN V4] MARKED T-WAVE ABNORMALITY, CONSIDER LATERAL ISCHEMIA [-0.5+ mV T-WAVE IN I/aVL/V5/V6] Compared to ECG 05/20/2024 22:10:56 Ventricular premature complex(es) no longer present Aberrant conduction of supraventricular beat(s) no longer present Myocardial infarct finding still present T-wave abnormality still present Possible ischemia still present Electronically Signed On 05-21-2024 21:30:52 GRISTMILLER by Yumi Hodge M.D. [email or web address]
[2024-05-21 03:15] LABS: Basophils % 0.2 %; Eosinophils % 0.3 %; Hematocrit 39.4 % (37-53); Lymphocytes # 1.8 10^3/uL (0.8-4.8); Lymphocytes % 18.1 %; Mean Corpuscular HGB Conc 31.2 g/dL (30-55); Mean Corpuscular Hemoglobin 28.5 pg (27-33); Mean Corpuscular Volume 91.4 fl (82-101); Mean Platelet Volume 11.2 fL (7.4-10.4); Monocytes # 0.7 10^3/uL (0.2-0.9); Monocytes % 7.2 %; Neutrophils # 7.52 10^3/uL (1.8-7.7); Neutrophils % 73.8 %; Nucleated Red Blood Cells % 0 %; Platelet Count 95 10^3/cmm (157-399); Red Blood Count 4.31 10^6/uL (3.85-5.65); Red Cell Distribution Width 17.6 % (12.1-15.1); White Blood Count 10.18 10^3/uL (3.29-11.43)
[2024-05-21 03:36] LABS: Troponin 5 6HR 123.5 ng/L (0-15); Troponin 5 6HR Delta 26.5 ng/L (0-12)
[2024-05-21 03:45] LABS: Alanine Aminotransferase 24 U/L (0-41); Albumin Level 3.5 g/dL (3.5-5.2); Alkaline Phosphatase 147 U/L (40-130); Anion Gap 13.9 (5-19); Aspartate Amino Transferase 21 U/L (0-40); Blood Urea Nitrogen 39 mg/dL (8-23); Carbon Dioxide 33 mmol/L (22-29); Chloride 96 mmol/L (98-107); Creatinine Clr Calc Pharmacy 65.3204; Globulin 2.7 g/dL (1.3-4.6); Glucose 392 mg/dL (65-115); Magnesium 2.1 mg/dL (1.7-2.3); Osmolality Calculated 312 mOsm/kg (285-295); Potassium 4.9 mmol/L (3.5-5.1); Sodium 138 mmol/L (136-145); Total Bilirubin 0.6 mg/dL (0.15-1.2); Total Protein 6.2 g/dL (6.6-8.7)
--- NOTE | 2024-05-21 04:00 | USCV_ITS ---
Grayson Shepard Age: 74 Gender: M : 1950 Exam Date: 05/21/2024 04:13 Ordering Phys: Simeon Hebert MD Technologist: RUDDY [place] [facility] [place]ication: nstemi hx of DM, CHF, COPD, CAD, BIO AVR, lung CA BP: 133 / 53 HR: 85 Rhythm: Atrial fibrillation Technical Quality: Adequate MEASUREMENTS (Male / Female) Normal Values 2D ECHO LV Diastolic Diameter PLAX 5.7 cm 4.2 - 5.9 / 3.9 - 5.3 cm IVS Diastolic Thickness 1.4 cm 0.6 - 1.0 / 0.6 - 0.9 cm IVS Systolic Thickness 1.8 cm LVPW Diastolic Thickness 2.0 cm 0.6 - 1.0 / 0.6 - 0.9 cm LVPW Systolic Thickness 2.1 cm LVOT Diameter 2.1 cm LV Ejection Fraction 2D Teich 51.7 % LV Ejection Fraction MOD 4C 51.9 % LV Ejection Fraction MOD 2C 65.8 % LV Ejection Fraction 2C AL 70.0 % LA Diameter 4.8 cm Aorta at Sinotubular Diameter 2.0 cm IVC Diameter 2.0 cm M-MODE LA Ao Ratio MM 2.0 AV Cusp Separation MM 1.7 cm DOPPLER AV Peak Velocity 249.3 cm/s LVOT Peak Velocity 58.0 cm/s AV Area Cont Eq vti 1.1 cm squared AV Area Cont Eq pk 0.8 cm squared MV Peak Velocity 152.0 cm/s MV Area PHT 4.2 cm squared Mitral E to A Ratio 356.0 TV Peak Velocity 432.0 cm/s TR Peak Velocity 442.0 cm/s TR Peak Gradient 78.1 mmHg TV Peak E Velocity 54.0 cm/s PV Peak Velocity 134.0 cm/s FINDINGS Left Ventricle Mild diffuse hypokinesia of the septum and the anteroseptal segments. . Overall LV ejection fraction around 50% Right Ventricle Normal RV size with a slightly diminished ejection fraction Right Atrium Moderately increased right atrial size. Left Atrium Moderately increased left atrial size. Mitral Valve Moderate mitral annular calcification. Thickened mitral valve. Mild-moderate mitral valve regurgitation. Aortic Valve The bioprosthetic valve at the aortic position appears to be well-seated. Peak velocity across the valve is 2.4 m/s Tricuspid Valve Mild to moderate tricuspid valve regurgitation. Thickened tricuspid valve Pulmonic Valve No gross abnormalities noted Pericardium No significant effusion. Possible large pleural effusion Aorta Normal aortic annulus size. IVC Normal inferior vena cava. CONCLUSIONS Mild diffuse hypokinesia of the septum and the anteroseptal segments. . Overall LV ejection fraction around 50%. Moderate biatrial enlargementModerate mitral annular calcification. Thickened mitral valve. Mild-moderate mitral valve regurgitation. Mild to moderate tricuspid valve regurgitation. Thickened tricuspid valve. The bioprosthetic valve at the aortic position appears to be well-seated. Peak velocity across the valve is 2.4 m/s. There is no pericardial effusion. There are no intracardiac masses. Compared to the study from 05/12/2024, the LV ejection fraction remains more or less the same or even slightly better. Dr Yumi Hodge MD [facility] (Electronically Signed) Final Date: 21 May 2024 13:08 S
[2024-05-21 04:16] LABS: ABG PCO2 78.1 mmHg (35-45); ABG PH Result 7.29 (7.35-7.45); Alveolar-Arterial Oxygen Gradi 21.5 mmHg (5-10); Arterial Blood Gas Hematocrit 35.7 % (42-52); Base Excess ABG 8.6 mmol/L (-2.0-2.0); Blood Gas Allen Test Pos; Blood Gas Sample Site Radial, left; Blood Gas Sample Type Arterial; Carboxyhemoglobin 2.1 %THgb (0.4-20.1); HCO3 ABG 37.7 mmol/L (22-26); HGB O2 Sat 89.7 % (95-100); Ionized Calcium Level - ABG 1.2 mmol/L (1.1-1.4); Methemoglobin 0.4 % (0.4-1.5); Oxygen Device BIPAP; PO2 ABG 63.6 mmHg (80.0-100.0); PO2 FiO2 Ratio Arterial Blood 141; Potassium Level - ABG 4.5 mmol/L (3.5-5.0); Total Hemoglobin 11.7 g/dL (14-18)
--- NOTE | 2024-05-21 04:32 | US_ITS ---
WS: [id number] ULTRASOUND-GUIDED THORACENTESIS CLINICAL INFORMATION: left pleural effusion COMPARISON: None. PROCEDURE: Informed consent: The risks, benefits, and alternatives of the procedure were discussed with the sreedhar ent. Verbal and written consent was obtained. Timeout: A timeout was performed to confirm the correct patient, procedure, and site. Site: LEFT chest Preparation: A suitable skin site was identified. The patient was prepped and draped in usual sterile fashion. Lidocaine 1% was used for local anesthesia. Catheter: 4 Setswana One-Step catheter. Fluid Volume: 200 ml Color: Bloody serous Discarded safely. Sent to the laboratory for analysis. Complications: None. / thoracentesis [id number] IMPRESSION: 1. Uncomplicated ultrasound-guided LEFT chest thoracentesis. 2. Drainage of 200 cc bloody fluid. LEFT pleural effusion appears slightly com plex and septated.
--- NOTE | 2024-05-21 05:08 | XRR_ITS ---
PROCEDURE INFORMATION: Exam: XR Chest Exam date and time: 05/21/2024 5:09 AM Age: 74 years old Clinical indication: Shortness of breath and wheezing; Additional info: Abg resutls TECHNIQUE: Imaging protocol: Radiologic exam of the chest. Views: 1 view. COMPARISON: CT chest con [id number] 05/20/2024 8:13 PM FINDINGS: Lungs: There are emphysematous changes in the lungs. Multifocal scattered bilateral pulmonary opacities are similar to the prior study. Pleural spaces: Moderate left pleural effusion with adjacent compressive atelectasis or pneumonia, similar to the prior study. Heart/Mediastinum: Status post TAVR. The left heart border is obscured. Vasculature: There is calcified plaque in the aortic knob. Bones/joints: Unremarkable. XR/XR chest 1V portable [id number] IMPRESSION: 1. Moderate left pleural effusion with adjacent compressive atelectasis or pneumonia, similar to the prior study. 2. There are emphysematous changes in the lungs. 3. Multifocal scattered bilateral pulmonary opacities are similar to the prior study.
--- NOTE | 2024-05-21 05:27 | PC.NURSE ---
pt sob increasing. resp called nursing to address increased sob. physician called and transfer orders put in.
[2024-05-21] MEDS: bumetanide 0.25 mg/mL SDV 4 mL 1 MG IVP ×3 (05:37→20:08)
[2024-05-21 05:44] LABS: Glucose Point of Care 382 mg/dL (70-110)
--- NOTE | 2024-05-21 05:47 | PC.NURSE ---
Recieved patient in Icu 4 at 0593
[2024-05-21] MEDS: piperacillin-tazobactam 3.375 GM in sodium chloride 0.9% (plus) 50 ML IV ×3 (06:47→20:06)
[2024-05-21] MEDS: vancomycin 2,000 MG/400 ML PIGGYBACK 200 MG IV (06:47)
[2024-05-21] MEDS: budesonide 0.5 mg/2 mL Neb INHALATION ×2 (08:19→19:53)
[2024-05-21 08:44] LABS: Glucose Point of Care 411 mg/dL (70-110)
[2024-05-21] MEDS: insulin lispro 100 unit/1 mL SUBCUT ×2 (08:52→13:28)
[2024-05-21] MEDS: roflumilast 500 mcg Tablet PO (09:02)
[2024-05-21] MEDS: gabapentin 300 mg Capsule 600 MG PO ×3 (09:02→20:21)
[2024-05-21] MEDS: predniSONE 20 mg Tablet PO (09:03)
[2024-05-21] MEDS: aspirin 81 mg EC Tablet PO (09:03)
--- NOTE | 2024-05-21 10:13 | PHA.VACGOAL ---
Vancomycin Goal - Goal Vancomycin Goal:: 15-20 mg/L Vancomycin Indication:: Pneumonia - Therapy Current therapy:: Pip/Tazo Day of therpy:: Day [1]of [] . Actual body weight (kg): 65.363 kg - Data Labs: WBC 10.18 10^3/uL (3.29-11.43) 05/21/24 02:47 RBC 4.31 10^6/uL (3.85-5.65) 05/21/24 02:47 Hgb 12.30 g/dL (11.27-16.99) 05/21/24 02:47 Hct 39.4 % (37-53) 05/21/24 02:47 MCV 91.4 fl (82-101) 05/21/24 02:47 MCH 28.5 pg (27-33) 05/21/24 02:47 MCHC 31.2 g/dL (30-55) 05/21/24 02:47 RDW 17.6 % (12.1-15.1) H 05/21/24 02:47 Sodium 138 mmol/L (136-145) 05/21/24 02:47 Potassium 4.9 mmol/L (3.5-5.1) 05/21/24 02:47 Chloride 96 mmol/L (98-107) L 05/21/24 02:47 Carbon Dioxide 33 mmol/L (22-29) H 05/21/24 02:47 Anion Gap 13.9 (5-19) 05/21/24 02:47 BUN 39 mg/dL (8-23) H 05/21/24 02:47 Creatinine 1.0 mg/dL (0.7-1.2) 05/21/24 02:47 GFR Calculation Not Reportable 05/21/24 02:47 Treatment plan:: new consult Regimen:: New start vancomycin for Multifoccal pneumonia. 2000 mg load dose ordered. Previous vancomycin history found. Renal function similar to previous admission Scr 1.0-1.1 mg/dL. Started on 500 mg q12h which had resulted in a 18.2 mg/L trough in previous admission.
[2024-05-21] MEDS: HYDROcodone-acetaminophen 5-325 mg Tablet 1 TAB PO (11:06)
[2024-05-21 11:44] LABS: Glucose Point of Care 332 mg/dL (70-110)
[2024-05-21 11:50] LABS: Adenovirus Not Detected (NOT DETECT); Chlamydia Pneumoniae Not Detected (NOT DETECT); Coronavirus 229E,HKU1,NL63,OC4 Not Detected (NOT DETECT); Human Metapneumovirus Not Detected (NOT DETECT); Human Rhinovirus/Enterovirus Not Detected (NOT DETECT); Influenza A Not Detected (NOT DETECT); Influenza A H1 Not Detected (NOT DETECT); Influenza A H1-2009 Not Detected (NOT DETECT); Influenza A H3 Not Detected (NOT DETECT); Influenza B Not Detected (NOT DETECT); Mycoplasma Pneumoniae Not Detected (NOT DETECT); Parainfluenza Virus Type 1 Not Detected (NOT DETECT); Parainfluenza Virus Type 2 Not Detected (NOT DETECT); Parainfluenza Virus Type 3 Not Detected (NOT DETECT); Parainfluenza Virus Type 4 Not Detected (NOT DETECT); Respiratory Syncytial Virus A Not Detected (NOT DETECT); Respiratory Syncytial Virus B Not Detected (NOT DETECT); SARS-COV-2 Not Detected (NOT DETECT)
[2024-05-21] MEDS: methylPREDNISolone sod succ 125 mg/2 mL INJ IVP (13:25)
[2024-05-21 13:49] LABS: ABG PCO2 69.3 mmHg (35-45); ABG PH Result 7.37 (7.35-7.45); Alveolar-Arterial Oxygen Gradi 14.4 mmHg (5-10); Arterial Blood Gas Hematocrit 35.4 % (42-52); Base Excess ABG 11.9 mmol/L (-2.0-2.0); Blood Gas Allen Test Pos; Blood Gas Operator Identificat CAK; Blood Gas Sample Site Radial, right; Blood Gas Sample Type Arterial; HCO3 ABG 39.8 mmol/L (22-26); HGB O2 Sat 90.3 % (95-100); Ionized Calcium Level - ABG 1.3 mmol/L (1.1-1.4); Methemoglobin 0.2 % (0.4-1.5); Oxygen Device BIPAP; Oxygen Saturation ABG 92.3; PO2 ABG 58.4 mmHg (80.0-100.0); PO2 FiO2 Ratio Arterial Blood 166; Potassium Level - ABG 4.3 mmol/L (3.5-5.0); Total Hemoglobin 11.5 g/dL (14-18)
--- NOTE | 2024-05-21 14:04 | XR_ITS ---
WS: [id number] Portable AP semiupright chest, 05/21/2024, 1452 hours Clinical Data: Post PICC insertion Comparison: Portable chest, 05/21/2024, 0511 hours Findings: The right PICC line ends at the T9 level in the mid SVC. No pneumothorax is seen. XR/XR chest 1V portable [id number] Impression: Satisfactory placement of right PICC line.
[2024-05-21 14:42] LABS: Lactic Sepsis W/Reflex 3.3 mmol/L (0.5-2.2)
--- NOTE | 2024-05-21 14:56 | P.PN_ITS ---
Vitals/I&O/Wt Last Vital Signs Temp 98.7 F 05/21/24 12:00 Pulse 80 05/21/24 14:00 Resp 17 05/21/24 14:00 BP 116/45 05/21/24 14:00 Pulse Ox 94 05/21/24 14:00 O2 Del Method BiPAP 05/21/24 13:20 O2 Flow Rate 5 05/21/24 02:00 FiO2 35 05/21/24 13:20 05/20/24 05/21/24 05/21/24 22:59 06:59 14:59 Intake Total 0 / 0 100 / 100 550 / 550 Output Total 375 / 375 1300 / 1300 Balance 0 / 0 -275 / -275 -750 / -750 Weight last 48 hrs Weight 65.363 kg Weight 65.363 kg Weight 70.307 kg Weight 70.307 kg Physical Exam 2 Urinary Catheter Management: Coude: Cath Placed During This Visit: yes Reason for Continuing Indwelling Catheter: Accurate Measurement of Urinary Output in Critically Ill Patients Urinary Catheter Date of Insertion: 05/21/24 Urinary Catheter Time of Insertion: 04:57 Data 05/21/24 02:47 05/21/24 02:47 Micro: Microbiology 05/20/24 23:13 Blood Culture - Preliminary Blood SPECIMEN COLLECTED 05/20/24 23:07 Blood Culture - Preliminary Blood SPECIMEN COLLECTED A&P Assessment and plan (1) Acute on chronic hypoxic respiratory failure: (2) Hypercapnic respiratory failure: Qualifiers: Chronicity: acute Qualified Code(s): J96.02 - Acute respiratory failure with hypercapnia (3) COPD with acute exacerbation: (4) Elevated troponin: (5) Non-ischemic cardiomyopathy: (6) Acute exacerbation of CHF (congestive heart failure): Qualifiers: Heart failure type: unspecified Qualified Code(s): I50.9 - Heart failure, unspecified (7) Chronic atrial fibrillation: (8) UTI (urinary tract infection): (9) S/P TAVR (transcatheter aortic valve replacement): (10) Congestive heart failure: Qualifiers: Heart failure chronicity: acute on chronic Heart failure type: systolic Qualified Code(s): I50.23 - Acute on chronic systolic (congestive) heart failure (11) Goals of care, counseling/discussion: Plan Acute on chronic hypoxic and hypercapnic respiratory failure: Most likely in setting of congestive heart failure along with concerns for COPD exacerbation. Appreciate ABG showing respiratory acidosis with hypercapnia. Transition to AVAPS mode. Repeat ABG later in the day. Continue with treatment for congestive heart failure with IV Bumex 1 mg every 8 hourly. Fluid restriction to less than 1500 cc. Salmon catheterization. Strict input output charting, daily weights. Appreciate CT chest results. Cannot rule out COPD exacerbation. Patient does have history of lung cancer in the past. Not currently on treatment. Switch to Solu-Medrol 125 mg stat followed by 40 mg every 6 hour. Continue with Pulmicort twice daily, DuoNeb every 6. Depending on the heart rate will plan to switch to ipratropium and Xopenex. Patient does have left-sided pleural effusion though seems to be loculated. Have been ordered for thoracentesis. Will follow-up with radiology. Pneumonia less likely as per CT scan but patient is critically sick. For now we will continue IV Zosyn and vancomycin. Procalcitonin negative. Check sputum culture. Fungitel sent overnight. Nonischemic cardiomyopathy: Follow-up repeat limited cardiac echocardiogram. Diuretics as above. Elevated troponin: Cycle troponin with delta of 26 peaking at 125. Concern for non-ST elevation DE versus demand ischemia. Will follow-up echocardiogram to rule out regional wall motion abnormality. Somehow patient's overnight full dose Lovenox 1 mg/kg body weight was withheld by pharmacy. Switch to heparin drip for now without bolus. Will consult cardiology for further recommendations. Continue with aspirin, statin. Atrial fibrillation: Acute on chronic. Mild RVR. Patient's blood pressure soft. For now hold off on any rate limiting medications. If concerns for tachycardia will plan to start on amiodarone. Heparin drip as above for anticoagulation for stroke prevention. Hypotension: Concerns for early shock. Sepsis versus cardiogenic. Check lactic acid with reflex. Goal blood pressure less than 140/90 MAG with mean over 65. Hold off on home dose of antihypertensives including Entresto and hydralazine. Continue to monitor blood pressures. UTI: Patient does not have any leukocytosis. Antibiotic as above. Follow-up with urine culture, blood culture. Poor IV access: Will plan for PICC line placement. Goals of care discussion: Patient daughter and at bedside. We discussed patient is extremely sick given his baseline history of lung cancer, recurrent recent admissions for respiratory failure thought to be in setting of congestive heart failure, COPD exacerbation. Patient has already been intubated within last month. We discussed going forward to option would be 1. To treat aggressively if needed to place on mechanical ventilation given hypercapnic respiratory failure, possible need of vasopressors while waiting for cardiogenic shock, congestive heart failure and respiratory failure. 2. Treating aggressively medically with vasopressors if and when needed along with IV diuresis while holding off on mechanical ventilation or chest compressions and an adverse event. 3. Transition to comfort care. Patient before talking to the family had decided for option #2. Would want medical aggressive treatment but would not want any resuscitation measures. CODE STATUS: DNR/DNI Protonix OPD prophylaxis Heparin resuscitation for VT prophylaxis N.p.o. for now Attestations 2 Medical Necessity Statement*: Requires further hospitalization for management of acute on chronic hypoxic and hypercapnic respiratory failure in setting of congestive heart failure, A-fib with RVR, nonischemic cardiomyopathy, hypertension with elevated troponins while ACS is ruled out Critical Care Time: The high probability of a clinically significant, sudden or life threatening deterioration of the patient's [cardiac, pulmonary, renal] system(s) required my full and direct attention, intervention and personal management. The critical care time is as shown. This time is in addition to time spent performing any reported procedures but includes the following: [x] Data and vital sign review and interpretation [x] Patient assessment, examination and intervention [x] Documentation [x] Medication orders and management Critical Care Time (min): 70 Coding Level of Care Code Critical Care >/= 30 minutes Critical care time (in minutes): 70 The high probability of a clinically significant, sudden or life threatening deterioration, as referenced in this documentation, required my full and direct attention, intervention and personal management. The critical care time shown is in addition to time spent performing any reported separately billable procedures and includes the following: [x] Data and vital sign review and interpretation [x ] Patient assessment, examination and intervention [x] Medication orders and management [x] Patient/Family updates as able [x] Care Coordination and Documentation. Other Coding Information This patient has a high probability of clinically significant, sudden or life threatening deterioration of the patient's (neurological/pulmonary/cardiac/renal/ID/endocrine) systems required my full, direct attention, the highest level of physician preparedness for urgent intervention and personal management. I managed/supervised life or organ supporting interventions that required frequent physician assessment. I devoted my full attention in the ICU to the direct care of this patient for the period of time indicated above. Time I spent with family or surrogate(s) is included only if the patient was incapable of providing necessary information or participating in decision making. This time includes the following services provided: Telemetry review Nonmechanical ventilation Hemodynamic interpretation, assessment and management Review and interpretation of CXR Review and interpretation of lab values Review and interpretation of microbiologic data and culture results Review of medications and administration Review and interpretation of Nutrition requirements and management Discussion of management with other consultants and services Clinical update to family members Diagnoses Acute on chronic hypoxic respiratory failure J96.21 Acute respiratory failure with hypercapnia J96.02 Chronicity: acute COPD with acute exacerbation J44.1 Elevated troponin R79.89 Non-ischemic cardiomyopathy I42.8 Acute exacerbation of CHF (congestive heart failure) I50.9 Heart failure type: unspecified Chronic atrial fibrillation I48.20 UTI (urinary tract infection) N39.0 S/P TAVR (transcatheter aortic valve replacement) Z95.2 Acute on chronic systolic congestive heart failure I50.23 Heart failure chronicity: acute on chronic Heart failure type: systolic Goals of care, counseling/discussion Z71.89
--- NOTE | 2024-05-21 15:39 | PICC.NOTE ---
Triple lumen PICC placed to right basilic vein. Referred to vascular access nurse for PICC placement due to poor access and use of vasopressors. Risks and benefits discussed and informed consent obtained from patient . Right arm assessed with right basilic vein measuring 4.1 mm, straight, and apparent best choice for placement. Using sterile technique and MST, right basilic vein accessed x 1 stick. Mid-arm circumference measured 10 cm from right AC 22 cm. Trimmed cath 40 cm with 0 cm external length noted. CXR shows tip in SVC, in good position for use per radiologist. Line secured with stat-lock. Insertion site sealed with Secureport IV and TSM. Report given to bedside nurse, ESAU Quevedo.
[2024-05-21] MEDS: methylPREDNISolone sod succ 40 mg/mL INJ IVP ×2 (15:43→20:07)
[2024-05-21 16:06] LABS: Reflex Lactate Order REFLEX LACTIC ORDERD
--- NOTE | 2024-05-21 16:12 | XR_ITS ---
WS: [id number] CHEST XRAY TECHNIQUE: Portable chest. CLINICAL INFORMATION: thoracentesis COMPARISON: None. FINDINGS: Heart: Cardiomegaly. Aortic calcification. RIGHT PICC line in the mid SVC. Aortic valve replacement Lungs: Small improved LEFT pleural effusion postthoracentesis. Persistent compressive atelectasis LEF T lower lobe. Mild pulmonary vascular congestion. Chronic emphysematous changes. Bones: Osteopenia. XR/XR chest 1V portable [id number] IMPRESSION: 1. No pneumothorax post LEFT thoracentesis. 2. Persistent volume loss LEFT lung with compressive atelectasis LEFT lower lo be
[2024-05-21] MEDS: heparin drip 25,000 UNIT/500 ML PREMIX 18 UNIT IV (16:48)
[2024-05-21 17:44] LABS: Glucose Point of Care 108 mg/dL (70-110)
[2024-05-21] MEDS: vancomycin 500 MG in sodium chloride 0.9% (plus) 100 ML 200 MG IV (17:51)
[2024-05-21 19:00] LABS: Lactic Acid level (Lactate) 3.2 mmol/L (0.5-2.2)
--- NOTE | 2024-05-21 19:23 | P.CONIM_ITS ---
Providers/Reason For Consult 2 Consulting Physician/Specialty*: DENNY Hodge MD/cardiology Reason for Consult*: Patient with congestive heart failure and respiratory distress Requesting Physician: Dr. Dodge Attending Physician: Sesar Gagnon MD Primary Care Provider: Jayda Lucas MD History of Present Illness History of Present Illness Grayson Shepard is a 74 year old male with multiple medical problems, he is admitted to hospital with progressive shortness of breath, generalized weakness and dizziness. This patient was found to be hypoxic and hypercapnic. He is in the process of being intubated. This patient is known to have chronic intermittent atrial fibrillation, aortic valve disease, status post TAVR. This is the third hospital admission within the last 3 weeks for respiratory distress. He is diagnosed with a COPD, lung CVA, congestive heart failure and recurrent respiratory infections. In the last hospital discharge, he is shortness of breath started getting worse again. He was found to be very weak, difficult to ambulate by the family members. Also was complaining of getting dizzy. He had 1 episode of chest pain lasting for couple of minutes and then subsiding spontaneously. [facility] yesterday for a scheduled follow-up examination. He was found to be extremely weak and short of breath. For that reason, he was evaluated in the emergency room and subsequently were admitted. The CTA of chest revealed features of resolving inflammatory processes. Subsegmental atelectasis and pleural effusion. He is currently on BiPAP. Oxygenation is still poor and seems to be retaining CO2. At the time of examination, patient appears to be lethargic/drowsy. Most of the information is from the family medicine and also from the medical records. Patient had TAVR in October of this year at the [facility] in [facility]. He is known to have intermittent atrial fibrillation. Because of the bleeding complications, he had a Watchman procedure in [place]. He also is known to have peripheral artery disease and had a peripheral artery intervention in the past. During the last hospital admission, his LV ejection fraction dropped from 55 to 35%. Follow-up echocardiogram before the discharge revealed ejection fraction around 40 to 45%. A repeat echocardiogram today revealed ejection fraction around 50%. Patient was found to have elevated troponin T of around 96 at the time of admission. The 2-hour delta was 16 and a 6-hour delta of 26. The EKG showed atrial fibrillation with a controlled ventricular response rate. Nonspecific T wave changes in the lateral and high lateral leads. Occasional PVCs. Patient is known to have high blood pressure, dyslipidemia and type 2 diabetes. Review of Systems 2 Narrative: CONSTITUTIONAL: No fever or chills. EYES: No blurring of vision or other visual disturbances lately. ENT: No hoarseness of voice, auditory disturbances or sore throat. CARDIOVASCULAR: As mentioned above. RESPIRATORY: As mentioned above. Recurrent respiratory infection GASTROINTESTINAL: No hematemesis or melena. GENITOURINARY: Elevated BUN/creatinine ratio INTEGUMENTARY: No skin rashes or history of skin cancer. NEURO: No transient ischemic attacks or amaurosis. PSYCHIATRIC: No history of psychosis or major depression. HEMATOLOGIC: No bleeding disorders or significant anemia. ENDOCRINE: History of type 2 diabetes MUSCULOSKELETAL: No recent joint pain or swelling. ALLERGY/IMMUNOLOGY: As mentioned above. Medications/Allergies Home Medications Medication Instructions Recorded Confirmed Last Taken Type albuterol sulfate 2.5 mg/3 mL 2.5 mg inhalation Q6H PRN 12/15/21 05/21/24 Unknown History (0.083 %) solution for nebulization Shortness Of Breath albuterol sulfate 90 mcg/actuation 1 puff inhalation Q4H PRN 12/15/21 05/21/24 Unknown History aerosol inhaler Shortness Of Breath budesonide 160 mcg-glycopyr 9 2 inh inhalation BID 12/15/21 05/21/24 05/20/24 History mcg-formot 4.8 mcg/actuation HFA inhaler (Breztri Aerosphere) cholecalciferol (vitamin D3) 25 25 mcg PO DAILY 12/15/21 05/21/24 05/21/24 History mcg (1,000 unit) tablet (Vitamin D3) gabapentin 300 mg capsule 600 mg PO TID 12/15/21 05/21/24 05/20/24 History modafinil 200 mg tablet 400 mg PO QAM 12/15/21 05/21/24 05/20/24 History Lactobacillus acidophilus 500 500 mmu cells PO DAILY 05/01/24 05/21/24 05/20/24 History million cell capsule fluticasone propionate 50 1 spray intranasal DAILY 05/01/24 05/21/24 05/19/24 History mcg/actuation nasal spray,suspension hydrocodone 5 mg-acetaminophen 325 1 tab PO Q6H PRN Pain 05/01/24 05/21/24 Unknown History mg tablet multivitamin 1 tab PO DAILY 05/01/24 05/21/24 05/20/24 History sacubitril 24 mg-valsartan 26 mg 1 tab PO BID 05/01/24 05/21/24 05/20/24 History tablet (Entresto) famotidine 40 mg tablet 40 mg PO BID 05/08/24 05/21/24 05/20/24 History roflumilast 500 mcg tablet 500 mcg PO DAILY 05/08/24 05/21/24 05/20/24 History aspirin 81 mg tablet,delayed 81 mg PO DAILY #30 tabs 05/13/24 05/21/24 05/20/24 Rx release bumetanide 0.5 mg tablet 1 mg (2 x 0.5 mg) PO BID 30 days 05/13/24 05/21/24 05/20/24 Rx #60 tabs insulin lispro 100 unit/mL See Protocol SUBCUT QPM #15 mL 05/13/24 05/21/24 05/19/24 Rx subcutaneous pen prednisone 10 mg tablet See Taper PO DIRECTED #42 tabs 05/13/24 05/21/24 05/20/24 Rx guaifenesin 400 mg tablet 400 mg PO QID PRN Cough 05/21/24 05/21/24 Unknown History Allergies Allergy/AdvReac Type Severity Reaction Status Date / Time azithromycin Allergy Unknown Unknown Verified 05/20/24 16:42 levofloxacin [From Levaquin] Allergy Unknown Unknown Verified 05/20/24 16:42 Quinolones Allergy Unknown Unknown Verified 05/20/24 16:42 Current Medications Generic Name Dose Route Start Last Admin Trade Name Freq PRN Reason Stop Dose Admin Hydrocodone Bitart/Acetaminophen 1 tab 05/20/24 22:07 05/21/24 11:06 Hydrocodone-Acetaminophen 5-325 Mg Tablet PO 1 tab Q6H PRN Administration Pain Albuterol/Ipratropium 3 ml 05/21/24 02:00 05/21/24 13:19 Ipratropium-Albuterol 3 Ml Neb INHALATION 3 ml Q6H.RESP TYSON Administration Aspirin 81 mg 05/21/24 09:00 05/21/24 09:03 Aspirin 81 Mg Ec Tablet PO 81 mg DAILY TYSON Administration Atorvastatin Calcium 40 mg 05/20/24 22:07 05/20/24 23:03 Atorvastatin 40 Mg Tablet PO 40 mg BEDTIME TYSON Administration Budesonide 0.5 mg 05/21/24 08:00 05/21/24 08:19 Budesonide 0.5 Mg/2 Ml Neb INHALATION 0.5 mg BID.RESPIRATORY TYSON Administration Bumetanide 1 mg 05/21/24 04:45 05/21/24 13:25 Bumetanide 0.25 Mg/Ml Sdv 4 Ml IVP 1 mg Q8H TYSON Administration Gabapentin 600 mg 05/20/24 22:07 05/21/24 15:43 Gabapentin 300 Mg Capsule PO 600 mg TID TYSON Administration Piperacillin Sod/Tazobactam 50 mls @ 12.5 mls/hr 05/21/24 12:30 05/21/24 17:51 Sod 3.375 gm/ Sodium Chloride IV Infused Q8H TYSON Infusion Vancomycin HCl 500 mg/ Sodium 100 mls @ 200 mls/hr 05/21/24 18:30 05/21/24 18:39 Chloride IV Infused Q12H T[facility] Infusion Heparin Sodium/Sodium Chloride 25,000 unit in 500 mls @ 0 mls/hr 05/21/24 13:00 05/21/24 16:48 Heparin Drip IV 13.77 unit/kg/hr CONT TYSON 18 mls/hr Administration Protocol Per Protocol Insulin Human Lispro 0 unit 05/21/24 12:55 05/21/24 17:56 Insulin Lispro 100 Unit/1 Ml SUBCUT Not Given Q6H [facility] Protocol Methylprednisolone Sodium Succinate 40 mg 05/21/24 15:00 05/21/24 15:43 Methylprednisolone Sod Succ 40 Mg/Ml Inj IVP 40 mg Q6H TYSON Administration Non-Formulary Medication 400 mg 05/21/24 06:00 05/21/24 12:52 Modafinil PO Not Given QAM TYSON Pantoprazole Sodium 40 mg 05/20/24 22:07 05/20/24 23:03 Pantoprazole 40 Mg Sdv IVP 40 mg Q24H TYSON Administration Roflumilast 500 mcg 05/21/24 09:00 05/21/24 09:02 Roflumilast 500 Mcg Tablet PO 500 mcg DAILY TYSON Administration PFSH Acute 2 PFSH: Medical History Diabetes mellitus Hyperlipidemia Hypertension CAD (coronary artery disease) Lung cancer COPD (chronic obstructive pulmonary disease) Surgical History S/P TAVR (transcatheter aortic valve replacement) H/O aortic valve replacement Social History Smoking and tobacco/nicotine status: former use of tobacco/nicotine Vitals/I&O/Wt Last Vital Signs Temp 97.6 F 05/21/24 16:00 Pulse 79 05/21/24 18:00 Resp 16 05/21/24 15:15 BP 106/73 05/21/24 18:00 Pulse Ox 94 05/21/24 18:00 O2 Del Method BiPAP 05/21/24 13:20 O2 Flow Rate 5 05/21/24 02:00 FiO2 35 05/21/24 15:53 05/21/24 05/21/24 05/21/24 06:59 14:59 22:59 Intake Total 100 / 100 550 / 550 150 / 700 Output Total 375 / 375 1300 / 1300 Balance -275 / -275 -750 / -750 150 / -600 Weight last 48 hrs Weight 144 lb 1.6 oz Weight 144 lb 1.6 oz Weight 155 lb Weight 155 lb Physical Exam 2 Narrative: GENERAL: Patient is somewhat drowsy and sleepy. On the BiPAP. HEENT: No significant pallor, icterus or lymphadenopathy.Oral cavity: There are no mucous membrane lesions. NECK: Trachea appears to be central. No masses noted. No JVD or thyromegaly appreciated. RESPIRATORY: Chest is symmetrical. No intercostals muscle retraction or any accessory muscle activation. There is no chest wall tenderness. Breath sounds are heard bilaterally intensity of the breath sounds are diminished in the bases. Scattered expiratory wheezing and coarse crackles present. BREASTS: Deferred. HEART: The heart sounds are normal. No S3 or S4. No significant murmurs. No pericardial rub ABDOMEN: No vessel pulsations or distention. No tenderness. No organomegaly appreciated. Bowel sounds are normally heard. : Deferred. RECTAL: Deferred. LYMPHATIC: No lymphadenopathy noted in the neck. EXTREMITIES: No edema or cyanosis. No clubbing. MUSCULOSKELETAL: 1-2+ edema both lower extremities. No cyanosis. SKIN: There are no significant rashes or ecchymosis NEUROPSYCHIATRIC: Patient is drowsy and sleepy. Moving all extremities. Urinary Catheter Management: Coude: Cath Placed During This Visit: yes Reason for Continuing Indwelling Catheter: Accurate Measurement of Urinary Output in Critically Ill Patients Urinary Catheter Date of Insertion: 05/21/24 Urinary Catheter Time of Insertion: 04:57 Data 05/21/24 02:47 05/21/24 02:47 Other Labs: Laboratory Last Values WBC 10.18 10^3/uL (3.29-11.43) 05/21/24 02:47 RBC 4.31 10^6/uL (3.85-5.65) 05/21/24 02:47 Hgb 12.30 g/dL (11.27-16.99) 05/21/24 02:47 Hct 39.4 % (37-53) 05/21/24 02:47 MCV 91.4 fl (82-101) 05/21/24 02:47 MCH 28.5 pg (27-33) 05/21/24 02:47 MCHC 31.2 g/dL (30-55) 05/21/24 02:47 RDW 17.6 % (12.1-15.1) H 05/21/24 02:47 Plt Count 95 10^3/cmm (157-399) L 05/21/24 02:47 MPV 11.2 fL (7.4-10.4) H 05/21/24 02:47 Neut % (Auto) 73.8 % 05/21/24 02:47 Lymph % (Auto) 18.1 % 05/21/24 02:47 Alexander % (Auto) 7.2 % 05/21/24 02:47 Eos % (Auto) 0.3 % 05/21/24 02:47 Baso % (Auto) 0.2 % 05/21/24 02:47 Neut # (Auto) 7.52 10^3/uL (1.8-7.7) 05/21/24 02:47 Lymph # (Auto) 1.8 10^3/uL (0.8-4.8) 05/21/24 02:47 Alexander # (Auto) 0.7 10^3/uL (0.2-0.9) 05/21/24 02:47 Eos # (Auto) 0.0 10^3/uL (0.0-0.8) 05/21/24 02:47 Baso # (Auto) 0.0 10^3/uL (0.0-0.1) 05/21/24 02:47 Nucleated RBC % (auto) 0 % 05/21/24 02:47 Nucleated RBCs # 0.0 /100WBC 05/21/24 02:47 PT 12.40 SECONDS (12.1-14.9) 05/20/24 18:26 INR 0.90 (0.8-1.2) 05/20/24 18:26 Specimen Type Arterial 05/21/24 13:37 Sample Site Radial, right 05/21/24 13:37 ABG pH 7.37 (7.35-7.45) 05/21/24 13:37 ABG pCO2 69.3 mmHg (35-45) H* 05/21/24 13:37 ABG pO2 58.4 mmHg (80.0-100.0) L 05/21/24 13:37 ABG PO2/FiO2 Ratio 166 05/21/24 13:37 ABG HCO3 39.8 mmol/L (22-26) H 05/21/24 13:37 ABG O2 Saturation 92.3 05/21/24 13:37 ABG Base Excess 11.9 mmol/L (-2.0-2.0) H 05/21/24 13:37 Saad Test Pos 05/21/24 13:37 A-a O2 Gradient 14.4 mmHg (5-10) H 05/21/24 13:37 Hematocrit 35.4 % (42-52) L 05/21/24 13:37 Hgb O2 Saturation 90.3 % (95-100) L 05/21/24 13:37 Carboxyhemoglobin 2.0 %THgb (0.4-20.1) 05/21/24 13:37 Methemoglobin 0.2 % (0.4-1.5) L 05/21/24 13:37 Total Hemoglobin 11.5 g/dL (14-18) L 05/21/24 13:37 Sodium 142.0 mmol/L (131-143) 05/21/24 13:37 Potassium 4.3 mmol/L (3.5-5.0) 05/21/24 13:37 Glucose 198.0 mg/dL (70-115) H 05/21/24 13:37 Ionized Calcium 1.3 mmol/L (1.1-1.4) 05/21/24 13:37 O2 Delivery Device Bipap 05/21/24 13:37 O2 Liters/Min 3.0 % 05/20/24 22:07 FiO2 35.0 % 05/21/24 13:37 Surveillance Technician ID Cak 05/21/24 13:37 Sodium 138 mmol/L (136-145) 05/21/24 02:47 Potassium 4.9 mmol/L (3.5-5.1) 05/21/24 02:47 Chloride 96 mmol/L (98-107) L 05/21/24 02:47 Carbon Dioxide 33 mmol/L (22-29) H 05/21/24 02:47 Anion Gap 13.9 (5-19) 05/21/24 02:47 BUN 39 mg/dL (8-23) H 05/21/24 02:47 Creatinine 1.0 mg/dL (0.7-1.2) 05/21/24 02:47 GFR Calculation Not Reportable 05/21/24 02:47 Glucose 392 mg/dL (65-115) H 05/21/24 02:47 POC Glucose 108 mg/dL (70-110) 05/21/24 17:40 Calculated Osmolality 312 mOsm/kg (285-295) H 05/21/24 02:47 Lactic Acid 3.3 mmol/L (0.5-2.2) H 05/21/24 13:55 Lactic Acid (Sepsis) 3.2 mmol/L (0.5-2.2) H 05/21/24 18:29 Calcium 9.0 mg/dL (8.5-10.5) 05/21/24 02:47 Magnesium 2.1 mg/dL (1.7-2.3) 05/21/24 02:47 Total Bilirubin 0.6 mg/dL (0.15-1.2) 05/21/24 02:47 AST 21 U/L (0-40) 05/21/24 02:47 ALT 24 U/L (0-41) 05/21/24 02:47 Alkaline Phosphatase 147 U/L (40-130) H 05/21/24 02:47 Lactate Dehydrogenase 236 U/L (135-225) H 05/20/24 18:26 Troponin T Baseline 97 ng/L (0-15) H 05/20/24 18:26 Troponin T 120 Minute 113.8 ng/L (0-15) H 05/20/24 23:07 Delta Troponin T 16.8 ABS# (0-10) H* 05/20/24 23:07 Troponin T Hi Sens 6Hr 123.5 ng/L (0-15) H 05/21/24 02:47 Troponin T Hi Sens 6Hr Delta 26.5 ng/L (0-12) H* 05/21/24 02:47 C-Reactive Protein 22.4 mg/L (0.0-4.9) H 05/20/24 18:26 NT-Pro-B Natriuret Pep 3251 pg/mL (0-125) H 05/20/24 18:26 Total Protein 6.2 g/dL (6.6-8.7) L 05/21/24 02:47 Albumin 3.5 g/dL (3.5-5.2) 05/21/24 02:47 Globulin 2.7 g/dL (1.3-4.6) 05/21/24 02:47 Procalcitonin 0.21 ng/mL (0-0.5) 05/20/24 18:26 Urine Color Yellow (Yellow) 05/20/24 17:41 Urine Appearance Clear (CLEAR) 05/20/24 17:41 Urine pH 5.5 (5-7) 05/20/24 17:41 Ur Specific Cross 1.022 (1.005-1.030) 05/20/24 17:41 Urine Protein Trace (Negative) A 05/20/24 17:41 Urine Glucose (UA) 3+ (Normal) H 05/20/24 17:41 Urine Ketones Negative (Negative) 05/20/24 17:41 Urine Blood Negative (Negative) 05/20/24 17:41 Urine Nitrate Negative (Negative) 05/20/24 17:41 Urine Bilirubin Negative (Negative) 05/20/24 17:41 Urine Urobilinogen 1.0 mg/dL (Negative) 05/20/24 17:41 Ur Leukocyte Esterase 1+ (Negative) A 05/20/24 17:41 Urine RBC 3-5 /hpf (0-2) 05/20/24 17:41 Urine WBC 21-50 /hpf (0-5) H 05/20/24 17:41 Ur Squamous Epith Cells 0-5 /hpf (0-5) 05/20/24 17:41 Amorphous Sediment Not Reportable 05/20/24 17:41 Urine Bacteria None seen /hpf (NONE) 05/20/24 17:41 Hyaline Casts 9.51 /lpf 05/20/24 17:41 Urine Yeast 1+ /hpf H 05/20/24 17:41 Adenovirus (PCR) Not detected (NOT DETECT) 05/20/24 09:07 C. pneumoniae DNA (PCR) Not detected (NOT DETECT) 05/20/24 09:07 Coronavirus 229E (PCR) Not detected (NOT DETECT) 05/20/24 09:07 Human Metapneumovir PCR Not detected (NOT DETECT) 05/20/24 09:07 Influenza A (H1) PCR Not detected (NOT DETECT) 05/20/24 09:07 Influ A (H1/09) PCR Not detected (NOT DETECT) 05/20/24 09:07 Influenza A (H3) PCR Not detected (NOT DETECT) 05/20/24 09:07 Influenza Type A (PCR) Not detected (NOT DETECT) 05/20/24 09:07 Influenza Type B (PCR) Not detected (NOT DETECT) 05/20/24 09:07 M. pneumoniae (PCR) Not detected (NOT DETECT) 05/20/24 09:07 Parainfluenza 1 (PCR) Not detected (NOT DETECT) 05/20/24 09:07 Parainfluenza 2 (PCR) Not detected (NOT DETECT) 05/20/24 09:07 Parainfluenza 3 (PCR) Not detected (NOT DETECT) 05/20/24 09:07 Parainfluenza 4 (PCR) Not detected (NOT DETECT) 05/20/24 09:07 RSV Type A (PCR) Not detected (NOT DETECT) 05/20/24 09:07 RSV Type B (PCR) Not detected (NOT DETECT) 05/20/24 09:07 Entero/Rhino (PCR) Not detected (NOT DETECT) 05/20/24 09:07 SARS-CoV-2 (PCR) Not detected (NOT DETECT) 05/20/24 09:07 Micro: Microbiology 05/20/24 23:13 Blood Culture - Preliminary Blood SPECIMEN COLLECTED 05/20/24 23:07 Blood Culture - Preliminary Blood SPECIMEN COLLECTED A&P Assessment and plan (1) Acute on chronic hypoxic respiratory failure: This could be multifactorial. Patient is a COPD, lung CVA, congestive heart failure, recent pneumonia etc. are contributing factors. Management as per the primary. (2) Acute on chronic diastolic heart failure: May be carefully treated with IV diuretics. May be given the Lasix on a as needed basis. Because of the high BUN/creatinine ratio, I may hold off on any Lasix at this time. (3) S/P TAVR (transcatheter aortic valve replacement): The valve function appears to be appropriate. May continue on the current measures. (4) Chronic atrial fibrillation: Patient is in atrial fibrillation with a controlled ventricular response rate now. (5) Elevated troponin: Most likely type II myocardial infarction. Possibility of a coronary ischemia causing this cannot be excluded. He may benefit from a cardiac catheterization. This was discussed with the patient's family in detail. A shared decision was made to hold off on any invasive /interventional procedures at this time. Will watch his response to the IV diuretics, bronchodilators and other symptomatic measures. Plan Based on the results of the above tests and the patient's clinical progress, further recommendations will be made. Thank you for the opportunity to evaluate this patient and make these recommendations Coding Level of Care Code 93422 Diagnoses Acute on chronic hypoxic respiratory failure J96.21 Acute on chronic diastolic heart failure I50.33 S/P TAVR (transcatheter aortic valve replacement) Z95.2 Chronic atrial fibrillation I48.20 Elevated troponin R79.89
[2024-05-21 19:49] LABS: Glucose Point of Care 137 mg/dL (70-110)
[2024-05-21] MEDS: atorvastatin 40 mg Tablet PO (20:21)
[2024-05-21] MEDS: morphine 4 mg/mL SDV 1 mL 1 MG IVP (21:24)
--- NOTE | 2024-05-21 21:54 | ECG_ITS ---
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 Measurements Intervals [place] Rate: 84 P: 0 [place]: 0 QRS: 16 QRSD: 101 T: 166 QT: 410 QTc: 487 Interpretive Statements ATRIAL FIBRILLATION ANTEROSEPTAL MYOCARDIAL INFARCTION , OF INDETERMINATE AGE [40+ ms Q WAVE IN V1-V4]. MARKED T-WAVE ABNORMALITY, CONSIDER LATERAL ISCHEMIA [-0.5+ mV T-WAVE IN I/aVL/V5/V6]. MODERATE T-WAVE ABNORMALITY, CONSIDER INFERIOR ISCHEMIA [-0.1+ mV T-WAVE IN II/aVF] Compared to ECG 05/21/2024 11:15:02 Ventricular premature complex(es) no longer present Myocardial infarct finding still present T-wave abnormality still present Possible ischemia still present Electronically Signed On 05-22-2024 23:54:19 TRUCK DRIVER RUBBISH COLLECTOR by Yumi Hodge M.D. [id number]
[2024-05-21] MEDS: nitroglycerin 0.4 mg sublingual Tablet SUBLINGUAL (22:04)
[2024-05-21] MEDS: pantoprazole 40 mg SDV IVP (22:45)
[2024-05-21 22:54] LABS: Apprearance, Body Fluid BLOODY; Color, Body Fluid RED
[2024-05-21 22:55] LABS: Cyto Order Verification No Order; Fluid Laterality PLEURAL FLUID; PATH Referral YES
[2024-05-21 23:01] LABS: Body Fluid Polynuclear #Cells 0.023; Body Fluid WBC 547 /uL; Monocytes # Body Fluid 0.524
[2024-05-21 23:02] LABS: Partial Thromboplastin Time 36.7 SECONDS (23.9-36.7)
[2024-05-21 23:06] LABS: Hematocrit Body Fluid 0.3 %
[2024-05-21 23:08] LABS: Troponin(5th) Baseline 88 ng/L (0-15)
[2024-05-21] MEDS: ondansetron 2 mg/ML SDV 2 mL 4 MG IVP (23:12)
[2024-05-21 23:19] LABS: Albumin Body Fluid 1.1 g/dL; Creatinine Body Fluid 0.82 (0.7-1.2); LDH Pleural Fluid 110 U/L; Total Protein Pleural Fluid 1.6 g/dL; Triglycerides, Pleural Fluid 14 mg/dL
[2024-05-22] VITALS (69 sets, daily range): BP systolic 75–161; BP diastolic 36–80; PULSE 74–106; RESP 12–50; TEMP 36.4; O2SAT 72–100
--- NOTE | 2024-05-22 00:01 | ECG_ITS ---
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 Measurements Intervals [place] Rate: 87 P: 0 [place]: 0 QRS: -5 QRSD: 104 T: 179 QT: 397 QTc: 478 Interpretive Statements ATRIAL FIBRILLATION WITH ABERRANT CONDUCTION OR VENTRICULAR PREMATURE COMPLEXES POSSIBLE ANTERIOR MYOCARDIAL INFARCTION , OF INDETERMINATE AGE [30 ms Q WAVE IN V3/V4, OR R < 0.2 mV IN V4] MARKED T-WAVE ABNORMALITY, CONSIDER LATERAL ISCHEMIA [-0.5+ mV T-WAVE IN I/aVL/V5/V6] MODERATE T-WAVE ABNORMALITY, CONSIDER INFERIOR ISCHEMIA [-0.1+ mV T-WAVE IN II/aVF] Compared to ECG 05/21/2024 21:56:08 Ventricular premature complex(es) now present.Aberrant conduction of supraventricular beat(s) now present. Myocardial infarct finding still present T-wave abnormality still present. Possible ischemia still present Electronically Signed On 05-22-2024 23:59:42 KIDS ACTIVITIES COACH by Yumi Hodge M.D. [id number]
[2024-05-22] MEDS: nitroglycerin 0.4 mg sublingual Tablet SUBLINGUAL (01:11)
[2024-05-22] MEDS: HYDROcodone-acetaminophen 5-325 mg Tablet 1 TAB PO ×2 (01:22→08:18)
[2024-05-22 01:31] LABS: Glucose Point of Care 230 mg/dL (70-110)
[2024-05-22] MEDS: insulin lispro 100 unit/1 mL SUBCUT ×4 (01:31→18:08)
[2024-05-22 01:46] LABS: Troponin 5 2HR 90.68 ng/L (0-15); Troponin 5 2HR Delta 2.68 ABS# (0-10)
[2024-05-22] MEDS: ipratropium-albuterol 3 mL Neb INHALATION ×3 (02:09→13:13)
[2024-05-22] MEDS: piperacillin-tazobactam 3.375 GM in sodium chloride 0.9% (plus) 50 ML IV ×3 (03:50→20:15)
[2024-05-22] MEDS: methylPREDNISolone sod succ 40 mg/mL INJ IVP ×4 (03:55→20:11)
[2024-05-22] MEDS: bumetanide 0.25 mg/mL SDV 4 mL 1 MG IVP ×3 (03:57→20:17)
--- NOTE | 2024-05-22 04:01 | ECG_ITS ---
[facility] [facility] [facility] Test Date: 2024-05-22 Pat Name: Grayson Shepard Department: Room: ICU04 Gender: Male Server Security Administrator: : 1950 Requested By: Simeon Hebert Order Number: [id number] Forest MD: Yumi Hodge M.D. Measurements Intervals [place] Rate: 95 P: 0 [place]: 0 QRS: 19 QRSD: 109 T: 198 QT: 364 QTc: 459 Interpretive Statements ATRIAL FIBRILLATION WITH ABERRANT CONDUCTION OR VENTRICULAR PREMATURE COMPLEXES ANTERIOR MYOCARDIAL INFARCTION , OF INDETERMINATE AGE [40+ ms Q WAVE AND/OR ST/T ABNORMALITY IN V3/V4] MARKED T-WAVE ABNORMALITY, CONSIDER LATERAL ISCHEMIA [-0.5+ mV T-WAVE IN I/aVL/V5/V6] MODERATE T-WAVE ABNORMALITY, CONSIDER INFERIOR ISCHEMIA [-0.1+ mV T-WAVE IN II/aVF] Compared to ECG 05/22/2024 00:32:23 No significant changes Electronically Signed On 05-22-2024 23:59:50 GREEN PROMOTIONS SPECIALIST by Yumi Hodge M.D. [id number]
[2024-05-22 04:32] LABS: Basophils % 0.2 %; Eosinophils # 0.1 10^3/uL (0.0-0.8); Eosinophils % 0.3 %; Hematocrit 35.5 % (37-53); Lymphocytes % 5.7 %; Mean Corpuscular HGB Conc 30.7 g/dL (30-55); Mean Corpuscular Hemoglobin 28.5 pg (27-33); Mean Corpuscular Volume 92.7 fl (82-101); Mean Platelet Volume 10.9 fL (7.4-10.4); Monocytes # 1.3 10^3/uL (0.2-0.9); Monocytes % 7.4 %; Neutrophils # 15.36 10^3/uL (1.8-7.7); Nucleated Red Blood Cells % 0 %; Platelet Count 96 10^3/cmm (157-399); Red Blood Count 3.83 10^6/uL (3.85-5.65); Red Cell Distribution Width 17.3 % (12.1-15.1); White Blood Count 17.85 10^3/uL (3.29-11.43)
[2024-05-22 04:43] LABS: ABG PCO2 72.4 mmHg (35-45); ABG PH Result 7.33 (7.35-7.45); Base Excess ABG 9.7 mmol/L (-2.0-2.0); HCO3 ABG 38.1 mmol/L (22-26); Oxygen Saturation ABG 85; PO2 FiO2 Ratio Arterial Blood 148; Potassium Level - ABG 4.8 mmol/L (3.5-5.0)
[2024-05-22 04:44] LABS: Blood Gas Tidal Volume 500; Oxygen Device BIPAP
[2024-05-22 04:45] LABS: BIPAP Y; Blood Gas Sample Site BRACHIAL RIGHT; Blood Gas Sample Type ART; Blood Gas Vent Mode AVAPS
[2024-05-22 04:45] LABS: Partial Thromboplastin Time 43.5 SECONDS (23.9-36.7)
[2024-05-22 04:46] LABS: Carboxyhemoglobin 1.9 %THgb (0.4-20.1); Ionized Calcium Level - ABG 1.2 mmol/L (1.1-1.4); Methemoglobin 1.2 % (0.4-1.5); Total Hemoglobin 11.6 g/dL (14-18)
[2024-05-22 04:49] LABS: Troponin 5 6HR 99.37 ng/L (0-15); Troponin 5 6HR Delta 11.37 ng/L (0-12)
[2024-05-22 05:09] LABS: Alanine Aminotransferase 22 U/L (0-41); Albumin Level 3.3 g/dL (3.5-5.2); Alkaline Phosphatase 132 U/L (40-130); Anion Gap 15.9 (5-19); Aspartate Amino Transferase 19 U/L (0-40); Blood Urea Nitrogen 46 mg/dL (8-23); Carbon Dioxide 33 mmol/L (22-29); Chloride 97 mmol/L (98-107); Creatinine Clr Calc Pharmacy 52.8772; Globulin 2.3 g/dL (1.3-4.6); Glucose 203 mg/dL (65-115); Osmolality Calculated 310 mOsm/kg (285-295); Potassium 4.9 mmol/L (3.5-5.1); Sodium 141 mmol/L (136-145); Total Bilirubin 0.7 mg/dL (0.15-1.2); Total Protein 5.6 g/dL (6.6-8.7)
[2024-05-22] MEDS: heparin 5,000 unit/mL INJ 1 mL IVP ×2 (05:24→23:12)
[2024-05-22] MEDS: morphine 4 mg/mL SDV 1 mL 1 MG IVP ×2 (06:10→21:52)
[2024-05-22] MEDS: vancomycin 500 MG in sodium chloride 0.9% (plus) 100 ML 200 MG IV (06:23)
[2024-05-22 06:36] LABS: Glucose Point of Care 201 mg/dL (70-110)
[2024-05-22 07:22] LABS: Glucose Point of Care 212 mg/dL (70-110)
[2024-05-22] MEDS: budesonide 0.5 mg/2 mL Neb INHALATION ×2 (08:13→19:54)
[2024-05-22] MEDS: roflumilast 500 mcg Tablet PO (08:18)
[2024-05-22] MEDS: gabapentin 300 mg Capsule 600 MG PO (08:18)
[2024-05-22] MEDS: aspirin 81 mg EC Tablet PO (08:19)
[2024-05-22 09:53] LABS: Lactate Dehydrogenase 239 U/L (135-225)
[2024-05-22 10:53] LABS: ABG PH Result 7.31 (7.35-7.45); Alveolar-Arterial Oxygen Gradi 5.4 mmHg (5-10); Arterial Blood Gas Hematocrit 33.4 % (42-52); Base Excess ABG 9.4 mmol/L (-2.0-2.0); Blood Gas Allen Test Pos; Blood Gas Operator Identificat CAK; Blood Gas Sample Site Radial, left; Blood Gas Sample Type Arterial; Carboxyhemoglobin 2.1 %THgb (0.4-20.1); HCO3 ABG 37.9 mmol/L (22-26); HGB O2 Sat 91.8 % (95-100); Ionized Calcium Level - ABG 1.2 mmol/L (1.1-1.4); Methemoglobin 0.1 % (0.4-1.5); Oxygen Device BIPAP; Oxygen Saturation ABG 93.8; PO2 ABG 70.1 mmHg (80.0-100.0); PO2 FiO2 Ratio Arterial Blood 250; Potassium Level - ABG 4.9 mmol/L (3.5-5.0); Total Hemoglobin 10.9 g/dL (14-18)
[2024-05-22 10:54] LABS: ABG PCO2 74.9 mmHg (35-45)
[2024-05-22 11:56] LABS: Glucose Point of Care 205 mg/dL (70-110)
[2024-05-22 12:05] LABS: Partial Thromboplastin Time 70.6 SECONDS (23.9-36.7)
--- NOTE | 2024-05-22 14:04 | P.PN_ITS ---
Subjective 2 Subjective: No acute events overnight. Seen with family at bedside. Patient is on nasal cannula. Down to 2 L. Was on BiPAP overnight and tolerated well. Patient is awake and alert on examination. Sleeping on and off. Has remained hemodynamically stable and afebr document urine output of around 2200 cc in last 24 hours. Vitals/I&O/Wt Last Vital Signs Temp 97.5 F L 05/22/24 06:14 Pulse 89 05/22/24 13:17 Resp 26 H 05/22/24 13:14 BP 105/45 05/22/24 12:00 Pulse Ox 98 05/22/24 13:14 O2 Del Method BiPAP 05/22/24 13:14 O2 Flow Rate 5 05/21/24 02:00 FiO2 35 05/22/24 13:14 05/21/24 05/22/24 05/22/24 22:59 06:59 14:59 Intake Total 170 / 720 290.65 / 1010.65 237.2 / 237.2 Output Total 900 / 2200 Balance 170 / -580 -609.35 / -1189.35 237.2 / 237.2 Weight last 48 hrs Weight 64.41 kg Weight 64.5 kg Weight 65.363 kg Weight 65.363 kg Weight 70.307 kg Weight 70.307 kg Physical Exam 2 Urinary Catheter Management: Coude: Cath Placed During This Visit: yes Reason for Continuing Indwelling Catheter: Accurate Measurement of Urinary Output in Critically Ill Patients Urinary Catheter Date of Insertion: 05/21/24 Urinary Catheter Time of Insertion: 04:57 Data 05/22/24 04:30 05/22/24 04:30 Micro: Microbiology 05/21/24 22:35 Gram Stain - Final Pleural Fluid Body Fluid Culture - Preliminary 05/20/24 17:41 Urine Culture - Preliminary Urine,Clean Catch 05/20/24 23:13 Blood Culture - Preliminary Blood NEGATIVE TO DATE 05/20/24 23:07 Blood Culture - Preliminary Blood NEGATIVE TO DATE A&P Assessment and plan (1) Acute on chronic hypoxic respiratory failure: (2) Hypercapnic respiratory failure: Qualifiers: Chronicity: acute Qualified Code(s): J96.02 - Acute respiratory failure with hypercapnia (3) COPD with acute exacerbation: (4) Elevated troponin: (5) Non-ischemic cardiomyopathy: (6) Acute exacerbation of CHF (congestive heart failure): Qualifiers: Heart failure type: unspecified Qualified Code(s): I50.9 - Heart failure, unspecified (7) Chronic atrial fibrillation: (8) UTI (urinary tract infection): (9) S/P TAVR (transcatheter aortic valve replacement): (10) Congestive heart failure: Qualifiers: Heart failure chronicity: acute on chronic Heart failure type: systolic Qualified Code(s): I50.23 - Acute on chronic systolic (congestive) heart failure (11) Goals of care, counseling/discussion: Plan Acute on chronic hypoxic and hypercapnic respiratory failure: Most likely in setting of congestive heart failure along with concerns for COPD exacerbation. ABG shows hypercapnia with mild respiratory acidosis do improving than yesterday. Repeat ABG later in the day. Continue with Solu-Medrol Continue with treatment for congestive heart failure with IV Bumex 1 mg every 8 hourly. Fluid restriction to less than 1500 cc. Salmon catheterization. Strict input output charting, daily weights. Appreciate CT chest results. Cannot rule out COPD exacerbation. Patient does have history of lung cancer in the past. Not currently on treatment. Continue with Solu-Medrol 40 mg every 6 hour. Plan to wean in next 24 to 48 hours. Continue with Pulmicort twice daily, switch to ipratropium and Xopenex every 6. Postthoracentesis on 05/21. Pleural cc of fluid was removed. Fluid studies consistent with transudative collection. Follow-up culture results. Pneumonia less likely as per CT scan but patient is critically sick. For now we will continue IV Zosyn and vancomycin. Procalcitonin negative. MRSA swab negative. Check sputum culture. Fungitel sent overnight. Patient slightly drowsy. Could be in setting of hypercapnia. Change [place] to every 8 hour. Change gabapentin 200 mg 3 times daily. Will request patient to get his home narcolepsy medication as per schedule. Nonischemic cardiomyopathy: Echocardiogram result shows an EF of 50%, moderate biatrial enlargement, moderate MR, mild to moderate TR, bioprosthetic aortic valve functioning well. Diuretics as above. Elevated troponin: Cycle troponin with delta of 26 peaking at 125. High likelihood of demand ischemia. Cardiogram negative for regional wall motion abnormality. Appreciate cardiology recommendations. Continue with heparin drip for now which would also be good for anticoagulation in setting of A-fib. Will consult cardiology for further recommendations. Continue with aspirin, statin. Atrial fibrillation: Acute on chronic. Mild RVR. Nebulization switched to levalbuterol. Heart rate stable. Blood pressure slightly soft. Hold off on Cardizem. Start on IV metoprolol 2.5 mg every 6 hour as needed for heart rate of more than 100 to be held for systolic blood pressure of less than 110 mmHg. If not able to tolerate we will plan for amiodarone drip. Heparin drip as above for anticoagulation for stroke prevention. Hypotension: Concerns for early shock. Sepsis versus cardiogenic. Elevated lactate. Goal blood pressure less than 140/90 mmHg with mean over 65. Hold off on home dose of antihypertensives including Entresto and hydralazine. Levophed as needed to maintain mean artery pressure. Continue to monitor blood pressures. UTI: Patient does not have any leukocytosis. Antibiotic as above. Follow-up with urine culture, blood culture. Poor IV access: Will plan for PICC line placement. Goals of care discussion: Patient daughter and at bedside. We discussed patient is extremely sick given his baseline history of lung cancer, recurrent recent admissions for respiratory failure thought to be in setting of congestive heart failure, COPD exacerbation. Patient has already been intubated within last month. We discussed going forward to option would be 1. To treat aggressively if needed to place on mechanical ventilation given hypercapnic respiratory failure, possible need of vasopressors while waiting for cardiogenic shock, congestive heart failure and respiratory failure. 2. Treating aggressively medically with vasopressors if and when needed along with IV diuresis while holding off on mechanical ventilation or chest compressions and an adverse event. 3. Transition to comfort care. Patient before talking to the family had decided for option #2. Would want medical aggressive treatment but would not want any resuscitation measures. CODE STATUS: DNR/DNI Protonix OPD prophylaxis Heparin resuscitation for VT prophylaxis N.p.o. for now Attestations 2 Medical Necessity Statement*: Requires further hospitalization for management of acute on chronic hypoxic and hypercapnic respiratory failure as patient is BiPAP dependent in setting of congestive heart failure, UTI, A-fib, hypertension in a patient with history of baseline lung cancer, recent TAVR Critical Care Time: The high probability of a clinically significant, sudden or life threatening deterioration of the patient's [pulmonary, cardiac, neurological, renal] s ystem(s) required my full and direct attention, intervention and personal management. The critical care time is as shown. This time is in addition to time spent performing any reported procedures but includes the following: [x] Data and vital sign review and interpretation [x] Patient assessment, examination and intervention [x] Documentation [x] Medication orders and management Critical Care Time (min): 70 Coding Level of Care Code Critical Care >/= 30 minutes Critical care time (in minutes): 70 The high probability of a clinically significant, sudden or life threatening deterioration, as referenced in this documentation, required my full and direct attention, intervention and personal management. The critical care time shown is in addition to time spent performing any reported separately billable procedures and includes the following: [x] Data and vital sign review and interpretation [x ] Patient assessment, examination and intervention [x] Medication orders and management [x] Patient/Family updates as able [x] Care Coordination and Documentation. Other Coding Information This patient has a high probability of clinically significant, sudden or life threatening deterioration of the patient's (neurological/pulmonary/cardiac/renal/ID/endocrine) systems required my full, direct attention, the highest level of physician preparedness for urgent intervention and personal management. I managed/supervised life or organ supporting interventions that required frequent physician assessment. I devoted my full attention in the ICU to the direct care of this patient for the period of time indicated above. Time I spent with family or surrogate(s) is included only if the patient was incapable of providing necessary information or participating in decision making. This time includes the following services provided: Telemetry review Nonmechanical ventilation Hemodynamic interpretation, assessment and management Review and interpretation of CXR Review and interpretation of lab values Review and interpretation of microbiologic data and culture results Review of medications and administration Review and interpretation of Nutrition requirements and management Discussion of management with other consultants and services Clinical update to family members Diagnoses Acute on chronic hypoxic respiratory failure J96.21 Acute respiratory failure with hypercapnia J96.02 Chronicity: acute COPD with acute exacerbation J44.1 Elevated troponin R79.89 Non-ischemic cardiomyopathy I42.8 Acute exacerbation of CHF (congestive heart failure) I50.9 Heart failure type: unspecified Chronic atrial fibrillation I48.20 UTI (urinary tract infection) N39.0 S/P TAVR (transcatheter aortic valve replacement) Z95.2 Acute on chronic systolic congestive heart failure I50.23 Heart failure chronicity: acute on chronic Heart failure type: systolic Goals of care, counseling/discussion Z71.89
[2024-05-22] MEDS: gabapentin 100 mg Capsule 200 MG PO ×2 (14:16→21:22)
[2024-05-22] MEDS: MODAFINIL 200 MG 400 EACH PO (14:16)
--- NOTE | 2024-05-22 14:16 | PC.NURSE ---
Dr. Gagnon advised to give ordered Modafinil as per mar the morning dose was not given
[2024-05-22] MEDS: norepinephrine 4 MG/250 ML BAG 7.5 MG IV (14:39)
[2024-05-22] MEDS: ipratropium 0.5 mg/2.5 mL Neb INHALATION ×2 (14:53→19:54)
[2024-05-22] MEDS: heparin drip 25,000 UNIT/500 ML PREMIX 24 UNIT IV (16:51)
--- NOTE | 2024-05-22 17:21 | P.PN_ITS ---
<Statement entered by Yumi Hodge MD - 05/23/24 10:34> Reviewed and discussed the plan. I concurred Subjective 2 Subjective: Spoke with patient today. He is resting comfortably. Currently on BiPAP. Edema has nearly resolved. Lung sounds with wheezing throughout. Still getting Bumex 1 mg Q8. Thoracentesis was done yesterday that showed small amount of bloody effusion. Vitals/I&O/Wt Last Vital Signs Temp 97.5 F L 05/22/24 06:14 Pulse 83 05/22/24 16:15 Resp 16 05/22/24 16:15 BP 108/46 05/22/24 16:15 Pulse Ox 100 05/22/24 16:15 O2 Del Method BiPAP 05/22/24 14:56 O2 Flow Rate 5 05/21/24 02:00 FiO2 35 05/22/24 15:14 05/22/24 05/22/24 05/22/24 06:59 14:59 22:59 Intake Total 290.65 / 1010.65 237.2 / 237.2 72.15 / 309.35 Output Total 900 / 2200 Balance -609.35 / -1189.35 237.2 / 237.2 72.15 / 309.35 Weight last 48 hrs Weight 142 lb Weight 142 lb 3.17 oz Weight 144 lb 1.6 oz Weight 144 lb 1.6 oz Weight 155 lb Physical Exam 2 Narrative: General: Appears cachectic HENMT: normoceophalic Eye: PERRL Neck: No carotid bruit bilaterally Muskuloskeletal: Full ROM Lymphatic: No edema Respiratory: on bipap, wheezes throughout all lung ansari, no use of accessory muscles Cardio: No JVD, regular rate, regular rhythm, S1 S2 normal, no murmurs GI: Normal to inspection, nondistended Extremities: Full ROM, normal, normal capillary refill, no cyanosis or edema Neuro: curently asleep on bipap, per family has been responsive Urinary Catheter Management: Coude: Cath Placed During This Visit: yes Reason for Continuing Indwelling Catheter: Accurate Measurement of Urinary Output in Critically Ill Patients Urinary Catheter Date of Insertion: 05/21/24 Urinary Catheter Time of Insertion: 04:57 Data 05/22/24 04:30 05/22/24 04:30 Micro: Microbiology 05/21/24 22:35 Gram Stain - Final Pleural Fluid Body Fluid Culture - Preliminary 05/20/24 17:41 Urine Culture - Preliminary Urine,Clean Catch 05/20/24 23:13 Blood Culture - Preliminary Blood NEGATIVE TO DATE 05/20/24 23:07 Blood Culture - Preliminary Blood NEGATIVE TO DATE A&P Assessment and plan (1) Acute on chronic hypoxic respiratory failure: This could be multifactorial. Patient is a COPD, lung CVA, congestive heart failure, recent pneumonia etc. are contributing factors. Management as per the primary. Currently on bipap. (2) Acute on chronic diastolic heart failure: May be carefully treated with IV diuretics. May be given the Lasix on a as needed basis. (3) S/P TAVR (transcatheter aortic valve replacement): The valve function appears to be appropriate. May continue on the current measures. (4) Chronic atrial fibrillation: Patient is in atrial fibrillation with a controlled ventricular response rate now. (5) Elevated troponin: Most likely type II myocardial infarction. Possibility of a coronary ischemia causing this cannot be excluded. He may benefit from a cardiac catheterization. This was discussed with the patient's family in detail. A shared decision was made to hold off on any invasive /interventional procedures at this time. Will watch his response to the IV diuretics, bronchodilators and other symptomatic measures. Plan 05/22/2024 I discussed with the family the plan going forward. At this point, the patient was discussed the possibility of going to the senior care and is agreeable to this. He is still getting diuresed with Bumex 1 mg IV q 8 hours. His edema has resolved. He is s/p thoracentesis. According to the patient's family, this is his second one. This may be related to the lung cancer. Tomorrow we may transition him to oral Bumex. If the effusion is a persistent issue, he may need a pleurx catheter in the future for continuous drainage as this is the second thoracentesis he has required for this. Attestations 2 Medical Necessity Statement*: Deferred to primary. Coding Level of Care Code Acute Code for Chg Fwd Diagnoses Acute on chronic hypoxic respiratory failure J96.21 Acute on chronic diastolic heart failure I50.33 S/P TAVR (transcatheter aortic valve replacement) Z95.2 Chronic atrial fibrillation I48.20 Elevated troponin R79.89
[2024-05-22 17:32] LABS: Glucose Point of Care 235 mg/dL (70-110)
[2024-05-22] MEDS: levalbuterol 0.63 mg/3 mL Neb INHALATION (19:54)
[2024-05-22 21:14] LABS: Partial Thromboplastin Time 51.3 SECONDS (23.9-36.7)
[2024-05-22] MEDS: atorvastatin 40 mg Tablet PO (21:21)
--- NOTE | 2024-05-22 21:45 | ECG_ITS ---
[facility] Date: 2024-05-22 Pat Name: Grayson Shepard Department: Room: [facility] Gender: Male C D Still Operator: : 1950 Requested By: Simeon Hebert Order Number: [id number] [place] MD: Yumi Hodge M.D. Measurements Intervals [place] Rate: 85 P: 0 AL: 0 QRS: -4 QRSD: 122 T: 131 QT: 394 QTc: 471 Interpretive Statements ATRIAL FIBRILLATION WITH ABERRANT CONDUCTION OR VENTRICULAR PREMATURE COMPLEXES POSSIBLE ANTERIOR MYOCARDIAL INFARCTION , OF INDETERMINATE AGE [30 ms Q WAVE IN V3/V4, OR R < 0.2 mV IN V4] MARKED T-WAVE ABNORMALITY, CONSIDER LATERAL ISCHEMIA [-0.5+ mV T-WAVE IN I/aVL/V5/V6] Compared to ECG 05/22/2024 04:28:21 No significant changes Electronically Signed On 05-22-2024 23:54:29 SENSITOMETRIST by Yumi Hodge M.D. [email or web address]
--- NOTE | 2024-05-22 22:07 | PC.NURSE ---
Responded to patient call light and patient complained of 10/10 chest pain. EKG performed and existing PRN morphine 1mg given. Patient now complaining of lessened chest pain and some neck pain, relieved with repositioning of Bipap mask. Dr. Hebert notified of events. Received orders for troponin lab.
[2024-05-22] MEDS: pantoprazole 40 mg SDV IVP (22:58)
[2024-05-22 23:36] LABS: Glucose Point of Care 194 mg/dL (70-110)
[2024-05-23] VITALS (44 sets, daily range): BP systolic 76–138; BP diastolic 35–62; PULSE 74–111; RESP 15–40; TEMP 36.3–37; O2SAT 91–100
[2024-05-23 00:07] LABS: Troponin T (5th) Once 107 ng/L (0-15)
--- NOTE | 2024-05-23 00:14 | PC.NURSE ---
Contacted Dr. Hebert in reference to patient's critical troponin of 107. Received orders to complete a troponin series starting 2 hours from now.
[2024-05-23 01:40] LABS: Glucose Point of Care 221 mg/dL (70-110)
[2024-05-23] MEDS: insulin lispro 100 unit/1 mL SUBCUT ×4 (01:40→17:47)
[2024-05-23] MEDS: methylPREDNISolone sod succ 40 mg/mL INJ IVP ×4 (02:14→21:37)
[2024-05-23] MEDS: levalbuterol 0.63 mg/3 mL Neb INHALATION ×4 (02:19→20:59)
[2024-05-23] MEDS: ipratropium 0.5 mg/2.5 mL Neb INHALATION ×4 (02:20→20:59)
[2024-05-23 03:28] LABS: Troponin(5th) Baseline 103 ng/L (0-15)
[2024-05-23] MEDS: HYDROcodone-acetaminophen 5-325 mg Tablet 1 TAB PO (03:46)
[2024-05-23] MEDS: bumetanide 0.25 mg/mL SDV 4 mL 1 MG IVP (03:49)
[2024-05-23] MEDS: piperacillin-tazobactam 3.375 GM in sodium chloride 0.9% (plus) 50 ML IV ×2 (03:50→12:04)
[2024-05-23 04:35] LABS: Troponin 5 2HR 95.96 ng/L (0-15)
[2024-05-23 04:37] LABS: Troponin 5 2HR Delta -7.04 ABS# (0-10)
[2024-05-23 05:30] LABS: Basophils % 0.1 %; Hematocrit 33.6 % (37-53); Lymphocytes # 1.2 10^3/uL (0.8-4.8); Lymphocytes % 8.3 %; Mean Corpuscular HGB Conc 31.8 g/dL (30-55); Mean Corpuscular Hemoglobin 28.6 pg (27-33); Mean Corpuscular Volume 89.8 fl (82-101); Monocytes # 0.8 10^3/uL (0.2-0.9); Monocytes % 5.2 %; Neutrophils # 12.77 10^3/uL (1.8-7.7); Neutrophils % 85.9 %; Nucleated Red Blood Cells % 0 %; Platelet Count 100 10^3/cmm (157-399); Red Blood Count 3.74 10^6/uL (3.85-5.65); Red Cell Distribution Width 17.2 % (12.1-15.1); White Blood Count 14.85 10^3/uL (3.29-11.43)
[2024-05-23 05:55] LABS: Albumin Level 3.1 g/dL (3.5-5.2); Alkaline Phosphatase 122 U/L (40-130); Blood Urea Nitrogen 59 mg/dL (8-23); Calcium 8.9 mg/dL (8.5-10.5); Carbon Dioxide 31 mmol/L (22-29); Chloride 94 mmol/L (98-107); Creatinine Clr Calc Pharmacy 48.5328; Globulin 2.9 g/dL (1.3-4.6); Glucose 183 mg/dL (65-115); Osmolality Calculated 307 mOsm/kg (285-295); Sodium 138 mmol/L (136-145); Total Bilirubin 0.7 mg/dL (0.15-1.2)
[2024-05-23 05:59] LABS: Partial Thromboplastin Time 76.8 SECONDS (23.9-36.7)
[2024-05-23 06:00] LABS: Alanine Aminotransferase 20 U/L (0-41); Anion Gap 19.1 (5-19); Aspartate Amino Transferase 29 U/L (0-40); Potassium 6.1 mmol/L (3.5-5.1)
[2024-05-23 06:45] LABS: Glucose Point of Care 206 mg/dL (70-110)
[2024-05-23] MEDS: calcium gluconate 0.1 gm/mL 10% SDV 10mL 1 GM IVP (06:50)
[2024-05-23 07:41] LABS: Glucose Point of Care 229 mg/dL (70-110)
[2024-05-23] MEDS: insulin regular-human 10 UNIT in SYRINGE 1 EACH IVP (07:47)
[2024-05-23] MEDS: dextrose 10% 250 ML 1000 ML IV (07:48)
[2024-05-23] MEDS: budesonide 0.5 mg/2 mL Neb INHALATION ×2 (07:48→20:59)
[2024-05-23] MEDS: aspirin 81 mg EC Tablet PO (08:07)
[2024-05-23] MEDS: gabapentin 100 mg Capsule 200 MG PO ×3 (08:08→21:37)
[2024-05-23] MEDS: roflumilast 500 mcg Tablet PO (08:08)
[2024-05-23 08:55] LABS: Troponin 5 6HR 81.87 ng/L (0-15)
[2024-05-23 09:00] LABS: Troponin 5 6HR Delta -21.13 ng/L (0-12)
[2024-05-23 09:47] LABS: Alanine Aminotransferase 17 U/L (0-41); Albumin Level 2.9 g/dL (3.5-5.2); Alkaline Phosphatase 112 U/L (40-130); Anion Gap 15.9 (5-19); Aspartate Amino Transferase 14 U/L (0-40); Blood Urea Nitrogen 58 mg/dL (8-23); Carbon Dioxide 33 mmol/L (22-29); Chloride 94 mmol/L (98-107); Creatinine Clr Calc Pharmacy 47.6892; Globulin 2.6 g/dL (1.3-4.6); Glucose 277 mg/dL (65-115); Osmolality Calculated 312 mOsm/kg (285-295); Potassium 4.9 mmol/L (3.5-5.1); Sodium 138 mmol/L (136-145); Total Bilirubin 0.7 mg/dL (0.15-1.2); Total Protein 5.5 g/dL (6.6-8.7)
[2024-05-23 11:17] LABS: Glucose Point of Care 280 mg/dL (70-110)
--- NOTE | 2024-05-23 12:13 | P.PN_ITS ---
Subjective 2 Subjective: Today morning seen with multiple family numbers at bedside. Patient again episode of chest pain last night. Today morning he states he is feeling better. More awake and alert. Denies any nausea vomiting, headache. Down to 3 l of nasal cannula. Currently on 2 of Levophed. Vitals/I&O/Wt Last Vital Signs Temp 97.3 F L 05/23/24 04:00 Pulse 91 05/23/24 08:15 Resp 25 H 05/23/24 08:15 BP 92/44 05/23/24 08:15 Pulse Ox 98 05/23/24 08:15 O2 Del Method Nasal Cannula 05/23/24 08:00 O2 Flow Rate 3 05/23/24 08:00 FiO2 35 05/23/24 04:02 05/22/24 05/23/24 05/23/24 22:59 06:59 14:59 Intake Total 185.90 / 423.10 437.950 / 861.050 100 / 100 Output Total 400 / 400 1600 / 2000 Balance -214.10 / 23.10 -1162.050 / -1138.950 100 / 100 Weight last 48 hrs Weight 61.507 kg Weight 61.507 kg Weight 64.41 kg Weight 64.5 kg Physical Exam 2 Narrative: General: No acute distress, AO x3, chronically sick appearing, bilateral temporal wasting HEENT: PERRLA, pupils bilaterally equal and reactive Chest: Bronchial breath sounds all over lung ansari with occasional rhonchi, fine crackles bilateral lower zone CVS: S1-S2 regular, soft pansystolic murmur at apex radiating to anterior axillary line, tachycardia, no gallops, no rubs Abdomen: Soft, nontender, no organomegaly, bowel sounds present Neuro: No focal deficits, no facial deformity, AO x3, generalized weakness Urinary Catheter Management: Coude: Cath Placed During This Visit: yes Reason for Continuing Indwelling Catheter: Accurate Measurement of Urinary Output in Critically Ill Patients Urinary Catheter Date of Insertion: 05/21/24 Urinary Catheter Time of Insertion: 04:57 Data 05/23/24 05:15 05/23/24 09:19 Micro: Microbiology 05/21/24 22:35 Gram Stain - Final Pleural Fluid Body Fluid Culture - Preliminary 05/20/24 17:41 Urine Culture - Final Urine,Clean Catch A&P Assessment and plan (1) Acute on chronic hypoxic respiratory failure: (2) Hypercapnic respiratory failure: Qualifiers: Chronicity: acute Qualified Code(s): J96.02 - Acute respiratory failure with hypercapnia (3) COPD with acute exacerbation: (4) Elevated troponin: (5) Non-ischemic cardiomyopathy: (6) Acute exacerbation of CHF (congestive heart failure): Qualifiers: Heart failure type: unspecified Qualified Code(s): I50.9 - Heart failure, unspecified (7) Chronic atrial fibrillation: (8) UTI (urinary tract infection): (9) S/P TAVR (transcatheter aortic valve replacement): (10) Congestive heart failure: Qualifiers: Heart failure chronicity: acute on chronic Heart failure type: systolic Qualified Code(s): I50.23 - Acute on chronic systolic (congestive) heart failure (11) Goals of care, counseling/discussion: Plan Acute on chronic hypoxic and hypercapnic respiratory failure: Most likely in setting of congestive heart failure along with concerns for COPD exacerbation. ABG shows hypercapnia with mild respiratory acidosis do improving than yesterday. Repeat ABG later in the day. Continue with Solu-Medrol Continue with treatment for congestive heart failure with IV Bumex 1 mg every 8 hourly. Fluid restriction to less than 1500 cc. Salmon catheterization. Strict input output charting, daily weights. Appreciate CT chest results. Cannot rule out COPD exacerbation. Patient does have history of lung cancer in the past. Not currently on treatment. Continue with Solu-Medrol 40 mg every 6 hour. Plan to wean in next 24 to 48 hours. Continue with Pulmicort twice daily, switch to ipratropium and Xopenex every 6. Postthoracentesis on 05/21. Pleural cc of fluid was removed. Fluid studies consistent with transudative collection. Follow-up culture results. Pneumonia less likely as per CT scan but patient is critically sick. For now we will continue IV Zosyn and vancomycin. Procalcitonin negative. MRSA swab negative. Check sputum culture. Fungitel sent overnight. Patient slightly drowsy. Could be in setting of hypercapnia. Change [place] to every 8 hour. Change gabapentin 200 mg 3 times daily. Will request patient to get his home narcolepsy medication as per schedule. Nonischemic cardiomyopathy: Echocardiogram result shows an EF of 50%, moderate biatrial enlargement, moderate MR, mild to moderate TR, bioprosthetic aortic valve functioning well. Diuretics as above. Elevated troponin: Cycle troponin with delta of 26 peaking at 125. High likelihood of demand ischemia. Cardiogram negative for regional wall motion abnormality. Appreciate cardiology recommendations. Continue with heparin drip for now which would also be good for anticoagulation in setting of A-fib. Will consult cardiology for further recommendations. Continue with aspirin, statin. Atrial fibrillation: Acute on chronic. Mild RVR. Nebulization switched to levalbuterol. Heart rate stable. Blood pressure slightly soft. Hold off on Cardizem. Start on IV metoprolol 2.5 mg every 6 hour as needed for heart rate of more than 100 to be held for systolic blood pressure of less than 110 mmHg. If not able to tolerate we will plan for amiodarone drip. Heparin drip as above for anticoagulation for stroke prevention. Hypotension: Concerns for early shock. Sepsis versus cardiogenic. Elevated lactate. Goal blood pressure less than 140/90 mmHg with mean over 65. Hold off on home dose of antihypertensives including Entresto and hydralazine. Levophed as needed to maintain mean artery pressure. Continue to monitor blood pressures. UTI: Patient does not have any leukocytosis. Antibiotic as above. Follow-up with urine culture, blood culture. Poor IV access: Will plan for PICC line placement. Goals of care discussion: Patient daughter and at bedside. We discussed patient is extremely sick given his baseline history of lung cancer, recurrent recent admissions for respiratory failure thought to be in setting of congestive heart failure, COPD exacerbation. Patient has already been intubated within last month. We discussed going forward to option would be 1. To treat aggressively if needed to place on mechanical ventilation given hypercapnic respiratory failure, possible need of vasopressors while waiting for cardiogenic shock, congestive heart failure and respiratory failure. 2. Treating aggressively medically with vasopressors if and when needed along with IV diuresis while holding off on mechanical ventilation or chest compressions and an adverse event. 3. Transition to comfort care. Patient before talking to the family had decided for option #2. Would want medical aggressive treatment but would not want any resuscitation measures. Plan for the day: Today morning on examination patient is more awake and alert. He is AO x 3. Seen with family numbers at bedside. Patient states he has been sick for a while and does not want to be poked and probed again anymore. He wants to focus more on quality of life than quantity of life. He would like to transition to hospice care. We discussed hospice care would need to continue to chronic treatment but not preteen acutely for any illness if and when it arises. We discussed hospice would mean that he would transition and concentrate more on making comfortable than making him better while nature takes its own course which could even mean that he could . He verbalizes understanding and after discussing further with his family wants to go ahead and set up hospice. Family is agreeable. Case management alerted for hospice care management. Wean Levophed. Stop heparin drip. Transition to Eliquis 5 mg twice daily. Start on amiodarone 200 mg twice daily. Will plan to continue amiodarone 200 mg twice daily for next 1 week followed by 200 mg daily. Switch to Lasix 40 mg oral twice daily. No more labs. Continue other chronic home medications. Hold off on home dose of Entresto. CODE STATUS: Comfort care Protonix OPD prophylaxis Eliquis will be sufficient for DVT prophylaxis Regular diet Attestations 2 Medical Necessity Statement*: Requires further hospitalization while hospice is set up in a patient with acute on chronic hypoxic and hypercapnic respiratory failure in setting of congestive heart failure, lung cancer, moderate to severe MR, A-fib with RVR while hospice is set up Diagnoses Acute on chronic hypoxic respiratory failure J96.21 Acute respiratory failure with hypercapnia J96.02 Chronicity: acute COPD with acute exacerbation J44.1 Elevated troponin R79.89 Non-ischemic cardiomyopathy I42.8 Acute exacerbation of CHF (congestive heart failure) I50.9 Heart failure type: unspecified Chronic atrial fibrillation I48.20 UTI (urinary tract infection) N39.0 S/P TAVR (transcatheter aortic valve replacement) Z95.2 Acute on chronic systolic congestive heart failure I50.23 Heart failure chronicity: acute on chronic Heart failure type: systolic Goals of care, counseling/discussion Z71.89
--- NOTE | 2024-05-23 12:44 | PC.NURSE ---
Patient expressed desire to go home on Hospice, HCP and case management aware
[2024-05-23] MEDS: amiodarone 200 mg Tablet PO ×2 (12:52→17:47)
--- NOTE | 2024-05-23 12:56 | PM.PN ---
Subjective Subjective: Patient was sitting up in bed today and overall appeared comfortable. He denied any episodes of chest pain. His edema has resolved. At this time he is comfortable. Medications: Reviewed: Yes Vitals/I&O/Wt Last Vital Signs Temp 97.3 F L 05/23/24 04:00 Pulse 82 05/23/24 12:30 Resp 24 H 05/23/24 12:30 BP 76/41 05/23/24 11:30 Pulse Ox 95 05/23/24 12:30 O2 Del Method Nasal Cannula 05/23/24 08:00 O2 Flow Rate 3 05/23/24 08:00 FiO2 35 05/23/24 04:02 05/22/24 05/23/24 05/23/24 22:59 06:59 14:59 Intake Total 185.90 / 423.10 437.950 / 861.050 150 / 150 Output Total 400 / 400 1600 / 2000 Balance -214.10 / 23.10 -1162.050 / -1138.950 150 / 150 Weight last 48 hrs Weight 135 lb 9.6 oz Weight 135 lb 9.6 oz Weight 142 lb Weight 142 lb 3.17 oz Physical Exam Narrative: General: Appears cachectic HENMT: normoceophalic Eye: PERRL Muskuloskeletal: Full ROM Lymphatic: No edema Respiratory: on nasal cannula, wheezes throughout all lung ansari, course throughout all lung ansari, no use of accessory muscles Cardio: No JVD, regular rate, regular rhythm, S1 S2 normal, no murmurs GI: Normal to inspection, nondistended Extremities: Full ROM, normal, normal capillary refill, no cyanosis or edema Neuro: Alert and oriented x4 Urinary Catheter Management: Coude: Cath Placed During This Visit: yes Reason for Continuing Indwelling Catheter: Accurate Measurement of Urinary Output in Critically Ill Patients Urinary Catheter Date of Insertion: 05/21/24 Urinary Catheter Time of Insertion: 04:57 Data 05/23/24 05:15 05/23/24 09:19 Micro: Microbiology 05/21/24 22:35 Gram Stain - Final Pleural Fluid Body Fluid Culture - Preliminary 05/20/24 17:41 Urine Culture - Final Urine,Clean Catch A&P Assessment and plan (1) Acute on chronic hypoxic respiratory failure: Per hospitalist. (2) Acute on chronic diastolic heart failure: Patient appears euvolemic. May hold diuretics and give lasix 40 mg PO with potassium chloride 20 mg PO as needed weight gain 3 pounds in a day or worsening edema. (3) S/P TAVR (transcatheter aortic valve replacement): On previous echo ejection fraction was normal with the valve being well-seated. (4) Chronic atrial fibrillation: Patient is status post Watchman device. No need for anticoagulation. Continue aspirin 81 mg. Rate currently controlled. Due to hypotension requiring Levophed will avoid medications that can lower blood pressure at this time. (5) Elevated troponin: Could be due to type II [place]/demand ischemia. Plan At this time the patient has decided to go on hospice care at this time. Recommend only give lasix prn weight gain of 3 pounds in a day or worsening edema. Continue current care. Patient does not need anticoagulation for afib hx due to previously placed watchman device. Attestations Medical Necessity Statement*: Deferred to primary Coding Level of Care Code Acute Code for [facility] Fwd Diagnoses Acute on chronic hypoxic respiratory failure J96.21 Acute on chronic diastolic heart failure I50.33 S/P TAVR (transcatheter aortic valve replacement) Z95.2 Chronic atrial fibrillation I48.20 Elevated troponin R79.89
[2024-05-23] MEDS: FUROsemide 40 mg Tablet PO (16:17)
[2024-05-23 16:45] LABS: Glucose Point of Care 218 mg/dL (70-110)
[2024-05-23] MEDS: sennosides-docusate Tablet 1 TAB PO (17:47)
[2024-05-23 20:31] LABS: Glucose Point of Care 164 mg/dL (70-110)
[2024-05-23] MEDS: apixaban 5 mg Tablet PO (21:37)
[2024-05-23] MEDS: atorvastatin 40 mg Tablet PO (21:37)
[2024-05-23] MEDS: pantoprazole 40 mg SDV IVP (21:37)
[2024-05-24 01:54] LABS: Fungitell 1-3-B Glucan Assay 120 pg/ml; Interpretation Positive (Negative)
[2024-05-24] MEDS: methylPREDNISolone sod succ 40 mg/mL INJ IVP (02:42)
[2024-05-24 02:55] VITALS: PULSE 90; RESP 19; O2SAT 97
[2024-05-24] MEDS: ipratropium 0.5 mg/2.5 mL Neb INHALATION ×2 (03:02→07:30)
[2024-05-24] MEDS: levalbuterol 0.63 mg/3 mL Neb INHALATION ×2 (03:03→07:30)
[2024-05-24 03:56] VITALS: BP 147/61; PULSE 105; RESP 19; TEMP 36.6; O2SAT 93
[2024-05-24] MEDS: MODAFINIL 200 MG 400 EACH PO (05:40)
[2024-05-24] MEDS: insulin lispro 100 unit/1 mL SUBCUT ×2 (06:09→12:35)
[2024-05-24 06:14] LABS: Glucose Point of Care 372 mg/dL (70-110)
[2024-05-24] MEDS: budesonide 0.5 mg/2 mL Neb INHALATION (07:30)
[2024-05-24 07:32] VITALS: PULSE 97; RESP 20; O2SAT 94
[2024-05-24 07:53] VITALS: BP 104/40; PULSE 92; RESP 14; TEMP 36.6; O2SAT 96
--- NOTE | 2024-05-24 07:56 | PM.DCS ---
Discharge Providers Date of Admission: 05/20/24 19:56 Date of Discharge: May 24, 2024 Attending Provider at Admission: Simeon Hebert MD Attending Provider at Discharge: Laura Rodriguez MD Primary Care Provider: Jayda Lucas MD Diagnoses at Discharge Discharge Diagnosis (1) Acute on chronic hypoxic respiratory failure: Status: Acute (2) Acute on chronic diastolic heart failure: Status: Acute (3) S/P TAVR (transcatheter aortic valve replacement): Status: Acute (4) Chronic atrial fibrillation: Status: Acute (5) Elevated troponin: Status: Acute Reason for Visit Reason for Visit: sent by [facility] Brief History: History as per HPI: Grayson Shepard is a 74 year old male with a past medical history of CHF, last hospitalization 7 days ago for CHF exacerbation, history of sepsis secondary to pneumonia on Bactrim, on prednisone taper, history of COPD, history of mechanical ventilation 12 5, history of lung mass stopped taking Keytruda, CAD, history of aortic valve replacement, history of A-fib, history of peripheral arterial disease type 2 diabetes mellitus, who presents [facility] due to increased progressive shortness of breath with exertion, now at rest, with lower extreme edema. Patient tells me that since being discharged from the hospital he has persistent shortness of breath, shortness of breath with exertion, now at rest with lower extremity edema, no chest pain, does have a cough, no fevers, no chills, he is on 3 L, he saw cardiology, blood pressures were been noted to be low possibly send hydralazine, he is on Bumex 1 mg twice daily, does report orthopnea and paroxysmal nocturnal dyspnea Hospital Course Hospital Course Patient was admitted to the hospital further evaluation and management of acute on chronic hypoxic respiratory failure in setting of congestive heart failure along with mild pneumonia. He was started on broad-spectrum antibiotics, IV diuresis and required BiPAP ventilation at first. Cardiology was consulted given history of recent hospitalization due to worsening EF. Repeat echocardiogram was done which showed EF of 50% with moderate biatrial enlargement, moderate to severe mitral regurgitation. During hospitalization was found to have A-fib with RVR for which he was started on amiodarone. Multiple goals of care discussions were done as below. Patient stated he has been sick for a while and does not want to be poked and probed again anymore. He wants to focus more on quality of life than quantity of life. He would like to transition to hospice care. We discussed hospice care would need to continue to chronic treatment but not preteen acutely for any illness if and when it arises. We discussed hospice would mean that he would transition and concentrate more on making comfortable than making him better while nature takes its own course which could even mean that he could . He verbalizes understanding and after discussing further with his family wants to go ahead and set up hospice. He was discharged home with hospice for further management as per goals of care. Physical Exam Narrative: General: No acute distress, AO x3, chronically sick appearing, bilateral temporal wasting HEENT: PERRLA, pupils bilaterally equal and reactive Chest: Bronchial breath sounds all over lung ansari with occasional rhonchi, fine crackles bilateral lower zone CVS: S1-S2 regular, soft pansystolic murmur at apex radiating to anterior axillary line, tachycardia, no gallops, no rubs Abdomen: Soft, nontender, no organomegaly, bowel sounds present Neuro: No focal deficits, no facial deformity, AO x3, generalized weakness Urinary Catheter Management: Coude: Cath Placed During This Visit: yes Reason for Continuing Indwelling Catheter: Hospice/Comfort/Palliative Care Urinary Catheter Date of Insertion: 05/21/24 Urinary Catheter Time of Insertion: 04:57 Discharge Data Studies Completed and Pending Completed Studies During Hospitalization Category Date Time Status CT chest wo con [id number] Stat Cat Scan 05/20/24 20:04 Completed CXRP [XR chest 1V portable [id number]] Routine Exams 05/21/24 14:04 Completed XR chest 1V portable [id number] Routine Exams 05/21/24 05:08 Completed XR chest 1V portable [id number] Stat Exams 05/20/24 16:55 Completed XR chest 1V portable [id number] Stat Exams 05/21/24 16:12 Completed CV. echo limited [id number] Routine Ultrasound 05/21/24 04:00 Completed US arterial duplex lower extremity bilat [CV arterial Ultrasound 05/20/24 20:04 [place] [id number]] Stat US thoracentesis [id number] Routine Ultrasound 05/21/24 04:32 Completed Pending at discharge Category Date Time Status Amylase, Pleural Fluid Routine Lab 05/21/24 22:35 Received Blood Culture Routine Lab 05/20/24 23:13 Results Body Fluid Culture & GS Routine Lab 05/21/24 22:35 Results Mycobacteria, Culture w/Fluor Routine Lab 05/21/24 22:35 Received Sputum Culture and Gram Stain Stat Lab 05/20/24 20:04 Uncollected Cytology [PTH] Routine Pth 05/21/24 04:32 Received Radiology Impressions Chest CT 05/20/24 20:04 IMPRESSION: 1. Resolving pulmonary inflammatory processes and effusions as described. 2. There is persisting segmental atelectasis in the middle lobe in the left lower lobe posterior basal segment. 3. Decreasing reactive adenopathy. 4. Prosthetic aortic valve and left atrial appendage occlusion device 5. Other chronic findings as described Duplex Scan Lower Extremity Artery 05/20/24 20:04 IMPRESSION: No stenosis or occlusion in the bilateral lower extremity veins. Thoracentesis Ultrasound 05/21/24 04:32 IMPRESSION: 1. Uncomplicated ultrasound-guided LEFT chest thoracentesis. 2. Drainage of 200 cc bloody fluid. LEFT pleural effusion appears slightly complex and septated. Chest X-Ray 05/21/24 16:12 IMPRESSION: 1. No pneumothorax post LEFT thoracentesis. 2. Persistent volume loss LEFT lung with compressive atelectasis LEFT lower lobe Laboratory Results WBC 14.85 10^3/uL (3.29-11.43) H 05/23/24 05:15 RBC 3.74 10^6/uL (3.85-5.65) L 05/23/24 05:15 Hgb 10.70 g/dL (11.27-16.99) L 05/23/24 05:15 Hct 33.6 % (37-53) L 05/23/24 05:15 MCV 89.8 fl (82-101) 05/23/24 05:15 MCH 28.6 pg (27-33) 05/23/24 05:15 MCHC 31.8 g/dL (30-55) 05/23/24 05:15 RDW 17.2 % (12.1-15.1) H 05/23/24 05:15 Plt Count 100 10^3/cmm (157-399) L 05/23/24 05:15 MPV 12.0 fL (7.4-10.4) H 05/23/24 05:15 Neut % (Auto) 85.9 % 05/23/24 05:15 Lymph % (Auto) 8.3 % 05/23/24 05:15 [place] % (Auto) 5.2 % 05/23/24 05:15 Eos % (Auto) 0.0 % 05/23/24 05:15 Baso % (Auto) 0.1 % 05/23/24 05:15 Neut # (Auto) 12.77 10^3/uL (1.8-7.7) H 05/23/24 05:15 Lymph # (Auto) 1.2 10^3/uL (0.8-4.8) 05/23/24 05:15 [place] # (Auto) 0.8 10^3/uL (0.2-0.9) 05/23/24 05:15 Eos # (Auto) 0.0 10^3/uL (0.0-0.8) 05/23/24 05:15 Baso # (Auto) 0.0 10^3/uL (0.0-0.1) 05/23/24 05:15 Nucleated RBC % (auto) 0 % 05/23/24 05:15 Nucleated RBCs # 0.0 /100WBC 05/23/24 05:15 Differential Comment Yes 05/21/24 22:35 PT 12.40 SECONDS (12.1-14.9) 05/20/24 18:26 INR 0.90 (0.8-1.2) 05/20/24 18:26 APTT 76.8 SECONDS (23.9-36.7) H 05/23/24 05:15 Specimen Type Arterial 05/22/24 10:42 Sample Site Radial, left 05/22/24 10:42 ABG pH 7.31 (7.35-7.45) L 05/22/24 10:42 ABG pCO2 74.9 mmHg (35-45) H* 05/22/24 10:42 ABG pO2 70.1 mmHg (80.0-100.0) L 05/22/24 10:42 ABG PO2/FiO2 Ratio 250 05/22/24 10:42 ABG HCO3 37.9 mmol/L (22-26) H 05/22/24 10:42 ABG O2 Saturation 93.8 05/22/24 10:42 ABG Base Excess 9.4 mmol/L (-2.0-2.0) H 05/22/24 10:42 Saad Test Pos 05/22/24 10:42 A-a O2 Gradient 5.4 mmHg (5-10) 05/22/24 10:42 Hematocrit 33.4 % (42-52) L 05/22/24 10:42 Hgb O2 Saturation 91.8 % (95-100) L 05/22/24 10:42 Carboxyhemoglobin 2.1 %THgb (0.4-20.1) 05/22/24 10:42 Methemoglobin 0.1 % (0.4-1.5) L 05/22/24 10:42 Total Hemoglobin 10.9 g/dL (14-18) L 05/22/24 10:42 Sodium 140.0 mmol/L (131-143) 05/22/24 10:42 Potassium 4.9 mmol/L (3.5-5.0) 05/22/24 10:42 Glucose 213.0 mg/dL (70-115) H 05/22/24 10:42 Ionized Calcium 1.2 mmol/L (1.1-1.4) 05/22/24 10:42 Respiration Rate 12.0 % 05/22/24 04:35 O2 Delivery Device Bipap 05/22/24 10:42 O2 Liters/Min 2.0 % 05/22/24 10:42 Vent Mode Avaps 05/22/24 04:35 FiO2 28.0 % 05/22/24 10:42 Tidal Volume 500 05/22/24 04:35 PEEP 6.0 cmH20 05/22/24 04:35 Mode BiPAP Y 05/22/24 04:35 Specimen Drawn By [email or web address] 05/22/24 04:35 Outreach Associate ID Cak 05/22/24 10:42 Crit Value Read Back 0440 05/22/24 04:35 Sodium 138 mmol/L (136-145) 05/23/24 09:19 Potassium 4.9 mmol/L (3.5-5.1) 05/23/24 09:19 Chloride 94 mmol/L (98-107) L 05/23/24 09:19 Carbon Dioxide 33 mmol/L (22-29) H 05/23/24 09:19 Anion Gap 15.9 (5-19) 05/23/24 09:19 BUN 58 mg/dL (8-23) H 05/23/24 09:19 Creatinine 1.3 mg/dL (0.7-1.2) H 05/23/24 09:19 GFR Calculation Not Reportable 05/23/24 09:19 Glucose 277 mg/dL (65-115) H 05/23/24 09:19 POC Glucose 372 mg/dL (70-110) H 05/24/24 06:06 Calculated Osmolality 312 mOsm/kg (285-295) H 05/23/24 09:19 Lactic Acid 3.3 mmol/L (0.5-2.2) H 05/21/24 13:55 Lactic Acid (Sepsis) 3.2 mmol/L (0.5-2.2) H 05/21/24 18:29 Calcium 9.0 mg/dL (8.5-10.5) 05/23/24 09:19 Magnesium 2.1 mg/dL (1.7-2.3) 05/21/24 02:47 Total Bilirubin 0.7 mg/dL (0.15-1.2) 05/23/24 09:19 AST 14 U/L (0-40) 05/23/24 09:19 ALT 17 U/L (0-41) 05/23/24 09:19 Alkaline Phosphatase 112 U/L (40-130) 05/23/24 09:19 Lactate Dehydrogenase 239 U/L (135-225) H 05/22/24 04:30 Troponin T 5th Gen ng/L 107 ng/L (0-15) H* 05/22/24 23:06 Troponin T Baseline 103 ng/L (0-15) H* 05/23/24 02:45 Troponin T 120 Minute 95.96 ng/L (0-15) H 05/23/24 04:05 Delta Troponin T -7.04 ABS# (0-10) L 05/23/24 04:05 Troponin T Hi Sens 6Hr 81.87 ng/L (0-15) H 05/23/24 08:07 Troponin T Hi Sens 6Hr Delta -21.13 ng/L (0-12) L 05/23/24 08:07 C-Reactive Protein 22.4 mg/L (0.0-4.9) H 05/20/24 18:26 NT-Pro-B Natriuret Pep 3251 pg/mL (0-125) H 05/20/24 18:26 Total Protein 5.5 g/dL (6.6-8.7) L 05/23/24 09:19 Albumin 2.9 g/dL (3.5-5.2) L 05/23/24 09:19 Globulin 2.6 g/dL (1.3-4.6) 05/23/24 09:19 Procalcitonin 0.21 ng/mL (0-0.5) 05/20/24 18:26 Urine Color Yellow (Yellow) 05/20/24 17:41 Urine Appearance Clear (CLEAR) 05/20/24 17:41 Urine pH 5.5 (5-7) 05/20/24 17:41 Ur Specific [place] 1.022 (1.005-1.030) 05/20/24 17:41 Urine Protein Trace (Negative) A 05/20/24 17:41 Urine Glucose (UA) 3+ (Normal) H 05/20/24 17:41 Urine Ketones Negative (Negative) 05/20/24 17:41 Urine Blood Negative (Negative) 05/20/24 17:41 Urine Nitrate Negative (Negative) 05/20/24 17:41 Urine Bilirubin Negative (Negative) 05/20/24 17:41 Urine Urobilinogen 1.0 mg/dL (Negative) 05/20/24 17:41 Ur Leukocyte Esterase 1+ (Negative) A 05/20/24 17:41 Urine RBC 3-5 /hpf (0-2) 05/20/24 17:41 Urine WBC 21-50 /hpf (0-5) H 05/20/24 17:41 Ur Squamous Epith Cells 0-5 /hpf (0-5) 05/20/24 17:41 Amorphous Sediment Not Reportable 05/20/24 17:41 Urine Bacteria None seen /hpf (NONE) 05/20/24 17:41 Hyaline Casts 9.51 /lpf 05/20/24 17:41 Urine Yeast 1+ /hpf H 05/20/24 17:41 Fluid Color Red 05/21/24 22:35 Fluid Appearance Bloody 05/21/24 22:35 Fluid WBC 547 /uL 05/21/24 22:35 Fluid RBC 23.000 10^3/uL 05/21/24 22:35 Fluid Hematocrit 0.3 % 05/21/24 22:35 Fld Polynuclear WBCs # 0.023 05/21/24 22:35 Fld Polynuclear WBCs % 4.200 % 05/21/24 22:35 Fl Mononucl WBCs #(Auto) 0.524 05/21/24 22:35 Fl Mononuclear % Auto 95.800 % 05/21/24 22:35 Fld Crystal Laterality Pleural fluid 05/21/24 22:35 Fluid Albumin 1.1 g/dL 05/21/24 22:35 Fluid Creatinine 0.82 (0.7-1.2) 05/21/24 22:35 Pleural pH 8.00 (6.5-7.5) H 05/21/24 22:35 Pleural Total Protein 1.6 g/dL 05/21/24 22:35 Pleural LDH 110 U/L 05/21/24 22:35 Pleural Glucose 255.0 mg/dL 05/21/24 22:35 Pleural Triglycerides 14 mg/dL 05/21/24 22:35 Adenovirus (PCR) Not detected (NOT DETECT) 05/20/24 09:07 C. pneumoniae DNA (PCR) Not detected (NOT DETECT) 05/20/24 09:07 Coronavirus 229E (PCR) Not detected (NOT DETECT) 05/20/24 09:07 Human Metapneumovir PCR Not detected (NOT DETECT) 05/20/24 09:07 Influenza A (H1) PCR Not detected (NOT DETECT) 05/20/24 09:07 Influ A (H1/09) PCR Not detected (NOT DETECT) 05/20/24 09:07 Influenza A (H3) PCR Not detected (NOT DETECT) 05/20/24 09:07 Influenza Type A (PCR) Not detected (NOT DETECT) 05/20/24 09:07 Influenza Type B (PCR) Not detected (NOT DETECT) 05/20/24 09:07 M. pneumoniae (PCR) Not detected (NOT DETECT) 05/20/24 09:07 Parainfluenza 1 (PCR) Not detected (NOT DETECT) 05/20/24 09:07 Parainfluenza 2 (PCR) Not detected (NOT DETECT) 05/20/24 09:07 Parainfluenza 3 (PCR) Not detected (NOT DETECT) 05/20/24 09:07 Parainfluenza 4 (PCR) Not detected (NOT DETECT) 05/20/24 09:07 RSV Type A (PCR) Not detected (NOT DETECT) 05/20/24 09:07 RSV Type B (PCR) Not detected (NOT DETECT) 05/20/24 09:07 Entero/Rhino (PCR) Not detected (NOT DETECT) 05/20/24 09:07 SARS-CoV-2 (PCR) Not detected (NOT DETECT) 05/20/24 09:07 Beta-(1,3)-D-Glucan 120 pg/ml 05/20/24 18:36 B-(1,3)-D-Glucan Intrp Positive (Negative) A 05/20/24 18:36 Vitals Last Vital Signs Temp 97.8 F 05/24/24 07:53 Pulse 92 05/24/24 07:53 Resp 14 05/24/24 07:53 BP 104/40 05/24/24 07:53 Pulse Ox 96 05/24/24 07:53 O2 Del Method Nasal Cannula 05/24/24 07:53 O2 Flow Rate 3 05/24/24 07:32 FiO2 35 05/23/24 04:02 Discharge Plan Discharge Patient Disposition: Hospice - Home Condition: Stable Prescriptions: New furosemide 40 mg Tablet 40 mg PO BID@08,16 PRN (Reason: sob) Qty: 10 0RF amiodarone [Pacerone] 200 mg Tablet 200 mg PO BID Qty: 60 0RF Eliquis 5 mg Tablet 5 mg PO BID@0900,2100 Qty: 60 0RF Continued famotidine 40 mg Tablet 40 mg PO BID roflumilast 500 mcg Tablet 500 mcg PO DAILY aspirin 81 mg Tablet,Delayed Release (Dr/Ec) 81 mg PO DAILY Qty: 30 0RF prednisone 10 mg tablet See Taper PO DIRECTED Qty: 42 0RF Taper: predniSONE 60-10 60 mg Daily for 2 Days and 0 Hour 50 mg Daily for 2 Days and 0 Hour 40 mg Daily for 2 Days and 0 Hour 30 mg Daily for 2 Days and 0 Hour 20 mg Daily for 2 Days and 0 Hour 10 mg Daily for 2 Days and 0 Hour Rx Instructions: see taper instructions insulin lispro 100 unit/mL insulin pen See Protocol SUBCUT QPM Qty: 15 0RF Protocol: Insulin Corrective High-Dose Regimen Condition: Fingerstick Blood Glucose Dose/Route: Insulin Units Condition: 141-180 mg/dl Dose/Route: 2 units/SQ Condition: 181-220 mg/dl Dose/Route: 4 units/SQ Condition: 221-260 mg/dl Dose/Route: 6 units/SQ Condition: 261-300 mg/dl Dose/Route: 8 units/SQ Condition: 301-350 mg/dl Dose/Route: 10 units/SQ Condition: 351-400 mg/dl Dose/Route: 12 units/SQ Condition: greater than 400 mg/dl Dose/Route: 14 units/SQ guaifenesin 400 mg Tablet 400 mg PO QID PRN (Reason: Cough) albuterol sulfate 2.5 mg /3 mL (0.083 %) Solution For Nebulization 2.5 mg INHALATION Q6H PRN (Reason: Shortness Of Breath) modafinil 200 mg Tablet 400 mg PO QAM gabapentin 300 mg Capsule 600 mg PO TID albuterol sulfate 90 mcg/actuation Hfa Aerosol Inhaler 1 puff INHALATION Q4H PRN (Reason: Shortness Of Breath) cholecalciferol (vitamin D3) [Vitamin D3] 25 mcg (1,000 unit) Tablet 25 mcg PO DAILY Breztri Aerosphere 160-9-4.8 mcg/actuation Hfa Aerosol Inhaler 2 inh INHALATION BID multivitamin Tablet 1 tab PO DAILY hydrocodone-acetaminophen 5-325 mg tablet 1 tab PO Q6H PRN (Reason: Pain) fluticasone propionate 50 mcg/actuation [place],Suspension 1 spray INTRANASAL DAILY Rx Instructions: administer into each nostril Lactobacillus acidophilus 500 million cell Capsule 500 mmu cells PO DAILY Discontinued bumetanide 0.5 mg Tablet 1 mg PO BID 30 Days Qty: 60 0RF sacubitril-valsartan [Entresto] 24-26 mg Tablet 1 tab PO BID Discharge Orders: Discharge Order (Routine); Ordered 05/24/24 Ordered By: Sesar Gagnon Referrals: Jayda Lucas MD [Primary Care Provider] - Discharge Diet: Usual diet Discharge Activity: Resume usual activity Patient Instructions: Opioid Safety Activity Restrictions/Additional Instructions: Hospice Discharge Attestations Time Spent in Discharge Care*: greater than 30 min Status at Discharge: Cognitive status at discharge: cognitively intact, Behavioral status at discharge: cooperative, Quality Metrics Clinical Quality Measures [ No reported AMI, CVA or VTE this stay] Coding Level of Care Code Acute Code for Chg Fwd Diagnoses Acute on chronic hypoxic respiratory failure J96.21 Acute on chronic diastolic heart failure I50.33 S/P TAVR (transcatheter aortic valve replacement) Z95.2 Chronic atrial fibrillation I48.20 Elevated troponin R79.89
[2024-05-24] MEDS: aspirin 81 mg EC Tablet PO (08:34)
[2024-05-24] MEDS: amiodarone 200 mg Tablet PO (08:35)
[2024-05-24] MEDS: gabapentin 100 mg Capsule 200 MG PO (08:35)
[2024-05-24] MEDS: roflumilast 500 mcg Tablet PO (08:35)
[2024-05-24] MEDS: sennosides-docusate Tablet 1 TAB PO (08:35)
[2024-05-24] MEDS: FUROsemide 40 mg Tablet PO (08:35)
[2024-05-24] MEDS: apixaban 5 mg Tablet PO (08:35)
--- NOTE | 2024-05-24 09:16 | PC.NURSE ---
Aware of pt need to discharge by 929. PICC out and discharge completed. However, [facility] has no estimated time of arrival to pick pt up. Notified Daughter, Diana, with concerns. Diana states that she is unable to pick pt up because of concerns with transferring. Charge nurse, Ellyn CIFUENTES aware of situation.
[2024-05-24 11:28] LABS: Glucose Point of Care 330 mg/dL (70-110)
[2024-05-24 11:46] VITALS: BP 131/58; PULSE 100; RESP 17; TEMP 36.4; O2SAT 92
[2024-05-24 12:54] VITALS: BP 131/58; PULSE 100; RESP 17; TEMP 36.4; O2SAT 92
[2024-05-27 20:45] LABS: Amylase, Pleural Fluid <10 U/L
== END 2024-05-24 13:02 | disposition hospice, home (50) | DRG 280 ==
LOC: ER 19:45 → CSU 20:58 → ICU 05-21 05:34 → MEDSURG 05-23 15:06
PROVIDERS: Emergency Medicine; Student in an Organized Health Care Education/Training Program; Admitting Provider Family Medicine; Emergency Provider Physician Assistant; PCP Family Medicine; Visit Provider Student in an Organized Health Care Education/Training Program
DX: I11.0 Hypertensive heart disease with heart failure (principal); I50.23 Acute on chronic systolic (congestive) heart failure; I21.A1 Myocardial infarction type 2; J96.21 Acute and chronic respiratory failure with hypoxia; J96.22 Acute and chronic respiratory failure with hypercapnia; J44.1 Chronic obstructive pulmonary disease with (acute) exacerbation; I48.20 Chronic atrial fibrillation, unspecified; J90 Pleural effusion, not elsewhere classified; N39.0 Urinary tract infection, site not specified; I42.8 Other cardiomyopathies; I25.10 Atherosclerotic heart disease of native coronary artery without angina pectoris; E11.51 Type 2 diabetes mellitus with diabetic peripheral angiopathy without gangrene; I95.9 Hypotension, unspecified; Z66 Do not resuscitate; Z79.891 Long term (current) use of opiate analgesic; Z79.82 Long term (current) use of aspirin; Z79.4 Long term (current) use of insulin; Z79.52 Long term (current) use of systemic steroids; Z95.2 Presence of prosthetic heart valve; Z87.01 Personal history of pneumonia (recurrent); Z85.118 Personal history of other malignant neoplasm of bronchus and lung; Z92.25 Personal history of immunosuppression therapy; Z11.52 Encounter for screening for COVID-19; Z86.73 Personal history of transient ischemic attack (TIA), and cerebral infarction without residual deficits; Z87.891 Personal history of nicotine dependence
CPT/HCPCS: 32555; 36415; 36416; 36573; 36592; 36600; 51702; 71045; 71250; 80051; 80053; 80503; 81001; 82042; 82150; 82330; 82570; 82803; 82805; 82945; 82962; 83605; 83615; 83735; 83880; 83986; 84145; 84157; 84478; 84484; 85014; 85025; 85610; 85730; 86140; 87015; 87040; 87070; 87075; 87086; 87116; 87205; 87206; 87449; 87486; 87581; 87633; 87801; 88112; 88305; 89050; 93005; 93308; 93925; 94640; 94660; 94664; 96372; 96376; 99213; 99285; A9270; C1751; J0612; J0696; J1644; J1815; J2270; J2405; J2470; J2543; J2919; J3370; J3372; J3490; J7512; J7614; J7626; J7644; J7799